=== PATIENT | female | born 1985 | race Caucasian/White ===

== ENCOUNTER 2016-09-28 08:33 | Emergency (ER) | payer MEDICAID, OTHER ==
[~2016-09-28] VITALS: Ht 160 cm; Wt 116.1 kg
[~2016-09-28 08:33] MED LIST: ACHD5005 PO; BPR150TCR PO; BUTA-234 PO; CEPH250C PO; CEPH500C PO; DCL250C PO; DICY20TA57 PO; FERR325C PO; FLUC150T PO; FLUO20CA25 PO; FLUO20TA28 PO; HYDR-3714 PO; HYDR1CAP2 PO; HYDR1TAB PO; HYDR50TA3; IBP600T1 PO; INSU100V SQ; IRON; LABE100T2 PO; LEVO750T24 PO; LEVO750T6 PO; MTF500T PO; MTP50T; NAPR-243 PO; NITR100C3 PO; NPH,100V SQ; OMG1KC PO; ONDA8TAB13 PO; PHEN37.555 PO; PNV; PREN-102 PO; PREN1TAB39; PREN1TAB71 PO; PRM25T PO; SRTR100T PO; SULF-222 PO; TRAM50TA2 PO; TRM50T PO; VARE1TAB17 PO; VICODIN; WATER PILL; YAZ; percocet
--- OUTSIDE RECORDS SUMMARY | 2016-09-28 08:39 | XMS REPORT | Continuity of Care Document ---
Author Author Interface Organization Interface Address Unknown Phone Unavailable Problems Problem Status Onset Date Classification Date Reported Comments Source Gestational diabetes mellitus (disorder) Active Problem 07/13/2016 [facility]. History of calculus of kidney (situation) Active Problem 07/13/2016 [facility]. Gestational diabetes mellitus (disorder) Active Problem 07/09/2016 [facility]. History of calculus of kidney (situation) Active Problem 07/09/2016 [facility]. Persistent atrial fibrillation (disorder) 07/04/2016 Diagnosis 07/09/2016 [facility] Medications Medication Details Route Status Patient Instructions Ordering Provider Order Date Source No Known Medications No known medications Active [facility] Allergies, Adverse Reactions, Alerts Substance Category Reaction Severity Reaction type Status Date Reported Comments Source Tape Assertion Allergy to substance [facility] Tape Assertion Allergy to substance [facility] Immunizations Immunization Date Given Site Status Last Updated Comments Source No data available for this section No data available for this section [facility]. No data available for this section No data available for this section [facility]. Results Order Name Results Value Reference Range Date Interpretation Comments Source Vital Signs Vital Sign Value Date Comments Source Encounters Location Location Details Encounter Type Encounter Number Reason For Visit Attending Provider ADM Date DC Date Status Source [facility] [id number] Clinic ( Outpatient) [id number] . [facility] 07/09/2016 Active [facility] [id number] Inpatient [id number] Harvey Mcnamara 07/04/201605/2016 Active [facility] Cancel/ No Show [id number] . [facility] 07/09/2016 07/09/2016 [facility] Inpatient [id number] Harvey Mcnamara 07/04/2016 07/05/2016 [facility] Procedures Procedure Code Date Perfomer Comments Source No data available for this section [employer] [facility]. Cholecystectomy; 13876 [facility].
[2016-09-28 09:15] VITALS: BP 126/111
[2016-09-28] MEDS ORDERED: methylPREDNISolone 125 MG (Solu-MEDROL) VIAL IM ONE (09:15)
[2016-09-28] MEDS ORDERED: diphenhydrAMINE 50 MG/ML INJ (BENADRYL) IM ONE (09:15)
--- NOTE | 2016-09-28 09:15 | ED Integumentary General ---
General Chief Complaint: Skin/Wound Problems Stated Complaint: 16W PREG, HEAD TO TOE ITCHING Nursing Triage Note: AMB TO ROOM HAS HAD ITCHEY SKIN NO RASH SINCE SAT. 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 09/14/16 Allergies and Home Medications Allergies Coded Allergies: No Known Drug Allergies (Verified , 03/18/09) Uncoded Allergies: TAPE (Allergy, Mild, 03/28/09) TAPE ADHESIVE (Allergy, Mild, 04/06/09) Home Medications Labetalol HCl 100 Mg Tablet 100 MG PO BID (Reported) Vit/Iron Fumarate/FA 1 Each Tablet 1 EACH PO DAILY (Reported) Constitutional: no symptoms reported EENTM: no symptoms reported Respiratory: no symptoms reported Cardiovascular: no symptoms reported Gastrointestinal: no symptoms reported : Yes Expected Date of Delivery: Mar 13, 2017 Musculoskeletal: no symptoms reported Skin: see HPI pruritus Psychiatric/Neurological: No Symptoms Reported Endocrine: No Symptoms Reported Hematologic/Lymphatic: No Symptoms Reported Past Bnlaluh-Wnseok-Qgempd Hx Patient Social History Recent Foreign Travel: No Contact w/Someone Who Travel: No Recent Infectious Disease Expo: No Recent Hopitalizations: Yes (child-strep throat, gallstones, kidney stones) Immunizations Up To Date Tetanus Booster (TDap): Unknown PED Vaccines UTD: Yes Seasonal Allergies Seasonal Allergies: No Surgeries HX Surgeries: Yes Surgeries: Section Respiratory Hx Respiratory Disorders: No Cardiovascular Hx Cardiac Disorders: Yes Cardiac Disorders: Atrial Fibrillation Neurological Hx Neurological Disorders: Yes Neurological Disorders: Headaches /Migraines Reproductive System : Yes Hx Reproductive Disorders: Yes Sexually Transmitted Disease: No HIV/AIDS: No Female Reproductive Disorders: Polycystic Ovarian Dis Genitourinary Hx Genitourinary Disorders: No Gastrointestinal Hx Gastrointestinal Disorders: No Musculoskeletal Hx Musculoskeletal Disorders: No Endocrine Hx Endocrine Disorders: Yes (HAD GESTIONAL DIABETES) Endocrine Disorders: Diabetes, Insulin dep HEENT HX ENT Disorders: Yes (GLASSES) Cancer Hx Cancer: No Psychosocial Hx Psychiatric Problems: No Integumentary HX Skin/Integumentary Disorder: Yes Skin/Integumentary Disorders: Psoriasis Blood Transfusions Hx Blood Disorders: Yes (ANEMIA) Adverse Reaction to a Blood Tr: No Family Medical History Significant Family History: Cancer Family Medial History: Colon cancer G8 BROTHER, Onset:20 - Headache disorder 19 MOTHER No Family History of: AIDS Abdominal aortic aneurysm Enderlin's disease Alcoholism Alzheimer's disease Aphasia Arthritis Asthma Cancer of mouth Cardiovascular disease Cataracts Completed stroke Congenital disease Congenital heart disease Coronary thrombosis Cystic fibrosis Deafness or hearing loss Dementia Diabetes mellitus Drug abuse Dysphasia Fibrocystic disease of breast Gastroenteritis Glaucoma Hypercholesterolemia Hypertension Infertility Kidney disease Myocardial infarction Neoplasm Not obtainable due to adoption Osteoporosis Parkinson's disease Prostate cancer Psychosocial problem Respiratory disorder Seizure disorder Severe allergy Thyroid disease Tuberculosis Visual disorder Physical Exam Vital Signs Vital Sign - Last 12Hours 09/28/16 09/28/16 08:36 09:15 Temp 97.2 Pulse 102 Resp 18 B/P 126/111 Pulse Ox 98 O2 Delivery Room Air Capillary Refill : Less Than 3 Seconds General Appearance: no apparent distress obese other (CONSTANT SCRATCHING OF ENTIRE BODY) HEENT: PERRL/EOMI normal ENT inspection Neck: normal inspection Cardiovascular: regular rate, rhythm no edema no murmur Respiratory: normal breath sounds Gastrointestinal: non tender soft Back: normal inspection Extremities: normal inspection 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 no motor/sensory deficits alert normal mood/affect oriented x 3 Skin: normal color warm/dryNo rash Progress/Results/Core Measures Results/Orders My Orders Orders-MICHAEL WOODRUFF DO Diphenhydramine Injection (Benadryl Inje (09/28/16 09:15) Methylprednisolone Sod Succ (Solu-Medrol (09/28/16 09:15) Vital Signs/I&O Vital Sign - Last 12Hours 09/28/16 09/28/16 08:36 09:15 Temp 97.2 97.2 Pulse 102 102 Resp 18 18 B/P 126/111 Pulse Ox 98 O2 Delivery Room Air Blood Pressure Mean: 116 Departure Impression Impression: Primary Impression: Generalized pruritus Disposition: 01 HOME, SELF-CARE Condition: Stable Departure-Patient Inst. Referrals: [facility] (PCP/Family) Primary Care Physician Patient Instructions: Itchy Skin Add. Discharge Instructions: TAKE BENADRYL 50 MG EVERY 4 HOURS NEEDED FOR ITCHING HYDROCORTISONE CREAM TO SKIN 3 TIMES A DAY LOTS OF WATER STOP B-VITAMIN FOLLOW UP WITH [facility] IN 2-3 DAYS IF NO BETTER ll discharge instructions reviewed with patient and/or family. Voiced understanding. MICHAEL WOODRUFF DO Sep 28, 2016 09:15
== END 2016-09-28 09:30 | disposition home or self-care (01) ==
LOC: EDUNIT# 08:33 → ER 08:35
DX: O99.89 Other specified diseases and conditions complicating pregnancy, childbirth and the puerperium (principal); L29.9 Pruritus, unspecified; Z3A.16 16 weeks gestation of pregnancy
CPT/HCPCS: 96372; 99284

== ENCOUNTER 2016-10-02 12:48 | Emergency (ER) | payer MEDICAID ==
[~2016-10-02] VITALS: Ht 160 cm; Wt 102.1 kg
--- NOTE | 2016-10-02 13:26 | ED GU-Female ---
General Chief Complaint: -Female Stated Complaint: LEAKING FLUID 16 WKS PREG Nursing Triage Note: AMBULATED TO ROOM 09 WITH COMPLAINTS OF THINKING HER WATER BROKE. STATES SHE IS 17 WEEKS GESTATION AND FELT A LARGE "GUSH" OF CLEAR FLUID AND CONTINUES TO LEAK. Nursing Sepsis Screen: No Definite Risk Source: patient Exam Limitations: no limitations History of Present Illness Time seen by provider: 13:24 Initial Comments To ER with complains of leaking clear fluids from the vagina. She states she was walking when she felt a large gush of liquid from between her legs. She continues to leak fluid which she states is clear and without obvious blood. She is 17 weeks gestation LMP of June 07. She follows with Dr. Angeles. She reports that on Wednesday night and Wednesday she had some abdominal cramping that felt like contractions as it would tighten and then relax rhythmically. Yesterday, , she was asymptomatic without cramping or leakage of fluids. Currently she is without cramping or pain. Timing/Duration: constant Severity/Quality: moderate Location: unknown Radiation: suprapubic Activities at Onset: none Associated Symptoms: denies symptoms Allergies and Home Medications Allergies Coded Allergies: No Known Drug Allergies (Verified , 03/18/09) Uncoded Allergies: TAPE (Allergy, Mild, 03/28/09) TAPE ADHESIVE (Allergy, Mild, 04/06/09) Home Medications Cephalexin 500 Mg Capsule #15 500 MG PO TID Prescribed by: CARRIE CHAMBERLAIN on 10/02/16 1437 Labetalol HCl 100 Mg Tablet 100 MG PO BID (Reported) Vit/Iron Fumarate/FA 1 Each Tablet 1 EACH PO DAILY (Reported) Constitutional: see HPINo chills, No fever EENTM: see HPI Respiratory: no symptoms reported Cardiovascular: no symptoms reported Genitourinary: no symptoms reported Musculoskeletal: no symptoms reported Skin: no symptoms reported Psychiatric/Neurological: No Symptoms Reported Past Uvitfjg-Kjdfin-Jhylgq Hx Patient Social History Recent Foreign Travel: No Contact w/Someone Who Travel: No Recent Infectious Disease Expo: No Recent Hopitalizations: Yes (child-strep throat, gallstones, kidney stones) Immunizations Up To Date Tetanus Booster (TDap): Unknown PED Vaccines UTD: Yes Seasonal Allergies Seasonal Allergies: No Surgeries HX Surgeries: Yes Surgeries: Section Respiratory Hx Respiratory Disorders: No Cardiovascular Hx Cardiac Disorders: Yes Cardiac Disorders: Atrial Fibrillation Neurological Hx Neurological Disorders: Yes Neurological Disorders: Headaches /Migraines Reproductive System Hx Reproductive Disorders: Yes Sexually Transmitted Disease: No HIV/AIDS: No Female Reproductive Disorders: Polycystic Ovarian Dis Genitourinary Hx Genitourinary Disorders: No Gastrointestinal Hx Gastrointestinal Disorders: No Musculoskeletal Hx Musculoskeletal Disorders: No Endocrine Hx Endocrine Disorders: Yes (HAD GESTIONAL DIABETES) Endocrine Disorders: Diabetes, Insulin dep HEENT HX ENT Disorders: Yes (GLASSES) Cancer Hx Cancer: No Psychosocial Hx Psychiatric Problems: No Integumentary HX Skin/Integumentary Disorder: Yes Skin/Integumentary Disorders: Psoriasis Blood Transfusions Hx Blood Disorders: Yes (ANEMIA) Adverse Reaction to a Blood Tr: No Family Medical History Significant Family History: Cancer Family Medial History: Colon cancer G8 BROTHER, Onset:20 - 25 Headache disorder 19 MOTHER No Family History of: AIDS Abdominal aortic aneurysm [place]aranjito's disease Alcoholism Alzheimer's disease Aphasia Arthritis Asthma Cancer of mouth Cardiovascular disease Cataracts Completed stroke Congenital disease Congenital heart disease Coronary thrombosis Cystic fibrosis Deafness or hearing loss Dementia Diabetes mellitus Drug abuse Dysphasia Fibrocystic disease of breast Gastroenteritis Glaucoma Hypercholesterolemia Hypertension Infertility Kidney disease Myocardial infarction Neoplasm Not obtainable due to adoption Osteoporosis Parkinson's disease Prostate cancer Psychosocial problem Respiratory disorder Seizure disorder Severe allergy Thyroid disease Tuberculosis Visual disorder Physical Exam Vital Signs Vital Sign - Last 12Hours 10/02/16 13:00 Temp 96.2 Pulse 83 Resp 18 B/P 143/80 Pulse Ox 98 Capillary Refill : Less Than 3 Seconds General Appearance: WD/WN no apparent distress HEENT: PERRL/EOMI normal ENT inspection Neck: non-tender full range of motion Respiratory: no respiratory distress no accessory muscle use Gastrointestinal: normal bowel sounds non tender soft Extremities: normal range of motion non-tender Neurologic/Psychiatric: alert normal mood/affect oriented x 3 Skin: normal color warm/dry Comments No vaginal bleeding during ER stay. Progress/Results/Core Measures Results/Orders Lab Results Laboratory Tests Test 10/02/16 13:25 10/02/16 13:38 Range/Units Basophils # (Auto) 0.0 0.0-0.1 10^3/uL Basophils (%) (Auto) 0 0-10 % Eosinophils # (Auto) 0.1 0.0-0.3 10^3/uL Eosinophils (%) (Auto) 1 0-10 % Hematocrit 35 35-52 % Hemoglobin 11.6 11.5-16.0 G/DL Human Chorionic Gonadotropin, Quant 90394 H <5 MIU/ML Lymphocytes # (Auto) 1.8 1.0-4.0 X 10^3 Lymphocytes (%) (Auto) 17 12-44 % Mean Corpuscular Hemoglobin 27 25-34 PG Mean Corpuscular Hemoglobin Concent 33 32-36 G/DL Mean Corpuscular Volume 82 80-99 FL Mean Platelet Volume 10.5 H 7.4-10.4 FL Monocytes # (Auto) 0.4 0.0-1.0 X 10^3 Monocytes (%) (Auto) 4 0-12 % Neutrophils # (Auto) 8.5 H 1.8-7.8 X 10^3 Neutrophils (%) (Auto) 78 H 42-75 % Platelet Count 255 130-400 10^3/uL Red Blood Count 4.25 L 4.35-5.85 10^6/uL Red Cell Distribution Width 14.4 10.0-14.5 % White Blood Count 10.9 4.3-11.0 10^3/uL Urine Bacteria MODERATE H /HPF Urine Bilirubin NEGATIVE NEGATIVE Urine Calcium Oxalate Crystals RARE H /LPF Urine Casts NONE /LPF Urine Clarity SLIGHTLY CLOUDY Urine Color YELLOW Urine Crystals PRESENT H /LPF Urine Culture Indicated YES Urine Glucose (UA) NEGATIVE NEGATIVE Urine Ketones NEGATIVE NEGATIVE Urine Leukocyte Esterase 1+ H NEGATIVE Urine Mucus NEGATIVE /LPF Urine Nitrite NEGATIVE NEGATIVE Urine Protein NEGATIVE NEGATIVE Urine RBC NONE /HPF Urine RBC (Auto) NEGATIVE NEGATIVE Urine Specific [place] 1.030 H 1.016-1.022 Urine Squamous Epithelial Cells 10-25 H /HPF Urine Urobilinogen NORMAL NORMAL MG/DL Urine WBC 2-5 /HPF Urine pH 5 5-9 My Orders Orders-CARRIE CHAMBERLAIN DICTAPHONE TECHNICIAN Cbc With Automated Diff (10/02/16 13:14) Hcg,Quantitative (10/02/16 13:14) Abo Rh Type (10/02/16 13:14) Us Ob Preg Late(14-40wks)[id number] (10/02/16 13:14) Ua Culture If Indicated (10/02/16 13:31) Urine Culture (10/02/16 13:38) Vital Signs/I&O Vital Sign - Last 12Hours 10/02/16 13:00 Temp 96.2 Pulse 83 Resp 18 B/P 143/80 Pulse Ox 98 Blood Pressure Mean: 101 Diagnostic Imaging Diagonstic Imaging: Ultrasound Comments NAME: LAURY GALVIN [facility] REC#: [id number] PT STATUS: REG ER : 1985 PHYSICIAN: CARRIE CHAMBERLAIN APRN ADMIT DATE: 10/02/16/ER Draft Date of Exam:10/02/16 US OB PREG LATE(14-40WKS)[id number] INDICATION: patient, leaking fluid. OB sonography performed in the routine fashion. There is no prior study during this for comparison. FINDINGS: A single live intrauterine fetus is seen measuring 16 weeks 2 days by composite measurements. Sonographic EDC is 03/17/17. The fetus is in transverse presentation with head to maternal right. Amniotic fluid index is 8.0 cm. The placenta is posterior with no evidence of previa. heart rate is 165 beats per minute. IMPRESSION: Single live intrauterine fetus measuring 16 weeks 2 days by composite measurements. Amniotic fluid index is at low end of normal range at 8.0 cm. There is no other abnormal finding. Dictated on workstation # [id number] Dict: 10/02/16 1412 Trans: 10/02/16 1420 [facility] [id number] Interpreted by: MARY OGDEN MD Electronically signed by: Departure Communication Time/Spoke to Admitting Phy: 14:33 Communication I did attempt to notify Dr. Angeles of case/findings however she was not front sight attacher and would like me to call Dr. Figueroa. I then discussed with Dr. Figueroa. The nitrazine swab remains a yellowish color consistent with a pH of 5.5 which would be inconsistent with leakage of amniotic fluid. Dr. Figueroa recommends patient can be discharged and should return to the emergency room for any abdominal pain, cramping, bleeding or fevers. She should follow-up with Dr. Angeles next week. Impression Impression: Primary Impression: Intrauterine Additional Impression: Asymptomatic bacteriuria during Disposition: HOME, SELF-CARE Condition: Stable Decision to Admit Reason: Admit from ER (General) Decision to Admit/Date: Oct 02, 2016 Time/Decision to Admit Time: 14:35 Departure-Patient Inst. Decision time for Depature: 14:35 Referrals: [facility] (PCP/Family) Primary Care Physician Patient Instructions: NO INSTRUCTIONS GIVEN Add. Discharge Instructions: 1. Follow up with Dr Angeles next week 2. Return to ER for any concerns such as fevers, abdominal pain, vaginal bleeding, or worsening symptoms. All discharge instructions reviewed with patient and/or family. Voiced understanding. Scripts Cephalexin (Keflex)500 Mg [id number] Mg PO TID #15 CAP Prov:CARRIE CHAMBERLAIN DICTAPHONE TECHNICIAN 10/02/16 Copy Copies To 1: SURESH ANGELES PETER J APRN Oct 02, 2016 13:26
[2016-10-02 13:37] LABS: BASOPHILS % (AUTO) 0 % (0-10); EOSINOPHILS # (AUTO) 0.1 10^3/uL (0.0-0.3); EOSINOPHILS % (AUTO) 1 % (0-10); LYMPHOCYTES # (AUTO) 1.8 X 10^3 (1.0-4.0); LYMPHOCYTES % (AUTO) 17 % (12-44); MEAN CORPUSCULAR HEMOGLOBIN 27 PG (25-34); MEAN CORPUSCULAR HGB CONC 33 G/DL (32-36); MEAN CORPUSCULAR VOLUME 82 FL (80-99); MEAN PLATELET VOLUME 10.5 FL (7.4-10.4); MONOCYTES # (AUTO) 0.4 X 10^3 (0.0-1.0); MONOCYTES % (AUTO) 4 % (0-12); NEUTROPHILS # (AUTO) 8.5 X 10^3 (1.8-7.8); NEUTROPHILS % (AUTO) 78 % (42-75); PLATELET COUNT 255 10^3/uL (130-400); RED BLOOD COUNT 4.25 10^6/uL (4.35-5.85); RED CELL DISTRIBUTION WIDTH 14.4 % (10.0-14.5); WHITE BLOOD COUNT 10.9 10^3/uL (4.3-11.0)
[2016-10-02 13:47] LABS: BILIRUBIN,URINE NEGATIVE (NEGATIVE); KETONES,URINE NEGATIVE (NEGATIVE); LEUKOCYTE ESTERASE ,URINE 1+ (NEGATIVE); NITRITE,URINE NEGATIVE (NEGATIVE); PH,URINE 5 (5-9); PROTEIN,URINE NEGATIVE (NEGATIVE); UROBILINOGEN,URINE NORMAL (NORMAL)
[2016-10-02 13:56] LABS: CALCIUM OXALATE CRYSTALS,UR RARE /LPF
--- NOTE | 2016-10-02 14:20 | Diagnostic Imaging Report ---
INDICATION: patient, leaking fluid. OB sonography performed in the routine fashion. There is no prior study during this for comparison. FINDINGS: A single live intrauterine fetus is seen measuring 16 weeks 2 days by composite measurements. Sonographic EDC is 03/17/17. The fetus is in transverse presentation with head to maternal right. Amniotic fluid index is 8.0 cm. The placenta is posterior with no evidence of previa. heart rate is 165 beats per minute. IMPRESSION: Single live intrauterine fetus measuring 16 weeks 2 days by composite measurements. Amniotic fluid index is at low end of normal range at 8.0 cm. There is no other abnormal finding. Dictated by: Dictated on workstation # [id number]
[2016-10-02] MEDS ORDERED: CEPH-507 PO (14:37)
[2016-10-02 14:46] VITALS: BP 143/80
== END 2016-10-02 14:46 | disposition home or self-care (01) ==
LOC: EDUNIT# 12:48 → ER 12:50
DX: O23.42 Unspecified infection of urinary tract in pregnancy, second trimester (principal); Z3A.16 16 weeks gestation of pregnancy
CPT/HCPCS: 36415; 76805; 81000; 84702; 85025; 86900; 86901; 87088

== ENCOUNTER 2016-10-31 15:41 | Outpatient (CLI) | payer MEDICAID ==
[~2016-10-31] VITALS: Ht 160 cm; Wt 117.9 kg
[~2016-10-31 15:41] MED LIST changes: +CEPH-507 PO
[2016-10-31 16:00] VITALS: BP 108/67
[2016-10-31 16:51] LABS: BILIRUBIN,URINE NEGATIVE (NEGATIVE); KETONES,URINE NEGATIVE (NEGATIVE); LEUKOCYTE ESTERASE ,URINE NEGATIVE (NEGATIVE); NITRITE,URINE NEGATIVE (NEGATIVE); PH,URINE 6 (5-9); PROTEIN,URINE 1+ (NEGATIVE); UROBILINOGEN,URINE NORMAL (NORMAL)
[2016-10-31 17:07] LABS: SQUAMOUS EPITHELIAL CELL,UR >50 /HPF
[2016-10-31 17:08] LABS: CALCIUM OXALATE CRYSTALS,UR LARGE /LPF
[2016-10-31] MEDS ORDERED: DILT180C67 PO (17:08)
--- NOTE | 2016-10-31 18:12 | Diagnostic Imaging Report ---
INDICATION: Possible kidney stones. COMPARISON STUDY: CT scan of the abdomen from 2009. FINDINGS: Bilateral renal ultrasound demonstrates both kidneys to be of normal size, shape, texture and echogenicity. Flow is seen to both kidneys. No calculi or hydronephrosis is present. Right kidney measures 12.0 x 5.5 x 6.47 cm and the left measures 12.3 x 4.9 x 6.2 cm. The bladder is decompressed. IMPRESSION: Normal renal ultrasound. Dictated by: Dictated on workstation # [id number]
--- NOTE | 2016-11-02 10:59 | Physician Query-Final Dx ---
MARCO LAGOS 11/02/16 1059: Clinic Account Progress/Dx Physician Query: Please give diagnosis Date of Service Oct 31, 2016 at 15:41 DONG MAURER MD 11/03/16 1929: Clinic Account Progress/Dx DIAGNOSIS: Diagnosis Abdominal pain (left lower quadrant) in second trimester MARCO LAGOS Nov 02, 2016 10:59 DONG MAURER MD Nov 03, 2016 19:29
== END 2016-10-31 18:20 | disposition home or self-care (01) ==
LOC: LDRP 15:41 → WSo 15:41
PROVIDERS: ATTEND Obstetrics & Gynecology
DX: O99.89 Other specified diseases and conditions complicating pregnancy, childbirth and the puerperium (principal); R10.32 Left lower quadrant pain; Z3A.20 20 weeks gestation of pregnancy
CPT/HCPCS: 76770; 81000; 87088; 99213

== ENCOUNTER 2016-12-20 10:54 | Outpatient (CLI) | payer MEDICAID ==
[~2016-12-20] VITALS: Ht 160 cm; Wt 121.3 kg
[~2016-12-20 10:54] MED LIST changes: +DILT180C67 PO
[2016-12-20 11:31] VITALS: BP 132/73
[2016-12-20 11:42] LABS: BILIRUBIN,URINE NEGATIVE (NEGATIVE); KETONES,URINE NEGATIVE (NEGATIVE); LEUKOCYTE ESTERASE ,URINE 1+ (NEGATIVE); NITRITE,URINE NEGATIVE (NEGATIVE); PH,URINE 5 (5-9); PROTEIN,URINE 1+ (NEGATIVE); UROBILINOGEN,URINE 1 MG/DL (NORMAL)
[2016-12-20] MEDS ORDERED: NS IV 1000 ML 1,000 ML IV SCH (12:15)
--- NOTE | 2016-12-21 14:07 | Physician Query-Final Dx ---
MARCO LAGOS 12/21/16 1407: Clinic Account Progress/Dx Physician Query: Please give diagnosis Date of Service Dec 20, 2016 at 10:54 ANGELA CARVALHO DO 12/21/16 1644: Clinic Account Progress/Dx DIAGNOSIS: Diagnosis 28 week IUP Suprapubic pains MARCO LAGOS Dec 21, 2016 14:07 ANGELA CARVALHO DO Dec 21, 2016 16:44
== END 2016-12-20 14:52 | disposition home or self-care (01) ==
LOC: DELPENDDIS → WSo 10:54 → LDRP 10:54 → WSo 14:52
PROVIDERS: ATTEND Obstetrics & Gynecology
DX: O99.89 Other specified diseases and conditions complicating pregnancy, childbirth and the puerperium (principal); R10.2 Pelvic and perineal pain; Z3A.28 28 weeks gestation of pregnancy
CPT/HCPCS: 81000; 96360; 96361; 99214

== ENCOUNTER 2017-01-16 18:33 | Outpatient (CLI) | payer MEDICAID ==
[~2017-01-16] VITALS: Ht 160 cm; Wt 122.2 kg
[2017-01-16 18:57] VITALS: BP 129/69
[2017-01-16 19:16] LABS: BILIRUBIN,URINE NEGATIVE (NEGATIVE); KETONES,URINE NEGATIVE (NEGATIVE); LEUKOCYTE ESTERASE ,URINE NEGATIVE (NEGATIVE); NITRITE,URINE NEGATIVE (NEGATIVE); PH,URINE 6.5 (5-9); PROTEIN,URINE 1+ (NEGATIVE); UROBILINOGEN,URINE 4 MG/DL (NORMAL)
[2017-01-16 19:23] LABS: SQUAMOUS EPITHELIAL CELL,UR 25-50 /HPF; WBC,URINE RARE /HPF
[2017-01-16 19:32] VITALS: BP 126/55
[2017-01-16 20:02] VITALS: BP 126/69
[2017-01-16] MEDS ORDERED: CEPH-507 PO (20:29)
--- NOTE | 2017-01-16 20:31 | Diagnostic Imaging Report ---
EXAM: Ultrasound biophysical profile. DATE: January 16, 2017. INDICATION: 31-year-old female, decreased movement. COMPARISON: October 02, 2016. FINDINGS: heart rate is identified at 143 beats per minute. The amniotic fluid index measures 19.8. The biophysical profile score obtained by the cath lab technologist is 8 out of 8. The fetus is in transverse presentation. IMPRESSION: Biophysical profile score of 8 out of 8 obtained by the cath lab technologist. Dictated by: Dictated on workstation # [id number]
[2017-01-19 10:19] LABS: CHLAMYDIA DNA PROBE PT Negative (Negative); NEISSERIA GONORRHEA DNA Negative (Negative)
--- NOTE | 2017-01-19 10:45 | Physician Query-Final Dx ---
MARCO LAGOS 01/19/17 1045: Clinic Account Progress/Dx Physician Query: Please give diagnosis Date of Service Jan 16, 2017 at 18:33 DONG MAURER MD 01/19/17 1153: Clinic Account Progress/Dx DIAGNOSIS: Diagnosis Decreased movement (third trimester), abdominal pain in , urinary frequency MARCO LAGOS Jan 19, 2017 10:45 DONG MAURER MD Jan 19, 2017 11:53
== END 2017-01-16 20:35 | disposition home or self-care (01) ==
LOC: LDRP 18:33 → WSo 18:33
PROVIDERS: ATTEND Obstetrics & Gynecology
DX: O36.8130 Decreased fetal movements, third trimester, not applicable or unspecified (principal); R35.0 Frequency of micturition; Z3A.32 32 weeks gestation of pregnancy
CPT/HCPCS: 36415; 76819; 81000; 87210; 87491; 87591; 99214

== ENCOUNTER → 2017-02-03 | Outpatient (CLI) | payer MEDICAID ==
--- NOTE | 2017-02-03 17:08 | Diagnostic Imaging Report ---
INDICATION: Gestational diabetes. Biophysical profile in addition to OB ultrasound followup is performed. TECHNIQUE: Multiple real-time grayscale images were obtained over the gravid uterus. COMPARISON: 01/16/17. FINDINGS: heart rate is 163 beats per minute. The placenta is fundal. No placenta previa. The amniotic fluid index is 16 cm. Biophysical profile evaluation demonstrates movements and posture and tone meeting criteria. breathing movements not seen, however. Therefore, total biophysical profile score is 6/8. Biometrical measurements are as follows: Biparietal 8.7 cm, age 35 weeks 3 days. Head circumference 32 cm, age 36 weeks 1 days. Abdominal circumference 34.5 cm, age 38 weeks 3 days. This is larger than the 98th percentile. Femur length 6.7 cm, age 34 weeks 6 days. Sonographic estimate age: 36 weeks 2 days. This compares to a gestational age of 34 weeks and 4 days based on assigned NILESH of 03/13/17. Sonographic estimated date of delivery: 03-01-17. Estimated Weight: 3068 gm (+/- +/- 448 gm). LMP percentile: 96%. heart rate: 163 beats per minute. number: 1 of 1. IMPRESSION: 1. Biophysical profile score is 6/8. No breathing motion is seen. 2. Growth parameters are as listed above. The abdominal circumference is larger than the 98th percentile. Results of biophysical profile score were called on February 03, at 5:[address] Haven Jeffries. Dictated by: Dictated on workstation # [id number]
== END ==
LOC: RAD 11:22
PROVIDERS: ATTEND Obstetrics & Gynecology
DX: O24.414 Gestational diabetes mellitus in pregnancy, insulin controlled (principal); Z3A.36 36 weeks gestation of pregnancy
CPT/HCPCS: 76805; 76819

== ENCOUNTER 2017-02-17 13:50 | Outpatient (CLI) | payer MEDICAID ==
[2017-02-17] VITALS (8 sets, daily range): BP systolic 122–140; BP diastolic 68–81
[~2017-02-17] VITALS: Ht 160 cm; Wt 123.4 kg
[2017-02-17 14:39] LABS: KETONES,URINE NEGATIVE (NEGATIVE); LEUKOCYTE ESTERASE ,URINE 2+ (NEGATIVE); NITRITE,URINE NEGATIVE (NEGATIVE); PH,URINE 5 (5-9); PROTEIN,URINE 1+ (NEGATIVE); UROBILINOGEN,URINE 4 MG/DL (NORMAL)
[2017-02-17 14:57] LABS: BILIRUBIN,URINE 1+ (NEGATIVE); CALCIUM OXALATE CRYSTALS,UR RARE /LPF; URIC ACID CRYSTALS,URINE MODERATE /LPF
[2017-02-17] MEDS ORDERED: D5 LR IV SOLUTION 1,000 ML IV SCH (15:06)
[2017-02-17] MEDS ORDERED: CEPH-506 PO (15:13)
[2017-02-17] MEDS ORDERED: ONDANSETRON 4 MG/2 ML (SDV) Z0FRAN IVP NR (15:15)
[2017-02-17] MEDS ORDERED: D5 LR IV SOLUTION 1,000 ML IV ONE (15:15)
[2017-02-17 15:53] LABS: MEAN PLATELET VOLUME 10.6 FL (7.4-10.4); RED BLOOD COUNT 4.09 10^6/uL (4.35-5.85); RED CELL DISTRIBUTION WIDTH 16.1 % (10.0-14.5); WHITE BLOOD COUNT 10.2 10^3/uL (4.3-11.0)
[2017-02-17 15:54] LABS: PROTEIN/CREATININE RATIO 0.08
[2017-02-17 16:16] LABS: ALANINE AMINOTRANSFERASE < 6 U/L (0-55); ALBUMIN 3.1 G/DL (3.2-4.5); ANION GAP 8 MMOL/L (5-14); ASPARTATE AMINO TRANSFERASE 7 U/L (5-34); BILIRUBIN,TOTAL 0.4 MG/DL (0.1-1.0); BLOOD UREA NITROGEN 7 MG/DL (7-18); BUN/CREATININE RATIO 12; CALCIUM 9.3 MG/DL (8.5-10.1); CARBON DIOXIDE 23 MMOL/L (21-32); CHLORIDE 108 MMOL/L (98-107); CREATININE SERUM 0.58 MG/DL (0.60-1.30); GFR ESTIMATED > 60; GLUCOSE 101 MG/DL (70-105); LACTATE DEHYDROGENASE 141 U/L (125-220); POTASSIUM 3.8 MMOL/L (3.6-5.0); SODIUM 139 MMOL/L (135-145); TOTAL PROTEIN 6.3 G/DL (6.4-8.2); URIC ACID 5.5 MG/DL (2.6-7.2)
--- NOTE | 2017-02-17 17:01 | Diagnostic Imaging Report ---
EXAMINATION: Left lower extremity duplex venous ultrasound. TECHNIQUE: DVT protocol. Multiple sonographic images with color Doppler and waveform interrogation were performed of the left lower extremity veins with compression and augmentation maneuvers. INDICATION: Left leg throbbing pain. FINDINGS: The left lower extremity veins from the groin to below the knee veins were examined with normal color-flow, compressibility and waveform demonstrated. The great saphenous vein is patent. IMPRESSION: No evidence of DVT in the left lower extremity. Dictated by: Dictated on workstation # [id number]
--- NOTE | 2017-02-18 09:49 | Physician Query-Final Dx ---
MARCO LAGOS 02/18/17 0949: Clinic Account Progress/Dx Physician Query: Please give diagnosis Date of Service February 17, 2017 at 13:50 DONG MAURER MD 03/02/17 0859: Clinic Account Progress/Dx DIAGNOSIS: Diagnosis Leg pain in MARCO LAGOS February 18, 2017 09:49 DONG MAURER MD Mar 02, 2017 08:59
== END 2017-02-17 17:12 | disposition home or self-care (01) ==
LOC: LDRP 13:50 → WSo 13:50
PROVIDERS: ATTEND Obstetrics & Gynecology
DX: O99.89 Other specified diseases and conditions complicating pregnancy, childbirth and the puerperium (principal); M79.605 Pain in left leg; Z3A.36 36 weeks gestation of pregnancy
CPT/HCPCS: 36415; 80053; 81000; 82570; 83615; 84156; 84550; 85027; 87088; 96361; 96374; 99213

== ENCOUNTER 2017-02-23 08:27 | Outpatient (RCR) | payer MEDICAID ==
--- NOTE | 2017-02-09 18:21 | Diagnostic Imaging Report ---
EXAM: OB ultrasound biophysical profile. INDICATION: 024.414 FINDINGS: The heart rate is 135 beats per minute. The position is breech. Total DELFINO is 17 cm. Biophysical profile criteria were met with total score of 8 out of 8. IMPRESSION: Biophysical profile score is 8 out of 8. Dictated by: Dictated on workstation # [id number]
--- NOTE | 2017-02-16 11:20 | Diagnostic Imaging Report ---
EXAMINATION: OB ultrasound, biophysical profile. INDICATION: Gestational diabetes. FINDINGS: The heart rate is 153 BPM. The position is cephalic. The DELFINO is 18.1 cm. The biophysical profile criteria were met for movements and the posterior but not for breathing movements for a total score of 6 out of 8 points. IMPRESSION: The total biophysical profile score is 6 out of 8. The findings were called to Dr. Jeffries's nurse, Colby, by the principal technologist performing the exam at 10 AM. Dictated by: Dictated on workstation # [id number]
[~2017-02-23 08:27] MED LIST changes: -FERR-74 PO; -METF1000 PO
[2017-02-24] MEDS ORDERED: METF1000 PO (12:08)
[2017-02-24] MEDS ORDERED: FERR-74 PO (12:09)
[2017-02-24] MEDS ORDERED: NPH,100V SQ (12:12)
[2017-03-02] MEDS ORDERED: DOCU100C37 PO (13:05)
[2017-03-02] MEDS ORDERED: IBUP-1773 PO (13:05)
[2017-03-02] MEDS ORDERED: HYDR-3812 PO (13:05)
== END 2017-05-10 | disposition home or self-care (01) ==
LOC: RAD 08:27
PROVIDERS: ATTEND Obstetrics & Gynecology
DX: O24.414 Gestational diabetes mellitus in pregnancy, insulin controlled (principal)
CPT/HCPCS: 76819

== ENCOUNTER → 2017-02-23 | Outpatient (CLI) | payer MEDICAID ==
[~2017-02-23] MED LIST changes: +CEPH-506 PO; +FERR-74 PO; +METF1000 PO
--- NOTE | 2017-02-23 10:32 | Diagnostic Imaging Report ---
INDICATION: Maternal gestational diabetes followup. TECHNIQUE: Multiple real-time grayscale images were obtained over the gravid uterus. COMPARISON: 02/16/2017. FINDINGS: Single live intrauterine is again demonstrated at 40 weeks 0 days by sonographic measurements. EDC by the first ultrasound is 03/13/2017. Gestational age by the first ultrasound is 37 weeks 3 days. Recommend clinical correlation for 2.5 week date discrepancy. presentation is cephalic. Placenta is located posteriorly with no placenta previa. heart rate measures 142 beats per minute. No movement was identified during the exam. There is normal breathing, posture and tone, and a normal amniotic fluid index for a biophysical profile score of 6/8, unchanged from previous exam. Amniotic fluid index measures 19 cm. Biparietal diameter measures 9.34 cm. Head circumference measures 35.5 cm. Abdominal circumference measures 36.1 cm. Femur length measures 7.7 cm. Biometrical measurements are as follows: Biparietal 9.3 cm, age 38 weeks 1 days. Head circumference 35.5 cm, age 41 weeks 5 days. Abdominal circumference 36.1 cm, age 40 weeks 1 days. Femur length 7.7 cm, age 39 weeks 4 days. Sonographic estimate age: 40 weeks 0 days. Sonographic estimated date of delivery: 02/23/17. Estimated Weight: 3897 gm (+/- 569 gm). LMP percentile: 97%. heart rate: 142 beats per minute. number: 1 of 1. IMPRESSION: 1. Single live intrauterine with no movement identified during the exam for biophysical profile score of 6/8, unchanged in overall score from the previous exam. 2. 2.5 week date discrepancy given measurements from the first ultrasound. Recommend clinical correlation. Dictated by: Dictated on workstation # [id number]
== END ==
LOC: RAD 08:23
PROVIDERS: ATTEND Obstetrics & Gynecology
DX: O24.414 Gestational diabetes mellitus in pregnancy, insulin controlled (principal)
CPT/HCPCS: 76805; 76819

== ENCOUNTER 2017-02-24 11:36 | Outpatient (CLI) | payer MEDICAID ==
[~2017-02-24] VITALS: Ht 160 cm; Wt 122.5 kg
[2017-02-24] MEDS ORDERED: METF1000 PO (12:08)
[2017-02-24] MEDS ORDERED: FERR-74 PO (12:09)
[2017-02-24] MEDS ORDERED: NPH,100V SQ (12:12)
[2017-02-24] MEDS ORDERED: LACTATED RINGERS 1,000 ML IV SCH (13:00)
[2017-02-24] MEDS ORDERED: FAMOTIDINE 20MG/2ML IV (PEPCID) ONE (13:21)
[2017-02-24] MEDS ORDERED: FAMOTIDINE 20MG/2ML IV (PEPCID) IVP ONE (13:30)
--- NOTE | 2017-02-24 13:35 | History & Physical-OB ---
OB - Chief Complaint & HPI Date Date of Admission: Date of Admission: Chief Complaint/History OB-Reason for Admission/Chief: Hx : 6 Hx Para: 2 Gestational Age in Weeks: 37 Gestational Age in Days: 4 Other reason for admission: 31 y/o @ 37w4d here for cramping Reports ctx starting last night, every 5-10 mins Also with epigastric pain, reports has GERD and takes PNV which was especially for women with GERD but no other meds for this No other symptoms, feels fatigued and pressure but otherwise doing well Fetus is active, no LOF VB c/b class III obesity (BMI 47), h/o CD x 2, GDM on insulin, DELFINO 19cm and LGA fetus (4000g) managed by Dr. Jeffries History of Labs See history Allergies and Home Medications Allergies Coded Allergies: No Known Drug Allergies (Verified , 03/18/09) Uncoded Allergies: TAPE (Allergy, Mild, 03/28/09) TAPE ADHESIVE (Allergy, Mild, 04/06/09) Home Medications Cephalexin 500 Mg Capsule, 500 MG PO QID for 7 Days Prescribed by: NICOLE REED on 01/16/172028 Ferrous Sulfate 325 Mg Tablet, 325 MG PO DAILY, (Reported) Insulin NPH Human Isophane 100 Unit/1 Ml Vial, 15 UNIT SQ HS, (Reported) Metformin HCl 1,000 Mg Tablet, 1,000 MG PO BID, (Reported) Vit/Iron Fumarate/FA 1 Each Tablet, 1 EACH PO DAILY, (Reported) OB - History Hx of Present Care: Yes Ultrasounds: Abnormal US findings (LGA fetus) Obstetrical Complications: Gestational Diabetes Medical Complications: Other (class III obesity) Information Induced Hypertension: No Maternal Gestational Diabetes: No Hemorrhage: No Obstetrical History Hx : 6 Hx Para: 2 Hx Termination: No Hx Multiple Gestation: No Hx Stillbirth: No Hx Complication: No Hx Induced Hypertens: No Hx Maternal Gestational Diabet: Yes Delivery History Hx Dystocia: No Hx Large For Gestational Age I: No Hx Small for Gestational Age I: No Hx Section: Yes Hx Vaginal Delivery Post C-Sec: No Hx Blood Disorders: Yes (ANEMIA) Adverse Rxn to Tranfusion: No Patient Past Medical History see above Social History/Family History HIV/AIDS: No Recent Infectious Disease Expo: No Sexually Transmitted Disease: No Immunizations Hepatitis A: No Hepatitis B: No Tetanus Booster (TDap): Unknown Date of Influenza Vaccine: Aug 13, 2016 OB - Admission Exam Physical Exam Vitals: BP 128/73 pulse 80s Heart: Rhythm Normal Abdomen: Other (with ctx, palpate mild) Cervical Dilatation: None Effacement: 50% Station: Ballotable Membranes: Intact (nitrazine neg) Heart Rate: 140's Accelerations: Accelerations Present Decelerations: No Decelerations Short Term Variability: Present Product Marketing Consultant Variability: Average (6-25) Contractions on Admission: < 5 Minutes Apart (likely uterine irritability) OB - Assessment/Plan/Diagnosis Plan Other Plan 31 y/o @ 37w4d with contractions/cramping H/o CD x 2 Class III obesity LGA fetus, GDM on insulin Will observe x one hour. Bolus 1L LR. If unchanged, d/c home. Discussed return precautions including LOF, VB, stronger ctx, incisional pain, decreased movement or other concerns. Counseled by myself with RN in room. DONG MAURER MD February 24, 2017 13:35
[2017-02-24 14:46] VITALS: BP 120/65
[2017-02-24 15:04] VITALS: BP 120/65
== END 2017-02-24 15:04 | disposition home or self-care (01) ==
LOC: WSo 11:36 → LDRP 11:36 → WSo 15:04
PROVIDERS: ATTEND Obstetrics & Gynecology
DX: O24.419 Gestational diabetes mellitus in pregnancy, unspecified control (principal); O99.213 Obesity complicating pregnancy, third trimester; E66.9 Obesity, unspecified; O99.63 Diseases of the digestive system complicating the puerperium; K21.9 Gastro-esophageal reflux disease without esophagitis; O36.63X0 Maternal care for excessive fetal growth, third trimester, not applicable or unspecified; Z79.4 Long term (current) use of insulin; Z68.42 Body mass index [BMI] 45.0-49.9, adult; Z3A.37 37 weeks gestation of pregnancy
CPT/HCPCS: 96361; 96374; 99214

== ENCOUNTER 2017-03-02 08:25 | Inpatient (IN) | payer MEDICAID ==
[~2017-03-02] VITALS: Ht 160 cm; Wt 123.0 kg
[~2017-03-02 08:25] MED LIST changes: +FERR-74 PO; +METF1000 PO
[2017-03-02 08:40] VITALS: BP 138/83
[2017-03-02] MEDS ORDERED: CITRIC ACID/SOB CIT (BICITRA) 30 ML UDC PO ONE (09:30)
[2017-03-02] MEDS ORDERED: FAMOTIDINE 20MG/2ML IV (PEPCID) IV ONE (09:30)
[2017-03-02] MEDS ORDERED: METOCLOPRAMIDE INJ 10 MG/2 ML (REGLAN) IV ONE (09:30)
[2017-03-02] MEDS ORDERED: ceFAZolin INJECTION 1,000 MG in NS (IVPB) 50 ML IV ONE (09:30)
[2017-03-02] MEDS ORDERED: metroNIDAZOLE 500MG/100ML IVPB 100 ML IV ONE (09:30)
[2017-03-02 09:34] LABS: BASOPHILS % (AUTO) 0 % (0-10); EOSINOPHILS # (AUTO) 0.1 10^3/uL (0.0-0.3); EOSINOPHILS % (AUTO) 1 % (0-10); LYMPHOCYTES # (AUTO) 1.6 X 10^3 (1.0-4.0); LYMPHOCYTES % (AUTO) 17 % (12-44); MEAN CORPUSCULAR HEMOGLOBIN 25 PG (25-34); MEAN CORPUSCULAR HGB CONC 32 G/DL (32-36); MEAN CORPUSCULAR VOLUME 78 FL (80-99); MEAN PLATELET VOLUME 10.9 FL (7.4-10.4); MONOCYTES # (AUTO) 0.4 X 10^3 (0.0-1.0); MONOCYTES % (AUTO) 4 % (0-12); NEUTROPHILS % (AUTO) 77 % (42-75); PLATELET COUNT 298 10^3/uL (130-400); RED BLOOD COUNT 4.45 10^6/uL (4.35-5.85); RED CELL DISTRIBUTION WIDTH 17.4 % (10.0-14.5); WHITE BLOOD COUNT 9.1 10^3/uL (4.3-11.0)
[2017-03-02] MEDS ORDERED: NS (IVPB) 50 ML ONE (09:37)
[2017-03-02] MEDS ORDERED: ceFAZolin 1,000 MG (ANCEF) VIAL ONE (09:37)
[2017-03-02 09:53] VITALS: BP 135/73
[2017-03-02 10:11] LABS: KETONES,URINE 2+ (NEGATIVE); LEUKOCYTE ESTERASE ,URINE 2+ (NEGATIVE); NITRITE,URINE NEGATIVE (NEGATIVE); PH,URINE 5 (5-9); PROTEIN,URINE 1+ (NEGATIVE); UROBILINOGEN,URINE 4 MG/DL (NORMAL)
[2017-03-02 10:32] LABS: BILIRUBIN,URINE 1+ (NEGATIVE); CALCIUM OXALATE CRYSTALS,UR MODERATE /LPF; WBC,URINE 0-2 /HPF
--- NOTE | 2017-03-02 11:28 | Progress Note-Pre Operative ---
Pre-Operative Progress Note H&P Reviewed The H&P was reviewed, patient examined and no changes noted. Date Seen by Provider: Mar 02, 2017 Time Seen by Provider: : Date H&P Reviewed: Mar 02, 2017 Time H&P Reviewed: : Pre-Operative Diagnosis: Previous section, atrial fibrillation, contractions, GDMA2, SURESH ANGELES DO Mar 02, 2017 11:28
[2017-03-02] MEDS ORDERED: PHENYLEPHRINE 100 MCG/ML 10 ML (ANESTHESIA) SYR ONE (12:31)
[2017-03-02] MEDS ORDERED: DEXAMETHASONE PF 10 MG/ML (DECADRON) VIAL ONE (12:31)
[2017-03-02] MEDS ORDERED: ONDANSETRON 4 MG/2 ML (SDV) Z0FRAN ONE (12:31)
[2017-03-02] MEDS ORDERED: fentaNYL INJECTION 100 MCG/2 ML AMP ONE (12:31)
[2017-03-02] MEDS ORDERED: OXYTOCIN/NORMAL SALINE 1,000 ML IV ONE (12:31)
[2017-03-02] MEDS ORDERED: D5 LR IV SOLUTION 1,000 ML IV SCH (12:52)
[2017-03-02] MEDS ORDERED: OXYTOCIN/NORMAL SALINE 500 ML IV SCH (12:52)
[2017-03-02] MEDS ORDERED: ONDANSETRON 4 MG/2 ML (SDV) Z0FRAN IVP PRN (13:00)
[2017-03-02] MEDS ORDERED: HYDROmorphone (DILAUDID) 2 MG/ML VIAL IVP PRN (13:00)
[2017-03-02] MEDS ORDERED: MEASLES,MUMPS,RUBELLA 1 EA INJ SC SCH (13:00)
[2017-03-02] MEDS ORDERED: TETANUS,DIPTH,PERTUSS P/F (BOOSTRIX) 0.5 ML VIAL IM SCH (13:00)
[2017-03-02] MEDS ORDERED: DILTIAZEM 180 MG (CARDIZEM CD) CAP PO PRN (13:00)
--- NOTE | 2017-03-02 13:02 | Cesarean Section Operative ---
Procedure Procedure Note Pre-operative Diagnosis: Pauly Jacobs is a 31 /Para 6 /2 , Gestational Age 38 4/7 weeks, previous cs x 2, h/o atrial fibrillation with more frequent episodes, GDMA2, Contractions, LGA, polyhydramnios Post-operative Diagnosis: same, true knot in the cord, cord prolapse with the uterine incision due to polyhydramnios, LGA fetus Procedure: Repeat low transverse section Physician: SURESH ANGELES Clearance Representative: Nicole Reeves APRN reproductive healthcare assistant is necessary to assist in the retraction of vital structures and delivery of the fetus. Without an reproductive healthcare assistant the procedure could not be completed. Estimated blood loss: 300 mL Disposition: stable Findings: Viable male infant, Apgars 3/9, weight 8#14oz, intact placenta, 3vc, normal appearing uterus, tubes, and ovaries. Indications:Pauly Jacobs is a 31 /Para 6 /2 ,Gestational Age 38 4/7 weeks, previous cs x 2, h/o atrial fibrillation with more frequent episodes, GDMA2, Contractions, LGA, polyhydramnios who presents for repeat section Procedure Details: The patient was seen in pre-op and the procedure was discussed with the patient in full, including the risks, benefits, and alternatives. All questions were answered. The patient was taken to the operating room and a time out was performed, verifying patient and procedure. After spinal anesthesia was placed by our anesthesia colleagues, the patient was placed in the dorsal supine with leftward tilt for uterine displacement.~ Her abdomen was then prepped and draped in the typical sterile fashion. A Pfannenstiel skin incision was made using a scalpel and carried down through the underlying fascia. The fascia was incised in the midline and tented up using Jasper clamps. On both the inferior and superior fascia side the rectus muscle was dissected off bluntly and sharply using Masterson scissors. The peritoneum was identified and entered bluntly in the midline. This was then stretched laterally using manual strength. After entering the abdominal cavity and confirming lack of intraperitoneal adhesions, a large Norbert retractor was placed and the lower uterine segment was visualized. A bladder flap was created with the use of Metzenbaum scissors.~ A scalpel was utilized to make a low transverse uterine incision. Amniotomy was performed with an Allis clamp with return of clear fluid. The infant's head was grasped and brought to the level of the incision. Fundal pressure was applied and was delivered without difficulty. Mouth and nares were suctioned with bulb suction. After the umbilical cord was clamped and cut, the was handed off to the pediatric staff. A sample of cord blood was then obtained. The placenta was delivered intact via uterine massage. The uterus was exteriorized and cleared of all clots and debris. The uterine incision was closed using 0 Vicryl in a running locked fashion. A second imbricated layer was placed using 0 Vicryl in a running fashion as well. The uterus was flexed forward and the posterior rectouterine space was inspected and cleared of all clots and debris. Again the hysterotomy site was examined and hemostasis was observed. The bilateral tubes and ovaries appeared normal. The uterus was placed back into the abdominal cavity and abdominal gutters were cleared of all clots and debris. A final check of the uterine incision showed it to be hemostatic. The peritoneum was closed using 3-0 Vicryl in a running fashion. The fascia was closed with 0 Vicryl in a running fashion. The subcutaneous space was hemostatic, and irrigated. The subcutaneous space was closed with 3-0 Vicryl in several single interrupted stitches. The skin was then closed using 4- 0 Monocryl in a running subcuticular fashion. The skin edges were reapproximated together and were hemostatic. A pressure dressing was applied. All sponge, lap and needle counts were correct at the end of the procedure per nursing. Vitals - Labs Labs Laboratory Tests 03/02/17 08:58: Glucometer 102 03/02/17 09:10: White Blood Count 9.1, Red Blood Count 4.45, Hemoglobin 11.0L, Hematocrit 35, Mean Corpuscular Volume 78L, Mean Corpuscular Hemoglobin 25, Mean Corpuscular Hemoglobin Concent 32, Red Cell Distribution Width 17.4H, Platelet Count 298, Mean Platelet Volume 10.9H, Neutrophils (%) (Auto) 77H, Lymphocytes (%) (Auto) 17, Monocytes (%) (Auto) 4, Eosinophils (%) (Auto) 1, Basophils (%) (Auto) 0, Neutrophils # (Auto) 7.0, Lymphocytes # (Auto) 1.6, Monocytes # (Auto) 0.4, Eosinophils # (Auto) 0.1, Basophils # (Auto) 0.0 6/6/17 10:00: Urine Color BROWNH, Urine Clarity VERY CLOUDYH, Urine pH 5, Urine Specific [place] 1.030H, Urine Protein 1+H, Urine Glucose (UA) NEGATIVE, Urine Ketones 2+ H, Urine Nitrite NEGATIVE, Urine Bilirubin 1+H, Urine Urobilinogen 4H, Urine Leukocyte Esterase 2+H, Urine RBC (Auto) NEGATIVE, Urine RBC 0-2, Urine WBC 0-2 , Urine Squamous Epithelial Cells 10-25H, Urine Crystals PRESENTH, Urine Calcium Oxalate Crystals MODERATEH, Urine Amorphous Sediment LARGE ENEDELIA URATESH , Urine Bacteria FEWH, Urine Casts NONE, Urine Mucus NEGATIVE, Urine Culture Indicated NO SURESH ANGELES DO Mar 02, 2017 13:02
[2017-03-02] MEDS ORDERED: IBUP-1773 PO (13:05)
[2017-03-02] MEDS ORDERED: HYDR-3812 PO (13:05)
[2017-03-02] MEDS ORDERED: DOCU100C37 PO (13:05)
--- NOTE | 2017-03-02 13:08 | Discharge Inst-Women's Service ---
Discharge Inst-Women's Serv Depart Medication/Instructions New, Converted or Re-Newed RX: RX on Chart Final Diagnosis previous section GDM A2 paroxysmal atrial fibrillation, recent increase in episodes large for gestational age/macrosomia polyhydramnios antepartum and acute blood loss anemia Consults/Follow Up Additional Follow Up: Yes (1 week for incision check with Eric, 6 week pp exam (needs glucose testing at that time)) Activity Activity: Activity as Tolerated Driving Instructions: No Driving for 1 Week NO SMOKING: NO SMOKING Nothing Inside Vagina: No Douching, No Windber, No Tampons Diet Discharge Diet: No Restrictions Symptoms to Report to : Bleeding Excessive, Pain Increased, Fever Over 101 Degrees F, Vaginal Bleeding Increase, Lightheadedness, Pain/Pressure in Shoulder , Vaginal Discharge Foul For Any Problems or Questions: Contact Your Physician Skin/Wound Care Infection Signs and Symptoms: Increased Redness, Foul Odor of Wound, Increased Drainage, Skin Itchy or Has a Rash, Increased Swelling, Temperature Above 101 F Operative Area Clean and Dry: Keep Incision Clean/Dry Stitches/Howard/Dermabond: Dermabond Bathing Instructions: SURESH Castellon DO Mar 02, 2017 13:08
[2017-03-02] MEDS ORDERED: CATHETER FLUSH 10 ML SYR IV SCH (14:00)
[2017-03-02 14:44] VITALS: BP 127/81
[2017-03-02] MEDS: CATHETER FLUSH 10 ML SYR IV SCH ×2 (14:50→22:00)
[2017-03-02 15:20] VITALS: BP 133/78
[2017-03-02] MEDS: KETOROLAC 30 MG/ML VIAL IVP SCH ×2 (15:24→22:54)
[2017-03-02 16:21] VITALS: BP 150/87
[2017-03-02] MEDS: HYDROcodone/APAP 5 MG/325 MG (LORTAB) TAB PO PRN ×2 (16:52→20:09)
[2017-03-02 20:00] VITALS: BP 108/66
[2017-03-02] MEDS: DOCUSATE SODIUM 100 MG (COLACE) CAP PO SCH (20:09)
[2017-03-03 00:50] VITALS: BP 106/62
[2017-03-03 04:00] VITALS: BP 119/60
[2017-03-03] MEDS: KETOROLAC 30 MG/ML VIAL IVP SCH ×2 (06:02→11:23)
[2017-03-03 06:56] LABS: BASOPHILS % (AUTO) 0 % (0-10); EOSINOPHILS % (AUTO) 0 % (0-10); LYMPHOCYTES # (AUTO) 2.2 X 10^3 (1.0-4.0); LYMPHOCYTES % (AUTO) 19 % (12-44); MEAN CORPUSCULAR HEMOGLOBIN 25 PG (25-34); MEAN CORPUSCULAR HGB CONC 32 G/DL (32-36); MEAN CORPUSCULAR VOLUME 79 FL (80-99); MONOCYTES # (AUTO) 0.7 X 10^3 (0.0-1.0); MONOCYTES % (AUTO) 6 % (0-12); NEUTROPHILS # (AUTO) 8.9 X 10^3 (1.8-7.8); NEUTROPHILS % (AUTO) 75 % (42-75); PLATELET COUNT 286 10^3/uL (130-400); RED BLOOD COUNT 3.55 10^6/uL (4.35-5.85); RED CELL DISTRIBUTION WIDTH 16.9 % (10.0-14.5); WHITE BLOOD COUNT 11.9 10^3/uL (4.3-11.0)
--- NOTE | 2017-03-03 08:17 | Postpartum Progress Note ---
Post Op Post-operative Day #1 Subjective: Patient is without complaints. Ambulating, voiding after dumont removed. Tolerating a regular diet without nausea or vomiting. Normal lochia. Pain is well controlled with oral pain medications. Passing flatus. Breast feeding/ pumping (baby with hypoglycemia). Objective: VS - Last 72 Hours, by Label 03/02/17 03/02/17 03/02/17 03/02/17 08:40 09:53 14:44 15:20 Temp 98.7 99.5 99.6 Pulse 98 90 80 89 Resp 18 18 16 16 B/P (MAP) 138/83 135/73 127/81 133/78 Pulse Ox 96 96 94 03/02/17 03/02/17 03/03/17 03/03/17 16:21 20:00 00:50 04:00 Temp 99.4 97.4 98.1 96.6 Pulse 91 77 74 76 Resp 18 B/P (MAP) 150/87 108/66 106/62 119/60 Pulse Ox 97 97 97 Physical Exam: General - Alert and oriented, no apparent distress Abdomen - Soft, appropriately tender to palpation, non-distended, fundus firm at umbilicus, obese Incision - clean, dry and intact; no erythema or induration, no drainage Extremities - no edema, negative Annika's bilaterally Laboratory Tests Test 03/02/17 08:58 03/02/17 09:10 03/02/17 10:00 03/03/17 06:09 Range/Units Glucometer 102 102 70-110 MG/DL White Blood Count 9.1 4.3-11.0 10^3/uL Red Blood Count 4.45 4.35-5.85 10^6/uL Hemoglobin 11.0 L 11.5-16.0 G/DL Hematocrit 35 35-52 % Mean Corpuscular Volume 78 L 80-99 FL Mean Corpuscular Hemoglobin 25 25-34 PG Mean Corpuscular Hemoglobin Concent 32 32-36 G/DL Red Cell Distribution Width 17.4 H 10.0-14.5 % Platelet Count 298 130-400 10^3/uL Mean Platelet Volume 10.9 H 7.4-10.4 FL Neutrophils (%) (Auto) 77 H 42-75 % Lymphocytes (%) (Auto) 17 12-44 % Monocytes (%) (Auto) 4 0-12 % Eosinophils (%) (Auto) 1 0-10 % Basophils (%) (Auto) 0 0-10 % Neutrophils # (Auto) 7.0 1.8-7.8 X 10^3 Lymphocytes # (Auto) 1.6 1.0-4.0 X 10^3 Monocytes # (Auto) 0.4 0.0-1.0 X 10^3 Eosinophils # (Auto) 0.1 0.0-0.3 10^3/uL Basophils # (Auto) 0.0 0.0-0.1 10^3/uL Urine Color BROWN H Urine Clarity VERY CLOUDY H Urine pH 5 5-9 Urine Specific [place] 1.030 H 1.016-1.022 Urine Protein 1+ H NEGATIVE Urine Glucose (UA) NEGATIVE NEGATIVE Urine Ketones 2+ H NEGATIVE Urine Nitrite NEGATIVE NEGATIVE Urine Bilirubin 1+ H NEGATIVE Urine Urobilinogen 4 H NORMAL MG/DL Urine Leukocyte Esterase 2+ H NEGATIVE Urine RBC (Auto) NEGATIVE NEGATIVE Urine RBC 0-2 /HPF Urine WBC 0-2 /HPF Urine Squamous Epithelial Cells 10-25 H /HPF Urine Crystals PRESENT H /LPF Urine Calcium Oxalate Crystals MODERATE H /LPF Urine Amorphous Sediment LARGE ENEDELIA URATES H /LPF Urine Bacteria FEW H /HPF Urine Casts NONE /LPF Urine Mucus NEGATIVE /LPF Urine Culture Indicated NO Test 03/03/17 06:38 Range/Units White Blood Count 11.9 H 4.3-11.0 10^3/uL Red Blood Count 3.55 L 4.35-5.85 10^6/uL Hemoglobin 8.8 L 11.5-16.0 G/DL Hematocrit 28 L 35-52 % Mean Corpuscular Volume 79 L 80-99 FL Mean Corpuscular Hemoglobin 25 25-34 PG Mean Corpuscular Hemoglobin Concent 32 32-36 G/DL Red Cell Distribution Width 16.9 H 10.0-14.5 % Platelet Count 286 130-400 10^3/uL Mean Platelet Volume 11.0 H 7.4-10.4 FL Neutrophils (%) (Auto) 75 42-75 % Lymphocytes (%) (Auto) 19 12-44 % Monocytes (%) (Auto) 6 0-12 % Eosinophils (%) (Auto) 0 0-10 % Basophils (%) (Auto) 0 0-10 % Neutrophils # (Auto) 8.9 H 1.8-7.8 X 10^3 Lymphocytes # (Auto) 2.2 1.0-4.0 X 10^3 Monocytes # (Auto) 0.7 0.0-1.0 X 10^3 Eosinophils # (Auto) 0.0 0.0-0.3 10^3/uL Basophils # (Auto) 0.0 0.0-0.1 10^3/uL Assessment: 31 y/o post-operative day # 1, status post repeat CD. Recovering well, hemodynamically stable Acute blood loss anemia Hgb 8.8 Class III obesity BMI 48 Single elevated BP post-op GDMA2 on insulin Plan: Routine post-operative care. Encourage breast feeding. Encourage ambulation. VTE prophylaxis: SCDs, lovenox due to multiple risk factors Ferrous sulfate supplementation. Watch BPs. No si/sx pre-eclampsia. Majority normal. If more elevated, consider HELLP labs. Fasting BS slightly elevated however pt was not fasting. Repeat tomorrow. Plan for discharge POD#2 or 3. Vitals - Labs Vital Signs - I&O Vital Signs Date Time Temp Pulse Resp B/P (MAP) Pulse Ox O2 Delivery O2 Flow Rate FiO2 03/03/17 04:00 96.6 76 18 119/60 97 03/03/17 00:50 98.1 74 18 106/62 03/02/17 20:00 97.4 77 18 108/66 97 03/02/17 16:21 99.4 91 16 150/87 97 03/02/17 15:20 99.6 89 16 133/78 94 03/02/17 14:44 99.5 80 16 127/81 96 03/02/17 09:53 90 18 135/73 03/02/17 08:40 98.7 98 18 138/83 96 I & O 03/03/17 07:00 Intake Total 4195 ml Output Total 375 ml Balance 3820 ml Labs Laboratory Tests 03/02/17 08:58: Glucometer 102 03/02/17 09:10: White Blood Count 9.1, Red Blood Count 4.45, Hemoglobin 11.0L, Hematocrit 35, Mean Corpuscular Volume 78L, Mean Corpuscular Hemoglobin 25, Mean Corpuscular Hemoglobin Concent 32, Red Cell Distribution Width 17.4H, Platelet Count 298, Mean Platelet Volume 10.9H, Neutrophils (%) (Auto) 77H, Lymphocytes (%) (Auto) 17, Monocytes (%) (Auto) 4, Eosinophils (%) (Auto) 1, Basophils (%) (Auto) 0, Neutrophils # (Auto) 7.0, Lymphocytes # (Auto) 1.6, Monocytes # (Auto) 0.4, Eosinophils # (Auto) 0.1, Basophils # (Auto) 0.0 03/02/17 10:00: Urine Color BROWNH, Urine Clarity VERY CLOUDYH, Urine pH 5, Urine Specific [place] 1.030H, Urine Protein 1+H, Urine Glucose (UA) NEGATIVE, Urine Ketones 2+ H, Urine Nitrite NEGATIVE, Urine Bilirubin 1+H, Urine Urobilinogen 4H, Urine Leukocyte Esterase 2+H, Urine RBC (Auto) NEGATIVE, Urine RBC 0-2, Urine WBC 0-2 , Urine Squamous Epithelial Cells 10-25H, Urine Crystals PRESENTH, Urine Calcium Oxalate Crystals MODERATEH, Urine Amorphous Sediment LARGE ENEDELIA URATESH , Urine Bacteria FEWH, Urine Casts NONE, Urine Mucus NEGATIVE, Urine Culture Indicated NO 03/03/17 06:09: Glucometer 102 03/03/17 06:38: White Blood Count 11.9H, Red Blood Count 3.55L, Hemoglobin 8.8L, Hematocrit 28L , Mean Corpuscular Volume 79L, Mean Corpuscular Hemoglobin 25, Mean Corpuscular Hemoglobin Concent 32, Red Cell Distribution Width 16.9H, Platelet Count 286, Mean Platelet Volume 11.0H, Neutrophils (%) (Auto) 75, Lymphocytes (%) (Auto) 19 , Monocytes (%) (Auto) 6, Eosinophils (%) (Auto) 0, Basophils (%) (Auto) 0, Neutrophils # (Auto) 8.9H, Lymphocytes # (Auto) 2.2, Monocytes # (Auto) 0.7, Eosinophils # (Auto) 0.0, Basophils # (Auto) 0.0 DONG MAURER MD Mar 03, 2017 08:17
[2017-03-03 08:57] VITALS: BP 124/85
--- NOTE | 2017-03-03 10:43 | Anesthesia-Regional Post-Op ---
Regional Patient Condition Mental Status: Alert, Oriented x3 Circulation: Same as Pre-Op Headache: Absent Sensation: Full Recovery Motor Block: Absent Post Op Complications Complications None Follow Up Care/Instructions Patient Instructions None needed. Anesthesia/Patient Condition Patient is doing well, no complaints, stable vital signs, no apparent adverse anesthesia problems. No complications reported per nursing. D/C home per [facility] [place] Criteria: No NARENDRA OTERO CRNA Mar 03, 2017 10:43
[2017-03-03] MEDS ORDERED: KETOROLAC 30 MG/ML VIAL ONE (11:16)
[2017-03-03] MEDS: DOCUSATE SODIUM 100 MG (COLACE) CAP PO SCH ×2 (11:22→20:21)
[2017-03-03] MEDS: ENOXAPARIN 40 MG/0.4 ML (LOVENOX) SYR SC SCH (11:22)
[2017-03-03] MEDS: CATHETER FLUSH 10 ML SYR IV SCH ×2 (11:23→13:03)
[2017-03-03 12:56] VITALS: BP 121/74
[2017-03-03] MEDS: HYDROcodone/APAP 5 MG/325 MG (LORTAB) TAB PO PRN (15:44)
[2017-03-03 17:00] VITALS: BP 134/82
[2017-03-03] MEDS: FERROUS SULF 325 MG (IRON) TAB PO SCH (17:25)
[2017-03-03] MEDS: IBUPROFEN 600 MG (MOTRIN) TAB PO SCH (17:26)
[2017-03-03 20:23] VITALS: BP 116/68
[2017-03-04] MEDS: IBUPROFEN 600 MG (MOTRIN) TAB PO SCH ×4 (00:33→18:32)
[2017-03-04 00:35] VITALS: BP 111/66
[2017-03-04] MEDS: HYDROcodone/APAP 5 MG/325 MG (LORTAB) TAB PO PRN ×3 (02:14→20:47)
[2017-03-04 06:00] VITALS: BP 113/73
--- NOTE | 2017-03-04 09:14 | Progress Note-Standard ---
Standard Progress Note Progress Notes/Assess & Plan Date Seen by Provider: Mar 04, 2017 Time Seen by Provider: 09:00 Progress/Assessment & Plan Patient doing well POD 2 RLTCS. Reports significant gush of blood overnight, but otherwise doing ok. Pain well controlled, ambulating and voiding freely. Vital Sign - Last 24 Hours 03/03/17 03/03/17 03/03/17 03/04/17 12:56 17:00 20:23 00:35 Temp 97.4 97.6 97.5 98.5 Pulse 79 72 84 80 Resp 18 18 18 18 B/P (MAP) 121/74 134/82 116/68 111/66 Pulse Ox 97 97 96 97 03/04/17 06:00 Temp 96.9 Pulse 85 Resp 18 B/P (MAP) 113/73 Pulse Ox 97 Intake and Output 03/03/17 03/03/17 03/04/17 15:00 23:00 07:00 Intake Total 600 ml 2000 ml Balance 600 ml 2000 ml Incision : c/d/i 31 y/o post-operative day # 2, status post repeat CD. Recovering well, hemodynamically stable Acute blood loss anemia Hgb 8.8 Class III obesity BMI 48 GDMA2 on insulin Plan: Routine post-operative care. Encourage breast feeding. Encourage ambulation. VTE prophylaxis: SCDs, lovenox due to multiple risk factors Ferrous sulfate supplementation. Plan for discharge POD# 3. ANGELA CARVALHO DO Mar 04, 2017 9:14 am
[2017-03-04 09:50] VITALS: BP 111/61
[2017-03-04] MEDS: FERROUS SULF 325 MG (IRON) TAB PO SCH ×2 (09:59→18:31)
[2017-03-04] MEDS: DOCUSATE SODIUM 100 MG (COLACE) CAP PO SCH ×2 (09:59→20:46)
[2017-03-04 13:30] VITALS: BP 119/63
[2017-03-04] MEDS: ENOXAPARIN 40 MG/0.4 ML (LOVENOX) SYR SC SCH (13:30)
[2017-03-04 20:45] VITALS: BP 117/74
[2017-03-05] MEDS: IBUPROFEN 600 MG (MOTRIN) TAB PO SCH ×3 (01:00→15:38)
[2017-03-05 08:00] VITALS: BP 118/78
[2017-03-05] MEDS: FERROUS SULF 325 MG (IRON) TAB PO SCH (08:40)
[2017-03-05] MEDS: DOCUSATE SODIUM 100 MG (COLACE) CAP PO SCH (08:40)
[2017-03-05 12:00] VITALS: BP 116/74
[2017-03-05] MEDS: ENOXAPARIN 40 MG/0.4 ML (LOVENOX) SYR SC SCH (12:03)
--- NOTE | 2017-03-05 14:31 | Postpartum Progress Note ---
Post Op Post-operative Day #3 s/p RLTCS Atrial fib. Has not had episode since delivery. GDM A2. Baby having problems with hypoglycemia. Kept for blood sugars. Mom to be dc to parent room Subjective: Patient is without complaints. Ambulating, voiding after dumont removed. Tolerating a regular diet without nausea or vomiting. Normal lochia. Pain is well controlled with oral pain medications. Passing flatus. [breast feeding Objective: Vital Sign - Last 12Hours 03/05/17 03/05/17 08:00 12:00 Temp 96.4 97.2 Pulse 74 76 Resp 19 20 B/P (MAP) 118/78 116/74 Pulse Ox 98 98 O2 Delivery Room Air Intake and Output 03/05/17 00:00 Intake Total 100 ml Balance 100 ml Laboratory Tests Test 03/05/17 06:30 Range/Units Glucometer 88 70-110 MG/DL Physical Exam: General - Alert and oriented, no apparent distress Abdomen - Soft, appropriately tender to palpation, non-distended, fundus firm at umbilicus Incision - clean, dry and intact; no erythema or induration, no drainage Extremities - no edema, negative Annika's bilaterally Assessment: 1. post-operative day # 3, status post RLTCS. Recovering well, hemodynamically stable 2. Antepartum and Acute blood loss anemia - stable, iron replaced 3. Atrial fib, no recent events Plan: Routine post-operative care. Encourage breast feeding. Encourage ambulation. VTE prophylaxis: SCDs, lovenox Cardizem prn atrial fib per Dr. Love's recommendations. To see him after discharge Ferrous sulfate supplementation Plan for discharge to parent room Vitals - Labs Vital Signs - I&O Vital Signs Date Time Temp Pulse Resp B/P (MAP) Pulse Ox O2 Delivery O2 Flow Rate FiO2 03/05/17 12:00 97.2 76 20 116/74 98 Room Air 03/05/17 08:00 96.4 74 19 118/78 98 03/04/17 20:45 98.0 86 18 117/74 99 I & O 03/05/17 07:00 Intake Total 600 ml Balance 600 ml Labs Laboratory Tests 03/05/17 06:30: Glucometer 88 Microbiology 03/02/17 MRSA Screen - Final, Complete MRSA not isolated SURESH ANGELES DO Mar 05, 2017 14:31
[2017-03-05] MEDS: CATHETER FLUSH 10 ML SYR IV SCH (15:48)
== END 2017-03-05 15:49 | disposition home or self-care (01) | DRG 765 ==
LOC: LDRP 08:25 → WS 12:04 → LDRP 13:12
PROVIDERS: ADMIT Obstetrics & Gynecology; ATTEND Obstetrics & Gynecology
PROC: 10D00Z1 Extraction of Products of Conception, Low, Open Approach (ICD-10-PCS; principal; 2017-03-02 11:43)
DX: O69.82X0 Labor and delivery complicated by other cord entanglement, without compression, not applicable or unspecified (principal); O40.3XX0 Polyhydramnios, third trimester, not applicable or unspecified; O34.211 Maternal care for low transverse scar from previous cesarean delivery; O24.429 Gestational diabetes mellitus in childbirth, unspecified control; O99.42 Diseases of the circulatory system complicating childbirth; Z68.42 Body mass index [BMI] 45.0-49.9, adult; I48.91 Unspecified atrial fibrillation; Z3A.38 38 weeks gestation of pregnancy; Z37.0 Single live birth; Z79.4 Long term (current) use of insulin; O90.81 Anemia of the puerperium; D62 Acute posthemorrhagic anemia; O99.02 Anemia complicating childbirth; E66.9 Obesity, unspecified; Z23 Encounter for immunization; O99.214 Obesity complicating childbirth
CPT/HCPCS: 36415; 81000; 82962; 85025; 86850; 86900; 86901; 87081; 90715; 94664

== ENCOUNTER 2017-04-21 09:47 | Emergency (ER) | payer MEDICAID ==
[~2017-04-21] VITALS: Ht 160 cm; Wt 111.6 kg
[~2017-04-21 09:47] MED LIST changes: +DOCU100C37 PO; +HYDR-3812 PO; +IBUP-1773 PO
[2017-04-21] MEDS ORDERED: FAMOTIDINE 20MG/2ML IV (PEPCID) IV STA (09:59)
[2017-04-21] MEDS ORDERED: ONDANSETRON 4 MG/2 ML (SDV) Z0FRAN IVP ONE (10:00)
[2017-04-21] MEDS ORDERED: ASPIRIN 81 MG CHEW (CHILDREN'S ASA) PO ONE (10:00)
[2017-04-21 10:15] LABS: BASOPHILS % (AUTO) 0 % (0-10); EOSINOPHILS # (AUTO) 0.2 10^3/uL (0.0-0.3); EOSINOPHILS % (AUTO) 2 % (0-10); LYMPHOCYTES # (AUTO) 2.1 X 10^3 (1.0-4.0); LYMPHOCYTES % (AUTO) 24 % (12-44); MEAN CORPUSCULAR HEMOGLOBIN 25 PG (25-34); MEAN CORPUSCULAR HGB CONC 32 G/DL (32-36); MEAN CORPUSCULAR VOLUME 78 FL (80-99); MEAN PLATELET VOLUME 10.2 FL (7.4-10.4); MONOCYTES # (AUTO) 0.5 X 10^3 (0.0-1.0); MONOCYTES % (AUTO) 5 % (0-12); NEUTROPHILS # (AUTO) 6.1 X 10^3 (1.8-7.8); NEUTROPHILS % (AUTO) 69 % (42-75); PLATELET COUNT 320 10^3/uL (130-400); RED BLOOD COUNT 4.85 10^6/uL (4.35-5.85); RED CELL DISTRIBUTION WIDTH 17.3 % (10.0-14.5); WHITE BLOOD COUNT 8.9 10^3/uL (4.3-11.0)
--- NOTE | 2017-04-21 10:15 | ED Chest Pain ---
General Chief Complaint: Chest Pain Stated Complaint: BURNING PAIN IN CHEST Nursing Triage Note: c/o mid-sternal chest pain. Onset 0900. Vomited x 3 this morning. Nursing Sepsis Screen: No Definite Risk Source: patient Exam Limitations: no limitations History of Present Illness Time seen by provider: 09:52 Initial Comments Here with complaint of epigastric and central chest discomfort that she describes as burning and cramping. Reports that she has vomited 3 times this morning since onset of pain. Status post delivery 5 weeks ago. She does breast-feed. Denies breathing problems or sweating. Pain is persisting. Timing/Duration: 1 hour, constant Severity/Quality: moderate, burning, tightness Location: central Radiation: no radiation Activities at Onset: none Prior CP/Workup: echocardiography ASA po RADIOLOGY TRANSPORTER: No NTG SL RADIOLOGY TRANSPORTER: No Associated Symptoms: abdominal pain, No back pain, No fatigue, No fever/chills , heartburn, nausea/vomiting, No shortness of breath, No weakness Allergies and Home Medications Allergies Uncoded Allergies: TAPE (Allergy, Mild, 03/28/09) TAPE ADHESIVE (Allergy, Mild, 04/06/09) Home Medications Docusate Sodium 100 Mg Capsule, 100 MG PO BID, #60 Prescribed by: SURESH ANGELES on 03/02/17 1305 Ferrous Sulfate 325 Mg Tablet, 325 MG PO DAILY, (Reported) Hydrocodone/Acetaminophen 1 Each Tablet, 1-2 TAB PO Q4H PRN for PAIN-MODERATE, # 45 Prescribed by: SURESH ANGELES on 03/02/17 1305 Ibuprofen 600 Mg Tablet, 600 MG PO Q6H, #60 Prescribed by: SURESH ANGELES on 03/02/17 1305 Metformin HCl 1,000 Mg Tablet, 1,000 MG PO BID, (Reported) Vit/Iron Fumarate/FA 1 Each Tablet, 1 EACH PO DAILY, (Reported) Review of Systems Constitutional: see HPI, No chills, No fever EENTM: No Symptoms Reported Respiratory: No Symptoms Reported Cardiovascular: No Symptoms Reported Gastrointestinal: See HPI, Abdominal Pain, Denies Diarrhea, Nausea, Vomiting Genitourinary: No Symptoms Reported Musculoskeletal: no symptoms reported All Other Systems Reviewed Negative Unless Noted: Yes Past Qtxfdxp-Dfoxvj-Vlqvmc Hx Patient Social History Alcohol Use: Denies Use Recreational Drug Use: No Smoking Status: Former Smoker Type Used: Cigars Recent Foreign Travel: No Contact w/Someone Who Travel: No Recent Infectious Disease Expo: No Recent Hopitalizations: Yes (child-strep throat, gallstones, kidney stones) Immunizations Up To Date Tetanus Booster (TDap): Unknown PED Vaccines UTD: Yes Date of Influenza Vaccine: Aug 13, 2016 Seasonal Allergies Seasonal Allergies: No Surgeries HX Surgeries: Yes Surgeries: Section Respiratory Hx Respiratory Disorders: No Cardiovascular Hx Cardiac Disorders: Yes Cardiac Disorders: Atrial Fibrillation Neurological Hx Neurological Disorders: Yes Neurological Disorders: Headaches /Migraines Reproductive System Hx Reproductive Disorders: Yes Sexually Transmitted Disease: No HIV/AIDS: No Female Reproductive Disorders: Polycystic Ovarian Dis Genitourinary Hx Genitourinary Disorders: No Gastrointestinal Hx Gastrointestinal Disorders: No Musculoskeletal Hx Musculoskeletal Disorders: No Endocrine Hx Endocrine Disorders: Yes (HAD GESTIONAL DIABETES) Endocrine Disorders: Diabetes, Insulin dep HEENT HX ENT Disorders: Yes (GLASSES) Cancer Hx Cancer: No Psychosocial Hx Psychiatric Problems: No Integumentary HX Skin/Integumentary Disorder: Yes Skin/Integumentary Disorders: Psoriasis Blood Transfusions Hx Blood Disorders: Yes (ANEMIA) Adverse Reaction to a Blood Tr: No Family Medical History Significant Family History: Cancer Family Medial History: Colon cancer G8 BROTHER, Onset:20's - 25 Headache disorder 19 MOTHER Physical Exam Vital Signs Vital Sign - Last 12Hours 04/21/17 04/21/17 09:55 10:03 Temp 97.8 Pulse 62 Resp 18 B/P (MAP) 127/81 Pulse Ox 98 O2 Delivery Room Air Capillary Refill : Less Than 3 Seconds General Appearance: No Apparent Distress, WD/WN HEENT: PERRL/EOMI, Pharynx Normal Neck: Non Tender, Supple Respiratory: Lungs Clear, Normal Breath Sounds Cardiovascular: Regular Rate, Rhythm, No Murmur Gastrointestinal: Non Tender, Soft Extremity: Normal Inspection, Normal Range of Motion, Non Tender, No Calf Tenderness Neurologic/Psychiatric: Alert, Oriented x3 Skin: Normal Color, Warm/Dry Progress/Results/Core Measures Results/Orders Lab Results Laboratory Tests Test 04/21/17 10:03 Range/Units White Blood Count 8.9 4.3-11.0 10^3/uL Red Blood Count 4.85 4.35-5.85 10^6/uL Hemoglobin 12.0 11.5-16.0 G/DL Hematocrit 38 35-52 % Mean Corpuscular Volume 78 L 80-99 FL Mean Corpuscular Hemoglobin 25 25-34 PG Mean Corpuscular Hemoglobin Concent 32 32-36 G/DL Red Cell Distribution Width 17.3 H 10.0-14.5 % Platelet Count 320 130-400 10^3/uL Mean Platelet Volume 10.2 7.4-10.4 FL Neutrophils (%) (Auto) 69 42-75 % Lymphocytes (%) (Auto) 24 12-44 % Monocytes (%) (Auto) 5 0-12 % Eosinophils (%) (Auto) 2 0-10 % Basophils (%) (Auto) 0 0-10 % Neutrophils # (Auto) 6.1 1.8-7.8 X 10^3 Lymphocytes # (Auto) 2.1 1.0-4.0 X 10^3 Monocytes # (Auto) 0.5 0.0-1.0 X 10^3 Eosinophils # (Auto) 0.2 0.0-0.3 10^3/uL Basophils # (Auto) 0.0 0.0-0.1 10^3/uL Prothrombin Time 11.5 L 12.2-14.7 SEC INR Comment 0.9 0.8-1.4 Activated Partial Thromboplast Time 28 24-35 SEC D-Dimer < 0.27 0.00-0.49 UG/ML Sodium Level 141 135-145 MMOL/L Potassium Level 4.1 3.6-5.0 MMOL/L Chloride Level 105 98-107 MMOL/L Carbon Dioxide Level 30 21-32 MMOL/L Anion Gap 6 5-14 MMOL/L Blood Urea Nitrogen 12 7-18 MG/DL Creatinine 0.64 0.60-1.30 MG/DL Estimat Glomerular Filtration Rate > 60 BUN/Creatinine Ratio 19 Glucose Level 89 70-105 MG/DL Calcium Level 9.5 8.5-10.1 MG/DL Magnesium Level 2.1 1.8-2.4 MG/DL Total Bilirubin 0.4 0.1-1.0 MG/DL Aspartate Amino Transf (AST/SGOT) 12 5-34 U/L Alanine Aminotransferase (ALT/SGPT) 16 0-55 U/L Alkaline Phosphatase 96 40-136 U/L Myoglobin 19.8 10.0-92.0 NG/ML Troponin I < 0.30 <0.30 NG/ML Total Protein 6.8 6.4-8.2 GM/DL Albumin 3.9 3.2-4.5 GM/DL Amylase Level 44 25-125 U/L Lipase 12 8-78 U/L My Orders Orders - VINCENT MANCILLA MD Ekg Tracing (04/21/17 09:50) Cbc With Automated Diff (04/21/17 09:59) Magnesium (04/21/17 09:59) Chest 1 View, Ap/Pa Only (04/21/17 09:59) Cardiac Profile 1 (04/21/17 09:59) Comprehensive Metabolic Panel (04/21/17 09:59) Myoglobin Serum (04/21/17 09:59) Protime With Inr (04/21/17 09:59) Partial Thromboplastin Time (04/21/17 09:59) O2 (04/21/17 09:59) Monitor-Rhythm Ecg Trace Only (04/21/17 09:59) Lipid Panel (04/22/17 06:00) Aspirin Chewable Tablet (Baby Aspirin Ch (04/21/17 10:00) Saline Lock/Iv-Start (04/21/17 09:59) Lipase (04/21/17 09:59) Amylase (04/21/17 09:59) Fibrin Degradation Products (04/21/17 09:59) Ondansetron Injection (Zofran Injectio (04/21/17 10:00) Famotidine Injection (Pepcid Injection) (04/21/17 09:59) Lidocaine 2% Viscous 15 Ml (Xylocaine Vi (04/21/17 11:15) Antacid Suspension (Mylanta Suspension (04/21/17 11:15) Medications Given in ED Current Medications Medications Dose Ordered Sig/Peter Route Start Time Stop Time Status Last Admin Dose Admin Aspirin 324 mg ONCE ONCE PO 04/21/17 10:00 04/21/17 10:01 DC 04/21/17 10:20 324 MG Ondansetron HCl 4 mg ONCE ONCE IVP 04/21/17 10:00 04/21/17 10:01 DC 04/21/17 10:21 4 MG Vital Signs/I&O Vital Sign - Last 12Hours 04/21/17 04/21/17 09:55 10:03 Temp 97.8 Pulse 62 Resp 18 B/P (MAP) 127/81 Pulse Ox 98 O2 Delivery Room Air Room Air Blood Pressure Mean: 96 Progress Note : Progress Note Seen and evaluated. IV, labs, EKG and chest x-ray ordered. Monitor patient. Pepcid 20 mg IV and Zofran 4 mg IV ordered. 1105: Improved overall with still a little bit of burning. GI cocktail given. This rapidly resolved her pain. Reviewed data and no significant acute findings. Discharged home with return precautions. Patient verbalize understanding instructions and agreement with plan. ECG Initial ECG Impression Date: Apr 21, 2017 Initial ECG Impression Time: 09:55 Initial ECG Rate: 69 Initial ECG Rhythm: Normal Sinus Initial ECG Comparisson: Unchanged Comment Sinus rhythm with normal axis. No evidence of ST elevation AL. Interpreted by me. Unchanged from previous of 26 August 2016. Diagnostic Imaging Diagonstic Imaging: Xray Plain Films/CT/US/NM/MRI: chest Comments NAME: LAURY GALVIN [facility] REC#: [id number] PT STATUS: REG ER : 1985 PHYSICIAN: VINCENT MANCILLA MD ADMIT DATE: 04/21/17/ER Signed Date of Exam: 04/21/17 CHEST 1 VIEW, AP/PA ONLY Indication: Chest pain Comparison: 08/26/2016 Findings: Upright portable view of the chest is obtained. Heart size is normal. The pulmonary vessels appear unremarkable. There is no pneumothorax, mediastinal widening or pleural fluid demonstrated. The lungs are clear. Impression: Negative chest. Dictated by: Dictated on workstation # [id number] Dict: 04/21/17 1025 Trans: 04/21/17 1034 Interpreted by: GABINO CALIX DO Electronically signed by: GABINO CALIX DO 04/21/17 1034 Departure Impression Impression: Primary Impression: Epigastric abdominal pain Additional Impression: Chest pain Qualified Codes: R07.9 - Chest pain, unspecified Disposition: 01 HOME, SELF-CARE Condition: Improved Departure-Patient Inst. Decision time for Depature: 11:15 Referrals: DANIEL WARREN DO (PCP/Family) Primary Care Physician Patient Instructions: Acid Reflux (Gastroesophageal Reflux Disease), Adult (DC) , Chest Pain (DC) Add. Discharge Instructions: All discharge instructions reviewed with patient and/or family. Voiced understanding. You may take ayok-xbt-asbrfmb preparations such as Tums or Pepcid (generic is famotidine) 20 mg once or twice daily. Follow-up with in a few days for recheck. Return for worse pain, fever, vomiting, weakness, breathing problems or other concerns as needed. Liquid diet for 24 hours and then advance as tolerated. Continue with light fluids. VINCENT MANCILLA MD Apr 21, 2017 10:15
--- NOTE | 2017-04-21 10:28 | Diagnostic Imaging Report ---
Indication: Chest pain Comparison: 08/26/2016 Findings: Upright portable view of the chest is obtained. Heart size is normal. The pulmonary vessels appear unremarkable. There is no pneumothorax, mediastinal widening or pleural fluid demonstrated. The lungs are clear. Impression: Negative chest. Dictated by: Dictated on workstation # [id number]
[2017-04-21 10:29] LABS: INR 0.9 (0.8-1.4); PROTHROMBIN TIME PATIENT 11.5 SEC (12.2-14.7)
[2017-04-21 10:41] LABS: ALANINE AMINOTRANSFERASE 16 U/L (0-55); ALBUMIN 3.9 GM/DL (3.2-4.5); AMYLASE 44 U/L (25-125); ANION GAP 6 MMOL/L (5-14); ASPARTATE AMINO TRANSFERASE 12 U/L (5-34); BILIRUBIN,TOTAL 0.4 MG/DL (0.1-1.0); BLOOD UREA NITROGEN 12 MG/DL (7-18); BUN/CREATININE RATIO 19; CALCIUM 9.5 MG/DL (8.5-10.1); CARBON DIOXIDE 30 MMOL/L (21-32); CHLORIDE 105 MMOL/L (98-107); CREATININE SERUM 0.64 MG/DL (0.60-1.30); GFR ESTIMATED > 60; GLUCOSE 89 MG/DL (70-105); LIPASE 12 U/L (8-78); MAGNESIUM 2.1 MG/DL (1.8-2.4); POTASSIUM 4.1 MMOL/L (3.6-5.0); SODIUM 141 MMOL/L (135-145); TOTAL PROTEIN 6.8 GM/DL (6.4-8.2)
[2017-04-21 10:50] LABS: MYOGLOBIN SERUM 19.8 NG/ML (10.0-92.0)
[2017-04-21] MEDS ORDERED: LIDOCAINE 2% VISCOUS 15 ML UDC PO ONE (11:15)
[2017-04-21] MEDS ORDERED: ANTACID SUSP 30 ML UDC (MYLANTA) PO ONE (11:15)
[2017-04-21 11:20] VITALS: BP 124/86
== END 2017-04-21 11:21 | disposition home or self-care (01) ==
LOC: EDUNIT# 09:47 → ER 09:50
DX: R10.13 Epigastric pain (principal); R07.9 Chest pain, unspecified; D64.9 Anemia, unspecified; G43.909 Migraine, unspecified, not intractable, without status migrainosus; I48.91 Unspecified atrial fibrillation; Z87.42 Personal history of other diseases of the female genital tract; Z87.891 Personal history of nicotine dependence; Z87.442 Personal history of urinary calculi
CPT/HCPCS: 36415; 71010; 80053; 82150; 83690; 83735; 83874; 84484; 85025; 85379; 85610; 85730; 93005; 93041; 96374; 96375

== ENCOUNTER 2017-10-01 12:42 | Outpatient (RCR) | payer MEDICAID ==
[~2017-10-01 12:42] MED LIST changes: -FERR-74 PO; +FERR325T18 PO
== END 2017-12-30 | disposition home or self-care (01) ==
LOC: CARD 12:42
PROVIDERS: ATTEND Physician Assistant
DX: I48.0 Paroxysmal atrial fibrillation (principal); E66.9 Obesity, unspecified
CPT/HCPCS: 93225; 93226

== ENCOUNTER → 2017-10-01 | Outpatient (CLI) | payer MEDICAID ==
[~2017-10-01] MED LIST changes: -HYDR-3812 PO
== END ==
LOC: CARD 12:38
PROVIDERS: ATTEND Physician Assistant
DX: I48.0 Paroxysmal atrial fibrillation (principal); E66.9 Obesity, unspecified
CPT/HCPCS: 93306

== ENCOUNTER → 2018-04-13 | Outpatient (CLI) | payer OTHER, MEDICAID ==
[~2018-04-13] MED LIST changes: +BARIUM SUSPENSION 105% (LIQUID POLIBAR PLUS) 240 ML/DOSE PO ONE; +BARIUM SUSPENSION 60% (LIQUID EZ PAQUE) 240 ML DOSE PO ONE; -LABE100T2 PO; +LABE100T6 PO; -METF1000 PO; +METF10002 PO
--- NOTE | 2018-04-13 09:29 | Diagnostic Imaging Report ---
INDICATION: Gastroesophageal reflux. Patient ingested effervescent crystals as well as thin and thick barium and imaging of the esophagus, stomach and proximal small bowel was performed. One minute 26 seconds of fluoroscopy was utilized. The esophagus has a smooth contour. No mass or stricture is seen. No hiatal hernia or gastroesophageal reflux was demonstrated. Stomach has normal appearance. Duodenal bulb is without deformity. Visualized small bowel loops are unremarkable. IMPRESSION: Unremarkable upper GI study. Dictated by: Dictated on workstation # [id number]
== END ==
LOC: RAD 08:05
PROVIDERS: ATTEND Surgery
DX: K21.9 Gastro-esophageal reflux disease without esophagitis (principal)
CPT/HCPCS: 74241

== ENCOUNTER 2018-08-31 08:43 | Emergency (ER) | payer OTHER, MEDICAID ==
[~2018-08-31] VITALS: Ht 160 cm; Wt 118.0 kg
[~2018-08-31 08:43] MED LIST changes: -BARIUM SUSPENSION 105% (LIQUID POLIBAR PLUS) 240 ML/DOSE PO ONE; -BARIUM SUSPENSION 60% (LIQUID EZ PAQUE) 240 ML DOSE PO ONE; +METF-399 PO; -METF10002 PO
--- OUTSIDE RECORDS SUMMARY | 2018-08-31 09:55 | XMS REPORT ---
Author Author ELIZABET COLIN [facility] Address [address] [place] [address] Care Team Providers Care Environmental Conservation Officer Name Role Phone ELIZABET COLIN Unavailable PROBLEMS Type Condition ICD9-CM Code IUW03-SH Code Onset Dates Condition Status SNOMED Code Problem Anxiety disorder, unspecified F41.9 Active 910727615 Problem Intermittent atrial fibrillation I48.0 Active 519789005 Problem Psoriasis L40.9 Active 6628012 Problem Severe episode of recurrent major depressive disorder, without psychotic features F33.2 Active 46381183 Problem Major depressive disorder, single episode, unspecified F32.9 Active 28042767 Problem Dependent edema R60.9 Active 796800911 Problem Generalized anxiety disorder F41.1 Active 77028391 ALLERGIES No Information ENCOUNTERS Encounter Location Date Diagnosis [facility] [id number] [place] [phone] Jun, [facility] [id number] [place] [address] May, [facility] [id number] [place] [address] May, Severe episode of recurrent major depressive disorder, without psychotic features F33.2 and Generalized anxiety disorder F41.1 [facility] [id number] [place] [address] Apr, Left wrist pain M25.532 [facility] [id number] [place] [address] Apr, Severe episode of recurrent major depressive disorder, without psychotic features F33.2 and Generalized anxiety disorder F41.1 [facility] [id number] [place] [address] Apr, Severe episode of recurrent major depressive disorder, without psychotic features F33.2 and Generalized anxiety disorder F41.1 [facility] [id number] [address] Apr, Severe episode of recurrent major depressive disorder, without psychotic features F33.2 and Intermittent atrial fibrillation I48.0 [facility] [address] [address] Mar, Severe episode of recurrent major depressive disorder, without psychotic features F33.2 and Generalized anxiety disorder F41.1 [facility] [id number] [address] Mar, Severe episode of recurrent major depressive disorder, without psychotic features F33.2 and Generalized anxiety disorder F41.[address] [id number] [place] [address] [address] [place] [address] [address] Mar, Major depressive disorder, single episode, unspecified F32.9 [facility] [address] [address] Feb, Severe episode of recurrent major depressive disorder, without psychotic features F33.2 and Generalized anxiety disorder F41.1 [place] [id number] [address] Feb, [place] [address] [address] January, Acute right-sided low back pain without sciatica M54.5 ; Major depressive disorder, single episode, unspecified F32.9 ; Psoriasis L40.9 ; Dependent edema R60.9 and BMI 45.0-49.9, adult Z68.42 [facility] [id number] [address] 03 Dec, 2018 Cervical paraspinal muscle spasm M62.838 and BMI 50.0-59.9, adult Z68.43 [place] [address] [address] Nov, Major depressive disorder, single episode, unspecified F32.9 and Anxiety disorder, unspecified F41.9 [place] [address] [address] 12 Oct, 2017 BMI 50.0-59.9, adult Z68.43 ; Pharyngitis due to other organism J02.8 and Bilateral otitis media with effusion H65.93 [place] [address] [address] 11 Sep, 2017 Encounter for immunization Z23 [facility] [address] [place] [address] Jul, Sore throat J02.9 and BMI 45.0-49.9, adult Z68.[address] [address] Jun, [place] [address] [address] Jun, Edema of left upper eyelid H02.844 [facility] [place] [facility] [address] [id number] 27 May, 2017 Dental examination Z01.[address] [address] 11 May, 2017 Right wrist pain M25.531 and Tendonitis M77.9 [facility] [place] [facility] [address] [id number] 06 May, 2017 Encounter for dental examination Z01.20 [facility] [address] [place] [address] Apr, Heat rash L74.0 [place] [address] [address] 14 Dec, [address] [address] 13 Dec, 2014 [facility] [address] [id number] [place] [address] 17 Aug, 2014 [facility] [place] [facility] [address] [id number] [place] [address] 17 Aug, 2014 [facility] [place] [facility] [address] [id number] [place] [address] 14 Aug, 2013 [facility] [place] [facility] [address] [id number] [place] [address] 14 Aug, 2013 [facility] [place] [facility] [address] [id number] [place] [address] 24 May, 2013 [facility] [place] [facility] [address] [id number] [place] [address] 19 May, 2013 [facility] [place] [facility] [address] [id number] [place] [address] 18 May, 2013 [facility] [place] [facility] [address] [id number] [place] [address] 17 May, 2013 [facility] [place] [facility] [address] [id number] [place] [address] 13 May, 2013 [facility] [place] [facility] [address] [id number] [place] [address] 09 May, 2013 [facility] [place] [facility] [address] [id number] [place] [address] 12 Dec, 2012 [facility] [place] [facility] [address] [id number] [address] Nov, [facility] [place] [facility] [address] [id number] [place] [address] 08 Oct, 2012 [facility] [place] [facility] [address] [id number] [place] [address] Mar, [facility] [place] [facility] [address] [id number] [place] [address] Mar, [facility] [place] [facility] [address] [address] Feb, [facility] [address] [address] January, [facility] [address] [address] January, [facility] [address] [address] Dec, [facility] [address] [address] Nov, [facility] [address] [place] [address] Nov, [facility] [address] [address] Nov, [facility] [address] [address] Oct, [facility] [address] [address] Oct, [facility] [address] [address] Oct, [facility] [address] [address] Feb, [facility] [address] [address] Dec, [facility] [id number] [address] Sep, IMMUNIZATIONS No Known Immunizations SOCIAL HISTORY Never Assessed REASON FOR VISIT f/u PLAN OF CARE Activity Details Follow Up 2 Weeks Reason: F/U VITAL SIGNS MEDICATIONS Unknown Medications RESULTS No Results PROCEDURES Procedure Date Ordered Result Body Site Psychotherapy, patient &/family, 45 minutes, established patient May 18, 2018 INSTRUCTIONS MEDICATIONS ADMINISTERED No Known Medications MEDICAL (GENERAL) HISTORY Type Description Date Medical History Enlarged heart/afib Medical History right wrist tendonitis Medical History depression Medical History POCD Surgical History lap beti 2009 Surgical History c section X 3 2008, 2014, 2016 Hospitalization History Surgery(s)/Childbirth(s) only
--- OUTSIDE RECORDS SUMMARY | 2018-08-31 09:55 | XMS REPORT ---
Author Author ELIZABET COLIN Organization [facility] Address [address] [place] [address] Care Team Providers Care Finish Sander Name Role Phone ELIZABET COLIN Unavailable PROBLEMS Type Condition ICD9-CM Code [id number] Code Onset Dates Condition Status SNOMED Code Problem Anxiety disorder, unspecified F41.9 Active 982161385 Problem Intermittent atrial fibrillation I48.0 Active 146625562 Problem Psoriasis L40.9 Active 3466471 Problem Severe episode of recurrent major depressive disorder, without psychotic features F33.2 Active 19423754 Problem Major depressive disorder, single episode, unspecified F32.9 Active 47826794 Problem Dependent edema R60.9 Active 421386001 Problem Generalized anxiety disorder F41.1 Active 63276519 ALLERGIES No Information ENCOUNTERS Encounter Location Date Diagnosis [facility] [id number] [place] [address]16- [address]164 Jun, [facility] [id number] [place] [address] 01598- 7911 May, Severe episode of recurrent major depressive disorder, without psychotic features F33.2 and Generalized anxiety disorder F41.1 [facility] [id number] [place] [address] -[address]91 Apr, Left wrist pain M25.532 [facility] [address] [place] [address] 84215- 6350 Apr, Severe episode of recurrent major depressive disorder, without psychotic features F33.2 and Generalized anxiety disorder F41.1 [facility] [id number] [place] [address] 12634- 7153 Apr, Severe episode of recurrent major depressive disorder, without psychotic features F33.2 and Generalized anxiety disorder F41.1 [facility] [id number] [address] Apr, Severe episode of recurrent major depressive disorder, without psychotic features F33.2 and Intermittent atrial fibrillation I48.0 [place] [address] [place] [address] 94494- 3044 Mar, Severe episode of recurrent major depressive disorder, without psychotic features F33.2 and Generalized anxiety disorder F41.1 [place] [address] [place] [address] 60257- 6175 Mar, Severe episode of recurrent major depressive disorder, without psychotic features F33.2 and Generalized anxiety disorder F41.[address] [id number] [place] [address] Mar [place] [id number] [place] [address] 36106- 8606 Mar, Major depressive disorder, single episode, unspecified F32.9 [place] [id number] [place] [address] 98807- 4027 Feb, Severe episode of recurrent major depressive disorder, without psychotic features F33.2 and Generalized anxiety disorder F41.1 [place] [address] [place] [address] 43307- 4429 Feb, [place] [address] [place] [address] 44954- 0578 January, Acute right-sided low back pain without sciatica M54.5 ; Major depressive disorder, single episode, unspecified F32.9 ; Psoriasis L40.9 ; Dependent edema R60.9 and BMI 45.0-49.9, adult Z68.42 [place] [address] [place] [address] 85994- 9528 Dec, Cervical paraspinal muscle spasm M62.838 and BMI 50.0-59.9, adult Z68.43 [place] [address] [address] Nov, Major depressive disorder, single episode, unspecified F32.9 and Anxiety disorder, unspecified F41.9 [facility] [address] [address] 12 Oct, 2017 BMI 50.0-59.9, adult Z68.43 ; Pharyngitis due to other organism J02.8 and Bilateral otitis media with effusion H65.93 [place] [address] [address]- [address] Sep, Encounter for immunization Z23 [facility] [address] [address] Jul, Sore throat J02.9 and BMI 45.0-49.9, adult Z68.42 [place] [address] [address]- 8124 23 Jun, [address] [address]- [address] Jun, Edema of left upper eyelid H02.844 [facility] [address] [id number] May, Dental examination Z01.20 [place] [address] 6[address]47- 1370 May, Right wrist pain M25.531 and Tendonitis M77.9 [facility] [address] [id number] May, Encounter for dental examination Z01.20 [facility] [address] [address] Apr, Heat rash L74.0 [place] [address] 9[address]52- 8614 14 Dec, 2014 [place] [address] [address]- 7214 Dec, [place] [address] 17[address]- 1572 17 Aug, 2014 [facility] [address] [id number] [place] [address] 9[address] 17 Aug, 2014 [facility] [place] [facility] [address] [id number] [place] [address] 14 Aug, 2013 [facility] [place] [facility] [address] [id number] [place] [address] 6095 14 Aug, 2013 [facility] [place] [facility] [address] [id number] [place] [address]- 7984 24 May, 2013 [facility] [place] [facility] [address] [id number] [place] [address] 3497 19 May, 2013 [facility] [place] [facility] [address] [id number] [place] [address] 9108 18 May, 2013 [facility] [place] [facility] [address] [id number] [place] [address] 9657 17 May, 2013 [facility] [place] [facility] [address] [id number] [place] [address]- 3670 13 May, 2013 [facility] [place] [facility] [address] [id number] [place] [address]- 4467 09 May, 2013 [facility] [place] [facility] [address] [id number] [place] [address]- 0407 12 Dec, 2012 [facility] [place] [facility] [address] [id number] [place] [address]- 4574 Nov, [facility] [place] [facility] [address] [id number] [address] 4860 08 Oct, 2012 [facility] [place] [facility] [address] [id number] [place] [address]- 4098 Mar, [facility] [place] [facility] [address] [id number] [place] [address]- 1932 Mar, [facility] [place] [facility] [address] [id number] [place] [address]- 3533 Feb, [facility] [place] [facility] [address] [address] 8[address] January, [facility] [address] [address]- 1666 January, [facility] [address] [address]- 0[address] Dec, [facility] [address] [address]- 0076 Nov, [facility] [address] [address]- 8096 Nov, [facility] [address] [address]- 7066 Nov, [facility] [address] [address]- 5[address] Oct, [facility] [address] [address]- 388[address] Oct, [facility] [address] [address]- 9839 Oct, [facility] [address] [address]- 3004 Feb, [facility] [address] [address]- 5[address] Dec, [facility] [id number] [address] 3666 Sep, IMMUNIZATIONS No Known Immunizations SOCIAL HISTORY Never Assessed REASON FOR VISIT f/u PLAN OF CARE Activity Details Follow Up 3 Weeks Reason: F/U VITAL SIGNS MEDICATIONS Unknown Medications RESULTS No Results PROCEDURES Procedure Date Ordered Result Body Site Psychotherapy, patient &/family, 45 minutes, established patient Jun 01, 2018 INSTRUCTIONS MEDICATIONS ADMINISTERED No Known Medications MEDICAL (GENERAL) HISTORY Type Description Date Medical History Enlarged heart/afib Medical History right wrist tendonitis Medical History depression Medical History POCD Surgical History lap beti 2008 Surgical History c section X 3 2008, 2014, 2017 Hospitalization History Surgery(s)/Childbirth(s) only
--- OUTSIDE RECORDS SUMMARY | 2018-08-31 09:55 | XMS REPORT ---
Author Author EN HARPER [facility] Address [address] [place] [address] Care Team Providers Care Private Duty Aide Name Role Phone EN HARPER Unavailable PROBLEMS Type Condition ICD9-CM Code XEM28-MF Code Onset Dates Condition Status SNOMED Code Problem Anxiety disorder, unspecified F41.9 Active 582499773 Problem Intermittent atrial fibrillation I48.0 Active 814901319 Problem Psoriasis L40.9 Active 7555491 Problem Severe episode of recurrent major depressive disorder, without psychotic features F33.2 Active 83478254 Problem Major depressive disorder, single episode, unspecified F32.9 Active 26299074 Problem Dependent edema R60.9 Active 803170383 Problem Generalized anxiety disorder F41.1 Active 25001321 ALLERGIES Substance Reaction Event Type Date Status cocunut nausea Non Drug Allergy Apr, Active tape adhesive hives Non Drug Allergy Apr, Active ENCOUNTERS Encounter Location Date Diagnosis [facility] [address] [place] [address] 20794- 5732 Jun, [facility] [id number] [place] [address] 02184- 9612 May, [facility] [id number] [place] [address] 30212- 6101 05 May, 2018 Severe episode of recurrent major depressive disorder, without psychotic features F33.2 and Generalized anxiety disorder F41.1 [facility] [id number] [place] [address] 64234 -4142 Apr, Left wrist pain M25.532 [facility] [address] [place] [address]90- 1933 Apr, Severe episode of recurrent major depressive disorder, without psychotic features F33.2 and Generalized anxiety disorder F41.1 [place] [address] [facility] [id number] [address]- [address]64 Apr, Severe episode of recurrent major depressive disorder, without psychotic features F33.2 and Generalized anxiety disorder F41.1 [place] [address] [address]- 1348 Apr, Severe episode of recurrent major depressive disorder, without psychotic features F33.2 and Intermittent atrial fibrillation I48.0 [place] [address] [address]- 6717 Mar, Severe episode of recurrent major depressive disorder, without psychotic features F33.2 and Generalized anxiety disorder F41.1 [place] [address] [address]- 2960 Mar, Severe episode of recurrent major depressive disorder, without psychotic features F33.2 and Generalized anxiety disorder F41.[address] [id number] [place] [address] Mar [place] [id number] [address]- 3467 Mar, Major depressive disorder, single episode, unspecified F32.9 [place] [address] [address]- 8351 Feb, Severe episode of recurrent major depressive disorder, without psychotic features F33.2 and Generalized anxiety disorder F41.1 [place] [address] [address]- 7543 Feb, [place] [address] [facility] [id number] [place] [address] 01495- 7760 January, Acute right-sided low back pain without sciatica M54.5 ; Major depressive disorder, single episode, unspecified F32.9 ; Psoriasis L40.9 ; Dependent edema R60.9 and BMI 45.0-49.9, adult Z68.42 [place] [address] [place] [address] 97984- 3329 Dec, Cervical paraspinal muscle spasm M62.838 and BMI 50.0-59.9, adult Z68.43 [facility] [address] [address]- 1817 Nov, Major depressive disorder, single episode, unspecified F32.9 and Anxiety disorder, unspecified F41.9 [place] [address] 62318- 0602 12 Oct, 2017 BMI 50.0-59.9, adult Z68.43 ; Pharyngitis due to other organism J02.8 and Bilateral otitis media with effusion H65.93 [place] [address] [address]- 2624 11 Sep, 2017 Encounter for immunization Z23 [facility] [address] [address] 2017 Sore throat J02.9 and BMI 45.0-49.9, adult Z68.42 [facility] [address] [address]- 7260 Jun, [place] [address] 25861- 4451 09 Jun, 2017 Edema of left upper eyelid H02.844 [facility] [address] [id number] May, Dental examination Z01.20 [facility] [address] 6[address]- 0399 11 May, 2017 Right wrist pain M25.531 and Tendonitis M77.9 [facility] [address] [id number] 06 May, 2017 Encounter for dental examination Z01.20 [facility] [address] [address] 19 Apr, 2017 Heat rash L74.0 [facility] [address] 73730- 6915 14 Dec, 2014 [facility] [address] [id number] [place] [address]- 7917 13 Dec, 2014 [facility] [address] [id number] [place] [address]- 2671 17 Aug, 2014 [facility] [address] [id number] [place] [address]- 4067 17 Aug, 2014 [facility] [address] [id number] [place] [address]- 8698 14 Aug, 2013 [facility] [address] [id number] [place] [address]- 4141 14 Aug, 2013 [facility] [place] [facility] [address] [id number] [place] [address]- 9385 24 May, 2013 [facility] [place] [facility] [address] [id number] [place] [address]- 1428 19 May, 2013 [facility] [place] [facility] [address] [id number] [place] [address]- 0195 18 May, 2013 [facility] [place] [facility] [address] [id number] [place] [address]- 9487 17 May, 2013 [facility] [place] [facility] [address] [id number] [place] [address]- 8563 13 May, 2013 [facility] [place] [facility] [address] [id number] [address]- 2328 09 May, 2013 [facility] [place] [facility] [address] [id number], [place] [address]- 3040 12 Dec, 2012 [facility] [place] [facility] [address] [id number] [place] [address]- 4411 Nov, [facility] [place] [facility] [address] [id number], [place] [address]- 2979 08 Oct, 2012 [facility] [place] [facility] [address] [id number] [place] [address]- 3537 Mar, [facility] [place] [facility] [address] [address]- 49[address] Mar, [facility] [address] [address] Feb, [facility] [address], [place] [address]- 6106 January, [facility] [address], [place] [address]- 1085 January, [facility] [address] [address] Dec, [facility] [address] [address]- 5501 Nov, [facility] [address], [place] [address]- 7906 Nov, [facility] [address], [place] [address]- 4092 Nov, [facility] [address], [place] [address]- 6931 Oct, [facility] [address] [address]12 Oct, [facility] [address], [place] [address]- 5661 Oct, [facility] [address] [address] Feb, [facility] [address] [id number] 80[address] Dec, [facility] [address] [id number] [address]- 3681 Sep, IMMUNIZATIONS No Known Immunizations SOCIAL HISTORY Never Assessed REASON FOR VISIT shoulder/wrist pain from fall this morning JStrasserRN PLAN OF CARE Activity Details Follow Up prn Reason: VITAL SIGNS Height 62 in 2018-05-26 Weight 257.2 lbs 2018-05-26 Temperature 98.4 degrees Fahrenheit 2018-05-26 Heart Rate 80 bpm 2018-05-26 Respiratory Rate 20 2018-05-26 BMI 47.04 kg/m2 2018-05-26 Blood pressure systolic 130 mmHg 2018-05-26 Blood pressure diastolic 90 mmHg 2018-05-26 MEDICATIONS Medication Instructions Dosage Frequency Start Date End Date Duration Status Fetzima 40 MG Orally Once a day 1 capsule 24h January, 30 day(s) Active Phentermine HCl 37.5 MG Orally Once a day 1 tablet 24h Active Cardizem CD 180 MG Orally Once a day 1 capsule 24h Active Jencycla Active RESULTS Name Result Date Reference Range Xray : Wrist, Left 3 views (IN HOUSE) 2018-05-26 PROCEDURES Procedure Date Ordered Result Body Site X-RAY EXAM OF WRIST May 26, 2018 INSTRUCTIONS MEDICATIONS ADMINISTERED No Known Medications MEDICAL (GENERAL) HISTORY Type Description Date Medical History Enlarged heart/afib Medical History right wrist tendonitis Medical History depression Medical History POCD Surgical History conrado beti 2008 Surgical History c section X 3 2008, 2014, 2016 Hospitalization History Surgery(s)/Childbirth(s) only
--- OUTSIDE RECORDS SUMMARY | 2018-08-31 09:56 | XMS REPORT ---
Author Author ELIZABET COLIN [facility] [address] Address [address] [place] [address] Care Team Providers Care Application Development Consultant Name Role Phone ELIZABET COLIN Unavailable PROBLEMS Type Condition ICD9-CM Code [id number] Code Onset Dates Condition Status SNOMED Code Problem Anxiety disorder, unspecified F41.9 Active 879711355 Problem Intermittent atrial fibrillation I48.0 Active 821095582 Problem Psoriasis L40.9 Active 8108498 Problem Severe episode of recurrent major depressive disorder, without psychotic features F33.2 Active 60021712 Problem Major depressive disorder, single episode, unspecified F32.9 Active 84620640 Problem Dependent edema R60.9 Active 136495145 Problem Generalized anxiety disorder F41.1 Active 78677371 ALLERGIES No Information ENCOUNTERS Encounter Location Date Diagnosis [facility] [place] [id number] [place] [address]239- 5[address] Jun, [facility] [place] [id number] [place] [address] 95991- 0880 May, [facility] [place] [id number] [place] [address]- 2003 May, Severe episode of recurrent major depressive disorder, without psychotic features F33.2 and Generalized anxiety disorder F41.1 [facility] [id number] [place] [address]9714 Apr, Left wrist pain M25.532 [facility] [place] [id number] [place] [address] 10031- 1270 Apr, Severe episode of recurrent major depressive disorder, without psychotic features F33.2 and Generalized anxiety disorder F41.1 [facility] [place] [id number] [place] [address] 91892- 7460 Apr, Severe episode of recurrent major depressive disorder, without psychotic features F33.2 and Generalized anxiety disorder F41.1 [facility] [place] [id number] [address] Apr, Severe episode of recurrent major depressive disorder, without psychotic features F33.2 and Intermittent atrial fibrillation I48.0 [facility] [place] [address] [address] Mar, Severe episode of recurrent major depressive disorder, without psychotic features F33.2 and Generalized anxiety disorder F41.1 [facility] [place] [id number] [address] Mar, Severe episode of recurrent major depressive disorder, without psychotic features F33.2 and Generalized anxiety disorder F41.[address] [id number] [place] [address] [address] [place] [address], [place] [address] Mar, Major depressive disorder, single episode, unspecified F32.9 [facility] [place] [address], [place] [address] 39[address] Feb, Severe episode of recurrent major depressive disorder, without psychotic features F33.2 and Generalized anxiety disorder F41.1 [place] [id number] [address] Feb, [place] [address], [place] [address] January, Acute right-sided low back pain without sciatica M54.5 ; Major depressive disorder, single episode, unspecified F32.9 ; Psoriasis L40.9 ; Dependent edema R60.9 and BMI 45.0-49.9, adult Z68.42 [facility] [place] [id number] [address] 03 Dec, 2018 Cervical paraspinal muscle spasm M62.838 and BMI 50.0-59.9, adult Z68.43 [place] [address] [address] Nov, Major depressive disorder, single episode, unspecified F32.9 and Anxiety disorder, unspecified F41.9 [place] [address] [address] 8[address] 12 Oct, 2017 BMI 50.0-59.9, adult Z68.43 ; Pharyngitis due to other organism J02.8 and Bilateral otitis media with effusion H65.93 [place] [address] [address]- 0618 11 Sep, 2017 Encounter for immunization Z23 [facility] [address] [place] [address]9 Jul, Sore throat J02.9 and BMI 45.0-49.9, adult Z68.[address] [address] Jun, [place] [address] [address]01 Jun, Edema of left upper eyelid H02.844 [facility] [address] [id number] 27 May, 2017 Dental examination Z01.[address] [address]- 5068 11 May, 2017 Right wrist pain M25.531 and Tendonitis M77.9 [facility] [address] [id number] 06 May, 2017 Encounter for dental examination Z01.20 [facility] [address] [place] [address]68 -3733 Apr, Heat rash L74.0 [place] [address] [address] 14 Dec, [address] [address]- 5190 13 Dec, 2014 [facility] [address] [id number] [place] [address] 3778 17 Aug, 2014 [facility] [place] [facility] [address] [id number] [place] [address] 0244 17 Aug, 2014 [facility] [place] [facility] [address] [id number] [place] [address]- 0009 14 Aug, 2013 [facility] [place] [facility] [address] [id number] [place] [address] 9239 14 Aug, 2013 [facility] [place] [facility] [address] [id number] [place] [address]- 3828 24 May, 2013 [facility] [place] [facility] [address] [id number] [place] [address]- 2708 19 May, 2013 [facility] [place] [facility] [address] [id number] [place] [address]- 8347 18 May, 2013 [facility] [place] [facility] [address] [id number] [place] [address]- 4236 17 May, 2013 [facility] [place] [facility] [address] [id number] [place] [address]- 9697 13 May, 2013 [facility] [place] [facility] [address] [id number] [place] [address]- 5977 09 May, 2013 [facility] [place] [facility] [address] [id number] [place] [address]- 6828 12 Dec, 2012 [facility] [place] [facility] [address] [id number] [address] Nov, [facility] [place] [facility] [address] [id number] [place] [address]- 6372 08 Oct, 2012 [facility] [place] [facility] [address] [id number] [place] [address]- 2238 Mar, [facility] [place] [facility] [address] [id number] [place] [address]- 2016 Mar, [facility] [place] [facility] [address], [place] [address]1 Feb, [facility] [place] [address], [place] [address] 9008 January, [facility] [place] [address], [place] [address]- 9406 January, [facility] [place] [address], [place] [address]- 9427 Dec, [facility] [place] [address], [place] [address]- 9725 Nov, [facility] [place] [id number] [place] [address] 33382- 5420 Nov, [facility] [place] [address], [place] [address]- 0456 Nov, [facility] [place] [address], [place] [address]- 6894 Oct, [facility] [place] [address], [place] [address]- 5572 Oct, [facility] [place] [address], [place] [address]- 9262 Oct, [facility] [place] [address], [place] [address]- 8533 Feb, [facility] [place] [address], [place] [address]- 4863 Dec, [facility] [place] [id number], [place] [address] Sep, IMMUNIZATIONS No Known Immunizations SOCIAL HISTORY Never Assessed REASON FOR VISIT intake - per mary PLAN OF CARE Activity Details Follow Up Next available Reason: F/U VITAL SIGNS MEDICATIONS Unknown Medications RESULTS No Results PROCEDURES Procedure Date Ordered Result Body Site Psychotherapy, patient &/family, 45 minutes, established patient April 06, 2018 INSTRUCTIONS MEDICATIONS ADMINISTERED No Known Medications MEDICAL (GENERAL) HISTORY Type Description Date Medical History Enlarged heart/afib Medical History right wrist tendonitis Medical History depression Medical History POCD Surgical History conrado bang 2008 Surgical History c section X 3 2008, 2014, 2017 Hospitalization History Surgery(s)/Childbirth(s) only
--- OUTSIDE RECORDS SUMMARY | 2018-08-31 09:56 | XMS REPORT ---
Author Author YOLIE PEDERSON Organization [facility] Address [address] [place] [address] Care Team Providers Care Director [employer] Name Role Phone YOLIE PEDERSON Unavailable PROBLEMS Type Condition ICD9-CM Code [id number] Code Onset Dates Condition Status SNOMED Code Problem Anxiety disorder, unspecified F41.9 Active 391069017 Problem Intermittent atrial fibrillation I48.0 Active 825782913 Problem Psoriasis L40.9 Active 9199725 Problem Severe episode of recurrent major depressive disorder, without psychotic features F33.2 Active 18437965 Problem Major depressive disorder, single episode, unspecified F32.9 Active 60179737 Problem Dependent edema R60.9 Active 849212214 Problem Generalized anxiety disorder F41.1 Active 80397936 ALLERGIES No Information ENCOUNTERS Encounter Location Date Diagnosis [facility] [id number] [place] [address]392- 2429 May, [facility] [address] [address]- [address] May, [facility] [id number] [place] [address]647 -8599 Apr, Left wrist pain M25.532 [facility] [id number] [place] [address] 63814- 3107 Apr, Severe episode of recurrent major depressive disorder, without psychotic features F33.2 and Generalized anxiety disorder F41.1 [facility] [address] [address]343- 6242 Apr, Severe episode of recurrent major depressive disorder, without psychotic features F33.2 and Generalized anxiety disorder F41.1 [facility] [id number] [place] [address] 08952- 4192 Apr, Severe episode of recurrent major depressive disorder, without psychotic features F33.2 and Intermittent atrial fibrillation I48.0 [facility] [id number], [place] [address]- 1360 Mar, Severe episode of recurrent major depressive disorder, without psychotic features F33.2 and Generalized anxiety disorder F41.1 [place] [id number], [place] [address]- 9912 Mar, Severe episode of recurrent major depressive disorder, without psychotic features F33.2 and Generalized anxiety disorder F41.[address] [id number] [place] [address] [address] [place] [address] [place] [address]23- 8370 Mar, Major depressive disorder, single episode, unspecified F32.9 [place] [address], [place] [address]- 2191 Feb, Severe episode of recurrent major depressive disorder, without psychotic features F33.2 and Generalized anxiety disorder F41.1 [place] [address], [place] [address]- 8520 Feb, [place] [address] [place] [address] 99156- 4009 January, Acute right-sided low back pain without sciatica M54.5 ; Major depressive disorder, single episode, unspecified F32.9 ; Psoriasis L40.9 ; Dependent edema R60.9 and BMI 45.0-49.9, adult Z68.42 [place] [id number], [place] [address]- 3052 Dec, Cervical paraspinal muscle spasm M62.838 and BMI 50.0-59.9, adult Z68.43 [place] [id number], [place] [address]- 6516 Nov, Major depressive disorder, single episode, unspecified F32.9 and Anxiety disorder, unspecified F41.9 [place] [address] [address]- 4167 12 Oct, 2017 BMI 50.0-59.9, adult Z68.43 ; Pharyngitis due to other organism J02.8 and Bilateral otitis media with effusion H65.93 [facility] [address] [address]- 4695 Sep, Encounter for immunization Z23 [facility] [address] [address] Jul, Sore throat J02.9 and BMI 45.0-49.9, adult Z68.42 [place] [address] [address]- 5765 Jun, [place] [address] [address]- 8948 Jun, Edema of left upper eyelid H02.844 [facility] [address] [id number] May, Dental examination Z01.20 [facility] [address] [address]- 3490 May, Right wrist pain M25.531 and Tendonitis M77.9 [facility] [address] [id number] May, Encounter for dental examination Z01.20 [facility] [address] [address] Apr, Heat rash L74.0 [place] [address] 46660- 7819 Dec, [place] [address] 89912- 5781 Dec, [place] [address] [address]- 9188 Aug, [place] [address] 9[address]96- 2546 17 Aug, 2014 [facility] [address] [id number] [place] [address]- 4528 14 Aug, 2013 [facility] [address] [id number] [place] [address]70 14 Aug, 2013 [facility] [address] [id number] [place] [address]- 0312 24 May, 2013 [facility] [place] [facility] [address] [id number] [place] [address]- 8839 19 May, 2013 [facility] [address] [id number] [place] [address]- 2130 18 May, 2013 [facility] [place] [facility] [address] [id number] [place] [address]- 9348 17 May, 2013 [facility] [address] [id number] [place] [address]- 4656 13 May, 2013 [facility] [address] [id number] [place] [address]- 2847 09 May, 2013 [facility] [address] [id number] [place] [address]- 2774 12 Dec, 2012 [facility] [address] [id number] [place] [address]- 3456 Nov, [facility] [address] [id number] [place] [address]- 7219 Oct, [facility] [place] [facility] [address] [id number] [place] [address]- 1362 Mar, [facility] [place] [facility] [address] [id number] [place] [address]- 7382 Mar, [facility] [place] [facility] [address] [id number] [place] [address]- 0978 Feb, [facility] [place] [facility] [address] [id number] [place] [address]- 5430 January, [facility] [place] [facility] [id number], [place] [address]- 2566 January, [facility] [address], [place] [address]- 6946 Dec, [facility] [address], [place] [address]- 2756 Nov, [facility] [address], [place] [address]- 0716 Nov, [facility] [address], [place] [address]- 9956 Nov, [facility] [address], [place] [address]- 0567 Oct, [facility] [address], [place] [address]- 0962 Oct, [facility] [address], [place] [address]- 2359 Oct, [facility] [address], [place] [address]- 7897 Feb, [facility] [address], [place] [address]- 0926 Dec, [facility] [id number], [place] [address]- 4565 Sep, IMMUNIZATIONS No Known Immunizations SOCIAL HISTORY Never Assessed REASON FOR VISIT f/u PLAN OF CARE Activity Details Follow Up next available with Dr. Jade Reason:depression and anxiety VITAL SIGNS MEDICATIONS Unknown Medications RESULTS No Results PROCEDURES Procedure Date Ordered Result Body Site Psychotherapy, patient &/family, 30 minutes, established patient April 04, 2018 INSTRUCTIONS MEDICATIONS ADMINISTERED No Known Medications MEDICAL (GENERAL) HISTORY Type Description Date Medical History Enlarged heart/afib Medical History right wrist tendonitis Medical History depression Medical History POCD Surgical History lap beti 2008 Surgical History c section X 3 2008, 2014, 2017 Hospitalization History Surgery(s)/Childbirth(s) only
--- OUTSIDE RECORDS SUMMARY | 2018-08-31 09:56 | XMS REPORT ---
Author Author ELIZABET COLIN [facility] Address [address] [place] [address] Care Team Providers Care Composition Weatherboard Applier Name Role Phone ELIZABET COLIN Unavailable PROBLEMS Type Condition ICD9-CM Code [id number] Code Onset Dates Condition Status SNOMED Code Problem Anxiety disorder, unspecified F41.9 Active 183396904 Problem Intermittent atrial fibrillation I48.0 Active 616632785 Problem Psoriasis L40.9 Active 4273927 Problem Severe episode of recurrent major depressive disorder, without psychotic features F33.2 Active 14098669 Problem Major depressive disorder, single episode, unspecified F32.9 Active 38838606 Problem Dependent edema R60.9 Active 279543008 Problem Generalized anxiety disorder F41.1 Active 01805127 ALLERGIES No Information ENCOUNTERS Encounter Location Date Diagnosis [facility] [id number] [place] [address] 43935- 9179 Jun, [facility] [id number] [place] [address] 58440- 0295 May, [facility] [id number] [place] [address] 76013- 7638 May, Severe episode of recurrent major depressive disorder, without psychotic features F33.2 and Generalized anxiety disorder F41.[address] [facility] [id number] [place] [address] 17165 -1687 Apr, Left wrist pain M25.532 [facility] [id number] [place] [address] 47974- 9816 Apr, Severe episode of recurrent major depressive disorder, without psychotic features F33.2 and Generalized anxiety disorder F41.1 [facility] [id number] [place] [address] 96704- 9965 Apr, Severe episode of recurrent major depressive disorder, without psychotic features F33.2 and Generalized anxiety disorder F41.1 [facility] [id number] [address] 9079 Apr, Severe episode of recurrent major depressive disorder, without psychotic features F33.2 and Intermittent atrial fibrillation I48.0 [facility] [address] [address] 7[address] Mar, Severe episode of recurrent major depressive disorder, without psychotic features F33.2 and Generalized anxiety disorder F41.1 [facility] [id number] [address] 4751 Mar, Severe episode of recurrent major depressive disorder, without psychotic features F33.2 and Generalized anxiety disorder F41.[address] [id number] [place] [address] [address] [place] [address] [address] Mar, Major depressive disorder, single episode, unspecified F32.9 [facility] [address] [address] 5867 Feb, Severe episode of recurrent major depressive disorder, without psychotic features F33.2 and Generalized anxiety disorder F41.1 [place] [id number] [address] 08[address] Feb, [place] [address] [address] 24[address] January, Acute right-sided low back pain without sciatica M54.5 ; Major depressive disorder, single episode, unspecified F32.9 ; Psoriasis L40.9 ; Dependent edema R60.9 and BMI 45.0-49.9, adult Z68.42 [facility] [id number] [address] 1664 03 Dec, 2018 Cervical paraspinal muscle spasm M62.838 and BMI 50.0-59.9, adult Z68.43 [place] [address] [address]39- 6370 Nov, Major depressive disorder, single episode, unspecified F32.9 and Anxiety disorder, unspecified F41.9 [place] [address] 22916- 2303 12 Oct, 2017 BMI 50.0-59.9, adult Z68.43 ; Pharyngitis due to other organism J02.8 and Bilateral otitis media with effusion H65.93 [place] [address] 52[address]- 2292 11 Sep, 2017 Encounter for immunization Z23 [facility] [address] [place] [address] 11651 -9521 Jul, Sore throat J02.9 and BMI 45.0-49.9, adult Z68.[address] [address]- 0661 Jun, [place] [address] [address]- 1491 Jun, Edema of left upper eyelid H02.844 [facility] [address] [id number] 27 May, 2017 Dental examination Z01.[address] 93752- 2629 11 May, 2017 Right wrist pain M25.531 and Tendonitis M77.9 [facility] [address] [id number] 06 May, 2017 Encounter for dental examination Z01.20 [facility] [address] [place] [address] 09511 -3767 Apr, Heat rash L74.0 [place] [address] 09758- 9287 14 Dec, [address] 39367- 4626 13 Dec, 2014 [facility] [address] [id number] [place] [address] 0024 17 Aug, 2014 [facility] [place] [facility] [address] [id number] [place] [address]- 6840 17 Aug, 2014 [facility] [place] [facility] [address] [id number] [place] [address]- 2236 14 Aug, 2013 [facility] [place] [facility] [address] [id number] [place] [address]- 1825 14 Aug, 2013 [facility] [place] [facility] [address] [id number] [place] [address]- 2281 24 May, 2013 [facility] [place] [facility] [address] [id number] [place] [address]- 7439 19 May, 2013 [facility] [place] [facility] [address] [id number] [place] [address]- 0781 18 May, 2013 [facility] [place] [facility] [address] [id number] [place] [address]- 0075 17 May, 2013 [facility] [place] [facility] [address] [id number] [place] [address]- 6872 13 May, 2013 [facility] [place] [facility] [address] [id number] [place] [address]- 4195 09 May, 2013 [facility] [place] [facility] [address] [id number] [place] [address]- 0547 12 Dec, 2012 [facility] [place] [facility] [address] [id number] [address] Nov, [facility] [place] [facility] [address] [id number] [place] [address]- 9690 08 Oct, 2012 [facility] [place] [facility] [address] [id number] [place] [address]- 1892 Mar, [facility] [place] [facility] [address] [id number] [place] [address]- 7010 Mar, [facility] [place] [facility] [address], [place] [address] 1390 Feb, [facility] [address], [place] [address]- 1211 January, [facility] [address], [place] [address]- 1586 January, [facility] [address], [place] [address]- 1187 Dec, [facility] [address], [place] [address]- 7365 Nov, [facility] [id number] [place] [address] 99057- 0692 Nov, [facility] [address], [place] [address]- 2766 Nov, [facility] [address], [place] [address]- 5730 Oct, [facility] [address], [place] [address]- 3996 Oct, [facility] [address], [place] [address]- 8347 Oct, [facility] [address], [place] [address]- 5180 Feb, [facility] [address], [place] [address]- 7582 Dec, [facility] [id number] [address]- 1154 Sep, IMMUNIZATIONS No Known Immunizations SOCIAL HISTORY Never Assessed REASON FOR VISIT F/U PLAN OF CARE Activity Details Follow Up 2 Weeks Reason: F/U VITAL SIGNS MEDICATIONS Unknown Medications RESULTS No Results PROCEDURES Procedure Date Ordered Result Body Site Psychotherapy, patient &/family, 45 minutes, established patient May 04, 2018 INSTRUCTIONS MEDICATIONS ADMINISTERED No Known Medications MEDICAL (GENERAL) HISTORY Type Description Date Medical History Enlarged heart/afib Medical History right wrist tendonitis Medical History depression Medical History POCD Surgical History lap beti 2009 Surgical History c section X 3 2008, 2014, 2016 Hospitalization History Surgery(s)/Childbirth(s) only
--- OUTSIDE RECORDS SUMMARY | 2018-08-31 09:56 | XMS REPORT ---
Author Author PETRONA NUNN Organization [facility] Address [address] [place] [address] Care Team Providers Care Route Agent Name Role Phone PETRONA NUNN Unavailable PROBLEMS Type Condition ICD9-CM Code BTV84-SH Code Onset Dates Condition Status SNOMED Code Problem Anxiety disorder, unspecified F41.9 Active 862838872 Problem Intermittent atrial fibrillation I48.0 Active 839004646 Problem Psoriasis L40.9 Active 9617943 Problem Severe episode of recurrent major depressive disorder, without psychotic features F33.2 Active 55403233 Problem Major depressive disorder, single episode, unspecified F32.9 Active 78504869 Problem Dependent edema R60.9 Active 034769593 Problem Generalized anxiety disorder F41.1 Active 77871824 ALLERGIES No Information ENCOUNTERS Encounter Location Date Diagnosis [facility] [id number] [place] [address] 48468- 1260 May, [facility] [id number] [place] [address] 89422- 5107 May, [facility] [id number] [place] [address] 91053 -1184 Apr, Left wrist pain M25.532 [facility] [id number] [place] [address] 64104- 5240 Apr, Severe episode of recurrent major depressive disorder, without psychotic features F33.2 and Generalized anxiety disorder F41.1 [facility] [address] 15971- 4738 Apr, Severe episode of recurrent major depressive disorder, without psychotic features F33.2 and Generalized anxiety disorder F41.1 [facility] [id number] [place] [address] 95423- 1447 Apr, Severe episode of recurrent major depressive disorder, without psychotic features F33.2 and Intermittent atrial fibrillation I48.0 [place] [address], [place] [address]- 2376 Mar, Severe episode of recurrent major depressive disorder, without psychotic features F33.2 and Generalized anxiety disorder F41.1 [place] [address], [place] [address]- 3916 Mar, Severe episode of recurrent major depressive disorder, without psychotic features F33.2 and Generalized anxiety disorder F41.[address] [id number] [place] [address] Mar [place] [address] [place] [address] 13935- 3456 Mar, Major depressive disorder, single episode, unspecified F32.9 [place] [address] [place] [address] 55961- 2578 Feb, Severe episode of recurrent major depressive disorder, without psychotic features F33.2 and Generalized anxiety disorder F41.1 [place] [address], [place] [address]- 4717 Feb, [place] [address] [place] [address] 45902- 3640 January, Acute right-sided low back pain without sciatica M54.5 ; Major depressive disorder, single episode, unspecified F32.9 ; Psoriasis L40.9 ; Dependent edema R60.9 and BMI 45.0-49.9, adult Z68.42 [place] [id number] [address]- 4869 Dec, Cervical paraspinal muscle spasm M62.838 and BMI 50.0-59.9, adult Z68.43 [place] [id number] [address]- 0110 Nov, Major depressive disorder, single episode, unspecified F32.9 and Anxiety disorder, unspecified F41.9 [place] [address] 30496- 3764 12 Oct, 2017 BMI 50.0-59.9, adult Z68.43 ; Pharyngitis due to other organism J02.8 and Bilateral otitis media with effusion H65.93 [facility] [address] 54922- 7822 11 Sep, 2017 Encounter for immunization Z23 [facility] [address] 51546 -3525 Jul, Sore throat J02.9 and BMI 45.0-49.9, adult Z68.42 [place] [address] 52662- 7048 Jun, [place] [address] 66866- 6162 Jun, Edema of left upper eyelid H02.844 [facility] [address] [id number] May, Dental examination Z01.20 [place] [address] 68356- 2473 May, Right wrist pain M25.531 and Tendonitis M77.9 [facility] [address] [id number] May, Encounter for dental examination Z01.20 [facility] [address] 51512 -3707 Apr, Heat rash L74.0 [place] [address] 36383- 1235 Dec, [place] [address] 96416- 6849 Dec, [place] [address] 17201- 7255 Aug, [place] [address] 84831- 5765 17 Aug, 2014 [facility] [address] [id number] [place] [address]- 7272 14 Aug, 2013 [facility] [address] [id number] [place] [address]- 8907 14 Aug, 2013 [facility] [address] [id number] [place] [address]- 2317 24 May, 2013 [facility] [address] [id number] [place] [address]- 5859 19 May, 2013 [facility] [address] [id number] [place] [address]- 3968 18 May, 2013 [facility] [address] [id number] [place] [address]- 9175 17 May, 2013 [facility] [address] [id number] [place] [address]- 3726 13 May, 2013 [facility] [address] [id number] [place] [address]- 5969 09 May, 2013 [facility] [address] [id number] [address]- 0237 12 Dec, 2012 [facility] [address] [id number] [address]- 6540 Nov, [facility] [address] [id number] [place] [address]- 5489 08 Oct, 2012 [facility] [address] [id number] [place] [address]- 3386 Mar, [facility] [address] [id number] [place] [address]- 8675 Mar, [facility] [address] [facility] [id number] [place] [address]- 5172 Feb, [facility] [address] [facility] [id number] [place] [address]- 3430 January, [facility] [address] [address] 384[address] January, [facility] [address] [address] 8626 Dec, [facility] [address] [address] Nov, [facility] [address] [address] Nov, [facility] [address] [address] 4826 Nov, [facility] [address] [address] 0952 Oct, [facility] [address] [address]206 Oct, [facility] [address] [address] 2216 Oct, [facility] [address] [address] 6414 Feb, [facility] [address], [place] [address]- 6572 Dec, [facility] [address], [place] [address]- 5843 Sep, IMMUNIZATIONS No Known Immunizations SOCIAL HISTORY Never Assessed REASON FOR VISIT Refill request PLAN OF CARE VITAL SIGNS MEDICATIONS Medication Instructions Dosage Frequency Start Date End Date Duration Status Fetzima 20 mg Orally Once a day-Must have appt for refill 1 capsule January, 30 day(s) Active RESULTS No Results PROCEDURES No Known procedures INSTRUCTIONS MEDICATIONS ADMINISTERED No Known Medications MEDICAL (GENERAL) HISTORY Type Description Date Medical History Enlarged heart/afib Medical History right wrist tendonitis Medical History depression Medical History POCD Surgical History lap beti 2009 Surgical History c section X 3 2008, 2014, 2017 Hospitalization History Surgery(s)/Childbirth(s) only
--- OUTSIDE RECORDS SUMMARY | 2018-08-31 09:56 | XMS REPORT ---
Author Author YOLIE PEDERSON Organization [facility] Address [address] [place] [address] Care Team Providers Care Maintenance Specialist Name Role Phone YOLIE PEDERSON Unavailable PROBLEMS Type Condition ICD9-CM Code IJZ85-EL Code Onset Dates Condition Status SNOMED Code Problem Anxiety disorder, unspecified F41.9 Active 702660947 Problem Intermittent atrial fibrillation I48.0 Active 492442456 Problem Psoriasis L40.9 Active 4755034 Problem Severe episode of recurrent major depressive disorder, without psychotic features F33.2 Active 58355912 Problem Major depressive disorder, single episode, unspecified F32.9 Active 99470677 Problem Dependent edema R60.9 Active 227911018 Problem Generalized anxiety disorder F41.1 Active 45211738 ALLERGIES No Information ENCOUNTERS Encounter Location Date Diagnosis [facility] [id number] [place] [address] 41574- 7544 May, [facility] [address] 54250- 2559 May, [facility] [id number] [place] [address] 31939 -9029 Apr, Left wrist pain M25.532 [facility] [id number] [place] [address] 75881- 2122 Apr, Severe episode of recurrent major depressive disorder, without psychotic features F33.2 and Generalized anxiety disorder F41.1 [facility] [address] 19053- 4250 Apr, Severe episode of recurrent major depressive disorder, without psychotic features F33.2 and Generalized anxiety disorder F41.1 [facility] [id number] [place] [address] 35571- 7668 Apr, Severe episode of recurrent major depressive disorder, without psychotic features F33.2 and Intermittent atrial fibrillation I48.0 [facility] [id number], [place] [address]- 1762 Mar, Severe episode of recurrent major depressive disorder, without psychotic features F33.2 and Generalized anxiety disorder F41.1 [place] [id number], [place] [address]- 6442 Mar, Severe episode of recurrent major depressive disorder, without psychotic features F33.2 and Generalized anxiety disorder F41.[address] [id number] [place] [address] Mar [place] [address] [place] [address] 55797- 8375 Mar, Major depressive disorder, single episode, unspecified F32.9 [place] [address], [place] [address]- 7371 Feb, Severe episode of recurrent major depressive disorder, without psychotic features F33.2 and Generalized anxiety disorder F41.1 [place] [address], [place] [address]- 0124 Feb, [place] [address] [place] [address] 10309- 2545 January, Acute right-sided low back pain without sciatica M54.5 ; Major depressive disorder, single episode, unspecified F32.9 ; Psoriasis L40.9 ; Dependent edema R60.9 and BMI 45.0-49.9, adult Z68.42 [place] [id number], [place] [address]- 0424 Dec, Cervical paraspinal muscle spasm M62.838 and BMI 50.0-59.9, adult Z68.43 [place] [id number], [place] [address]- 8444 Nov, Major depressive disorder, single episode, unspecified F32.9 and Anxiety disorder, unspecified F41.9 [place] [address] 58295- 0686 12 Oct, 2017 BMI 50.0-59.9, adult Z68.43 ; Pharyngitis due to other organism J02.8 and Bilateral otitis media with effusion H65.93 [facility] [address] 84202- 8790 Sep, Encounter for immunization Z23 [facility] [address] 76275 -0268 Jul, Sore throat J02.9 and BMI 45.0-49.9, adult Z68.42 [place] [address] 39731- 4252 Jun, [place] [address] 05418- 6779 Jun, Edema of left upper eyelid H02.844 [facility] [address] [id number] May, Dental examination Z01.20 [facility] [address] 38957- 1408 May, Right wrist pain M25.531 and Tendonitis M77.9 [facility] [address] [id number] May, Encounter for dental examination Z01.20 [facility] [address] 66630 -3209 Apr, Heat rash L74.0 [place] [address] 39981- 5929 Dec, [place] [address] 50147- 3020 Dec, [place] [address] 10400- 5253 Aug, [place] [address] 20239- 2546 17 Aug, 2014 [facility] [address] [id number] [place] [address]- 5798 14 Aug, 2013 [facility] [address] [id number] [place] 7648 14 Aug, 2013 [facility] [address] [id number] [place] [address]- 9142 24 May, 2013 [facility] [place] [facility] [address] [id number] [place] [address]- 9176 19 May, 2013 [facility] [address] [id number] [place] [address]- 2862 18 May, 2013 [facility] [place] [facility] [address] [id number] [place] [address]- 2850 17 May, 2013 [facility] [address] [id number] [place] [address]- 4271 13 May, 2013 [facility] [address] [id number] [place] [address]- 4231 09 May, 2013 [facility] [address] [id number] [place] [address]- 9037 12 Dec, 2012 [facility] [address] [id number] [place] [address]- 9882 Nov, [facility] [address] [id number] [place] [address]- 1987 Oct, [facility] [place] [facility] [address] [id number] [place] [address]- 8723 Mar, [facility] [place] [facility] [address] [id number] [place] [address]- 4900 Mar, [facility] [place] [facility] [address] [id number] [place] [address]- 1552 Feb, [facility] [place] [facility] [address] [id number] [place] [address]- 9511 January, [facility] [place] [facility] [id number], [place] [address]- 3406 January, [facility] [address], [place] [address]- 8153 Dec, [facility] [address], [place] [address]- 4276 Nov, [facility] [id number] [address] Nov, [facility] [id number] [address] Nov, [facility] [id number] [place] [address] Oct, [facility] [id number] [place] [address] Oct, [facility] [id number] [address] Oct, [facility] [id number] [place] [address] Feb, [facility] [id number], [place] [address] Dec, [facility] [address] [id number], [place] [address] Sep, IMMUNIZATIONS No Known Immunizations SOCIAL HISTORY Never Assessed REASON FOR VISIT bariatric evaluation PLAN OF CARE VITAL SIGNS MEDICATIONS Unknown Medications RESULTS No Results PROCEDURES No Known procedures INSTRUCTIONS MEDICATIONS ADMINISTERED No Known Medications MEDICAL (GENERAL) HISTORY Type Description Date Medical History Enlarged heart/afib Medical History right wrist tendonitis Medical History depression Medical History POCD Surgical History lap beti 2009 Surgical History c section X 3 2008, 2014, 2017 Hospitalization History Surgery(s)/Childbirth(s) only
--- OUTSIDE RECORDS SUMMARY | 2018-08-31 09:57 | XMS REPORT ---
Author Author LAZARA COSTA Organization [facility] Address [address] [place] [address] Care Team Providers Care Sap Payroll Consultant Name Role Phone LAZARA COSTA Unavailable PROBLEMS Type Condition ICD9-CM Code [id number] Code Onset Dates Condition Status SNOMED Code Problem Major depressive disorder, single episode, unspecified F32.9 Active 11285514 Problem Psoriasis L40.9 Active 5006016 Problem Dependent edema R60.9 Active 054556913 Problem Generalized anxiety disorder F41.1 Active 68002594 Problem Anxiety disorder, unspecified F41.9 Active 670933935 Problem Acute right-sided low back pain without sciatica M54.5 Active 113743231 Problem Severe episode of recurrent major depressive disorder, without psychotic features F33.2 Active 23320533 ALLERGIES Substance Reaction Event Type Date Status cocunut nausea Non Drug Allergy Oct, Active tape adhesive hives Non Drug Allergy Oct, Active ENCOUNTERS Encounter Location Date Diagnosis [facility] [id number] [place] [address] 12151- 9189 Mar, [facility] [address] [id number] [place] [address] Mar [facility] [id number] [place] [address] 94875- 8231 Mar, Major depressive disorder, single episode, unspecified F32.9 [facility] [address] [address] Feb, Severe episode of recurrent major depressive disorder, without psychotic features F33.2 and Generalized anxiety disorder F41.1 [facility] [address] [address] Feb, [facility] [id number] [place] [address] 60277- 8830 January, Acute right-sided low back pain without sciatica M54.5 ; Major depressive disorder, single episode, unspecified F32.9 ; Psoriasis L40.9 ; Dependent edema R60.9 and BMI 45.0-49.9, adult Z68.42 [facility] [id number] [place] [address] 51009- 8943 Dec, Cervical paraspinal muscle spasm M62.838 and BMI 50.0-59.9, adult Z68.43 [place] [address] [address] Nov, Major depressive disorder, single episode, unspecified F32.9 and Anxiety disorder, unspecified F41.9 [place] [id number] [place] [address] 56592- 0262 12 Oct, 2017 BMI 50.0-59.9, adult Z68.43 ; Pharyngitis due to other organism J02.8 and Bilateral otitis media with effusion H65.93 [place] [address] [address] 4452 Sep, Encounter for immunization Z23 [facility] [address] [address] 2017 Sore throat J02.9 and BMI 45.0-49.9, adult Z68.42 [place] [address] 17[address]- 2968 Jun, [place] [address] 032[address] 0516 09 Jun, 2017 Edema of left upper eyelid H02.844 [facility] [address] [id number] 27 May, 2017 Dental examination Z01.20 [facility] [address] [address] 7017 11 May, 2017 Right wrist pain M25.531 and Tendonitis M77.9 [place] [address] [id number] [id number] 06 May, 2017 Encounter for dental examination Z01.20 [facility] [address] [address] Apr, Heat rash L74.0 [facility] [address] [address] 96[address] 14 Dec, 2014 [facility] [address] [facility] [id number] [address] Dec, [facility] [address] [id number] [address] 17 Aug, 2014 [facility] [address] [address] 55[address] Aug, [facility] [address] [address] 0[address] 14 Aug, 2013 [facility] [address] [address] 8176 14 Aug, 2013 [facility] [address] [id number] [address] 3949 24 May, 2013 [facility] [address] [address] 89[address] 19 May, 2013 [facility] [address] [id number] [address] 7080 18 May, 2013 [facility] [address], [place] [address] 8295 17 May, 2013 [facility] [address] [id number] [address] 1248 13 May, 2013 [facility] [address] [id number] [address] 6314 09 May, 2013 [facility] [address] [id number] [address] 7451 12 Dec, 2012 [facility] [address] [place] [address] 2546 Nov, [facility] [address] [id number] [place] [address]- 4636 Oct, [facility] [address] [id number] [place] [address] 2546 Mar, [facility] [address] [id number] [place] [address]- 2146 Mar, [facility] [address] [id number] [place] [address]- 7525 Feb, [facility] [address] [id number] [place] [address] 0[address] January, [facility] [address] [id number] [place] [address]- 8586 January, [facility] [address] [id number] [place] [address]- 6966 Dec, [facility] [address] [id number] [place] [address]- 8738 Nov, [facility] [address] [id number] [place] [address]- [address] Nov, [facility] [address] [id number] [place] [address]- 4656 Nov, [facility] [address] [id number] [place] [address]- [address] Oct, [facility] [address] [id number] [place] [address]- 9046 Oct, [facility] [place] [facility] [address] [id number] [place] [address]- [address] Oct, [facility] [address] [id number] [place] [address]- 2546 Feb, [facility] [place] [facility] [address] [id number] [place] [address]- 9886 Dec, [facility] [address] [facility] [id number] [place] [address]- 36[address] Sep, IMMUNIZATIONS No Known Immunizations SOCIAL HISTORY Never Assessed REASON FOR VISIT Sore throat, started Wednesday, reports cold sweats, lost voice yesterday. Denies cough or congestion. CBrumbackRn PLAN OF CARE VITAL SIGNS Height 62 in 2017-11-08 Weight 274.2 lbs 2017-11-08 Temperature 98.4 degrees Fahrenheit 2017-11-08 Heart Rate 88 bpm 2017-11-08 Respiratory Rate 20 2017-11-08 BMI 50.15 kg/m2 2017-11-08 Blood pressure systolic 114 mmHg 2017-11-08 Blood pressure diastolic 78 mmHg 2017-11-08 MEDICATIONS Medication Instructions Dosage Frequency Start Date End Date Duration Status Amoxicillin 500 mg Orally 3 times a day 1 capsule 8h Oct, Oct, 10 day(s) Active Jencycla Not-Taking PredniSONE 20 mg Orally Once a day 2 tablets 24h Oct, Oct, 05 days Active Phentermine HCl 37.5 MG Orally Once a day 1 tablet 24h Active Cardizem CD 180 MG Orally Once a day 1 capsule 24h Active Zoloft 50 MG Orally Once a day 1 tablet 24h Not-Taking RESULTS No Results PROCEDURES No Known procedures INSTRUCTIONS MEDICATIONS ADMINISTERED No Known Medications MEDICAL (GENERAL) HISTORY Type Description Date Medical History Enlarged heart/afib Medical History right wrist tendonitis Medical History depression Medical History POCD Surgical History lap beti 2008 Surgical History c section X 3 2008, 2014, 2016 Hospitalization History Surgery(s)/Childbirth(s) only
--- OUTSIDE RECORDS SUMMARY | 2018-08-31 09:57 | XMS REPORT ---
Author Author ANDRÉS MANUEL [facility] Address [address] [place] [address] Care Team Providers Care Messaging Architect Name Role Phone MARANDRÉS Unavailable PROBLEMS Type Condition ICD9-CM Code FKN31-SW Code Onset Dates Condition Status SNOMED Code Problem Major depressive disorder, single episode, unspecified F32.9 Active 90691450 Problem Psoriasis L40.9 Active 9076849 Problem Dependent edema R60.9 Active 514029855 Problem Generalized anxiety disorder F41.1 Active 84472568 Problem Anxiety disorder, unspecified F41.9 Active 800181262 Problem Acute right-sided low back pain without sciatica M54.5 Active 915217537 Problem Severe episode of recurrent major depressive disorder, without psychotic features F33.2 Active 35337587 ALLERGIES No Information ENCOUNTERS Encounter Location Date Diagnosis [place] [address] [id number] [address]- 77[address] Apr, [place] [address] [place] [address] 11881- 6752 Apr, [place] [address] [address]- 4320 Apr, [place] [address] [id number] [address]- 0196 Mar, Severe episode of recurrent major depressive disorder, without psychotic features F33.2 and Generalized anxiety disorder F41.1 [place] [id number] [place] [address] 46528- 2699 Mar, Severe episode of recurrent major depressive disorder, without psychotic features F33.2 and Generalized anxiety disorder F41.1 [facility] [address] [id number] [place] [address] Mar [place] [id number] [place] [address] 06968- 2446 Mar, Major depressive disorder, single episode, unspecified F32.9 [place] [id number] [place] [address] 57825- 1927 Feb, Severe episode of recurrent major depressive disorder, without psychotic features F33.2 and Generalized anxiety disorder F41.1 [place] [address] 8[address]86- 6404 Feb, [place] [address] 77893- 6611 January, Acute right-sided low back pain without sciatica M54.5 ; Major depressive disorder, single episode, unspecified F32.9 ; Psoriasis L40.9 ; Dependent edema R60.9 and BMI 45.0-49.9, adult Z68.42 [place] [address] 32633- 0104 Dec, Cervical paraspinal muscle spasm M62.838 and BMI 50.0-59.9, adult Z68.43 [place] [id number] [place] [address] 48053- 5191 Nov, Major depressive disorder, single episode, unspecified F32.9 and Anxiety disorder, unspecified F41.9 [place] [id number] [place] [address] 63138- 2478 12 Oct, 2017 BMI 50.0-59.9, adult Z68.43 ; Pharyngitis due to other organism J02.8 and Bilateral otitis media with effusion H65.93 [place] [id number] [place] [address] 94246- 0697 Sep, Encounter for immunization Z23 [facility] [id number] [place] [address] 73135 -9185 Jul, Sore throat J02.9 and BMI 45.0-49.9, adult Z68.42 [place] [id number] [place] [address] 75559- 6504 Jun, [facility] [id number] [place] [address] 053545- 2997 Jun, Edema of left upper eyelid H02.844 [facility] [id number] [place] [address] [id number] 27 May, 2017 Dental examination Z01.20 [facility] [address] 28391- 2431 11 May, 2017 Right wrist pain M25.531 and Tendonitis M77.9 [facility] [address] [id number] 06 May, 2017 Encounter for dental examination Z01.20 [facility] [id number] [place] [address] 48797 -7689 Apr, Heat rash L74.0 [facility] [id number] [place] [address] 97211- 1417 Dec, [facility] [id number] [place] [address] 79310- 8719 Dec, [facility] [id number] [place] [address] 81847- 8563 Aug, [facility] [id number] [place] [address] 79164- 9834 17 Aug, 2014 [facility] [id number] [place] [address] 78007- 3841 Aug, [facility] [id number] [place] [address] 76188- 1037 Aug, [facility] [id number] [place] [address] 47343- 2426 24 May, 2013 [facility] [id number] [place] [address] 19192- 9029 19 May, 2013 [facility] [id number] [place] [address] 43693- 5981 18 May, 2013 [facility] [address] [id number] [place] [address]- 4062 17 May, 2013 [facility] [place] [facility] [address] [id number] [place] [address]- 2676 13 May, 2013 [facility] [place] [facility] [address] [id number] [place] [address]- 3806 09 May, 2013 [facility] [place] [facility] [address] [id number] [place] [address]- 6656 12 Dec, 2012 [facility] [place] [facility] [address] [id number] [place] [address]- 8458 Nov, [facility] [place] [facility] [address] [id number] [place] [address]- 7714 Oct, [facility] [address] [id number] [place] [address]- 5666 Mar, [facility] [place] [facility] [address] [id number] [place] [address]- 5984 Mar, [facility] [address] [id number] [place] [address]- 5760 Feb, [facility] [place] [facility] [address] [id number] [place] [address]- 7629 January, [facility] [place] [facility] [address] [id number] [place] [address]- 4479 January, [facility] [place] [facility] [address] [id number] [place] [address]- 8709 Dec, [facility] [place] [facility] [address] [id number] [place] [address]- 8260 Nov, [facility] [place] [facility] [address] [id number] [place] [address]- 9419 Nov, [facility] [place] [facility] [address] [id number] [place] [address]- 8829 Nov, [facility] [place] [facility] [address] [id number] [address]- 4105 Oct, [facility] [address] [id number] [address]- 4584 Oct, [facility] [address] [address]- 2147 Oct, [facility] [address] 4245 Feb, [facility] [address] [address]- 4988 Dec, [facility] [address] [address]- 4704 Sep, IMMUNIZATIONS No Known Immunizations SOCIAL HISTORY Never Assessed REASON FOR VISIT f/u PLAN OF CARE Activity Details Follow Up prn Reason: VITAL SIGNS MEDICATIONS Unknown Medications RESULTS No Results PROCEDURES Procedure Date Ordered Result Body Site Psychotherapy, patient &/family, 60 minutes, established patient December 14, 2017 INSTRUCTIONS MEDICATIONS ADMINISTERED No Known Medications MEDICAL (GENERAL) HISTORY Type Description Date Medical History Enlarged heart/afib Medical History right wrist tendonitis Medical History depression Medical History POCD Surgical History conrado bang 2008 Surgical History c section X 3 2008, 2014, 2017 Hospitalization History Surgery(s)/Childbirth(s) only
--- OUTSIDE RECORDS SUMMARY | 2018-08-31 09:57 | XMS REPORT ---
Author Author YOLIE PEDERSON Organization [facility] Address [address] [place] [address] Care Team Providers Care Cellophane Worker Name Role Phone YOLIE PEDERSON Unavailable PROBLEMS Type Condition ICD9-CM Code [id number] Code Onset Dates Condition Status SNOMED Code Problem Anxiety disorder, unspecified F41.9 Active 638536972 Problem Intermittent atrial fibrillation I48.0 Active 762026591 Problem Psoriasis L40.9 Active 6697787 Problem Severe episode of recurrent major depressive disorder, without psychotic features F33.2 Active 28055659 Problem Major depressive disorder, single episode, unspecified F32.9 Active 99575556 Problem Dependent edema R60.9 Active 445643873 Problem Generalized anxiety disorder F41.1 Active 44509072 ALLERGIES No Information ENCOUNTERS Encounter Location Date Diagnosis [place] [id number] [place] [address] 61015- 3310 May, [place] [address] 15243- 0498 May, [place] [id number] [place] [address] 87868- 6689 Apr, Severe episode of recurrent major depressive disorder, without psychotic features F33.2 and Generalized anxiety disorder F41.1 [facility] [id number] [place] [address] 22790- 5254 Apr, Severe episode of recurrent major depressive disorder, without psychotic features F33.2 and Generalized anxiety disorder F41.1 [place] [id number] [place] [address] 20639- 8734 Apr, Severe episode of recurrent major depressive disorder, without psychotic features F33.2 and Intermittent atrial fibrillation I48.0 [facility] [address] 29499- 8100 Mar, Severe episode of recurrent major depressive disorder, without psychotic features F33.2 and Generalized anxiety disorder F41.1 [place] [address], [place] [address]- 1907 Mar, Severe episode of recurrent major depressive disorder, without psychotic features F33.2 and Generalized anxiety disorder F41.1 [facility] [id number] [id number] [place] [address] Mar [place] [address], [place] [address]- 8206 Mar, Major depressive disorder, single episode, unspecified F32.9 [place] [address] [place] [address] 93624- 6269 Feb, Severe episode of recurrent major depressive disorder, without psychotic features F33.2 and Generalized anxiety disorder F41.1 [place] [address] [place] [address] 72737- 9802 Feb, [place] [address] [place] [address] 63250- 7677 January, Acute right-sided low back pain without sciatica M54.5 ; Major depressive disorder, single episode, unspecified F32.9 ; Psoriasis L40.9 ; Dependent edema R60.9 and BMI 45.0-49.9, adult Z68.42 [place] [address] [place] [address] 41000- 7759 Dec, Cervical paraspinal muscle spasm M62.838 and BMI 50.0-59.9, adult Z68.43 [place] [id number] [address]- 3108 Nov, Major depressive disorder, single episode, unspecified F32.9 and Anxiety disorder, unspecified F41.9 [place] [id number] [address]- 0900 Oct, BMI 50.0-59.9, adult Z68.43 ; Pharyngitis due to other organism J02.8 and Bilateral otitis media with effusion H65.93 [facility] [address] 08782- 4024 11 Sep, 2017 Encounter for immunization Z23 [facility] [address] 01337 -7941 2017 Sore throat J02.9 and BMI 45.0-49.9, adult Z68.42 [facility] [address] 47887- 1875 Jun, [facility] [address] 38868- 7750 Jun, Edema of left upper eyelid H02.844 [facility] [address] [id number] May, Dental examination Z01.20 [facility] [address] 95457- 1379 11 May, 2017 Right wrist pain M25.531 and Tendonitis M77.9 [facility] [address] [id number] May, Encounter for dental examination Z01.20 [facility] [address] 31022 -9338 Apr, Heat rash L74.0 [place] [address] 83625- 1221 14 Dec, 2014 [place] [address] 72337- 6843 Dec, [place] [address] 91248- 4866 Aug, [place] [address] 25241- 8804 Aug, [place] [address] 89946- 2494 Aug, [facility] [address] [id number] [place] [address]- 8579 14 Aug, 2013 [facility] [place] [facility] [address] [id number] [place] [address]- 2247 24 May, 2013 [facility] [place] [facility] [address] [id number] [place] [address]- 0579 19 May, 2013 [facility] [place] [facility] [address] [id number] [place] [address]- 8669 18 May, 2013 [facility] [address] [id number] [place] [address]- 7341 17 May, 2013 [facility] [place] [facility] [address] [id number] [place] [address]- 1849 13 May, 2013 [facility] [address] [id number] [place] [address]- 5963 09 May, 2013 [facility] [address] [id number] [place] [address]- 2897 12 Dec, 2012 [facility] [place] [facility] [address] [id number] [place] [address]- 9841 Nov, [facility] [place] [facility] [address] [id number] [place] [address]- 5241 08 Oct, 2012 [facility] [place] [facility] [address] [id number] [place] [address]- 6212 Mar, [facility] [place] [facility] [address] [id number] [place] [address]- 8022 Mar, [facility] [place] [facility] [address] [id number] [place] [address]- 7313 Feb, [facility] [place] [facility] [address] [id number] [place] [address]- 1296 January, [facility] [place] [facility] [address] [id number] [place] [address]- 0033 January, [facility] [place] [facility] [address] [id number] [address]- 9114 Dec, [facility] [address] [address]- 8477 Nov, [facility] [address] 3186 Nov, [facility] [address], [place] [address]- 8447 Nov, [facility] [address] 7658 Oct, [facility] [address] [place] [id number] Oct, [facility] [id number] [id number] Oct, [facility] [id number] [address] Feb, [facility] [id number] [address] Dec, [facility] [id number] [address] Sep, IMMUNIZATIONS No Known Immunizations SOCIAL HISTORY Never Assessed REASON FOR VISIT Psychological evaluation for bariatric surgery. PLAN OF CARE VITAL SIGNS MEDICATIONS Medication Instructions Dosage Frequency Start Date End Date Duration Status Venlafaxine HCl 37.5 MG Orally twice a day 1 tablet with food 12h Feb, 30 day(s) Not-Taking Fetzima 20 mg Orally Once a day 1 capsule 24h January, 30 day(s) Active Cardizem CD 180 MG Orally Once a day 1 capsule 24h Active Phentermine HCl 37.5 MG Orally Once a day 1 tablet 24h Active Naproxen 500 mg Orally 2 times a day 1 tablet with food or milk as needed 12h Dec, Active Cyclobenzaprine HCl 5 mg Orally at bedtime 1 tablet as needed January, Feb, 30 days Active Jencycla Active RESULTS No Results PROCEDURES Procedure Date Ordered Result Body Site Psych diagnostic evaluation, new patient March 14, 2018 INSTRUCTIONS MEDICATIONS ADMINISTERED No Known Medications MEDICAL (GENERAL) HISTORY Type Description Date Medical History Enlarged heart/afib Medical History right wrist tendonitis Medical History depression Medical History POCD Surgical History conrado bang 2008 Surgical History c section X 3 2008, 2014, 2016 Hospitalization History Surgery(s)/Childbirth(s) only
--- OUTSIDE RECORDS SUMMARY | 2018-08-31 09:57 | XMS REPORT ---
Author Author PETRONA NUNN Organization [facility] IN [facility] Address [address] [place] [address] Care Team Providers Care Inside Sales Account Representative Name Role Phone PETRONA NUNN Unavailable PROBLEMS Type Condition ICD9-CM Code SNB92-EL Code Onset Dates Condition Status SNOMED Code Problem Anxiety disorder, unspecified F41.9 Active 154676702 Problem Intermittent atrial fibrillation I48.0 Active 052641992 Problem Psoriasis L40.9 Active 9140601 Problem Severe episode of recurrent major depressive disorder, without psychotic features F33.2 Active 23520154 Problem Major depressive disorder, single episode, unspecified F32.9 Active 82689052 Problem Dependent edema R60.9 Active 466838873 Problem Generalized anxiety disorder F41.1 Active 07434405 ALLERGIES Substance Reaction Event Type Date Status cocunut nausea Non Drug Allergy January, Active tape adhesive hives Non Drug Allergy January, Active ENCOUNTERS Encounter Location Date Diagnosis [place] [address] [address] May, [place] [address] [place] [id number] [place] [address] Apr, [place] [address] [place] [id number] [place] [address] 59[address]- 8889 Apr, Severe episode of recurrent major depressive disorder, without psychotic features F33.2 and Generalized anxiety disorder F41.1 [facility] [address] [address] Apr, Severe episode of recurrent major depressive disorder, without psychotic features F33.2 and Intermittent atrial fibrillation I48.0 [facility] [address] [place] [id number] [place] [address] 26[address]- 7907 Mar, Severe episode of recurrent major depressive disorder, without psychotic features F33.2 and Generalized anxiety disorder F41.1 [place] [address] [place] [address] [id number] [address] Mar, Severe episode of recurrent major depressive disorder, without psychotic features F33.2 and Generalized anxiety disorder F41.1 [facility] [address] [id number] [place] [address] Mar [place] [id number] [place] [address] 9[address] Mar, Major depressive disorder, single episode, unspecified F32.9 [place] [address] [address] Feb, Severe episode of recurrent major depressive disorder, without psychotic features F33.2 and Generalized anxiety disorder F41.1 [place] [address] [address] Feb, [place] [address] [address] January, Acute right-sided low back pain without sciatica M54.5 ; Major depressive disorder, single episode, unspecified F32.9 ; Psoriasis L40.9 ; Dependent edema R60.9 and BMI 45.0-49.9, adult Z68.42 [place] [address] [place] [address]- 5[address] Dec, Cervical paraspinal muscle spasm M62.838 and BMI 50.0-59.9, adult Z68.43 [place] [address] [place] [address] [id number] [address] Nov, Major depressive disorder, single episode, unspecified F32.9 and Anxiety disorder, unspecified F41.9 [place] [address] [place] [address]- 1629 Oct, BMI 50.0-59.9, adult Z68.43 ; Pharyngitis due to other organism J02.8 and Bilateral otitis media with effusion H65.93 [place] [address] [address] Sep, Encounter for immunization Z23 [facility] [address] [address] Jul, Sore throat J02.9 and BMI 45.0-49.9, adult Z68.42 [facility] [address] [address] Jun, [facility] [address] [address] Jun, Edema of left upper eyelid H02.844 [facility] [address] [id number] 27 May, 2017 Dental examination Z01.20 [facility] [address] [address] 11 May, 2017 Right wrist pain M25.531 and Tendonitis M77.9 [facility] [address] [id number] 06 May, 2017 Encounter for dental examination Z01.20 [facility] [address] [address] Apr, Heat rash L74.0 [facility] [address] [address]- [address] 14 Dec, 2014 [facility] [address] [address] Dec, [facility] [address] [address] Aug, [facility] [address] [address] Aug, [facility] [address] [address] 14 Aug, 2013 [facility] [address] [address] 14 Aug, 2013 [facility] [address] [id number] [place] [address] 24 May, 2013 [facility] [place] [facility] [address] [id number] [place] [address] 2066 19 May, 2013 [facility] [place] [facility] [address] [id number] [place] [address] 9598 18 May, 2013 [facility] [place] [facility] [address] [id number] [place] [address] 17 May, 2013 [facility] [place] [facility] [address] [id number] [place] [address] 13 May, 2013 [facility] [place] [facility] [address] [id number] [place] [address] 2239 09 May, 2013 [facility] [address] [id number] [place] [address] 7927 Dec, [facility] [place] [facility] [address] [id number] [place] [address] 25[address] Nov, [facility] [address] [id number] [place] [address] 1122 Oct, [facility] [place] [facility] [address] [id number] [place] [address] 8365 Mar, [facility] [place] [facility] [address] [id number] [place] [address] 9671 Mar, [facility] [place] [facility] [address] [id number] [place] [address] 94[address] Feb, [facility] [place] [facility] [address] [id number] [place] [address] January, [facility] [place] [facility] [address] [id number] [place] [address] January, [facility] [place] [facility] [address] [id number] [place] [address]- 2921 Dec, [facility] [place] [facility] [address] [id number] [address] Nov, [facility] [address], [place] [address] Nov, [facility] [address] [address] Nov, [facility] [address], [place] [address] 6[address] Oct, [facility] [address], [place] [address] 3[address] Oct, [facility] [address] [place] [address] [id number] [place] [address] 478043- 4[address] Oct, [facility] [address] [place] [address] [id number] [place] [address] 31946- 5196 Feb, [facility] [address] [place] [address] [id number] [place] [address]- 6961 Dec, [facility] [address], [place] [address] Sep, IMMUNIZATIONS No Known Immunizations SOCIAL HISTORY Never Assessed REASON FOR VISIT Pain (acute) back for a few days, right leg is swollen as well-AMINTA Sotomayor PLAN OF CARE Activity Details Follow Up 4 Weeks, prn Reason:back pain & depression VITAL SIGNS Height 62 in 2018-02-23 Weight 266.6 lbs 2018-02-23 Temperature 97.6 degrees Fahrenheit 2018-02-23 Heart Rate 80 bpm 2018-02-23 Respiratory Rate 18 2018-02-23 BMI 48.76 kg/m2 2018-02-23 Blood pressure systolic 110 mmHg 2018-02-23 Blood pressure diastolic 62 mmHg 2018-02-23 MEDICATIONS Medication Instructions Dosage Frequency Start Date End Date Duration Status Phentermine HCl 37.5 MG Orally Once a day 1 tablet 24h Active Cardizem CD 180 MG Orally Once a day 1 capsule 24h Active Naproxen 500 mg Orally 2 times a day 1 tablet with food or milk as needed 12h Dec, Active Fetzima 20 mg Orally Once a day 1 capsule 24h January, 30 day(s) Active Cyclobenzaprine HCl 5 mg Orally at bedtime 1 tablet as needed January, Feb, 30 days Active Jencycla Active RESULTS No Results PROCEDURES No Known procedures INSTRUCTIONS MEDICATIONS ADMINISTERED No Known Medications MEDICAL (GENERAL) HISTORY Type Description Date Medical History Enlarged heart/afib Medical History right wrist tendonitis Medical History depression Medical History POCD Surgical History conrado bang 2008 Surgical History c section X 3 2008, 2014, 2016 Hospitalization History Surgery(s)/Childbirth(s) only
--- OUTSIDE RECORDS SUMMARY | 2018-08-31 09:57 | XMS REPORT ---
Author Author JAMI MITCHELL Organization [facility] Address [address] [place] [address] Care Team Providers Care Honey Producer Name Role Phone JAMI MITCHELL Unavailable PROBLEMS Type Condition ICD9-CM Code RUZ25-TW Code Onset Dates Condition Status SNOMED Code Problem Major depressive disorder, single episode, unspecified F32.9 Active 94537826 Problem Psoriasis L40.9 Active 9041687 Problem Dependent edema R60.9 Active 987477191 Problem Generalized anxiety disorder F41.1 Active 86964174 Problem Anxiety disorder, unspecified F41.9 Active 467297513 Problem Acute right-sided low back pain without sciatica M54.5 Active 316937841 Problem Severe episode of recurrent major depressive disorder, without psychotic features F33.2 Active 39397851 ALLERGIES Substance Reaction Event Type Date Status cocunut nausea Non Drug Allergy Dec, Active tape adhesive hives Non Drug Allergy Dec, Active ENCOUNTERS Encounter Location Date Diagnosis [place] [address] [place] [id number] [address] Apr, [place] [address] [address]- [address] Apr, [place] [address] [place] [id number] [address] Mar, Severe episode of recurrent major depressive disorder, without psychotic features F33.2 and Generalized anxiety disorder F41.1 [facility] [address] [address]- 7206 Mar, Severe episode of recurrent major depressive disorder, without psychotic features F33.2 and Generalized anxiety disorder F41.1 [facility] [address] [id number] [place] [address] Mar [facility] [address] [place] [id number] [place] [address]- [address]40 Mar, Major depressive disorder, single episode, unspecified F32.9 [place] [address] [address]- [address] Feb, Severe episode of recurrent major depressive disorder, without psychotic features F33.2 and Generalized anxiety disorder F41.1 [place] [address] [address]- [address] Feb, [place] [address] [address] January, Acute right-sided low back pain without sciatica M54.5 ; Major depressive disorder, single episode, unspecified F32.9 ; Psoriasis L40.9 ; Dependent edema R60.9 and BMI 45.0-49.9, adult Z68.42 [place] [address] [address]- [address] Dec, Cervical paraspinal muscle spasm M62.838 and BMI 50.0-59.9, adult Z68.43 [place] [address] [address]- [address] Nov, Major depressive disorder, single episode, unspecified F32.9 and Anxiety disorder, unspecified F41.9 [place] [address] [id number] [place] [address]- 2300 12 Oct, 2017 BMI 50.0-59.9, adult Z68.43 ; Pharyngitis due to other organism J02.8 and Bilateral otitis media with effusion H65.93 [place] [address] [place] [id number] [place] [address] 66956- 0647 Sep, Encounter for immunization Z23 [facility] [address] [address] Jul, Sore throat J02.9 and BMI 45.0-49.9, adult Z68.42 [place] [address] [place] [address]- [address] Jun, [facility] [address] [place] [id number] [place] [address]77- 4492 Jun, Edema of left upper eyelid H02.844 [facility] [address] [place] [id number] [place] [id number] 27 May, 2017 Dental examination Z01.20 [facility] [address] [address]- [address] 11 May, 2017 Right wrist pain M25.531 and Tendonitis M77.9 [facility] [address] [id number] 06 May, 2017 Encounter for dental examination Z01.20 [facility] [address] [place] [id number] [place] [address]708 Apr, Heat rash L74.0 [facility] [address] [address]- [address] 14 Dec, 2014 [facility] [address] [place] [id number] [place] [address] 04634- 9574 Dec, [facility] [address] [place] [id number] [place] [address] 26693- 0434 Aug, [facility] [address] [place] [id number] [place] [address] 20168- 6162 17 Aug, 2014 [facility] [address] [place] [id number] [place] [address] 04501- 0825 14 Aug, 2013 [facility] [address] [place] [id number] [place] [address] 60282- 5717 14 Aug, 2013 [facility] [address] [id number] [place] [address] 51014- 5846 24 May, 2013 [facility] [address] [place] [id number] [place] [address] 73235- 1551 19 May, 2013 [facility] [address] [place] [id number] [place] [address] 49805- 5957 18 May, 2013 [facility] [place] [facility] [address] [id number] [place] [address]- 5284 17 May, 2013 [facility] [place] [facility] [address] [id number] [place] [address]- 9211 13 May, 2013 [facility] [place] [facility] [address] [id number] [place] [address]- 0985 09 May, 2013 [facility] [place] [facility] [address] [id number] [place] [address]- 3488 12 Dec, 2012 [facility] [place] [facility] [address] [id number] [place] [address]- 3552 Nov, [facility] [place] [facility] [address] [id number] [place] [address]- 3808 Oct, [facility] [place] [facility] [address] [id number] [place] [address]- 9576 Mar, [facility] [place] [facility] [address] [id number] [place] [address]- 3539 Mar, [facility] [place] [facility] [address] [id number] [place] [address]- 8739 Feb, [facility] [place] [facility] [address] [id number] [place] [address]- 1327 January, [facility] [place] [facility] [address] [id number] [place] [address]- 0903 January, [facility] [place] [facility] [address] [id number] [place] [address]- 0821 Dec, [facility] [place] [facility] [address] [id number] [place] [address]- 6886 Nov, [facility] [place] [facility] [address] [id number] [place] [address]- 0353 Nov, [facility] [place] [facility] [address] [id number] [place] [address]- 4374 Nov, [facility] [place] [facility] [address] [facility] [id number] [address]- 3700 Oct, [facility] [address] [id number] [address]- 4770 Oct, [facility] [address] [id number] [address]- 6556 Oct, [place] [address] [address]- 2911 Feb, [facility] [address] [address]- 7596 Dec, [place] [id number] [place] [address]14- 1873 Sep, IMMUNIZATIONS No Known Immunizations SOCIAL HISTORY Never Assessed REASON FOR VISIT Pain (acute), for a few weeks the PT has pain on the left side of her neck down into her shoulder-[place] PLAN OF CARE Activity Details Follow Up prn Reason: VITAL SIGNS Height 62 in 2017-12-28 Weight 274.2 lbs 2017-12-28 Temperature 98.4 degrees Fahrenheit 2017-12-28 Heart Rate 82 bpm 2017-12-28 Respiratory Rate 18 2017-12-28 BMI 50.15 kg/m2 2017-12-28 Blood pressure systolic 122 mmHg 2017-12-28 Blood pressure diastolic 82 mmHg 2017-12-28 MEDICATIONS Medication Instructions Dosage Frequency Start Date End Date Duration Status Naproxen 500 mg Orally 2 times a day 1 tablet with food or milk as needed 12h Dec, Active Jencycla Not-Taking Zoloft 50 MG Orally Once a day 1 tablet 24h Not-Taking Cardizem CD 180 MG Orally Once a day 1 capsule 24h Active Phentermine HCl 37.5 MG Orally Once a day 1 tablet 24h Active RESULTS No Results PROCEDURES No Known procedures INSTRUCTIONS MEDICATIONS ADMINISTERED No Known Medications MEDICAL (GENERAL) HISTORY Type Description Date Medical History Enlarged heart/afib Medical History right wrist tendonitis Medical History depression Medical History POCD Surgical History lap beti 2008 Surgical History c section X 3 2008, 2014, 2016 Hospitalization History Surgery(s)/Childbirth(s) only
--- OUTSIDE RECORDS SUMMARY | 2018-08-31 09:57 | XMS REPORT ---
Author Author PETRONA NUNN Organization [facility] Address [address] [place] [address] Care Team Providers Care Racket Stringer Name Role Phone PETRONA NUNN Unavailable PROBLEMS Type Condition ICD9-CM Code [id number] Code Onset Dates Condition Status SNOMED Code Problem Anxiety disorder, unspecified F41.9 Active 291875492 Problem Intermittent atrial fibrillation I48.0 Active 626028192 Problem Psoriasis L40.9 Active 7416663 Problem Severe episode of recurrent major depressive disorder, without psychotic features F33.2 Active 01132657 Problem Major depressive disorder, single episode, unspecified F32.9 Active 19304661 Problem Dependent edema R60.9 Active 374482035 Problem Generalized anxiety disorder F41.1 Active 36089887 ALLERGIES No Information ENCOUNTERS Encounter Location Date Diagnosis [place] [address] [address] May, [place] [address] [address] May, [place] [address] [place] [id number] [place] [address] 19442- 9958 Apr, Severe episode of recurrent major depressive disorder, without psychotic features F33.2 and Generalized anxiety disorder F41.1 [place] [address] [place] [id number] [place] [address]88- 0740 Apr, Severe episode of recurrent major depressive disorder, without psychotic features F33.2 and Generalized anxiety disorder F41.1 [place] [address] [address]- [address] Apr, Severe episode of recurrent major depressive disorder, without psychotic features F33.2 and Intermittent atrial fibrillation I48.0 [place] [address] [address] Mar, Severe episode of recurrent major depressive disorder, without psychotic features F33.2 and Generalized anxiety disorder F41.1 [place] [address] [address] Mar, Severe episode of recurrent major depressive disorder, without psychotic features F33.2 and Generalized anxiety disorder F41.1 [facility] [address] [id number] [place] [address] Mar [place] [address] [place] [address] 69853- 6525 Mar, Major depressive disorder, single episode, unspecified F32.9 [place] [address] [place] [address] 89740- 9030 Feb, Severe episode of recurrent major depressive disorder, without psychotic features F33.2 and Generalized anxiety disorder F41.1 [place] [address] [place] [address] 80382- 5248 Feb, [place] [address] [place] [address] 23466- 6026 January, Acute right-sided low back pain without sciatica M54.5 ; Major depressive disorder, single episode, unspecified F32.9 ; Psoriasis L40.9 ; Dependent edema R60.9 and BMI 45.0-49.9, adult Z68.42 [place] [address] [place] [address] 79234- 9424 Dec, Cervical paraspinal muscle spasm M62.838 and BMI 50.0-59.9, adult Z68.43 [place] [address] [place] [address] 92041- 8543 Nov, Major depressive disorder, single episode, unspecified F32.9 and Anxiety disorder, unspecified F41.9 [place] [address] [place] [id number] [address] 75[address] Oct, BMI 50.0-59.9, adult Z68.43 ; Pharyngitis due to other organism J02.8 and Bilateral otitis media with effusion H65.93 [facility] [address] [address] Sep, Encounter for immunization Z23 [facility] [address] [address] 2017 Sore throat J02.9 and BMI 45.0-49.9, adult Z68.42 [facility] [address] [address] Jun, [place] [address] [address] 73[address] Jun, Edema of left upper eyelid H02.844 [facility] [place] [facility] [address] [id number] May, Dental examination Z01.20 [facility] [address] [address]- [address]0 May, Right wrist pain M25.531 and Tendonitis M77.9 [facility] [place] [facility] [address] [id number] 06 May, 2017 Encounter for dental examination Z01.20 [facility] [address] [address] Apr, Heat rash L74.0 [place] [address] [address] 14 Dec, 2014 [place] [address] 8[address]- 3802 Dec, [place] [address] [address]- 8[address] Aug, [place] [address] [address]- 8776 17 Aug, 2014 [place] [address] [address]- 7092 14 Aug, 2013 [facility] [address] [id number] [place] [address] 7032 14 Aug, 2013 [facility] [place] [facility] [address] [id number] [place] [address] 3303 24 May, 2013 [facility] [address] [id number] [place] [address]- 0059 19 May, 2013 [facility] [place] [facility] [address] [id number] [place] [address]- 3218 18 May, 2013 [facility] [address] [id number] [place] [address] 0000 17 May, 2013 [facility] [address] [id number] [place] [address]- 2578 13 May, 2013 [facility] [address] [id number] [place] [address]- 7141 09 May, 2013 [facility] [address] [id number] [place] [address]- 3645 12 Dec, 2012 [facility] [address] [id number] [place] [address]- 8246 Nov, [facility] [place] [facility] [address] [id number] [place] [address]- 8405 08 Oct, 2012 [facility] [address] [id number] [place] [address]- 5319 Mar, [facility] [place] [facility] [address] [id number] [address] 8[address] Mar, [facility] [place] [facility] [address] [id number] [place] [address]- 0943 Feb, [facility] [place] [facility] [address] [id number] [place] [address]- 6283 30 Jan, 2012 [facility] [place] [facility] [address] [id number] [place] [address]- 2546 January, [facility] [place] [facility] [address] [place] [id number] [address] 1406 Dec, [facility] [address] [address] 9[address] Nov, [facility] [address], [place] [address] 6876 Nov, [facility] [address], [place] [address]- 5976 Nov, [facility] [address], [place] [address] 7616 Oct, [facility] [address] [place] [address] 22067- 5675 Oct, [facility] [address], [place] [address]- 8458 Oct, [facility] [address], [place] [address]- 8064 Feb, [facility] [address], [place] [address]- 4[address] Dec, [facility] [address], [place] [address]- 98[address] Sep, IMMUNIZATIONS No Known Immunizations SOCIAL HISTORY Never Assessed REASON FOR VISIT GERMAN Caruso PLAN OF CARE VITAL SIGNS MEDICATIONS Medication Instructions Dosage Frequency Start Date End Date Duration Status Venlafaxine HCl 37.5 MG Orally twice a day 1 tablet with food 12h Feb, 30 day(s) Active RESULTS No Results PROCEDURES No Known procedures INSTRUCTIONS MEDICATIONS ADMINISTERED No Known Medications MEDICAL (GENERAL) HISTORY Type Description Date Medical History Enlarged heart/afib Medical History right wrist tendonitis Medical History depression Medical History POCD Surgical History conrado bang 2008 Surgical History c section X 3 2008, 2014, 2017 Hospitalization History Surgery(s)/Childbirth(s) only
--- OUTSIDE RECORDS SUMMARY | 2018-08-31 09:58 | XMS REPORT ---
Author Author DELANO ALLEN [facility] Address Unknown Care Team Providers Care Electric Arc Welder Name Role Phone DELANO ALLEN Unavailable PROBLEMS Type Condition ICD9-CM Code JNB46-OF Code Onset Dates Condition Status SNOMED Code Problem Major depressive disorder, single episode, unspecified F32.9 Active 97259496 Problem Anxiety disorder, unspecified F41.9 Active 108740561 ALLERGIES Substance Reaction Event Type Date Status cocunut Unknown Non Drug Allergy May, Active tape adhesive Unknown Non Drug Allergy May, Active ENCOUNTERS Encounter Location Date Diagnosis [place] [address] [address] Dec, Cervical paraspinal muscle spasm M62.838 and BMI 50.0-59.9, adult Z68.43 [place] [address] [place] [id number] [place] [address]124- 0398 Nov, Major depressive disorder, single episode, unspecified F32.9 and Anxiety disorder, unspecified F41.9 [place] [address] [place] [id number] [place] [address]107- 1055 12 Oct, 2017 BMI 50.0-59.9, adult Z68.43 ; Pharyngitis due to other organism J02.8 and Bilateral otitis media with effusion H65.93 [place] [address] [place] [id number] [place] [address]72- 3536 Sep, Encounter for immunization Z23 [facility] [address] [place] [id number] [place] [address]34 -8075 Jul, Sore throat J02.9 and BMI 45.0-49.9, adult Z68.42 [place] [address] [address]- 5915 Jun, [facility] [address] [place] [id number] [place] [address] 96099- 3098 Jun, Edema of left upper eyelid H02.844 [facility] [address] [place] [id number] [place] [address] [id number] 27 May, 2017 Dental examination Z01.20 [facility] [address] [place] [id number] [place] [address] 67373- 9833 11 May, 2017 Right wrist pain M25.531 and Tendonitis M77.9 [facility] [address] [place] [id number] [place] [address] [id number] 06 May, 2017 Encounter for dental examination Z01.20 [facility] [address] [place] [address] [id number] [place] [address]80 -7853 Apr, Heat rash L74.0 [facility] [address] [place] [id number] [place] [address] 54230- 3636 14 Dec, 2014 [facility] [address] [place] [id number] [place] [address] 09591- 4392 Dec, [facility] [address] 19[address]- 1782 Aug, [facility] [address] [place] [id number] [place] [address] 36480- 6144 Aug, [facility] [address] [place] [id number] [place] [address] 79611- 4182 14 Aug, 2013 [facility] [address] [place] [id number] [place] [address] 43005- 3258 14 Aug, 2013 [facility] [address] [place] [id number] [place] [address] 57133- 7501 24 May, 2013 [facility] [address] [place] [id number] [place] [address] 19976- 4048 19 May, 2013 [facility] [address] [place] [id number] [place] [address] 94791- 0355 18 May, 2013 [facility] [place] [facility] [address] [id number] [place] [address] 2542 17 May, 2013 [facility] [place] [facility] [address] [id number] [place] [address]- 5136 13 May, 2013 [facility] [place] [facility] [address] [id number] [place] [address]- 2546 09 May, 2013 [facility] [place] [facility] [address] [id number] [place] [address]- 4759 Dec, [facility] [place] [facility] [address] [id number] [place] [address]- 5267 Nov, [facility] [place] [facility] [address] [id number] [place] [address]- 6771 Oct, [facility] [place] [facility] [address] [id number] [place] [address]- 5599 Mar, [facility] [place] [facility] [address] [id number] [place] [address]- 4461 Mar, [facility] [place] [facility] [address] [id number] [place] [address]- 6855 Feb, [facility] [place] [facility] [address] [id number] [place] [address]- 2832 January, [facility] [place] [facility] [address] [id number] [place] [address]- 5555 January, [facility] [place] [facility] [address] [id number] [place] [address]- 1824 Dec, [facility] [place] [facility] [address] [id number] [place] [address]- 6424 Nov, [facility] [place] [facility] [address] [id number] [place] [address]- 9096 Nov, [facility] [place] [facility] [address] [id number] [place] [address]- 2546 Nov, [facility] [place] [facility] [address] [id number] [place] [address]- 3141 Oct, [facility] [address] [facility] [id number] [place] [address]- 7836 Oct, [facility] [address] [facility] [id number], [place] [address] 2546 Oct, [facility] [address] [facility] [id number], [place] [address]- 9506 Feb, [facility] [address] [facility] [id number], [place] [address]- 7186 Dec, [facility] [address] [facility] [id number][place] [address]- 8033 Sep, IMMUNIZATIONS No Known Immunizations SOCIAL HISTORY Never Assessed REASON FOR VISIT PATRICK PLAN OF CARE Activity Details Follow Up prn Reason:hygiene VITAL SIGNS Height 62 in 2017-06-23 Blood pressure systolic 128 mmHg 2017-06-23 Blood pressure diastolic 74 mmHg 2017-06-23 MEDICATIONS Medication Instructions Dosage Frequency Start Date End Date Duration Status PredniSONE 20 mg 2 tablet by Oral route 1 time per day for 5 day(s) May, Active Jencycla Active Zoloft 50 MG Orally Once a day 1 tablet 24h Active RESULTS No Results PROCEDURES Procedure Date Ordered Result Body Site COMP ORAL EVALUATION - NEW/EST PT Jun 23, 2017 INSTRUCTIONS MEDICATIONS ADMINISTERED No Known Medications MEDICAL (GENERAL) HISTORY Type Description Date Medical History Enlarged heart/afib Medical History right wrist tendonitis Medical History depression Medical History POCD Surgical History lap beti 2009 Surgical History c section X 3 2008, 2014, 2016 Hospitalization History Surgery(s)/Childbirth(s) only
--- OUTSIDE RECORDS SUMMARY | 2018-08-31 09:58 | XMS REPORT ---
Author Author OSUNABINA Nuñez Organization [facility] Address [address] [place] [address] Care Team Providers Care Public Health Aide Name Role Phone BINA OSUNA Unavailable PROBLEMS Type Condition ICD9-CM Code NHA59-LF Code Onset Dates Condition Status SNOMED Code Problem Major depressive disorder, single episode, unspecified F32.9 Active 90952042 Problem Psoriasis L40.9 Active 4022206 Problem Dependent edema R60.9 Active 905493286 Problem Generalized anxiety disorder F41.1 Active 49912864 Problem Anxiety disorder, unspecified F41.9 Active 151056113 Problem Acute right-sided low back pain without sciatica M54.5 Active 443206067 Problem Severe episode of recurrent major depressive disorder, without psychotic features F33.2 Active 62826386 ALLERGIES No Information ENCOUNTERS Encounter Location Date Diagnosis [place] [address] [place] [id number] [place] [address]34- 6948 Mar, [place] [address] [place] [id number] [place] [address] 77502- 3088 Feb, Severe episode of recurrent major depressive disorder, without psychotic features F33.2 and Generalized anxiety disorder F41.1 [place] [place] [id number] [place] [address] 41735- 3042 Feb, [place] [address] [place] [id number] [place] [address] 07245- 2774 January, Acute right-sided low back pain without sciatica M54.5 ; Major depressive disorder, single episode, unspecified F32.9 ; Psoriasis L40.9 ; Dependent edema R60.9 and BMI 45.0-49.9, adult Z68.42 [place] [address] [place] [id number] [place] [address] 93029- 9480 03 Apr, 2018 Cervical paraspinal muscle spasm M62.838 and BMI 50.0-59.9, adult Z68.43 [facility] [address] [address]- 8484 Nov, Major depressive disorder, single episode, unspecified F32.9 and Anxiety disorder, unspecified F41.9 [place] [address] [address]- 4424 Oct, BMI 50.0-59.9, adult Z68.43 ; Pharyngitis due to other organism J02.8 and Bilateral otitis media with effusion H65.93 [place] [address] 67251- 0391 Sep, Encounter for immunization Z23 [facility] [address] [address] Jul, Sore throat J02.9 and BMI 45.0-49.9, adult Z68.42 [place] [address] 53266- 3039 Jun, [place] [address] 41603- 0902 Jun, Edema of left upper eyelid H02.844 [facility] [address] [id number] May, Dental examination Z01.20 [facility] [address] [address]- 9465 May, Right wrist pain M25.531 and Tendonitis M77.9 [facility] [address] [id number] May, Encounter for dental examination Z01.20 [facility] [address] 39659 -4377 Apr, Heat rash L74.0 [place] [address] 79004- 6290 14 Dec, 2014 [facility] [address] [id number] [place] [address]- 8770 13 Dec, 2014 [facility] [place] [facility] [address] [id number] [place] [address]- 1075 17 Aug, 2014 [facility] [place] [facility] [address] [id number] [place] [address]- 5248 17 Aug, 2014 [facility] [place] [facility] [address] [id number] [place] [address]- 8725 14 Aug, 2013 [facility] [place] [facility] [address] [id number] [place] [address]- 2399 14 Aug, 2013 [facility] [place] [facility] [address] [id number] [place] [address]- 4766 24 May, 2013 [facility] [place] [facility] [address] [id number] [place] [address]- 5846 19 May, 2013 [facility] [place] [facility] [address] [id number] [place] [address]- 7599 18 May, 2013 [facility] [place] [facility] [address] [id number] [place] [address]- 6241 17 May, 2013 [facility] [place] [facility] [address] [id number] [place] [address]- 9271 13 May, 2013 [facility] [place] [facility] [address] [id number] [place] [address]- 0328 09 May, 2013 [facility] [place] [facility] [address] [id number] [address]- 2160 12 Dec, 2012 [facility] [place] [facility] [address] [id number] [place] [address]- 2362 Nov, [facility] [place] [facility] [address] [id number] [place] [address]- 0092 08 Oct, 2012 [facility] [place] [facility] [address] [id number] [place] [address]- 6384 Mar, [facility] [place] [facility] [address] [address]- 6226 Mar, [facility] [address] [address]- 3309 Feb, [facility] [address] [address]- 3726 January, [facility] [address] [address]- 6116 January, [facility] [address] [address]- 7846 Dec, [facility] [address] [place] [address] 77382- 2085 Nov, [facility] [address] [place] [address] 70665- 3866 Nov, [facility] [address] [place] [address] 64657- 1396 Nov, [facility] [address] [address]- 7499 Oct, [facility] [address] [address]- 8743 Oct, [facility] [address] [address]- 9170 Oct, [facility] [address] [address]- 3678 Feb, [facility] [address] [place] [id number] [address]- 2320 Dec, [facility] [address] [address]- 1230 Sep, IMMUNIZATIONS Vaccine Route Administration Date Status HEP B (ADULT) IM Intramuscular Oct 07, 2017 Administered SOCIAL HISTORY Never Assessed REASON FOR VISIT Immunization(s) STeposte CCMA PLAN OF CARE VITAL SIGNS MEDICATIONS Medication Instructions Dosage Frequency Start Date End Date Duration Status Jencycla Unknown Cardizem CD 180 MG Orally Once a day 1 capsule 24h Unknown Zoloft 50 MG Orally Once a day 1 tablet 24h Unknown RESULTS No Results PROCEDURES Procedure Date Ordered Result Body Site HEP B (ADULT) Oct 07, 2017 SINGLE IMMUNIZATION ADMIN Oct 07, 2017 INSTRUCTIONS MEDICATIONS ADMINISTERED No Known Medications MEDICAL (GENERAL) HISTORY Type Description Date Medical History Enlarged heart/afib Medical History right wrist tendonitis Medical History depression Medical History POCD Surgical History lap beti 2008 Surgical History c section X 3 2008, 2014, 2016 Hospitalization History Surgery(s)/Childbirth(s) only
--- OUTSIDE RECORDS SUMMARY | 2018-08-31 09:58 | XMS REPORT ---
Author Author ZAHIDA ELENA [facility] Address [address] [place] [address] Care Team Providers Care Trip Rider Name Role Phone ZAHIDA ELENA Unavailable PROBLEMS Unknown Problems ALLERGIES No Known Allergies ENCOUNTERS Encounter Location Date Diagnosis [facility] [address] [address] 03 Dec, 2017 Cervical paraspinal muscle spasm M62.838 and BMI 50.0-59.9, adult Z68.43 [place] [address] [address] Nov, [place] [address] [address]- [address] 12 Oct, 2017 BMI 50.0-59.9, adult Z68.43 ; Pharyngitis due to other organism J02.8 and Bilateral otitis media with effusion H65.93 [place] [address] [place] [id number] [place] [address] 78702- 9717 Sep, Encounter for immunization Z23 [facility] [id number] [place] [address]72 -2332 Jul, Sore throat J02.9 and BMI 45.0-49.9, adult Z68.42 [facility] [id number] [place] [address] 94689- 9660 Jun, [place] [address] [address]69- 1516 Jun, Edema of left upper eyelid H02.844 [facility] [id number] [place] [id number] May, Dental examination Z01.20 [facility] [address] [address] 11 May, 2017 Right wrist pain M25.531 and Tendonitis M77.9 [facility] [address] [id number] [id number] 06 May, 2017 Encounter for dental examination Z01.20 [facility] [address], [place] [address] Apr, Heat rash L74.0 [facility] [id number] [place] [address] 67524- 9108 14 Dec, 2014 [facility] [id number] [place] [address] 40680- 7840 Dec, [facility] [id number] [place] [address] 04895- 0350 17 Aug, 2014 [facility] [id number] [place] [address] 21909- 4199 Aug, [facility] [address] [place] [address] 34571- 6163 14 Aug, 2013 [facility] [id number] [place] [address] 38891- 4826 14 Aug, 2013 [facility] [address] [place] [address] 56583- 0570 24 May, 2013 [facility] [address] [place] [address] 44064- 7769 19 May, 2013 [facility] [address] [place] [address] 66095- 3338 18 May, 2013 [facility] [id number] [place] [address] 41743- 3342 17 May, 2012 [facility] [address], [place] [address] 2543 13 May, 2012 [facility] [id number] [place] [address] 37184- 2818 May, [facility] [address] [id number] [place] [address]- 0640 Dec, [facility] [place] [facility] [address] [id number] [place] [address]- 8209 Nov, [facility] [place] [facility] [address] [id number] [place] [address]- 7368 Oct, [facility] [place] [facility] [address] [id number] [place] [address]- 5013 Mar, [facility] [place] [facility] [address] [id number] [place] [address]- 5471 Mar, [facility] [place] [facility] [address] [id number] [place] [address]- 1892 Feb, [facility] [place] [facility] [address] [id number] [place] [address]- 0905 January, [facility] [place] [facility] [address] [id number] [place] [address]- 8677 January, [facility] [place] [facility] [address] [id number] [place] [address]- 0027 Dec, [facility] [place] [facility] [address] [id number] [place] [address]- 2685 Nov, [facility] [place] [facility] [address] [id number] [place] [address]- 4416 Nov, [facility] [place] [facility] [address] [id number] [place] [address]- 5310 Nov, [facility] [place] [facility] [address] [id number] [place] [address]- 3868 Oct, [facility] [place] [facility] [address] [id number] [place] [address]- 6236 Oct, [facility] [place] [facility] [address] [id number] [place] [address]- 8617 Oct, [facility] [place] [facility] [address] [facility] [id number] [place] [address]- 2730 14 Feb, 2011 [facility] [address] [facility] [id number] [place] [address]- 3003 16 Dec, 2010 [facility] [address] [facility] [id number] [place] [address]- 2386 18 Sep, 2009 IMMUNIZATIONS No Known Immunizations SOCIAL HISTORY Never Assessed REASON FOR VISIT prophy/ricki PLAN OF CARE Activity Details Follow Up SONIA Reason:RICKI/SRP VITAL SIGNS Heart Rate 63 bpm 2017-06-02 Blood pressure systolic 113 mmHg 2017-06-02 Blood pressure diastolic 72 mmHg 2017-06-02 MEDICATIONS Medication Instructions Dosage Frequency Start Date End Date Duration Status Jencycla Active Zoloft 50 MG Orally Once a day 1 tablet 24h Active Cardizem CD 180 MG Orally Once a day 1 capsule 24h Active RESULTS No Results PROCEDURES Procedure Date Ordered Result Body Site INTRAORL-PERIAPICAL 1 FILM 22987 Jun 02, 2017 INTRAORL-PERIAPICAL EA ADD FILM Jun 02, 2017 BITEWINGS - FOUR FILMS Jun 02, 2017 INTRAORL-PERIAPICAL EA ADD FILM Jun 02, 2017 INSTRUCTIONS MEDICATIONS ADMINISTERED No Known Medications MEDICAL (GENERAL) HISTORY Type Description Date Medical History Enlarged heart/afib Medical History right wrist tendonitis Medical History depression Medical History POCD Surgical History conrado bang 2008 Surgical History c section X 3 2008, 2014, 2016 Hospitalization History Surgery(s)/Childbirth(s) only
--- OUTSIDE RECORDS SUMMARY | 2018-08-31 09:58 | XMS REPORT ---
Author Author ENRRIQUE BINA Organization [facility] Address [address] [place] [address] Care Team Providers Care Rotary Saw Operator Name Role Phone OSUNABINA Nuñez Unavailable PROBLEMS Unknown Problems ALLERGIES No Known Allergies ENCOUNTERS Encounter Location Date Diagnosis [facility] [address] [address] 03 Dec, 2017 Cervical paraspinal muscle spasm M62.838 and BMI 50.0-59.9, adult Z68.43 [place] [address] [address]- 9065 Nov, [place] [address] [address]- 79[address] 12 Oct, 2017 BMI 50.0-59.9, adult Z68.43 ; Pharyngitis due to other organism J02.8 and Bilateral otitis media with effusion H65.93 [facility] [address] [address]- [address]39 Sep, Encounter for immunization Z23 [facility] [id number] [place] [address] -[address]99 Jul, Sore throat J02.9 and BMI 45.0-49.9, adult Z68.42 [facility] [id number] [place] [address] 32639- 2319 Jun, [place] [address] [address]- [address] Jun, Edema of left upper eyelid H02.844 [facility] [place] [facility] [id number] [place] [address] [id number] May, Dental examination Z01.20 [place] [address] [address]- 6[address] 11 May, 2017 Right wrist pain M25.531 and Tendonitis M77.9 [facility] [place] [facility] [address] [id number] [id number] 06 May, 2017 Encounter for dental examination Z01.20 [facility] [address] [address] Apr, Heat rash L74.0 [facility] [address] [address]- 7971 14 Dec, 2014 [facility] [id number] [place] [address] 56202- 3583 Dec, [facility] [id number] [place] [address] 84905- 8231 17 Aug, 2014 [facility] [id number] [place] [address] 30573- 6184 Aug, [facility] [address] [address]- 7302 Aug, [facility] [address] [address]- 1236 14 Aug, 2013 [facility] [address] [address]- 2452 24 May, 2013 [facility] [address] [address]- 8220 19 May, 2013 [facility] [address] [address]- 8189 18 May, 2013 [facility] [id number] [address]- 8255 17 May, 2013 [facility] [address] [address]- 8541 13 May, 2013 [facility] [address] [address]- 5999 May, [facility] [place] [facility] [address] [id number] [place] [address]- 9976 Dec, [facility] [place] [facility] [address] [id number] [place] [address]- 0476 Nov, [facility] [place] [facility] [address] [id number] [place] [address]- 0904 Oct, [facility] [place] [facility] [address] [id number] [place] [address]- 1857 Mar, [facility] [place] [facility] [address] [id number] [place] [address]- 6468 Mar, [facility] [place] [facility] [address] [id number] [place] [address]- 9873 Feb, [facility] [place] [facility] [address] [id number] [place] [address]- 2507 January, [facility] [place] [facility] [address] [id number] [place] [address]- 4436 January, [facility] [place] [facility] [address] [id number] [place] [address]- 6991 Dec, [facility] [place] [facility] [address] [id number] [place] [address]- 6799 Nov, [facility] [place] [facility] [address] [id number] [place] [address]- 7606 Nov, [facility] [place] [facility] [address] [id number] [place] [address]- 4076 Nov, [facility] [place] [facility] [address] [id number] [place] [address]- 7900 Oct, [facility] [place] [facility] [address] [id number] [place] [address]- 2856 Oct, [facility] [place] [facility] [address] [id number] [place] [address]- 9395 Oct, [facility] [place] [facility] [address] [facility] [id number] [place] [address]- 2531 14 Feb, 2011 [facility] [address] [facility] [id number] 7770 16 Dec, 2010 [facility] [address] [facility] [id number]594 18 Sep, 2009 IMMUNIZATIONS No Known Immunizations SOCIAL HISTORY Never Assessed REASON FOR VISIT wrist pain-tcuppettRN, -Right wrist pain for last 5 months, but is worsening. Having difficulty gripping things and using right hand PLAN OF CARE Activity Details Follow Up 3 Weeks Reason:est care appt. VITAL SIGNS Height 62 in 2017-06-07 Weight 253.0 lbs 2017-06-07 Temperature 97.8 degrees Fahrenheit 2017-06-07 Heart Rate 84 bpm 2017-06-07 Respiratory Rate 20 2017-06-07 BMI 46.27 kg/m2 2017-06-07 Blood pressure systolic 110 mmHg 2017-06-07 Blood pressure diastolic 78 mmHg 2017-06-07 MEDICATIONS Medication Instructions Dosage Frequency Start Date End Date Duration Status Zoloft 50 MG Orally Once a day 1 tablet 24h Active Cardizem CD 180 MG Orally Once a day 1 capsule 24h Active Jencycla Active RESULTS No Results PROCEDURES No Known procedures INSTRUCTIONS MEDICATIONS ADMINISTERED No Known Medications MEDICAL (GENERAL) HISTORY Type Description Date Medical History Enlarged heart/afib Medical History right wrist tendonitis Medical History depression Medical History POCD Surgical History conrado bang 2008 Surgical History c section X 3 2008, 2014, 2016 Hospitalization History Surgery(s)/Childbirth(s) only
--- OUTSIDE RECORDS SUMMARY | 2018-08-31 09:58 | XMS REPORT ---
Author Author ENRRIQUEBINA Organization [facility] Address [address] [place] [address] Care Team Providers Care Dobie Man Name Role Phone OSUNABINA Nuñez Unavailable PROBLEMS Type Condition ICD9-CM Code SKT24-LS Code Onset Dates Condition Status SNOMED Code Problem Major depressive disorder, single episode, unspecified F32.9 Active 81686962 Problem Anxiety disorder, unspecified F41.9 Active 794016923 ALLERGIES Substance Reaction Event Type Date Status cocunut Unknown Non Drug Allergy Jun, Active tape adhesive Unknown Non Drug Allergy Jun, Active ENCOUNTERS Encounter Location Date Diagnosis [facility] [address] [address]- [address] 03 Dec, 2017 Cervical paraspinal muscle spasm M62.838 and BMI 50.0-59.9, adult Z68.43 [facility] [address] [address]- 3256 Nov, Major depressive disorder, single episode, unspecified F32.9 and Anxiety disorder, unspecified F41.9 [place] [address] [place] [id number] [place] [address] 53270- 8660 12 Oct, 2017 BMI 50.0-59.9, adult Z68.43 ; Pharyngitis due to other organism J02.8 and Bilateral otitis media with effusion H65.93 [facility] [address] [id number] [place] [address] 47019- 3283 Sep, Encounter for immunization Z23 [facility] [id number] [place] [address] 04090 -2906 2017 Sore throat J02.9 and BMI 45.0-49.9, adult Z68.42 [place] [address] [place] [address]- 0530 Jun, [facility] [address] [id number] [place] [address] 846492- 4084 Jun, Edema of left upper eyelid H02.844 [facility] [id number] [place] [address] [id number] 27 May, 2017 Dental examination Z01.20 [facility] [address] [address]- 0676 11 May, 2017 Right wrist pain M25.531 and Tendonitis M77.9 [facility] [address] [id number] 06 May, 2017 Encounter for dental examination Z01.20 [facility] [id number] [place] [address] 96132 -6086 Apr, Heat rash L74.0 [facility] [address] [address]- 1457 14 Dec, 2014 [facility] [address] [id number] [place] [address] 26416- 5099 Dec, [facility] [id number] [place] [address] 97826- 6158 Aug, [facility] [address] [id number] [place] [address] 07932- 7895 17 Aug, 2014 [facility] [id number] [place] [address] 32484- 1214 14 Aug, 2013 [facility] [id number] [place] [address] 94959- 8447 14 Aug, 2013 [facility] [id number] [place] [address] 697234- 9659 24 May, 2013 [facility] [id number] [place] [address] 198716- 6796 19 May, 2013 [facility] [id number] [place] [address] 851488- 7694 18 May, 2013 [facility] [address] [id number] [place] [address]- 0768 17 May, 2013 [facility] [place] [facility] [address] [id number] [place] [address]- 8986 13 May, 2013 [facility] [place] [facility] [address] [id number] [place] [address] 2546 09 May, 2013 [facility] [place] [facility] [address] [id number] [place] [address]- 7131 12 Dec, 2012 [facility] [place] [facility] [address] [id number] [place] [address]- 5504 Nov, [facility] [place] [facility] [address] [id number] [place] [address]- 1269 Oct, [facility] [place] [facility] [address] [id number] [place] [address]- 3737 Mar, [facility] [place] [facility] [address] [id number] [place] [address]- 5485 Mar, [facility] [place] [facility] [address] [id number] [place] [address]- 9524 Feb, [facility] [place] [facility] [address] [id number] [place] [address]- 6156 January, [facility] [place] [facility] [address] [id number] [place] [address]- 8186 January, [facility] [place] [facility] [address] [id number] [place] [address]- 5281 Dec, [facility] [place] [facility] [address] [id number] [place] [address]- 2546 Nov, [facility] [place] [facility] [address] [id number] [place] [address] 2546 Nov, [facility] [place] [facility] [address] [id number] [place] [address]- 2546 Nov, [facility] [place] [facility] [address] [facility] [id number] [address]- 6310 Oct, [facility] [id number], [place] [address]- 5511 Oct, [facility] [id number] [address]- 3131 Oct, [facility] [id number] [address]- 5959 Feb, [facility] [id number] [address]- 1009 Dec, [facility] [address], [place] [address]- 5433 Sep, IMMUNIZATIONS No Known Immunizations SOCIAL HISTORY Never Assessed REASON FOR VISIT painful eye swelling--tcuppettRn, -left eye lid swelling since yesterday PLAN OF CARE Activity Details Follow Up 2 - 3 Days if not improving Reason: VITAL SIGNS Height 62 in 2017-07-05 Weight 258.0 lbs 2017-07-05 Temperature 98.4 degrees Fahrenheit 2017-07-05 Heart Rate 84 bpm 2017-07-05 Respiratory Rate 20 2017-07-05 BMI 47.18 kg/m2 2017-07-05 Blood pressure systolic 118 mmHg 2017-07-05 Blood pressure diastolic 72 mmHg 2017-07-05 MEDICATIONS Medication Instructions Dosage Frequency Start Date End Date Duration Status Cardizem CD 180 MG Orally Once a day 1 capsule 24h Active Amoxicillin 500 mg Orally every 12 hrs 1 capsule 12h Jun, Jun, 07 days Active Zoloft 50 MG Orally Once a day 1 tablet 24h Active Jencycla Active Erythromycin 5 MG/GM Ophthalmic 2 times a day apply 1/2 inch ribbon to inside left eye 12h Jun, Jun, 10 day(s) Active RESULTS No Results PROCEDURES No Known procedures INSTRUCTIONS MEDICATIONS ADMINISTERED No Known Medications MEDICAL (GENERAL) HISTORY Type Description Date Medical History Enlarged heart/afib Medical History right wrist tendonitis Medical History depression Medical History POCD Surgical History lap beti 2009 Surgical History c section X 3 2008, 2014, 2016 Hospitalization History Surgery(s)/Childbirth(s) only
[2018-08-31 09:59] LABS: BILIRUBIN,URINE NEGATIVE (NEGATIVE); CLARITY,URINE CLEAR; COLOR,URINE YELLOW; GLUCOSE, URINE (UA) NEGATIVE (NEGATIVE); KETONES,URINE NEGATIVE (NEGATIVE); LEUKOCYTE ESTERASE ,URINE 1+ (NEGATIVE); NITRITE,URINE NEGATIVE (NEGATIVE); PH,URINE 5 (5-9); PROTEIN,URINE NEGATIVE (NEGATIVE); UROBILINOGEN,URINE NORMAL (NORMAL)
[2018-08-31 10:02] LABS: BASOPHILS % (AUTO) 0 % (0-10); EOSINOPHILS # (AUTO) 0.3 10^3/uL (0.0-0.3); EOSINOPHILS % (AUTO) 4 % (0-10); HEMATOCRIT 37 % (35-52); HEMOGLOBIN 11.8 G/DL (11.5-16.0); LYMPHOCYTES # (AUTO) 1.7 X 10^3 (1.0-4.0); LYMPHOCYTES % (AUTO) 19 % (12-44); MEAN CORPUSCULAR HEMOGLOBIN 26 PG (25-34); MEAN CORPUSCULAR HGB CONC 32 G/DL (32-36); MEAN CORPUSCULAR VOLUME 82 FL (80-99); MEAN PLATELET VOLUME 10.4 FL (7.4-10.4); MONOCYTES # (AUTO) 0.4 X 10^3 (0.0-1.0); MONOCYTES % (AUTO) 4 % (0-12); NEUTROPHILS # (AUTO) 6.4 X 10^3 (1.8-7.8); NEUTROPHILS % (AUTO) 73 % (42-75); PLATELET COUNT 266 10^3/uL (130-400); RED BLOOD COUNT 4.54 10^6/uL (4.35-5.85); RED CELL DISTRIBUTION WIDTH 15.2 % (10.0-14.5); WHITE BLOOD COUNT 8.8 10^3/uL (4.3-11.0)
--- OUTSIDE RECORDS SUMMARY | 2018-08-31 10:04 | XMS REPORT | Continuity of Care Document ---
Author Author [facility] Address Unknown Phone Unavailable Allergies Active Description Code Type Severity Reaction Onset Reported/Identified Relationship to Patient Clinical Status Yes COCONUT [id number] Food Allergy N/ A N/A Yes NKDA N/A N/A Yes TAPE, ADHESIVE Miscellaneous Allergy N/A N/A Yes No Known Drug Allergies [id number] Drug Allergy Unknown N/A 03/18/2009 Yes TAPE TAPE Mild N/ A 03/28/2009 Yes TAPE ADHESIVE TAPE ADHESIVE Mild N/A 04/06/2009 Yes Elidel Drug Allergy 03/25/2011 Yes Elidel Drug Allergy N/A N/A 03/25/2011 Medications Medication Packaging Start Date Stop Date Route Dosage Sig ORAL 04/13/20162015 ORAL 40 4 times a day ORAL 04/13/2016 ORAL ORAL 07/14/20162015 ORAL 30 daily Injection 07/14/2016 Injection 1000 daily ORAL 07/14/20162015 ORAL daily ORAL 07/14/2016 ORAL daily ORAL 08/14/2016 ORAL 30 twice daily ORAL 08/14/2016 ORAL 60 at bedtime Problems Date Dx Coded Attending Type Code Diagnosis Diagnosed By 04/05/2008 692.9 DERMATITIS CONTACT UNSPECIFIED 04/05/2008 692.9 DERMATITIS CONTACT UNSPECIFIED 04/05/2008 692.9 Dermatitis Contact Unspecified 04/05/2008 692.9 Dermatitis Contact Unspecified 04/05/2008 692.9 Dermatitis Contact Unspecified 04/05/2008 DANIEL WARREN DO 692.9 Dermatitis Contact Unspecified 04/05/2008 KASSANDRA MENDIETA APRN 692.9 Dermatitis Contact Unspecified 04/05/2008 GILMER CHACON APRN 692.9 Dermatitis Contact Unspecified 05/01/2008 724.5 BACKACHE UNSPECIFIED 05/01/2008 724.5 BACKACHE UNSPECIFIED 05/01/2008 724.5 BACKACHE UNSPECIFIED 05/01/2008 724.5 BACKACHE UNSPECIFIED 05/01/2008 724.5 BACKACHE UNSPECIFIED 05/01/2008 DANIEL WARREN DO K 724.5 BACKACHE UNSPECIFIED 05/01/2008 KASSANDRA MENDIETA APRN S 724.5 BACKACHE UNSPECIFIED 05/01/2008 GILMER CHACON APRN R 724.5 BACKACHE UNSPECIFIED 10/14/2009 726.90 TENDONITIS 10/14/2009 726.90 TENDONITIS 10/14/2009 726.90 Tendonitis 10/14/2009 726.90 Tendonitis 10/14/2009 726.90 Tendonitis 10/14/2009 DANIEL WARREN DO K 726.90 Tendonitis 10/14/2009 KASSANDRA MENDIETA APRN S 726.90 Tendonitis 10/14/2009 GILMER CHACON APRN R 726.90 Tendonitis 11/18/2009 611.71 breast pain 11/18/2009 780.79 FATIGUE 11/18/2009 787.02 nausea 11/18/2009 611.71 breast pain 11/18/2009 780.79 FATIGUE 11/18/2009 787.02 nausea 11/18/2009 611.71 Breast Pain 11/18/2009 780.79 FATIGUE 11/18/2009 787.02 Nausea 11/18/2009 611.71 Breast Pain 11/18/2009 780.79 FATIGUE 11/18/2009 787.02 Nausea 11/18/2009 611.71 Breast Pain 11/18/2009 780.79 FATIGUE 11/18/2009 787.02 Nausea 11/18/2009 DANIEL WARREN DO K 611.71 Breast Pain 11/18/2009 DANIEL WARREN DO K 780.79 FATIGUE 11/18/2009 DANIEL WARREN DO K 787.02 Nausea 11/18/2009 KASSANDRA MENDIETA APRN S 611.71 Breast Pain 11/18/2009 KASSANDRA MENDIETA APRN S 780.79 FATIGUE 11/18/2009 KASSANDRA MENDIETA APRN S 787.02 Nausea 11/18/2009 GILMER CHACON APRN R 611.71 Breast Pain 11/18/2009 GILMER CHACON APRN R 780.79 FATIGUE 11/18/2009 GILMER CHACON APRN R 787.02 Nausea 05/22/2010 Ot 724.2 05/22/2010 Ot 787.02 05/22/2010 Ot 789.00 06/28/2010 Ot 599.0 06/28/2010 Ot 789.09 10/16/2010 Ot 599.0 10/16/2010 Ot 789.09 11/21/2010 256.4 POLYCYSTIC OVARIAN SYNDROME 11/21/2010 278.01 OBESITY MORBID BMI >40 11/21/2010 789.04 ABDOMINAL PAIN LEFT LOWER QUADRANT 11/21/2010 256.4 POLYCYSTIC OVARIAN SYNDROME 11/21/2010 278.01 OBESITY MORBID BMI >40 11/21/2010 789.04 ABDOMINAL PAIN LEFT LOWER QUADRANT 11/21/2010 256.4 POLYCYSTIC OVARIAN SYNDROME 11/21/2010 278.01 OBESITY MORBID BMI >40 11/21/2010 789.04 Abdominal Pain Left Lower Quadrant 11/21/2010 256.4 POLYCYSTIC OVARIAN SYNDROME 11/21/2010 278.01 OBESITY MORBID BMI >40 11/21/2010 789.04 Abdominal Pain Left Lower Quadrant 11/21/2010 256.4 POLYCYSTIC OVARIAN SYNDROME 11/21/2010 278.01 OBESITY MORBID BMI >40 11/21/2010 789.04 Abdominal Pain Left Lower Quadrant 11/21/2010 DANIEL WARREN DO K 256.4 POLYCYSTIC OVARIAN SYNDROME 11/21/2010 WARREN DANIEL GARLAND K 278.01 OBESITY MORBID BMI >40 11/21/2010 DANIEL WARREN DO K 789.04 Abdominal Pain Left Lower Quadrant 11/21/2010 KASSANDRA MENDIETA APRN S 256.4 POLYCYSTIC OVARIAN SYNDROME 11/21/2010 KASSANDRA MENDIETA APRN S 278.01 OBESITY MORBID BMI >40 11/21/2010 KASSANDRA MENDIETA APRN S 789.04 Abdominal Pain Left Lower Quadrant 11/21/2010 GILMER CHACON APRN R 256.4 POLYCYSTIC OVARIAN SYNDROME 11/21/2010 GILMER CHACON APRN R 278.01 OBESITY MORBID BMI >40 11/21/2010 GILMER CHACON APRN 789.04 Abdominal Pain Left Lower Quadrant 01/10/2011 461.9 SINUSITIS ACUTE 01/10/2011 461.9 SINUSITIS ACUTE 01/10/2011 461.9 Sinusitis Acute 01/10/2011 461.9 Sinusitis Acute 01/10/2011 461.9 Sinusitis Acute 01/10/2011 DANIEL WARREN DO 461.9 Sinusitis Acute 01/10/2011 KASSANDRA MENDIETA APRN 461.9 Sinusitis Acute 01/10/2011 GILMER CHACON APRN 461.9 Sinusitis Acute 01/19/2011 Ot 625.9 02/09/2011 Ot 789.03 03/10/2011 054.0 ECZEMA HERPETICUM 03/10/2011 054.0 ECZEMA HERPETICUM 03/10/2011 054.0 ECZEMA HERPETICUM 03/10/2011 054.0 ECZEMA HERPETICUM 03/10/2011 054.0 ECZEMA HERPETICUM 03/10/2011 DANIEL WARREN DO 054.0 ECZEMA HERPETICUM 03/10/2011 KASSANDRA MENDIETA APRN 054.0 ECZEMA HERPETICUM 03/10/2011 GILMER CHACON APRN 054.0 ECZEMA HERPETICUM 11/19/2011 296.32 MO DEPRESSIVE RECURRENT MODERATE 11/19/2011 296.32 MO DEPRESSIVE RECURRENT MODERATE 11/19/2011 296.32 Mo Depressive Recurrent Moderate 11/19/2011 296.32 Mo Depressive Recurrent Moderate 11/19/2011 296.32 Mo Depressive Recurrent Moderate 11/19/2011 DANIEL WARREN DO 296.32 Mo Depressive Recurrent Moderate 11/19/2011 KASSANDRA MENDIETA APRN 296.32 Mo Depressive Recurrent Moderate 11/19/2011 GILMER CHACON APRN 296.32 Mo Depressive Recurrent Moderate 12/01/2011 251.1 HYPERINSULINISM 12/01/2011 251.1 HYPERINSULINISM 12/01/2011 251.1 HYPERINSULINISM 12/01/2011 251.1 HYPERINSULINISM 12/01/2011 251.1 HYPERINSULINISM 12/01/2011 DANIEL WARREN DO 251.1 HYPERINSULINISM 12/01/2011 KASSANDRA MENDIETA APRN 251.1 HYPERINSULINISM 12/01/2011 GILMER CHACON APRN 251.1 HYPERINSULINISM 04/13/2012 296.30 MO DEPRESSIVE RECURRENT UNSPECIFIED 04/13/2012 296.30 MO DEPRESSIVE RECURRENT UNSPECIFIED 04/13/2012 296.30 MO DEPRESSIVE RECURRENT UNSPECIFIED 04/13/2012 296.30 MO DEPRESSIVE RECURRENT UNSPECIFIED 04/13/2012 296.30 MO DEPRESSIVE RECURRENT UNSPECIFIED 04/13/2012 DANIEL WARREN DO 296.30 MO DEPRESSIVE RECURRENT UNSPECIFIED 04/13/2012 KASSANDRA MENDIETA APRN 296.30 MO DEPRESSIVE RECURRENT UNSPECIFIED 04/13/2012 GILMER CHACON APRN 296.30 MO DEPRESSIVE RECURRENT UNSPECIFIED 05/01/2012 Ot 623.8 NONINFLAM DIS VAGINA NEC 05/01/2012 Ot 654.73 ABNORM VAGINA-ANTEPARTUM 05/09/2012 Ot 789.09 ABDOMINAL PAIN, OTHER SPECIFIED SITE 11/04/2012 733.6 TIETZE'S DISEASE 11/04/2012 733.6 TIETZE'S DISEASE 11/04/2012 733.6 Tietze's Disease 11/04/2012 733.6 Tietze's Disease 11/04/2012 733.6 Tietze's Disease 11/04/2012 DANIEL WARREN DO 733.6 Tietze's Disease 11/04/2012 KASSANDRA MENDIETA APRN 733.6 Tietze's Disease 11/04/2012 GILMER CHACON APRN 733.6 Tietze's Disease 12/05/2012 305.1 TOBACCO ABUSE 12/05/2012 782.1 RASH 12/05/2012 V65.42 TOBACCO COUNSELING 12/05/2012 305.1 TOBACCO ABUSE 12/05/2012 782.1 RASH 12/05/2012 V65.42 TOBACCO COUNSELING 12/05/2012 305.1 TOBACCO ABUSE 12/05/2012 782.1 RASH 12/05/2012 V65.42 TOBACCO COUNSELING 12/05/2012 305.1 TOBACCO ABUSE 12/05/2012 782.1 RASH 12/05/2012 V65.42 TOBACCO COUNSELING 12/05/2012 DANIEL WARREN DO 305.1 TOBACCO ABUSE 12/05/2012 DANIEL WARREN DO 782.1 RASH 12/05/2012 DANIEL WARREN DO V65.42 TOBACCO COUNSELING 12/05/2012 KASSANDRA MENDIETA APRN 305.1 TOBACCO ABUSE 12/05/2012 KASSANDRA MENDIETA APRN 782.1 RASH 12/05/2012 KASSANDRA MENDIETA APRN V65.42 TOBACCO COUNSELING 12/05/2012 GILMER CHACON APRN R 305.1 TOBACCO ABUSE 12/05/2012 GILMER CHACON APRN R 782.1 RASH 12/05/2012 GILMER CHACON APRN R V65.42 TOBACCO COUNSELING 01/03/2013 Ot 789.03 ABDOMINAL PAIN, RIGHT LOWER QUADRANT 06/05/2013 786.07 WHEEZING 06/05/2013 786.2 COUGH 06/05/2013 786.07 WHEEZING 06/05/2013 786.2 COUGH 06/05/2013 WARREN DO, DANIEL K 786.07 WHEEZING 06/05/2013 WARREN DO, DANIEL K 786.2 COUGH 06/05/2013 STEVE MENDIETA APRNA S 786.07 WHEEZING 06/05/2013 STEVE MENDIETA APRNA S 786.2 COUGH 06/05/2013 GILMER CHACON APRN R 786.07 WHEEZING 06/05/2013 GILMER CHACON APRN R 786.2 COUGH 06/13/2013 DANITA CLARK DO Ot 486 PNEUMONIA, ORGANISM NOS 06/13/2013 DANITA CLARK DO Ot V16.0 FAMILY HX-GI MALIGNANCY 06/13/2013 DANITA CLARK DO Ot V64.1 NO PROC/CONTRAINDICATION 06/13/2013 DANITA CLARK DO Ot V76.51 SCREEN MAL NEOP-COLON 06/28/2013 CARRIE CHAMBERLAIN APRN Ot 845.00 SPRAIN OF ANKLE NOS 06/28/2013 CARRIE CHAMBERLAIN APRN Ot 959.7 LOWER LEG INJURY NOS 06/28/2013 CARRIE CHAMBERLAIN APRN Ot E000.8 OTHER EXTERNAL CAUSE STATUS 06/28/2013 CARRIE CHAMBERLAIN APRN Ot E849.0 ACCIDENT IN HOME 06/28/2013 CARRIE CHAMBERLAIN APRN Ot E885.9 FALL FROM SLIPPING, TRIPPING, OR STUMBLI 08/01/2013 DANITA CLARK DO Ot V16.0 FAMILY HX-GI MALIGNANCY 08/01/2013 DANITA CLARK DO Ot V76.51 SCREEN MAL NEOP-COLON 09/09/2013 KASSANDRA MENDIETA APRN S 009.1 GASTROENTERITIS, ACUTE INFECTIOUS 09/09/2013 GILMER CHACON APRN R 009.1 GASTROENTERITIS, ACUTE INFECTIOUS 04/30/2014 CHARO FIELDS, VINCENT Valiente Ot 620.2 OVARIAN CYST NEC/NOS 04/30/2014 CHARO FIELDS, VINCENT [place] Ot 648.93 OTH CURR COND-ANTEPARTUM 08/17/2014 SURESH ANGELES DO Ot V28.89 09/02/2014 SURESH ANGELES DO Ot V28.89 09/02/2014 INES FIELDS, ROCK Negron Ot 256.4 09/02/2014 INES FIELDS, ROCK Negron Ot 278.00 09/02/2014 INES FIELDS, ROCK Negron Ot 646.83 09/02/2014 INES FIELDS, ROCK Negron Ot 649.13 09/02/2014 SURESH ANGELES DO Ot 008.8 VIRAL ENTERITIS NOS 09/02/2014 SURESH ANGELES DO Ot 276.51 DEHYDRATION 09/02/2014 SURESH ANGELES DO Ot 599.0 URIN TRACT INFECTION NOS 09/02/2014 SURESH ANGELES DO Ot 646.63 INFECTION-ANTEPARTUM 09/02/2014 SURESH ANGELES DO Ot 646.83 PREG COMPL NEC-ANTEPART 09/02/2014 SURESH ANGELES DO Ot 647.83 INFECT DIS NEC-ANTEPART 11/04/2014 SURESH ANGELES DO Ot 644.03 THRT KIMBERLY LABOR-ANTEPART 11/07/2014 SURESH ANGELES DO Ot 112.9 CANDIDIASIS SITE NOS 11/07/2014 SURESH ANGELES DO Ot 644.03 THRT KIMBERLY LABOR-ANTEPART 11/07/2014 SURESH ANGELES DO Ot 646.83 PREG COMPL NEC-ANTEPART 11/07/2014 SURESH ANGELES DO Ot 647.83 INFECT DIS NEC-ANTEPART 11/07/2014 SURESH ANGELES DO Ot 648.83 ABN GLUCOSE-ANTEPARTUM 11/07/2014 SURESH ANGELES DO Ot 654.23 PREV DELIVERY, ANTEPARTUM COND 11/07/2014 SURESH ANGELES DO Ot 784.0 HEADACHE 11/07/2014 SURESH ANGELES DO Ot 785.0 TACHYCARDIA NOS 11/07/2014 SURESH ANGELES DO Ot E942.9 ADV EFF CARDIOVASC NEC 11/07/2014 SURESH ANGELES DO Ot V06.1 [id number], COMBINED [ 11/20/2014 Ot 644.03 THRT KIMBERLY LABOR-ANTEPART 11/20/2014 Ot 648.83 ABN GLUCOSE- ANTEPARTUM 11/20/2014 Ot 648.93 OTH CURR COND-ANTEPARTUM 11/20/2014 Ot 654.23 PREV DELIVERY, ANTEPARTUM COND 11/20/2014 Ot 784.0 HEADACHE 11/29/2014 Ot 280.9 IRON DEFIC ANEMIA NOS 11/29/2014 Ot 285.1 AC POSTHEMORRHAG ANEMIA 11/29/2014 Ot 311 DEPRESSIVE DISORDER NEC 11/29/2014 Ot 599.0 URIN TRACT INFECTION NOS 11/29/2014 Ot 644.21 EARLY ONSET DELIVERY-DEL 11/29/2014 Ot 646.61 INFECTION -DELIVERED 11/29/2014 Ot 648.21 ANEMIA- DELIVERED 11/29/2014 Ot 648.22 ANEMIA- DELIVERED W P/P 11/29/2014 Ot 648.42 MENTAL DIS- DELIV W P/P 11/29/2014 Ot 648.81 ABN GLUCOSE FREDERICK-DELIV 11/29/2014 Ot 654.21 PREV DELIVRY W/ OR W/O MENT ANT 11/29/2014 Ot 656.51 POOR GROWTH-DELIV 11/29/2014 Ot 657.01 POLYHYDRAMNIOS,DEL W OR W/O MENTN ANTEPA 11/29/2014 Ot V27.0 DELIVER- SINGLE LIVEBORN 12/11/2014 Ot 041.49 OTHER AND UNSPECIFIED ESCHERICHIA COLI [ 12/11/2014 Ot 256.4 POLYCYSTIC OVARIES 12/11/2014 Ot 311 DEPRESSIVE DISORDER NEC 12/11/2014 Ot 599.0 URIN TRACT INFECTION NOS 12/11/2014 Ot 642.64 ECLAMPSIA- 12/11/2014 Ot 646.64 INFECTION - 12/11/2014 Ot 648.44 MENTAL DISORDER-POSTPART 12/11/2014 Ot 649.04 TOBACCO USE DISOR COMP PREG/CHILDBIRTH/P 12/11/2014 Ot 790.29 OTHER ABNORMAL GLUCOSE 12/20/2014 Ot 648.83 12/20/2014 Ot 654.23 12/20/2014 Ot 656.63 12/20/2014 Ot 657.03 12/20/2014 Ot V72.63 12/20/2014 Ot V74.8 02/20/2015 Ot 278.01 02/20/2015 Ot 789.04 02/20/2015 TOYIN ANGELES DOA C Ot 793.89 02/20/2015 CLARK DO, DANITA D Ot 611.72 02/20/2015 CLARK DO, DANITA D Ot V72.84 02/20/2015 CLARK DO, DANITA D Ot V72.84 02/20/2015 Ot 278.01 02/20/2015 Ot 789.04 02/20/2015 TOYIN ANGELES DOA C Ot 793.89 02/20/2015 CLARK DO, DANITA D Ot 611.72 02/20/2015 CLARK DO, DANITA D Ot V72.84 02/20/2015 CLARK DO, DANITA D Ot V72.84 02/20/2015 ANGELES TOYIN GARLANDA C Ot 793.89 02/20/2015 [place] DO, DANITA D Ot 611.72 02/20/2015 CLARK DOAUBRIETT D Ot 793.80 02/20/2015 SURESH ANGELES DO C Ot V28.89 02/20/2015 INES FIELDS, ROCK Negron Ot 256.4 02/20/2015 INES FIELDS, ROCK Negron Ot 278.00 02/20/2015 INES FIELDS, ROCK Negron Ot 646.83 02/20/2015 INES FIELDS, ROCK Negron Ot 649.13 02/20/2015 Ot 648.83 02/20/2015 Ot 654.23 02/20/2015 Ot 656.63 02/20/2015 Ot 657.03 02/20/2015 Ot V72.63 02/20/2015 Ot V74.8 02/20/2015 INES FIELDS, ROCK Negron Ot 256.4 02/20/2015 INES FIELDS, ROCK Negron Ot 278.00 02/20/2015 INES FIELDS, ROCK Negron Ot 646.83 02/20/2015 INES FIELDS, ROCK Negron Ot 649.13 02/20/2015 BRIDGETTE GARLAND SURESH C Ot V28.89 02/20/2015 Ot 648.83 02/20/2015 Ot 654.23 02/20/2015 Ot 656.63 02/20/2015 Ot 657.03 02/20/2015 Ot V72.63 02/20/2015 Ot V74.8 08/26/2016 DAYNE FIELDS, DAVID Menjivar Ot I48.0 PAROXYSMAL ATRIAL FIBRILLATION 08/26/2016 DAYNE FIELDS, DAVID Menjivar Ot R06.02 SHORTNESS OF BREATH 08/26/2016 DAYNE FIELDS, DAVID Menjivar Ot R07.89 OTHER CHEST PAIN 08/26/2016 DAYNE FIELDS, DAVID Menjivar Ot R07.9 CHEST PAIN, UNSPECIFIED 08/26/2016 DAYNE FIELDS, DAVID Menjivar Ot Z3A.11 11 WEEKS GESTATION OF 08/26/2016 SURESH ANGELES DO Ot V28.89 OTHER SPECIFIED SCREENING 08/26/2016 INES FIELDS, ROCK Negron Ot 256.4 POLYCYSTIC OVARIES 08/26/2016 INES FIELDS, ROCK Negron Ot 278.00 OBESITY, NOS 08/26/2016 INES FIELDS, ROCK Negron Ot 646.83 PREG COMPL NEC-ANTEPART 08/26/2016 INES FIELDS, ROCK Negron Ot 649.13 OBESITY COMP PREG/CHILDBIRTH/PUERPERIUM, 08/26/2016 Ot 648.83 ABN GLUCOSE- ANTEPARTUM 08/26/2016 Ot 654.23 PREV DELIVERY, ANTEPARTUM COND 08/26/2016 Ot 656.63 EXCESS FET GRTH-ANTEPART 08/26/2016 Ot 657.03 POLYHYDRAMNIOS,ANTEPARTUM CONDITION/COMP 08/26/2016 Ot V72.63 PRE- PROCEDURAL LABORATORY EXAMINATION 08/26/2016 Ot V74.8 SCREEN- BACTERIAL DIS NEC 08/26/2016 SURESH ANGELES DO Ot 793.89 OTH (ABN) FINDINGS ON RADIOLOGICAL EXAMI 08/26/2016 DANITA CLARK DO Ot 611.72 LUMP OR MASS IN BREAST 08/26/2016 DANITA CLRAK DO Ot V72.84 EXAM PRE-OPERATIVE NOS 08/26/2016 DANITA CLARK DO Ot V72.84 EXAM PRE-OPERATIVE NOS 09/28/2016 SURESH ANGELES DO Ot 793.89 OTH (ABN) FINDINGS ON RADIOLOGICAL EXAMI 09/28/2016 DAINTA CLARK DO Ot 611.72 LUMP OR MASS IN BREAST 09/28/2016 DANITA CLARK DO Ot V72.84 EXAM PRE-OPERATIVE NOS 09/28/2016 DANITA CLARK DO Ot V72.84 EXAM PRE-OPERATIVE NOS 09/28/2016 MICHAEL WOODRUFF DO Ot L29.9 PRURITUS, UNSPECIFIED 09/28/2016 MICHAEL WOODRUFF DO Ot O99.89 OTH DISEASES AND CONDITIONS COMPL PREG/C 09/28/2016 MICHAEL WOODRUFF DO Ot Z3A.16 16 WEEKS GESTATION OF 09/28/2016 SURESH ANGELES DO Ot V28.89 OTHER SPECIFIED SCREENING 09/28/2016 INES FIELDS, ROCK Negron Ot 256.4 POLYCYSTIC OVARIES 09/28/2016 INES FIELDS, ROCK Negron Ot 278.00 OBESITY, NOS 09/28/2016 ROCK CHACON MD Ot 646.83 PREG COMPL NEC-ANTEPART 09/28/2016 ROCK CHACON MD Ot 649.13 OBESITY COMP PREG/CHILDBIRTH/PUERPERIUM, 09/28/2016 Ot 648.83 ABN GLUCOSE- ANTEPARTUM 09/28/2016 Ot 654.23 PREV DELIVERY, ANTEPARTUM COND 09/28/2016 Ot 656.63 EXCESS FET GRTH-ANTEPART 09/28/2016 Ot 657.03 POLYHYDRAMNIOS,ANTEPARTUM CONDITION/COMP 09/28/2016 Ot V72.63 PRE- PROCEDURAL LABORATORY EXAMINATION 09/28/2016 Ot V74.8 SCREEN- BACTERIAL DIS NEC 10/02/2016 CARRIE CHAMBERLAIN APRN Ot O23.42 UNSP INFCT OF URINARY TRACT IN 10/02/2016 CARRIE CHAMBERLAIN APRN Ot O42.912 PRETRM KIMBERLY ROM, UNSP TIME BETW RUPT AND 10/02/2016 CARRIE CHAMBERLAIN APRN Ot Z3A.16 16 WEEKS GESTATION OF 10/05/2016 CARRIE CHAMBERLAIN APRN Ot O23.42 UNSP INFCT OF URINARY TRACT IN 10/05/2016 CARRIE CHAMBERLAIN APRN Ot O42.912 PRETRM KIMBERLY ROM, UNSP TIME BETW RUPT AND 10/05/2016 CARRIE CHAMBERLAIN APRN Ot Z3A.16 16 WEEKS GESTATION OF 10/08/2016 CARRIE CHAMBERLAIN APRN Ot O23.42 UNSP INFCT OF URINARY TRACT IN 10/08/2016 CARRIE CHAMBERLAIN APRN Ot O42.912 PRETRM KIMBERLY ROM, UNSP TIME BETW RUPT AND 10/08/2016 CARRIE CHAMBERLAIN APRN Ot Z3A.16 16 WEEKS GESTATION OF 10/31/2016 DONG MAURER MD Ot O99.89 OTH DISEASES AND CONDITIONS COMPL PREG/C 10/31/2016 DONG MAURER MD Ot R10.32 LEFT LOWER QUADRANT PAIN 10/31/2016 DONG MAURER MD Ot Z3A.20 20 WEEKS GESTATION OF 12/20/2016 FENECH DO, ANGELA S Ot O99.89 OTH DISEASES AND CONDITIONS COMPL PREG/C 12/20/2016 FENECH DO, ANGELA S Ot R10.2 PELVIC AND PERINEAL PAIN 12/20/2016 FENECH DO, ANGELA S Ot Z3A.28 28 WEEKS GESTATION OF 01/16/2017 DONG MAURER MD Ot O36.8130 DECREASED MOVEMENTS, THIRD TRIMEST 01/16/2017 DONG MAURER MD Ot R35.0 FREQUENCY OF MICTURITION 01/16/2017 DONG MAURER MD Ot Z3A.32 32 WEEKS GESTATION OF 02/04/2017 BRIDGETTE GARLAND SURESH C Ot O24.414 GESTATIONAL DIABETES IN , INSUL 02/04/2017 BRIDGETTE GARLAND SURESH C Ot Z3A.36 36 WEEKS GESTATION OF 02/10/2017 SURESH ANGELES DO C Ot O24.414 GESTATIONAL DIABETES IN , INSUL 02/17/2017 DONG MAURER MD Ot M79.605 PAIN IN LEFT LEG 02/17/2017 DONG MAURER MD Ot O99.89 OTH DISEASES AND CONDITIONS COMPL PREG/C 02/17/2017 DONG MAURER MD Ot Z3A.36 36 WEEKS GESTATION OF 02/19/2017 BRIDGETTE GARLAND SURESH C Ot O24.414 GESTATIONAL DIABETES IN , INSUL 02/19/2017 BRIDGETTE GARLAND SURESH C Ot Z3A.36 36 WEEKS GESTATION OF 02/24/2017 DONG MAURER MD Ot E66.9 OBESITY, UNSPECIFIED 02/24/2017 DONG MAURER MD Ot K21.9 GASTRO-ESOPHAGEAL REFLUX DISEASE WITHOUT 02/24/2017 DONG MAURER MD Ot O24.419 GESTATIONAL DIABETES MELLITUS IN PREGNAN 02/24/2017 DONG MAURER MD Ot O36.63X0 MATERNAL CARE FOR EXCESS GROWTH, T 02/24/2017 DONG MAURER MD Ot O99.213 OBESITY COMPLICATING , THIRD TR 02/24/2017 DONG MAURER MD Ot O99.63 DISEASES OF THE DIGESTIVE SYSTEM COMPLIC 02/24/2017 DONG MAURER MD Ot Z3A.37 37 WEEKS GESTATION OF 02/24/2017 DONG MAURER MD Ot Z68.42 BODY MASS INDEX (BMI) 45.0-49.9, ADULT 02/24/2017 DONG MAURER MD Ot Z79.4 SHELTER (CURRENT) USE OF INSULIN 02/25/2017 DONG MAURER MD Ot E66.9 OBESITY, UNSPECIFIED 02/25/2017 DONG MAURER MD Ot K21.9 GASTRO-ESOPHAGEAL REFLUX DISEASE WITHOUT 02/25/2017 DONG MAURER MD Ot O24.419 GESTATIONAL DIABETES MELLITUS IN PREGNAN 02/25/2017 DONG MAURER MD Ot O36.63X0 MATERNAL CARE FOR EXCESS GROWTH, T 02/25/2017 DONG MAURER MD Ot O99.213 OBESITY COMPLICATING , THIRD TR 02/25/2017 DONG MAURER MD Ot O99.63 DISEASES OF THE DIGESTIVE SYSTEM COMPLIC 02/25/2017 DONG MAURER MD Ot Z3A.37 37 WEEKS GESTATION OF 02/25/2017 DONG MAURER MD Ot Z68.42 BODY MASS INDEX (BMI) 45.0-49.9, ADULT 02/25/2017 DONG MAURER MD Ot 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 03/03/2017 DONG MAURER MD Ot M79.605 PAIN IN LEFT LEG 03/03/2017 DONG MAURER MD Ot O99.89 OTH DISEASES AND CONDITIONS COMPL PREG/C 03/03/2017 DONG MAURER MD Ot Z3A.36 36 WEEKS GESTATION OF 03/04/2017 DONG MAURER MD Ot M79.605 PAIN IN LEFT LEG 03/04/2017 DONG MAURER MD Ot O99.89 [facility] DISEASES AND CONDITIONS COMPL PREG/C 03/04/2017 ERASTO FIELDS, DONG Cordero Ot Z3A.36 36 WEEKS GESTATION OF 03/05/2017 SURESH ANGELES DO Ot D62 ACUTE POSTHEMORRHAGIC ANEMIA 03/05/2017 SURESH ANGELES DO Ot E66.9 OBESITY, UNSPECIFIED 03/05/2017 SURESH ANGELES DO Ot I48.91 UNSPECIFIED ATRIAL FIBRILLATION 03/05/2017 SURESH ANGELES DO Ot O24.429 GESTATIONAL DIABETES MELLITUS IN CHILDBI 03/05/2017 SURESH ANGELES DO Ot O34.211 MATERN CARE FOR LOW TRANSVERSE SCAR FROM 03/05/2017 SURESH ANGELES DO Ot O40.3XX0 POLYHYDRAMNIOS, THIRD TRIMESTER, NOT RUPA 03/05/2017 SURESH ANGELES DO Ot O69.82X0 LABOR AND DEL COMP BY [facility] CORD ENTANGLE, 03/05/2017 SURESH ANGELES DO Ot O90.81 ANEMIA OF THE PUERPERIUM 03/05/2017 SURESH ANGELES DO Ot O99.02 ANEMIA COMPLICATING CHILDBIRTH 03/05/2017 SURESH ANGELES DO Ot O99.214 OBESITY COMPLICATING CHILDBIRTH 03/05/2017 SURESH ANGELES DO Ot O99.42 DISEASES OF THE CIRCULATORY SYSTEM COMPL 03/05/2017 SURESH ANGELES DO Ot Z23 ENCOUNTER FOR IMMUNIZATION 03/05/2017 SURESH ANGELES DO Ot Z37.0 SINGLE LIVE 03/05/2017 SURESH ANGELES DO Ot Z3A.38 38 WEEKS GESTATION OF 03/05/2017 SURESH ANGELES DO Ot Z68.42 BODY MASS INDEX (BMI) 45.0-49.9, ADULT 03/05/2017 SURESH ANGELES DO Ot Z79.4 SHELTER (CURRENT) USE OF INSULIN 03/11/2017 SURESH ANGELES DO Ot O24.414 GESTATIONAL DIABETES IN , INSUL 03/11/2017 SURESH ANGELES DO Ot O24.414 GESTATIONAL DIABETES IN , INSUL 04/21/2017 VINCENT MANCILLA MD, Ot D64.9 ANEMIA, UNSPECIFIED 04/21/2017 CHARO MD, VINCENT D Ot G43.909 MIGRAINE, UNSP, NOT INTRACTABLE, WITHOUT 04/21/2017 VINCENT MANCILLA MD Ot I48.91 UNSPECIFIED ATRIAL FIBRILLATION 04/21/2017 VINCENT MANCILLA MD Ot R07.9 CHEST PAIN, UNSPECIFIED 04/21/2017 VINCENT MANCILLA MD Ot R10.13 EPIGASTRIC PAIN 04/21/2017 VINCENT MANCILLA MD Ot Z87.42 PERSONAL HISTORY OF OTH DISEASES OF THE 04/21/2017 VINCENT MANCILLA MD Ot Z87.442 PERSONAL HISTORY OF URINARY CALCULI 04/21/2017 VINCENT MANCILLA MD, Ot Z87.891 PERSONAL HISTORY OF NICOTINE DEPENDENCE 05/10/2017 SURESH ANGELES DO Ot O24.414 GESTATIONAL DIABETES IN , INSUL 05/14/2017 VINCENT MANCILLA MD Ot D64.9 ANEMIA, UNSPECIFIED 05/14/2017 VINCENT MANCILLA MD Ot G43.909 MIGRAINE, UNSP, NOT INTRACTABLE, WITHOUT 05/14/2017 VINCENT MANCILLA MD Ot I48.91 UNSPECIFIED ATRIAL FIBRILLATION 05/14/2017 VINCENT MANCILLA MD Ot R07.9 CHEST PAIN, UNSPECIFIED 05/14/2017 VINCENT MANCILLA MD Ot R10.13 EPIGASTRIC PAIN 05/14/2017 VINCENT MANCILLA MD Ot Z87.42 PERSONAL HISTORY OF OTH DISEASES OF THE 05/14/2017 VINCENT MANCILLA MD Ot Z87.442 PERSONAL HISTORY OF URINARY CALCULI 05/14/2017 VINCENT MANCILLA MD Ot Z87.891 PERSONAL HISTORY OF NICOTINE DEPENDENCE 09/29/2017 SURESH ANGELES DO Ot V28.89 OTHER SPECIFIED SCREENING 09/29/2017 ROCK CHACON MD Ot 256.4 POLYCYSTIC OVARIES 09/29/2017 ROCK CHACON MD Ot 278.00 OBESITY, NOS 09/29/2017 ROCK CHACON MD Ot 646.83 PREG COMPL NEC-ANTEPART 09/29/2017 ROCK CHACON MD Ot 649.13 OBESITY COMP PREG/CHILDBIRTH/PUERPERIUM, 09/29/2017 Ot 648.83 ABN GLUCOSE- ANTEPARTUM 09/29/2017 Ot 654.23 PREV DELIVERY, ANTEPARTUM COND 09/29/2017 Ot 656.63 EXCESS FET GRTH-ANTEPART 09/29/2017 Ot 657.03 POLYHYDRAMNIOS,ANTEPARTUM CONDITION/COMP 09/29/2017 Ot V72.63 PRE- PROCEDURAL LABORATORY EXAMINATION 09/29/2017 Ot V74.8 SCREEN- BACTERIAL DIS NEC 09/29/2017 ANGELESSURESH Lou DO Ot O24.414 GESTATIONAL DIABETES IN , INSUL 09/29/2017 SURESH ANGELES DO Ot Z3A.36 36 WEEKS GESTATION OF 09/29/2017 SURESH ANGELES DO Ot O24.414 GESTATIONAL DIABETES IN , INSUL 09/29/2017 SURESH ANGELES DO Ot O24.414 GESTATIONAL DIABETES IN , INSUL 09/29/2017 SURESH ANGELES DO Ot V28.89 OTHER SPECIFIED SCREENING 09/29/2017 INES FIELDS, ROCK Negron Ot 256.4 POLYCYSTIC OVARIES 09/29/2017 INES FIELDS, ROCK Negron Ot 278.00 OBESITY, NOS 09/29/2017 INES FIELDS, ROCK Negron Ot 646.83 PREG COMPL NEC-ANTEPART 09/29/2017 INES FIELDS, ROCK Negron Ot 649.13 OBESITY COMP PREG/CHILDBIRTH/PUERPERIUM, 09/29/2017 Ot 648.83 ABN GLUCOSE- ANTEPARTUM 09/29/2017 Ot 654.23 PREV DELIVERY, ANTEPARTUM COND 09/29/2017 Ot 656.63 EXCESS FET GRTH-ANTEPART 09/29/2017 Ot 657.03 POLYHYDRAMNIOS,ANTEPARTUM CONDITION/COMP 09/29/2017 Ot V72.63 PRE- PROCEDURAL LABORATORY EXAMINATION 09/29/2017 Ot V74.8 SCREEN- BACTERIAL DIS NEC 09/29/2017 ANGELESSURESH Lou DO Ot O24.414 GESTATIONAL DIABETES IN , INSUL 09/29/2017 SURESH ANGELES DO Ot Z3A.36 36 WEEKS GESTATION OF 09/29/2017 SURESH ANGELES DO Ot O24.414 GESTATIONAL DIABETES IN , INSUL 09/29/2017 SURESH ANGELES DO Ot O24.414 GESTATIONAL DIABETES IN , INSUL 10/04/2017 GUILLERMO KAM Ot E66.9 OBESITY, UNSPECIFIED 10/04/2017 JENSEN-DACIA PA, GUILLERMO K Ot I48.0 PAROXYSMAL ATRIAL FIBRILLATION 10/04/2017 AISHWARYA PA, GUILLERMO K Ot E66.9 OBESITY, UNSPECIFIED 10/04/2017 AISHWARYA PA, GUILLERMO K Ot I48.0 PAROXYSMAL ATRIAL FIBRILLATION 10/15/2017 AISHWARYA PA, GUILLERMO K Ot E66.9 OBESITY, UNSPECIFIED 10/15/2017 AISHWARYA PA, GUILLERMO K Ot I48.0 PAROXYSMAL ATRIAL FIBRILLATION 11/11/2017 AISHWARYA PA, GUILLERMO K Ot E66.9 OBESITY, UNSPECIFIED 11/11/2017 AISHWARYA PA, GUILLERMO K Ot I48.0 PAROXYSMAL ATRIAL FIBRILLATION 12/30/2017 AISHWARYA PA, GUILLERMO K Ot E66.9 OBESITY, UNSPECIFIED 12/30/2017 AISHWARYA PA, GUILLERMO K Ot I48.0 PAROXYSMAL ATRIAL FIBRILLATION 12/31/2017 AISHWARYA PA, GUILLERMO Telly Ot E66.9 OBESITY, UNSPECIFIED 12/31/2017 AISHWARYA PA, GUILLERMO Telly Ot I48.0 PAROXYSMAL ATRIAL FIBRILLATION 01/05/2018 AISHWARYA PA, GUILLERMO Telly Ot E66.9 OBESITY, UNSPECIFIED 01/05/2018 AISHWARYA PA, GUILLERMO Telly Ot I48.0 PAROXYSMAL ATRIAL FIBRILLATION 03/23/2018 SURESH ANGELES DO Ot V28.89 OTHER SPECIFIED SCREENING 03/23/2018 INES FIELDS, ROCK Negron Ot 256.4 POLYCYSTIC OVARIES 03/23/2018 INES FIELDS, ROCK Negron Ot 278.00 OBESITY, NOS 03/23/2018 ROCK CHACON MD Ot 646.83 PREG COMPL NEC-ANTEPART 03/23/2018 ROCK CHACON MD Ot 649.13 OBESITY COMP PREG/CHILDBIRTH/PUERPERIUM, 03/23/2018 Ot 648.83 ABN GLUCOSE- ANTEPARTUM 03/23/2018 Ot 654.23 PREV DELIVERY, ANTEPARTUM COND 03/23/2018 Ot 656.63 EXCESS FET GRTH-ANTEPART 03/23/2018 Ot 657.03 POLYHYDRAMNIOS,ANTEPARTUM CONDITION/COMP 03/23/2018 Ot V72.63 PRE- PROCEDURAL LABORATORY EXAMINATION 03/23/2018 Ot V74.8 SCREEN- BACTERIAL DIS NEC 03/23/2018 SURESH ANGELES DO Ot O24.414 GESTATIONAL DIABETES IN , INSUL 03/23/2018 SURESH ANGELES DO Ot Z3A.36 36 WEEKS GESTATION OF 03/23/2018 SURESH ANGELES DO Ot O24.414 GESTATIONAL DIABETES IN , INSUL 03/23/2018 SURESH ANGELES DO Ot O24.414 GESTATIONAL DIABETES IN , INSUL 03/23/2018 GUILLERMO KAM Ot E66.9 OBESITY, UNSPECIFIED 03/23/2018 GUILLERMO KAM Ot I48.0 PAROXYSMAL ATRIAL FIBRILLATION 03/23/2018 GUILLERMO KAM Ot E66.9 OBESITY, UNSPECIFIED 03/23/2018 GUILLERMO KAM Ot I48.0 PAROXYSMAL ATRIAL FIBRILLATION 03/24/2018 FLORIN CANAS DO Ot F39 UNSPECIFIED MOOD [AFFECTIVE] DISORDER 03/24/2018 FLORIN CANAS DO Ot G47.10 HYPERSOMNIA, UNSPECIFIED 03/24/2018 FLORIN CANAS DO Ot I10 ESSENTIAL (PRIMARY) HYPERTENSION 03/24/2018 FLORIN CANAS DO Ot R06.83 SNORING 03/24/2018 FLORIN CANAS DO Ot F39 UNSPECIFIED MOOD [AFFECTIVE] DISORDER 03/24/2018 FLORIN CANAS DO Ot G47.10 HYPERSOMNIA, UNSPECIFIED 03/24/2018 RENAN CANAS DOROUCORRINE Ot I10 ESSENTIAL (PRIMARY) HYPERTENSION 03/24/2018 FLORIN CANAS DO Ot R06.83 SNORING 04/14/2018 QUINTEN POPE MD Ot K21.9 GASTRO-ESOPHAGEAL REFLUX DISEASE WITHOUT Procedures Code [place] [address] CMP 01/06/2013 46386 LIPID PANEL 01/06/2013 85784 TSH 01/06/2013 54961 CBC 01/06/2013 44019 XRAY CHEST 2 VIEW 06/13/2013 34616 ROUTINE VENIPUNCTURE 06/14/2013 74103 OXIMETRY 06/14/2013 53205 CBC 06/14/2013 89661 CMP 06/14/2013 3899784 GFR CALC (RESULT ONLY) 06/14/2013 07360 MYCOPLASMA ANTIBODY 06/15/2013 10775 UA LONG DIP 09/09/2013 72.79 VACUUM EXTRACT DEL NEC 11/27/2014 74.1 LOW CERVICAL 11/27/2014 [id number] EXTRACTION OF POC, LOW CERVICAL, OPEN AP 03/02/2017 Results Test Result Range Complete blood count (CBC) with automated white blood cell (WBC) differential - 08/26/16 09:25 Blood leukocytes automated count (number/volume) 8.4 10*3/uL 4.3-11.0 Blood erythrocytes automated count (number/volume) 4.05 10*6/uL 4.35-5.85 Venous blood hemoglobin measurement (mass/volume) 11.0 g/dL 11.5-16.0 Blood hematocrit (volume fraction) 34 % 35-52 Automated erythrocyte mean corpuscular volume 83 [foz_us] 80-99 Automated erythrocyte mean corpuscular hemoglobin (mass per erythrocyte) 27 pg 25-34 Automated erythrocyte mean corpuscular hemoglobin concentration measurement ( mass/volume) 33 g/dL 32-36 Automated erythrocyte distribution width ratio 15.6 % 10.0-14.5 Automated blood platelet count (count/volume) 228 10*3/uL 130-400 Automated blood platelet mean volume measurement 10.2 [foz_us] 7.4-10.4 Automated blood neutrophils/100 leukocytes 76 % 42-75 Automated blood lymphocytes/100 leukocytes 18 % 12-44 Blood monocytes/100 leukocytes 4 % 0-12 Automated blood eosinophils/100 leukocytes 2 % 0-10 Automated blood basophils/100 leukocytes 0 % 0-10 Blood neutrophils automated count (number/volume) 6.3 10*3 1.8-7.8 Blood lymphocytes automated count (number/volume) 1.5 10*3 1.0-4.0 Blood monocytes automated count (number/volume) 0.4 10*3 0.0-1.0 Automated eosinophil count 0.2 10*3/uL 0.0-0.3 Automated blood basophil count (count/volume) 0.0 10*3/uL 0.0-0.1 Comprehensive metabolic panel - 08/26/16 09:25 Serum or plasma sodium measurement (moles/volume) 137 mmol/L 135-145 Serum or plasma potassium measurement (moles/volume) 3.7 mmol/L 3.6-5.0 Serum or plasma chloride measurement (moles/volume) 108 mmol/L 98-107 Carbon dioxide 23 mmol/L 21-32 Serum or plasma anion gap determination (moles/volume) 6 mmol/L 5-14 Serum or plasma urea nitrogen measurement (mass/volume) 6 mg/dL 7-18 Serum or plasma creatinine measurement (mass/volume) 0.54 mg/dL 0.60-1.30 Serum or plasma urea nitrogen/creatinine mass ratio 11 NRG Serum or plasma creatinine measurement with calculation of estimated glomerular filtration rate > NRG Serum or plasma glucose measurement (mass/volume) 120 mg/dL 70-105 Serum or plasma calcium measurement (mass/volume) 8.8 mg/dL 8.5-10.1 Serum or plasma total bilirubin measurement (mass/volume) 0.3 mg/dL 0.1-1.0 Serum or plasma alkaline phosphatase measurement (enzymatic activity/volume) 58 U/L 40-136 Serum or plasma aspartate aminotransferase measurement (enzymatic activity/ volume) 10 U/L 5-34 Serum or plasma alanine aminotransferase measurement (enzymatic activity/volume ) 9 U/L 0-55 Serum or plasma protein measurement (mass/volume) 6.0 g/dL 6.4-8.2 Serum or plasma albumin measurement (mass/volume) 3.5 g/dL 3.2-4.5 Magnesium - 08/26/16 09:25 Magnesium 1.8 mg/dL 1.8-2.4 Serum or plasma thyroxine (T4) free measurement (mass/volume) - 08/26/16 09:25 Serum or plasma thyroxine (T4) free measurement (mass/volume) 1.06 ng/dL 0.70-1.48 Serum or plasma thyrotropin measurement by detection limit <=0.05 miu/l (units/ volume) - 08/26/16 09:25 Serum or plasma thyrotropin measurement by detection limit <=0.05 miu/l (units/ volume) 0.27 u[iU]/mL 0.35-4.94 Complete blood count (CBC) with automated white blood cell (WBC) differential - 10/02/16 13:25 Blood leukocytes automated count (number/volume) 10.9 10*3/uL 4.3-11.0 Blood erythrocytes automated count (number/volume) 4.25 10*6/uL 4.35-5.85 Venous blood hemoglobin measurement (mass/volume) 11.6 g/dL 11.5-16.0 Blood hematocrit (volume fraction) 35 % 35-52 Automated erythrocyte mean corpuscular volume 82 [foz_us] 80-99 Automated erythrocyte mean corpuscular hemoglobin (mass per erythrocyte) 27 pg 25-34 Automated erythrocyte mean corpuscular hemoglobin concentration measurement ( mass/volume) 33 g/dL 32-36 Automated erythrocyte distribution width ratio 14.4 % 10.0-14.5 Automated blood platelet count (count/volume) 255 10*3/uL 130-400 Automated blood platelet mean volume measurement 10.5 [foz_us] 7.4-10.4 Automated blood neutrophils/100 leukocytes 78 % 42-75 Automated blood lymphocytes/100 leukocytes 17 % 12-44 Blood monocytes/100 leukocytes 4 % 0-12 Automated blood eosinophils/100 leukocytes 1 % 0-10 Automated blood basophils/100 leukocytes 0 % 0-10 Blood neutrophils automated count (number/volume) 8.5 10*3 1.8-7.8 Blood lymphocytes automated count (number/volume) 1.8 10*3 1.0-4.0 Blood monocytes automated count (number/volume) 0.4 10*3 0.0-1.0 Automated eosinophil count 0.1 10*3/uL 0.0-0.3 Automated blood basophil count (count/volume) 0.0 10*3/uL 0.0-0.1 ABO+Rh group - 10/02/16 13:25 ABO+Rh group AP NRG Serum or plasma choriogonadotropin measurement (units/volume) - 10/02/16 13:25 Serum or plasma choriogonadotropin measurement (units/volume) 15487 m[iU]/mL <5 Complete urinalysis with reflex to culture - 10/02/16 13:38 Urine color determination YELLOW NRG Urine clarity determination SLIGHTLY CLOUDY NRG Urine pH measurement by test strip 5 5-9 Specific gravity of urine by test strip 1.030 1.016- 1.022 Urine protein assay by test strip, semi-quantitative NEGATIVE NEGATIVE Urine glucose detection by automated test strip NEGATIVE NEGATIVE Erythrocytes detection in urine sediment by light microscopy NEGATIVE NEGATIVE Urine ketones detection by automated test strip NEGATIVE NEGATIVE Urine nitrite detection by test strip NEGATIVE NEGATIVE Urine total bilirubin detection by test strip NEGATIVE NEGATIVE Urine urobilinogen measurement by automated test strip (mass/volume) NORMAL NORMAL Urine leukocyte esterase detection by dipstick 1+ NEGATIVE Automated urine sediment erythrocyte count by microscopy (number/high power field) NONE NRG Automated urine sediment leukocyte count by microscopy (number/high power field ) [HPF] NRG Bacteria detection in urine sediment by light microscopy MODERATE NRG Squamous epithelial cells detection in urine sediment by light microscopy 10-25 NRG Crystals detection in urine sediment by light microscopy PRESENT NRG Casts detection in urine sediment by light microscopy NONE NRG Mucus detection in urine sediment by light microscopy NEGATIVE NRG Complete urinalysis with reflex to culture YES NRG Calcium oxalate crystals detection in urine sediment by light microscopy RARE NRG Bacterial urine culture - 10/02/16 13:38 URINE CULTURE RESULTS <10,000/ML NRG Complete urinalysis with reflex to culture - 10/31/16 16:00 Urine color determination YELLOW NRG Urine clarity determination CLEAR NRG Urine pH measurement by test strip 6 5-9 Specific gravity of urine by test strip 1.025 1.016- 1.022 Urine protein assay by test strip, semi-quantitative 1+ NEGATIVE Urine glucose detection by automated test strip NEGATIVE NEGATIVE Erythrocytes detection in urine sediment by light microscopy NEGATIVE NEGATIVE Urine ketones detection by automated test strip NEGATIVE NEGATIVE Urine nitrite detection by test strip NEGATIVE NEGATIVE Urine total bilirubin detection by test strip NEGATIVE NEGATIVE Urine urobilinogen measurement by automated test strip (mass/volume) NORMAL NORMAL Urine leukocyte esterase detection by dipstick NEGATIVE NEGATIVE Automated urine sediment erythrocyte count by microscopy (number/high power field) NONE NRG Automated urine sediment leukocyte count by microscopy (number/high power field ) NONE NRG Bacteria detection in urine sediment by light microscopy MODERATE NRG Squamous epithelial cells detection in urine sediment by light microscopy >50 NRG Crystals detection in urine sediment by light microscopy PRESENT NRG Casts detection in urine sediment by light microscopy NONE NRG Mucus detection in urine sediment by light microscopy NEGATIVE NRG Complete urinalysis with reflex to culture NO NRG Calcium oxalate crystals detection in urine sediment by light microscopy LARGE NRG Bacterial urine culture - 10/31/16 16:00 URINE CULTURE RESULTS MORE THAN 3 ISOLATES NRG Complete urinalysis with reflex to culture - 12/20/16 11:33 Urine color determination YELLOW NRG Urine clarity determination SLIGHTLY CLOUDY NRG Urine pH measurement by test strip 5 5-9 Specific gravity of urine by test strip 1.030 1.016- 1.022 Urine protein assay by test strip, semi-quantitative 1+ NEGATIVE Urine glucose detection by automated test strip NEGATIVE NEGATIVE Erythrocytes detection in urine sediment by light microscopy NEGATIVE NEGATIVE Urine ketones detection by automated test strip NEGATIVE NEGATIVE Urine nitrite detection by test strip NEGATIVE NEGATIVE Urine total bilirubin detection by test strip NEGATIVE NEGATIVE Urine urobilinogen measurement by automated test strip (mass/volume) 1 mg/dL NORMAL Urine leukocyte esterase detection by dipstick 1+ NEGATIVE Automated urine sediment erythrocyte count by microscopy (number/high power field) NONE NRG Automated urine sediment leukocyte count by microscopy (number/high power field ) [HPF] NRG Bacteria detection in urine sediment by light microscopy FEW NRG Squamous epithelial cells detection in urine sediment by light microscopy 10-25 NRG Crystals detection in urine sediment by light microscopy PRESENT NRG Casts detection in urine sediment by light microscopy NONE NRG Mucus detection in urine sediment by light microscopy NEGATIVE NRG Complete urinalysis with reflex to culture NO NRG Complete urinalysis with reflex to culture - 01/16/17 18:45 Urine color determination YELLOW NRG Urine clarity determination VERY CLOUDY NRG Urine pH measurement by test strip 6.5 5-9 Specific gravity of urine by test strip 1.020 1.016- 1.022 Urine protein assay by test strip, semi-quantitative 1+ NEGATIVE Urine glucose detection by automated test strip NEGATIVE NEGATIVE Erythrocytes detection in urine sediment by light microscopy NEGATIVE NEGATIVE Urine ketones detection by automated test strip NEGATIVE NEGATIVE Urine nitrite detection by test strip NEGATIVE NEGATIVE Urine total bilirubin detection by test strip NEGATIVE NEGATIVE Urine urobilinogen measurement by automated test strip (mass/volume) 4 mg/dL NORMAL Urine leukocyte esterase detection by dipstick NEGATIVE NEGATIVE Automated urine sediment erythrocyte count by microscopy (number/high power field) NONE NRG Automated urine sediment leukocyte count by microscopy (number/high power field ) RARE NRG Bacteria detection in urine sediment by light microscopy MODERATE NRG Squamous epithelial cells detection in urine sediment by light microscopy 25-50 NRG Crystals detection in urine sediment by light microscopy PRESENT NRG Casts detection in urine sediment by light microscopy NONE NRG Mucus detection in urine sediment by light microscopy NEGATIVE NRG Complete urinalysis with reflex to culture NO NRG Amorphous sediment detection in urine sediment by light microscopy MOD ENEDELIA URATES NRG Microscopic examination by wet preparation - 01/16/17 19:35 WET PREP RESULTS 01/16 19:50 BY C ASHLEY NRG Chlamydia trachomatis DNA detection by probe and signal amplification method - 01/16/17 19:35 Chlamydia trachomatis DNA detection by probe and target amplification method Negative Negative Neisseria gonorrhoeae DNA detection by probe and signal amplification method - 01/16/17 19:35 Gonorrhea amp DNA-urine Negative Negative Complete urinalysis with reflex to culture - 02/17/17 14:00 Urine color determination YELLOW NRG Urine clarity determination VERY CLOUDY NRG Urine pH measurement by test strip 5 5-9 Specific gravity of urine by test strip 1.030 1.016- 1.022 Urine protein assay by test strip, semi-quantitative 1+ NEGATIVE Urine glucose detection by automated test strip NEGATIVE NEGATIVE Erythrocytes detection in urine sediment by light microscopy NEGATIVE NEGATIVE Urine ketones detection by automated test strip NEGATIVE NEGATIVE Urine nitrite detection by test strip NEGATIVE NEGATIVE Urine total bilirubin detection by test strip 1+ NEGATIVE Urine urobilinogen measurement by automated test strip (mass/volume) 4 mg/dL NORMAL Urine leukocyte esterase detection by dipstick 2+ NEGATIVE Automated urine sediment erythrocyte count by microscopy (number/high power field) NONE NRG Automated urine sediment leukocyte count by microscopy (number/high power field ) [HPF] NRG Bacteria detection in urine sediment by light microscopy MODERATE NRG Squamous epithelial cells detection in urine sediment by light microscopy 5-10 NRG Crystals detection in urine sediment by light microscopy PRESENT NRG Casts detection in urine sediment by light microscopy NONE NRG Mucus detection in urine sediment by light microscopy NEGATIVE NRG Complete urinalysis with reflex to culture NO NRG Calcium oxalate crystals detection in urine sediment by light microscopy RARE NRG Uric acid crystals detection in urine sediment by light microscopy MODERATE NRG Urine protein/creatinine mass ratio - 02/17/17 14:00 Urine protein measurement (mass/volume) 20 mg/dL 6-12 Urine creatinine measurement (mass/volume) 241 mg/dL 30- 125 Urine protein/creatinine mass ratio 0.08 NRG Bacterial urine culture - 02/17/17 14:00 URINE CULTURE RESULTS <10,000/ML NRG Automated blood complete blood count (hemogram) panel - 02/17/17 15:40 Blood leukocytes automated count (number/volume) 10.2 10*3/uL 4.3-11.0 Blood erythrocytes automated count (number/volume) 4.09 10*6/uL 4.35-5.85 Venous blood hemoglobin measurement (mass/volume) 10.0 g/dL 11.5-16.0 Blood hematocrit (volume fraction) 32 % 35-52 Automated erythrocyte mean corpuscular volume 78 [foz_us] 80-99 Automated erythrocyte mean corpuscular hemoglobin (mass per erythrocyte) 24 pg 25-34 Automated erythrocyte mean corpuscular hemoglobin concentration measurement ( mass/volume) 31 g/dL 32-36 Automated erythrocyte distribution width ratio 16.1 % 10.0-14.5 Automated blood platelet count (count/volume) 280 10*3/uL 130-400 Automated blood platelet mean volume measurement 10.6 [foz_us] 7.4-10.4 Comprehensive metabolic panel - 02/17/17 15:40 Serum or plasma sodium measurement (moles/volume) 139 mmol/L 135-145 Serum or plasma potassium measurement (moles/volume) 3.8 mmol/L 3.6-5.0 Serum or plasma chloride measurement (moles/volume) 108 mmol/L 98-107 Carbon dioxide 23 mmol/L 21-32 Serum or plasma anion gap determination (moles/volume) 8 mmol/L 5-14 Serum or plasma urea nitrogen measurement (mass/volume) 7 mg/dL 7-18 Serum or plasma creatinine measurement (mass/volume) 0.58 mg/dL 0.60-1.30 Serum or plasma urea nitrogen/creatinine mass ratio 12 NRG Serum or plasma creatinine measurement with calculation of estimated glomerular filtration rate > NRG Serum or plasma glucose measurement (mass/volume) 101 mg/dL 70-105 Serum or plasma calcium measurement (mass/volume) 9.3 mg/dL 8.5-10.1 Serum or plasma total bilirubin measurement (mass/volume) 0.4 mg/dL 0.1-1.0 Serum or plasma alkaline phosphatase measurement (enzymatic activity/volume) 119 U/L 40-136 Serum or plasma aspartate aminotransferase measurement (enzymatic activity/ volume) 7 U/L 5-34 Serum or plasma alanine aminotransferase measurement (enzymatic activity/volume ) < U/L 0-55 Serum or plasma protein measurement (mass/volume) 6.3 g/dL 6.4-8.2 Serum or plasma albumin measurement (mass/volume) 3.1 g/dL 3.2-4.5 Serum or plasma uric acid measurement (mass/volume) - 02/17/17 15:40 Serum or plasma uric acid measurement (mass/volume) 5.5 mg/dL 2.6-7.2 Lactate dehydrogenase 1 [enzymatic activity/volume] in serum or plasma - 15:40 Lactate dehydrogenase 1 [enzymatic activity/volume] in serum or plasma 141 U/L 125-220 Capillary blood glucose measurement by glucometer (mass/volume) - 03/02/17 08: 58 Capillary blood glucose measurement by glucometer (mass/volume) 102 mg/dL 70-110 Complete blood count (CBC) with automated white blood cell (WBC) differential - 03/02/17 09:10 Blood leukocytes automated count (number/volume) 9.1 10*3/uL 4.3-11.0 Blood erythrocytes automated count (number/volume) 4.45 10*6/uL 4.35-5.85 Venous blood hemoglobin measurement (mass/volume) 11.0 g/dL 11.5-16.0 Blood hematocrit (volume fraction) 35 % 35-52 Automated erythrocyte mean corpuscular volume 78 [foz_us] 80-99 Automated erythrocyte mean corpuscular hemoglobin (mass per erythrocyte) 25 pg 25-34 Automated erythrocyte mean corpuscular hemoglobin concentration measurement ( mass/volume) 32 g/dL 32-36 Automated erythrocyte distribution width ratio 17.4 % 10.0-14.5 Automated blood platelet count (count/volume) 298 10*3/uL 130-400 Automated blood platelet mean volume measurement 10.9 [foz_us] 7.4-10.4 Automated blood neutrophils/100 leukocytes 77 % 42-75 Automated blood lymphocytes/100 leukocytes 17 % 12-44 Blood monocytes/100 leukocytes 4 % 0-12 Automated blood eosinophils/100 leukocytes 1 % 0-10 Automated blood basophils/100 leukocytes 0 % 0-10 Blood neutrophils automated count (number/volume) 7.0 10*3 1.8-7.8 Blood lymphocytes automated count (number/volume) 1.6 10*3 1.0-4.0 Blood monocytes automated count (number/volume) 0.4 10*3 0.0-1.0 Automated eosinophil count 0.1 10*3/uL 0.0-0.3 Automated blood basophil count (count/volume) 0.0 10*3/uL 0.0-0.1 Blood type T Indirect antibody screen panel - 03/02/17 09:10 ABO+Rh group AP NRG Transfusion band number [id number] NRG Blood group antibody screen NEGATIVE NRG Complete urinalysis with reflex to culture - 03/02/17 10:00 Urine color determination BROWN NRG Urine clarity determination VERY CLOUDY NRG Urine pH measurement by test strip 5 5-9 Specific gravity of urine by test strip 1.030 1.016- 1.022 Urine protein assay by test strip, semi-quantitative 1+ NEGATIVE Urine glucose detection by automated test strip NEGATIVE NEGATIVE Erythrocytes detection in urine sediment by light microscopy NEGATIVE NEGATIVE Urine ketones detection by automated test strip 2+ NEGATIVE Urine nitrite detection by test strip NEGATIVE NEGATIVE Urine total bilirubin detection by test strip 1+ NEGATIVE Urine urobilinogen measurement by automated test strip (mass/volume) 4 mg/dL NORMAL Urine leukocyte esterase detection by dipstick 2+ NEGATIVE Automated urine sediment erythrocyte count by microscopy (number/high power field) [HPF] NRG Automated urine sediment leukocyte count by microscopy (number/high power field ) [HPF] NRG Bacteria detection in urine sediment by light microscopy FEW NRG Squamous epithelial cells detection in urine sediment by light microscopy 10-25 NRG Crystals detection in urine sediment by light microscopy PRESENT NRG Casts detection in urine sediment by light microscopy NONE NRG Mucus detection in urine sediment by light microscopy NEGATIVE NRG Complete urinalysis with reflex to culture NO NRG Amorphous sediment detection in urine sediment by light microscopy LARGE ENEDELIA URATES NRG Calcium oxalate crystals detection in urine sediment by light microscopy MODERATE NRG Methicillin resistant Staphylococcus aureus (MRSA) screening culture - 13:00 Methicillin resistant Staphylococcus aureus (MRSA) screening culture NEG NRG Capillary blood glucose measurement by glucometer (mass/volume) - 03/03/17 06: 09 Capillary blood glucose measurement by glucometer (mass/volume) 102 mg/dL 70-110 Complete blood count (CBC) with automated white blood cell (WBC) differential - 03/03/17 06:38 Blood leukocytes automated count (number/volume) 11.9 10*3/uL 4.3-11.0 Blood erythrocytes automated count (number/volume) 3.55 10*6/uL 4.35-5.85 Venous blood hemoglobin measurement (mass/volume) 8.8 g/dL 11.5-16.0 Blood hematocrit (volume fraction) 28 % 35-52 Automated erythrocyte mean corpuscular volume 79 [foz_us] 80-99 Automated erythrocyte mean corpuscular hemoglobin (mass per erythrocyte) 25 pg 25-34 Automated erythrocyte mean corpuscular hemoglobin concentration measurement ( mass/volume) 32 g/dL 32-36 Automated erythrocyte distribution width ratio 16.9 % 10.0-14.5 Automated blood platelet count (count/volume) 286 10*3/uL 130-400 Automated blood platelet mean volume measurement 11.0 [foz_us] 7.4-10.4 Automated blood neutrophils/100 leukocytes 75 % 42-75 Automated blood lymphocytes/100 leukocytes 19 % 12-44 Blood monocytes/100 leukocytes 6 % 0-12 Automated blood eosinophils/100 leukocytes 0 % 0-10 Automated blood basophils/100 leukocytes 0 % 0-10 Blood neutrophils automated count (number/volume) 8.9 10*3 1.8-7.8 Blood lymphocytes automated count (number/volume) 2.2 10*3 1.0-4.0 Blood monocytes automated count (number/volume) 0.7 10*3 0.0-1.0 Automated eosinophil count 0.0 10*3/uL 0.0-0.3 Automated blood basophil count (count/volume) 0.0 10*3/uL 0.0-0.1 Capillary blood glucose measurement by glucometer (mass/volume) - 03/04/17 06: 07 Capillary blood glucose measurement by glucometer (mass/volume) 85 mg/dL 70-110 Capillary blood glucose measurement by glucometer (mass/volume) - 03/05/17 06: 30 Capillary blood glucose measurement by glucometer (mass/volume) 88 mg/dL 70-110 Complete blood count (CBC) with automated white blood cell (WBC) differential - 04/21/17 10:03 Blood leukocytes automated count (number/volume) 8.9 10*3/uL 4.3-11.0 Blood erythrocytes automated count (number/volume) 4.85 10*6/uL 4.35-5.85 Venous blood hemoglobin measurement (mass/volume) 12.0 g/dL 11.5-16.0 Blood hematocrit (volume fraction) 38 % 35-52 Automated erythrocyte mean corpuscular volume 78 [foz_us] 80-99 Automated erythrocyte mean corpuscular hemoglobin (mass per erythrocyte) 25 pg 25-34 Automated erythrocyte mean corpuscular hemoglobin concentration measurement ( mass/volume) 32 g/dL 32-36 Automated erythrocyte distribution width ratio 17.3 % 10.0-14.5 Automated blood platelet count (count/volume) 320 10*3/uL 130-400 Automated blood platelet mean volume measurement 10.2 [foz_us] 7.4-10.4 Automated blood neutrophils/100 leukocytes 69 % 42-75 Automated blood lymphocytes/100 leukocytes 24 % 12-44 Blood monocytes/100 leukocytes 5 % 0-12 Automated blood eosinophils/100 leukocytes 2 % 0-10 Automated blood basophils/100 leukocytes 0 % 0-10 Blood neutrophils automated count (number/volume) 6.1 10*3 1.8-7.8 Blood lymphocytes automated count (number/volume) 2.1 10*3 1.0-4.0 Blood monocytes automated count (number/volume) 0.5 10*3 0.0-1.0 Automated eosinophil count 0.2 10*3/uL 0.0-0.3 Automated blood basophil count (count/volume) 0.0 10*3/uL 0.0-0.1 PT panel in platelet poor plasma by coagulation assay - 04/21/17 10:03 Prothrombin time (PT) in platelet poor plasma by coagulation assay 11.5 s 12.2-14.7 INR in platelet poor plasma or blood by coagulation assay 0.9 0.8-1.4 Activated partial thromboplastin time (aPTT) in platelet poor plasma bycoagulation assay - 04/21/17 10:03 Activated partial thromboplastin time (aPTT) in platelet poor plasma bycoagulation assay 28 s 24-35 Fibrin D-dimer FEU measurement in platelet poor plasma (mass/volume) - 10:03 Fibrin D-dimer FEU measurement in platelet poor plasma (mass/volume) < ug/mL 0.00-0.49 Comprehensive metabolic panel - 04/21/17 10:03 Serum or plasma sodium measurement (moles/volume) 141 mmol/L 135-145 Serum or plasma potassium measurement (moles/volume) 4.1 mmol/L 3.6-5.0 Serum or plasma chloride measurement (moles/volume) 105 mmol/L 98-107 Carbon dioxide 30 mmol/L 21-32 Serum or plasma anion gap determination (moles/volume) 6 mmol/L 5-14 Serum or plasma urea nitrogen measurement (mass/volume) 12 mg/dL 7-18 Serum or plasma creatinine measurement (mass/volume) 0.64 mg/dL 0.60-1.30 Serum or plasma urea nitrogen/creatinine mass ratio 19 NRG Serum or plasma creatinine measurement with calculation of estimated glomerular filtration rate > NRG Serum or plasma glucose measurement (mass/volume) 89 mg/dL 70-105 Serum or plasma calcium measurement (mass/volume) 9.5 mg/dL 8.5-10.1 Serum or plasma total bilirubin measurement (mass/volume) 0.4 mg/dL 0.1-1.0 Serum or plasma alkaline phosphatase measurement (enzymatic activity/volume) 96 U/L 40-136 Serum or plasma aspartate aminotransferase measurement (enzymatic activity/ volume) 12 U/L 5-34 Serum or plasma alanine aminotransferase measurement (enzymatic activity/volume ) 16 U/L 0-55 Serum or plasma protein measurement (mass/volume) 6.8 g/dL 6.4-8.2 Serum or plasma albumin measurement (mass/volume) 3.9 g/dL 3.2-4.5 Magnesium - 04/21/17 10:03 Magnesium 2.1 mg/dL 1.8-2.4 Serum or plasma troponin i.cardiac measurement (mass/volume) - 04/21/17 10:03 Serum or plasma troponin i.cardiac measurement (mass/volume) < ng/ mL <0.30 Myoglobin, serum - 04/21/17 10:03 Myoglobin, serum 19.8 ng/mL 10.0-92.0 Serum or plasma amylase measurement (enzymatic activity/volume) - 04/21/17 10: 03 Serum or plasma amylase measurement (enzymatic activity/volume) 44 U /L 25-125 Lipase - 04/21/17 10:03 Lipase 12 U/L 8-78 BMP - 03/28/18 11:38 Anion Gap 15 6-14 BUN 12 mg/dL 5-25 Calcium 9.2 mg/dL 8.3-10.4 Chloride 106 mmol/L 95-114 CO2 26 mEq/L 22-33 Creat 0.71 mg/dL 0.50-1.50 eGFR 95 mL/min/1.73m2 >59 Glucose 91 mg/dL 70-110 Osmo 293 280-295 Potassium 4.5 mmol/L 3.5-5.3 Sodium 142 mmol/L 134-148 Protime - 03/28/18 11:38 INR 1.0 1.0-4.0 Protime 11.5 Sec 9.9-12.8 EKG - 03/28/18 11:40 EKG Complete Encounters ACCT No. Visit Date/Time Discharge Status Pt. Type Provider Facility Loc./Unit Complaint [id number] 09/12/2014 14:42:00 09/12/2014 23:59:59 CLS Outpatient GILMER CHACON APRN [id number] 09/09/2013 11:23:00 09/09/2013 23:59:59 CLS Outpatient ANAM KASSANDRA OATES Jeaneth [id number] 06/14/2013 08:56:00 06/14/2013 23:59:59 CLS Outpatient DANIEL WARREN DO [id number] 12/05/2012 17:21:00 12/05/2012 23:59:59 CLS Outpatient [id number] 11/04/2012 13:30:00 11/04/2012 23:59:59 CLS Outpatient [id number] 06/09/2013 15:43:00 Document Registration [id number] 06/05/2013 12:26:00 Document Registration [id number] 01/06/2013 09:01:00 Document Registration [id number] 10/28/2016 05:25:12 10/28/2016 05:25:12 DIS Unknown [id number] 04/13/2018 08:05:00 04/13/2018 23:59:59 CLS Outpatient QUINTEN POPE MD [facility] RAD REFLUX [id number] 03/23/2018 21:02:00 03/24/2018 06:24:00 DIS Outpatient FLORIN CANAS DO [facility] SLEEP BARIATRIC, SLEEP DISTURBANC, UNSPECIFIED [id number] 12/31/2017 14:00:00 12/31/2017 23:59:59 CLS Preadmit GUILLERMO KAM [facility] CARD OBESITY E66.9 [id number] 10/01/2017 12:42:00 12/30/2017 00:01:00 DIS Outpatient GUILLERMO KAM [facility] CARD OBESITY E66.9 [id number] 10/01/2017 12:38:00 10/01/2017 23:59:59 CLS Outpatient GUILLERMO KAM [facility] CARD OBESITY E66.9 [id number] 05/11/2017 14:00:00 05/11/2017 23:59:59 CLS Preadmit SURESH ANGELES DO [facility] RAD O24.414 [id number] 02/23/2017 08:27:00 05/10/2017 00:01:00 DIS Outpatient SURESH ANGELES DO [facility] RAD O24.414 [id number] 04/21/2017 09:50:00 04/21/2017 11:21:00 DIS Emergency VINCENT MANCILLA MD [facility] ER BURNING PAIN IN CHEST [id number] 03/02/2017 08:25:00 03/05/2017 15:49:00 DIS Inpatient SURESH ANGELES DO [facility] LDRP PREVIOUS SECTION [id number] 03/02/2017 10:30:00 03/02/2017 23:59:59 CLS Preadmit SURESH ANGELES DO [facility] PREOP PREVIOUS SECTION [id number] 02/24/2017 11:36:00 02/24/2017 15:04:00 DIS Outpatient DONG MAURER MD [facility] WSo CRAMPING [id number] 02/23/2017 08:23:00 02/23/2017 23:59:59 CLS Outpatient SURESH ANGELES DO [facility] RAD O24.414 [id number] 02/17/2017 13:50:00 02/17/2017 17:12:00 DIS Outpatient DNOG MAURER MD [facility] WSo BURNING, LEG PAIN,NAUSEA AND VOMITING [id number] 02/03/2017 11:22:00 02/03/2017 23:59:59 CLS Outpatient SURESH ANGELES DO [facility] RAD O24.414 GEST DIABETES MELLITUS,CLASS A2 [id number] 01/16/2017 18:33:00 01/16/2017 20:35:00 DIS Outpatient DONG MAURER MD [facility] WSo DECREASED MOVEMENT/ /PRESSURE [id number] 12/20/2016 10:54:00 12/20/2016 14:52:00 DIS Outpatient ANGELA CARVALHO DO S [facility] ABD PRESSURE,HIP PAIN [id number] 10/31/2016 15:41:00 10/31/2016 18:20:00 DIS Outpatient ERASTO FIELDS, DONG Cordero [facility] ABD PAIN [id number] 10/02/2016 12:50:00 10/02/2016 14:46:00 DIS Emergency CARRIE CHAMBERLAIN APRN [facility] ER LEAKING FLUID 16 WKS PREG [id number] 09/28/2016 08:35:00 09/28/2016 09:30:00 DIS Emergency KCAY MICHAEL GARLAND K [facility] ER 16W PREG, HEAD TO TOE ITCHING [id number] 08/26/2016 09:12:00 08/26/2016 11:15:00 DIS Emergency DAYNE FIELDS, DAVID Menjivar [facility] ER CHEST PAIN 11 WKS PREG [id number] 11/05/2014 14:18:00 11/07/2014 10:20:00 DIS Inpatient SURESH ANGELES DO [facility] LDRP ABD PAIN AND CONTRACTIONS [id number] 11/04/2014 18:59:00 11/04/2014 20:40:00 DIS Outpatient SURESH ANGELES DO [facility] ABD PAIN;VAGINAL PAIN [id number] 09/02/2014 11:03:00 09/02/2014 17:41:00 DIS Outpatient SURESH ANGELES DO [facility] WSo VOMITING [id number] 08/02/2014 09:30:00 08/02/2014 23:59:59 CLS Outpatient SURESH ANGELES DO [facility] RAD SURVEY [id number] 2014 08:22:00 2014 23:59:59 CLS Outpatient ROCK CHACON MD [facility] LAB IVP,OBESITY [id number] 04/30/2014 18:41:00 04/30/2014 21:39:00 DIS Emergency VINCENT MANCILLA MD [facility] ER R SIDE PAIN [id number] 01/22/2014 09:52:00 01/22/2014 23:59:59 CLS Outpatient CLARKDANITA GARCIA DO [facility] RAD [id number] 08/01/2013 13:12:00 08/01/2013 16:30:00 DIS Outpatient DANITA CLARK DO [facility] SDC SCREENING [id number] 07/27/2013 07:12:00 07/27/2013 23:59:59 CLS Outpatient DANITA CLARK DO [facility] PREOP SCREENING [id number] 07/21/2013 09:48:00 07/21/2013 23:59:59 CLS Outpatient DANITA CLARK DO [facility] RAD LT BREAST MASS [id number] 06/28/2013 18:37:00 06/28/2013 19:27:00 DIS Emergency CARRIE CHAMBERLAIN APRN [facility] ER L ANKLE,FOOT PAIN [id number] 06/13/2013 11:34:00 06/13/2013 13:27:00 DIS Outpatient DANITA CLARK DO [facility] SDC FAMILY HISTORY [id number] 06/07/2013 11:54:00 06/07/2013 23:59:59 CLS Outpatient DANITA CLARK DO [facility] PREOP FAMILY HISTORY [id number] 02/17/2013 10:28:00 02/17/2013 23:59:59 CLS Outpatient SURESH ANGELES DO [facility] RAD NODULE LT BREAST-LT AREOLA [id number] 03/03/2017 07:55:00 Document Registration [id number] 02/20/2015 11:16:00 Document Registration [id number] 02/20/2015 11:16:00 Document Registration [id number] 12/09/2014 21:30:00 Document Registration [id number] 11/27/2014 09:00:00 Document Registration [id number] 11/26/2014 12:19:00 Document Registration [id number] 11/20/2014 18:51:00 Document Registration [id number] 01/02/2013 22:16:00 Document Registration [id number] 05/09/2012 21:30:00 Document Registration [id number] 05/01/2012 15:55:00 Document Registration [id number] 02/09/2011 08:19:00 Document Registration [id number] 11/28/2010 10:02:00 Document Registration [id number] 10/16/2010 19:38:00 Document Registration [id number] 06/28/2010 08:59:00 Document Registration [id number] 04/06/2018 00:00:00 04/06/2018 23:59:00 DIS Outpatient Florin Canas [id number] 03/29/2018 15:31:00 03/29/2018 23:59:00 DIS Outpatient ADELE SANCHEZ [id number] 03/28/2018 11:03:00 03/28/2018 23:59:00 DIS Outpatient Florin Canas [id number] 05/04/2018 09:00:00 05/04/2018 23:59:59 CLS Out[facility]
[2018-08-31 10:18] LABS: BACTERIA,URINE MODERATE /HPF
[2018-08-31 10:22] LABS: BUN/CREATININE RATIO 13; CALCIUM 9.4 MG/DL (8.5-10.1); CARBON DIOXIDE 25 MMOL/L (21-32); CHLORIDE 103 MMOL/L (98-107); CREATININE SERUM 0.54 MG/DL (0.60-1.30); GFR ESTIMATED > 60; GLUCOSE 87 MG/DL (70-105); POTASSIUM 3.7 MMOL/L (3.6-5.0); SODIUM 137 MMOL/L (135-145)
--- NOTE | 2018-08-31 11:15 | ED GU-Female ---
General Chief Complaint: -Female Stated Complaint: ABD CRAMPING;11WKS Nursing Triage Note: PT CO OF LOWER ABD CRAMPING AND IS 11 WEEKS STARTED THIS AM Nursing Sepsis Screen: No Definite Risk Source: patient Exam Limitations: no limitations History of Present Illness Date Seen by Provider: Aug 31, 2018 Time Seen by Provider: 11:00 Initial Comments Patient is a 33-year-old female who presents to the emergency room with complaints of lower abdominal and back cramping that started this morning when she woke up. She reports that she is 11 weeks . She denies any vaginal bleeding, nausea, vomiting, diarrhea. She reports that she's had 3 miscarriages in the past and this is her seventh . She has 3 living children[address] 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 Timing/Duration: this morning Severity/Quality: mild, cramping Location: suprapubic Radiation: back Allergies and Home Medications Allergies Uncoded Allergies: TAPE (Allergy, Mild, 03/28/09) TAPE ADHESIVE (Allergy, Mild, 04/06/09) Home Medications Vit/Iron Fumarate/FA 1 Each Tablet, 1 EACH PO DAILY, (Reported) Patient Home Medication List Home Medication List Reviewed: Yes Review of Systems Review of Systems Constitutional: no symptoms reported, see HPI Genitourinary: see HPI, pain (suprapubic cramping) : Yes Expected Date of Delivery: Mar 22, 2019 Musculoskeletal: see HPI, back pain All Other Systemes Reviewed Negative Unless Noted: Yes Past Gxfxdet-Eovdur-Otmncd Hx Past Med/Social Hx: Reviewed Nursing Past Med/Soc Hx Patient Social History Alcohol Use: Denies Use Recreational Drug Use: No Smoking Status: Former Smoker Type Used: Cigars Former Smoker, Quit: Aug 26, 2016 Recent Foreign Travel: No Contact w/Someone Who Travel: No Recent Infectious Disease Expo: No Recent Hopitalizations: No (child-strep throat, gallstones, kidney stones) Immunizations Up To Date Tetanus Booster (TDap): Unknown PED Vaccines UTD: Yes Date of Influenza Vaccine: Aug 13, 2016 Seasonal Allergies Seasonal Allergies: No Past Medical History Surgeries: Yes Section Respiratory: No Cardiac: Yes (afib) Atrial Fibrillation Neurological: Yes Headaches /Migraines : Yes Last Menstrual Period: Jun 15, 2018 Reproductive Disorders: Yes Female Reproductive Disorders: Polycystic Ovarian Dis Sexually Transmitted Disease: No HIV/AIDS: No Genitourinary: No Gastrointestinal: No Musculoskeletal: No Endocrine: Yes (HAD GESTIONAL DIABETES) Diabetes, Insulin dep HEENT: No Cancer: No Psychosocial: No Integumentary: Yes Psoriasis Blood Disorders: Yes (ANEMIA) Adverse Reaction/Blood Tranf: No Family Medical History Reviewed Nursing Family Hx Colon cancer G8 BROTHER, Onset:20's - 25 Headache disorder 19 MOTHER No Family History of: AIDS Abdominal aortic aneurysm Brad's disease Alcoholism Alzheimer's disease Aphasia Arthritis Asthma Cancer of mouth Cardiovascular disease Cataracts Completed stroke Congenital disease Congenital heart disease Coronary thrombosis Cystic fibrosis Deafness or hearing loss Dementia Diabetes mellitus Drug abuse Dysphasia Fibrocystic disease of breast Gastroenteritis Glaucoma Hypercholesterolemia Hypertension Infertility Kidney disease Myocardial infarction Neoplasm Not obtainable due to adoption Osteoporosis Parkinson's disease Prostate cancer Psychosocial problem Respiratory disorder Seizure disorder Severe allergy Thyroid disease Tuberculosis Visual disorder Cancer Physical Exam Vital Signs Vital Signs - First Documented 08/31/18 09:35 Temp 97.8 Pulse 80 Resp 18 B/P (MAP) 141/100 (114) Pulse Ox 98 Capillary Refill : Less Than 3 Seconds Height, Weight, BMI Height: 5'3.00" Weight: 260lbs. 4.0oz. 118.117255vv; 48.1 BMI Method:Stated General Appearance: WD/WN, no apparent distress Cardiovascular: normal peripheral pulses, regular rate, rhythm, no edema, no gallop, no JVD, no murmur Respiratory: chest non-tender, lungs clear, normal breath sounds, no respiratory distress, no accessory muscle use, respiratory distress Gastrointestinal: normal bowel sounds, non tender, soft, no organomegaly, no pulsatile mass Neurologic/Psychiatric: alert, oriented x 3 Skin: normal color, warm/dry Progress/Results/Core Measures Suspected Sepsis Recent Fever Within 48 Hours: No Infection Criteria Present: None New/Unexplained Altered Menta: No Sepsis Screen: No Definite Risk SIRS Temperature:97.8 Pulse: 80 Respiratory Rate: 18 Laboratory Tests 08/31/18 09:56: White Blood Count 8.8 Blood Pressure 141 /100 Mean: 114 Laboratory Tests 08/31/18 09:56: Creatinine 0.54L, Platelet Count 266 Results/Orders Lab Results Laboratory Tests Test 08/31/18 09:50 08/31/18 09:56 Range/Units Urine Color YELLOW Urine Clarity CLEAR Urine pH 5 5-9 Urine Specific [place] 1.025 H 1.016-1.022 Urine Protein NEGATIVE NEGATIVE Urine Glucose (UA) NEGATIVE NEGATIVE Urine Ketones NEGATIVE NEGATIVE Urine Nitrite NEGATIVE NEGATIVE Urine Bilirubin NEGATIVE NEGATIVE Urine Urobilinogen NORMAL NORMAL MG/DL Urine Leukocyte Esterase 1+ H NEGATIVE Urine RBC (Auto) NEGATIVE NEGATIVE Urine RBC NONE /HPF Urine WBC 2-5 /HPF Urine Squamous Epithelial Cells 5-10 /HPF Urine Crystals NONE /LPF Urine Bacteria MODERATE H /HPF Urine Casts NONE /LPF Urine Mucus NEGATIVE /LPF Urine Culture Indicated YES White Blood Count 8.8 4.3-11.0 10^3/uL Red Blood Count 4.54 4.35-5.85 10^6/uL Hemoglobin 11.8 11.5-16.0 G/DL Hematocrit 37 35-52 % Mean Corpuscular Volume 82 80-99 FL Mean Corpuscular Hemoglobin 26 25-34 PG Mean Corpuscular Hemoglobin Concent 32 32-36 G/DL Red Cell Distribution Width 15.2 H 10.0-14.5 % Platelet Count 266 130-400 10^3/uL Mean Platelet Volume 10.4 7.4-10.4 FL Neutrophils (%) (Auto) 73 42-75 % Lymphocytes (%) (Auto) 19 12-44 % Monocytes (%) (Auto) 4 0-12 % Eosinophils (%) (Auto) 4 0-10 % Basophils (%) (Auto) 0 0-10 % Neutrophils # (Auto) 6.4 1.8-7.8 X 10^3 Lymphocytes # (Auto) 1.7 1.0-4.0 X 10^3 Monocytes # (Auto) 0.4 0.0-1.0 X 10^3 Eosinophils # (Auto) 0.3 0.0-0.3 10^3/uL Basophils # (Auto) 0.0 0.0-0.1 10^3/uL Sodium Level 137 135-145 MMOL/L Potassium Level 3.7 3.6-5.0 MMOL/L Chloride Level 103 98-107 MMOL/L Carbon Dioxide Level 25 21-32 MMOL/L Anion Gap 9 5-14 MMOL/L Blood Urea Nitrogen 7 7-18 MG/DL Creatinine 0.54 L 0.60-1.30 MG/DL Estimat Glomerular Filtration Rate > 60 BUN/Creatinine Ratio 13 Glucose Level 87 70-105 MG/DL Calcium Level 9.4 8.5-10.1 MG/DL Human Chorionic Gonadotropin, Quant [id number] H <5 MIU/ML Micro Results Microbiology 08/31/18 Urine Culture - Final, Complete See Report My Orders Orders - KATHY JASON Us Ob Single Fetus<14 [id number] (08/31/18 11:01) Vital Signs/I&O Capillary Refill : Less Than 3 Seconds Blood Pressure Mean: 114 Progress Note : Time: 11:58 Progress Note I have seen and evaluated the patient. I've informed her of her laboratory and ultrasound findings. We'll wait for culture to return on urine to determine if she has a urinary tract infection. She agrees with plan of care, plans were discharged, return precautions were given. Diagnostic Imaging Diagonstic Imaging: Ultrasound Plain Films/CT/US/NM/MRI: pelvis Comments NAME: LAURY GALVIN [facility] REC#: [id number] PHYSICIAN: KATHY JASON CC: KATHY JASON; VI LEES MD Page 1 of 1 RADIOLOGY REPORT [facility] [place] [place] CC: KATHY JASON; VI ELES MD Page 1 of 1 RADIOLOGY REPORT NAME: LAURY GALVIN [facility] REC#: [id number] PT STATUS: DEP ER : 1985 PHYSICIAN: KATHY JASON ADMIT DATE: 08/31/18/ER Signed Date of Exam: 08/31/18 US OB SINGLE FETUS<14 [id number] PROCEDURE: US OB SINGLE FETUS <14 WKS. TECHNIQUE: Multiple real-time grayscale images were obtained over the gravid uterus in various projections. INDICATION: Cramping. There is an intrauterine gestational sac containing a pole. [place]-rump length measurement is 4.4 cm consistent with 11 weeks 2 days gestation. heart rate was recorded at 160 beats per minute. No rocio-gestational sac hemorrhage is seen. Gestational sac shape is within normal limits. Right ovary was not visualized. Left ovary contains a 4.1 x 3.9 cm cyst. IMPRESSION: 1. Single live IUP 11 weeks 2 days gestational age. Estimated date of confinement sonographically 03/20/2019. 2. 4 cm left ovarian cyst. Dictated by: Dictated on workstation # [id number] Dict: 08/31/18 1231 Trans: 08/31/18 1532 Interpreted by: VI LEES MD Electronically signed by: VI LEES MD 08/31/18 1532 Reviewed: Reviewed by Me Departure Impression Primary Impression: Intrauterine Additional Impressions: Threatened in early Ovarian cyst Disposition: HOME, SELF-CARE Condition: Stable/Unchanged Departure-Patient Inst. Decision time for Depature: 11:37 Referrals: NO,LOCAL PHYSICIAN (PCP/Family) Primary Care Physician Patient Instructions: Threatened Miscarriage (DC) Add. Discharge Instructions: Tylenol as directed by the bottle for pain relief. Follow-up with Dr. Jeffries within 1 week for recheck. Return back to the emergency room for any worsening symptoms or concerns as needed. All discharge instructions reviewed with patient and/or family. Voiced understanding. KATHY JASON Aug 31, 2018 11:15
[2018-08-31 12:12] VITALS: BP 136/70
--- NOTE | 2018-08-31 12:35 | Diagnostic Imaging Report ---
PROCEDURE: US OB SINGLE FETUS <14 WKS. TECHNIQUE: Multiple real-time grayscale images were obtained over the gravid uterus in various projections. INDICATION: Cramping. There is an intrauterine gestational sac containing a pole. [place]-rump length measurement is 4.4 cm consistent with 11 weeks 2 days gestation. heart rate was recorded at 160 beats per minute. No rocio-gestational sac hemorrhage is seen. Gestational sac shape is within normal limits. Right ovary was not visualized. Left ovary contains a 4.1 x 3.9 cm cyst. IMPRESSION: 1. Single live IUP 11 weeks 2 days gestational age. Estimated date of confinement sonographically 03/20/2019. 2. 4 cm left ovarian cyst. Dictated by: Dictated on workstation # [id number]
== END 2018-08-31 12:12 | disposition home or self-care (01) ==
LOC: EDUNIT# 08:43 → ER 08:45
DX: O20.0 Threatened abortion (principal); O34.81 Maternal care for other abnormalities of pelvic organs, first trimester; N83.202 Unspecified ovarian cyst, left side; O99.411 Diseases of the circulatory system complicating pregnancy, first trimester; I48.91 Unspecified atrial fibrillation; O99.351 Diseases of the nervous system complicating pregnancy, first trimester; G43.909 Migraine, unspecified, not intractable, without status migrainosus; O24.911 Unspecified diabetes mellitus in pregnancy, first trimester; E11.9 Type 2 diabetes mellitus without complications; O99.011 Anemia complicating pregnancy, first trimester; D64.9 Anemia, unspecified; Z87.448 Personal history of other diseases of urinary system; Z80.0 Family history of malignant neoplasm of digestive organs; Z3A.11 11 weeks gestation of pregnancy; Z91.048 Other nonmedicinal substance allergy status; Z87.891 Personal history of nicotine dependence; Z98.890 Other specified postprocedural states
CPT/HCPCS: 36415; 76801; 80048; 81000; 84702; 85025; 87088

== ENCOUNTER → 2018-11-02 | Outpatient (CLI) | payer BC, MEDICAID ==
--- NOTE | 2018-11-02 12:23 | Diagnostic Imaging Report ---
INDICATION: survey. TECHNIQUE: Multiple real-time grayscale images were obtained over the gravid uterus. COMPARISON: 08/31/2018. FINDINGS: There is a single live fetus in a variable presentation. Placenta is anterior and somewhat low lying. Amniotic fluid volume appears unremarkable. heart rate was recorded at 149 beats per minute. Cervical length is 3.9 cm. survey is somewhat limited due to patient body habitus. kidneys and bladder were difficult to visualize. The stomach is unremarkable. brain, four-chamber heart, as well as three-vessel cord and spine were not well evaluated. Biometrical measurements are as follows: Biparietal 4.60 cm, age 20 weeks 0 days. Head circumference 16.56 cm, age 19 weeks 2 days. Abdominal circumference 15.49 cm, age 20 weeks 5 days. Femur length 3.44 cm, age 20 weeks 6 days. Sonographic estimate age: 20 weeks 2 days. Sonographic estimated date of delivery: 03/20/2019. Estimated Weight: 362 gm (+/- 53 gm). LMP percentile: 77%. heart rate: 149 beats per minute. number: 1 of 1. IMPRESSION: Single live IUP at approximately 20 weeks gestational age. Estimated date of confinement sonographically is 03/20/2019. The survey is significantly limited due to patient body habitus. Followup would be recommended. Placenta does appear to be low lying and this could be further evaluated with followup as well. Dictated by: Dictated on workstation # [id number]
== END ==
LOC: RAD 09:49
PROVIDERS: ATTEND Obstetrics & Gynecology
DX: Z36.89 Encounter for other specified antenatal screening (principal); Z3A.20 20 weeks gestation of pregnancy
CPT/HCPCS: 76805

== ENCOUNTER → 2018-11-30 | Outpatient (CLI) | payer BC ==
--- NOTE | 2018-11-30 13:07 | Diagnostic Imaging Report ---
INDICATION: Followup low-lying placenta. TECHNIQUE: Multiple real-time grayscale images were obtained over the gravid uterus. COMPARISON: 11/02/2018. FINDINGS: There is a single live fetus in a cephalic presentation. heart rate was recorded at 153 beats per minute. Placenta is anterior. Placenta does not appear to be low lying at this time. Cervical length is 3.8 cm. Amniotic fluid volume is normal. survey demonstrates kidneys, bladder, and stomach to be unremarkable. The brain is unremarkable. There is a four-chamber heart. There is a three-vessel cord with normal insertion. spine is unremarkable. Biometrical measurements are as follows: Biparietal 5.82 cm, age 23 weeks 6 days. Head circumference 22.46 cm, age 24 weeks 4 days. Abdominal circumference 21.11 cm, age 25 weeks 5 days. Femur length 4.69 cm, age 25 weeks 5 days. Sonographic estimate age: 25 weeks 0 days. Sonographic estimated date of delivery: 03/15/2019. Estimated Weight: 808 gm (+/- 118 gm). LMP percentile: 95%. heart rate: 153 beats per minute. number: 1 of 1. IMPRESSION: Single live IUP at 25 weeks gestational age demonstrating normal interval growth when compared with prior exam. The anterior placenta is no longer low lying. Dictated by: Dictated on workstation # [id number]
== END ==
LOC: RAD 11:09
PROVIDERS: ATTEND Obstetrics & Gynecology
DX: O24.410 Gestational diabetes mellitus in pregnancy, diet controlled (principal); Z3A.25 25 weeks gestation of pregnancy
CPT/HCPCS: 76816

== ENCOUNTER 2018-12-13 11:02 | Outpatient (CLI) | payer BC ==
[~2018-12-13] VITALS: Ht 160 cm; Wt 123.9 kg
--- NOTE | 2018-12-13 11:10 | NUR ---
LAURY GALVIN presented to unit via AMB from HOME, accompanied by SPOUSE, with c/o LEAKING FLUID. LAURY GALVIN weighed, gowned, voided, and to bed. 1119 EFHM and TOCO applied, VS taken. LAURY GALVIN oriented to bed controls, call light, TV, heat, and A/C controls.
[2018-12-13 11:20] VITALS: BP 143/87
[2018-12-13 11:36] VITALS: BP 127/59
--- NOTE | 2018-12-13 11:40 | NUR ---
HIPS UP ON UPSIDE DOWN BEDPAN FOR EXAM. AMNIO SWAB NEGATIVE. ALSO NEGATIVE ON PAD AND GLOVE. GENTLE SVE. CLOSED/THICK/ EXTREMELY POSTERIOR AND HIGH. VAGINAL VAULT SLIGHTLY MOIST BUT NEGATIVE FOR AMNIOTIC FLUID. NO CTXS. NOTED. CAPTURED A FEW MINUTES OF FETUS WITH REASSURING TRACING. ACTIVE FETUS NOTED WITH AUDIBLE MOVEMENT. BECAUSE OF MOM'S BODY HABITUS, VERY DIFFICULT TO TRACE FETUS. NO CTXS NOTED. DENIES ANY CTXS.
--- NOTE | 2018-12-13 11:45 | NUR ---
DR. ANGELES NOTIFIED OF PT'S ARRIVAL, COMPLAINT, CERVICAL EXAM, AND NEGATIVE AMNIO SWAB. ALSO NOTIFIED OF FHR TRACING EXTREMELY HARD TO OBTAIN BUT HAD A FEW MINUTES OF REASSURING FHR TRACING AND + FM. ORDERS TO DISMISS.
[2018-12-13 11:51] VITALS: BP 123/59
--- NOTE | 2018-12-13 11:53 | NUR ---
EFM D/C'ED. UP TO GET DRESSED.
[2018-12-13] MEDS ORDERED: FLU QUADRIvalent (5+ YOA) 2018-2019 (AFLURIA) 0.5 ML IM ONE (12:00)
--- NOTE | 2018-12-13 12:08 | NUR ---
FLU VACCINE GIVEN IM IN LEFT DELTOID. SITE CLEAR.
[2018-12-13 12:15] VITALS: BP 123/59
--- NOTE | 2018-12-13 12:15 | NUR ---
DISCHARGE INSTRUCTIONS REVIEWED WITH COPY TO PT. STATES UNDERSTANDING OF ALL INSTRUCTIONS AND NEED TO F/U SCHEDULED AND NEEDED. DISMISSED AMB FROM WS IN STABLE CONDITION ACC BY SPOUSE.
--- NOTE | 2018-12-15 13:16 | Physician Query-Final Dx ---
GHASSAN SMITH 12/15/18 1315: Clinic Account Progress/Dx Physician Query: Please give diagnosis Date of Service Dec 13, 2018 at 11:02 SURESH ANGELES DO 01/05/19 2143: Clinic Account Progress/Dx DIAGNOSIS: Diagnosis 26 week gestation incontinence GHASSAN SMITH Dec 15, 2018 13:15 SURESH ANGELES DO Jan 05, 2019 21:43
== END 2018-12-13 12:15 | disposition home or self-care (01) ==
LOC: WSo 11:02 → LDRP 11:05 → WSo 12:15
PROVIDERS: ATTEND Obstetrics & Gynecology
DX: O99.89 Other specified diseases and conditions complicating pregnancy, childbirth and the puerperium (principal); R32 Unspecified urinary incontinence; Z3A.26 26 weeks gestation of pregnancy
CPT/HCPCS: 90471; 90686; 99213

== ENCOUNTER 2019-01-02 23:42 | Outpatient (CLI) | payer BC ==
[~2019-01-02] VITALS: Ht 160 cm; Wt 127.1 kg
--- OUTSIDE RECORDS SUMMARY | 2019-01-02 23:46 | XMS REPORT ---
Author Author Migration, Doctor Organization [facility] Address Unknown Phone Unavailable Care Team Providers Care Supervisor Powdered Metal Name Role Phone Migration, Doctor Unavailable Unavailable PROBLEMS Type Condition ICD9-CM Code XZO70-HV Code Onset Dates Condition Status SNOMED Code Problem Anxiety disorder, unspecified F41.9 Active 943307881 Problem Major depressive disorder, single episode, unspecified F32.9 Active 47046574 Problem Intermittent atrial fibrillation I48.0 Active 233744098 Problem Allergic rhinitis, unspecified seasonality, unspecified trigger J30.9 Active 67783862 Problem Severe episode of recurrent major depressive disorder, without psychotic features F33.2 Active 74519017 Problem Generalized anxiety disorder F41.1 Active 58167741 Problem Dependent edema R60.9 Active 703231691 Problem Psoriasis L40.9 Active 6622944 ALLERGIES No Information ENCOUNTERS Encounter Location Date Diagnosis [place] [id number] [place] [address] 24222- 3976 Dec, [place] [address] [address] Nov, URI (upper respiratory infection) J06.9 ; Bronchospasm J98.01 and Morbid obesity E66.01 [place] [id number] [place] [address] 65870- 7637 Sep, Severe episode of recurrent major depressive disorder, without psychotic features F33.2 and Generalized anxiety disorder F41.1 [place] [id number] [place] [address] 44479- 9144 Sep, Severe episode of recurrent major depressive disorder, without psychotic features F33.2 and Generalized anxiety disorder F41.1 [place] [id number] [place] [address] 48200- 6907 Aug, Severe episode of recurrent major depressive disorder, without psychotic features F33.2 and Generalized anxiety disorder F41.1 [place] [id number] [place] [address] 80517- 5086 Jul, Pharyngitis, unspecified etiology J02.9 [facility] [id number] [place] [address] 20923 -0815 Jul, Sore throat J02.9 ; Allergic rhinitis, unspecified seasonality, unspecified trigger J30.9 and BMI 45.0-49.9, adult Z68.42 [place] [address] 75398- 0318 14 Jul, 2018 Severe episode of recurrent major depressive disorder, without psychotic features F33.2 and Generalized anxiety disorder F41.1 [place] [address] 56686- 9217 Jun, Severe episode of recurrent major depressive disorder, without psychotic features F33.2 and Generalized anxiety disorder F41.1 [place] [id number] [place] [address] 72912- 1561 May, Severe episode of recurrent major depressive disorder, without psychotic features F33.2 and Generalized anxiety disorder F41.1 [facility] [id number] [place] [address] 60963 -0256 Apr, Left wrist pain M25.532 [place] [id number] [place] [address] 46385- 8701 Apr, Severe episode of recurrent major depressive disorder, without psychotic features F33.2 and Generalized anxiety disorder F41.1 [place] [id number] [place] [address] 02491- 1960 Apr, Severe episode of recurrent major depressive disorder, without psychotic features F33.2 and Generalized anxiety disorder F41.1 [place] [id number] [place] [address] 68684- 1548 Apr, Severe episode of recurrent major depressive disorder, without psychotic features F33.2 and Intermittent atrial fibrillation I48.0 [place] [address] 64803- 8406 Mar, Severe episode of recurrent major depressive disorder, without psychotic features F33.2 and Generalized anxiety disorder F41.1 [place] [id number] [address] Mar, Severe episode of recurrent major depressive disorder, without psychotic features F33.2 and Generalized anxiety disorder F41.[address] [id number] [place] [address] Mar [place] [id number] [place] [address] 57831- 4439 Mar, Major depressive disorder, single episode, unspecified F32.9 [place] [id number] [place] [address] 92052- 5243 Feb, Severe episode of recurrent major depressive disorder, without psychotic features F33.2 and Generalized anxiety disorder F41.1 [place] [address] [place] [address] 17489- 8316 Feb, [place] [address] [place] [address] 52725- 0111 January, Acute right-sided low back pain without sciatica M54.5 ; Major depressive disorder, single episode, unspecified F32.9 ; Psoriasis L40.9 ; Dependent edema R60.9 and BMI 45.0-49.9, adult Z68.42 [place] [address] [place] [address] 10921- 3140 Dec, Cervical paraspinal muscle spasm M62.838 and BMI 50.0-59.9, adult Z68.43 [place] [id number] [place] [address] 90781- 4766 Nov, Major depressive disorder, single episode, unspecified F32.9 and Anxiety disorder, unspecified F41.9 [place] [id number] [address] 8[address] Oct, BMI 50.0-59.9, adult Z68.43 ; Pharyngitis due to other organism J02.8 and Bilateral otitis media with effusion H65.93 [facility] [address] 42152- 2590 Sep, Encounter for immunization Z23 [facility] [address] 18107 [address]34 2017 Sore throat J02.9 and BMI 45.0-49.9, adult Z68.42 [facility] [address] 98731- 6579 Jun, [place] [address] 57709- 3280 Jun, Edema of left upper eyelid H02.844 [facility] [address] [id number] May, Dental examination Z01.20 [facility] [address] 89991- 8956 May, Right wrist pain M25.531 and Tendonitis M77.9 [facility] [address] [id number] May, Encounter for dental examination Z01.20 [facility] [address] 49378 -5249 Apr, Heat rash L74.0 [place] [address] 99064- 1306 14 Dec, 2014 [place] [address] 05149- 5640 13 Dec, 2014 [place] [address] 16644- 5183 Aug, [place] [address] 14579- 8490 17 Aug, 2014 [place] [address] 54396- 1604 14 Aug, 2013 [facility] [address] [id number] [place] [address]- 5358 14 Aug, 2013 [facility] [place] [facility] [address] [id number] [place] [address]- 5687 24 May, 2013 [facility] [place] [facility] [address] [id number] [place] [address]- 2256 19 May, 2013 [facility] [place] [facility] [address] [id number] [place] [address]- 2960 18 May, 2013 [facility] [address] [id number] [place] [address]- 9540 17 May, 2013 [facility] [place] [facility] [address] [id number] [place] [address]- 5587 13 May, 2013 [facility] [address] [id number] [place] [address]- 4568 09 May, 2013 [facility] [place] [facility] [address] [id number] [place] [address]- 2557 12 Dec, 2012 [facility] [address] [id number] [place] [address]- 6230 Nov, [facility] [place] [facility] [address] [id number] [place] [address]- 8715 08 Oct, 2012 [facility] [address] [id number] [place] [address]- 3711 Mar, [facility] [place] [facility] [address] [id number] [address]- 8423 Mar, [facility] [place] [facility] [address] [id number] [place] [address]- 3726 Feb, [facility] [place] [facility] [address] [id number] [place] [address]- 8744 January, [facility] [place] [facility] [address] [id number] [place] [address]- 2546 January, [facility] [place] [facility] [address] [address] Dec, [facility] [address] [address]- 0723 Nov, [facility] [address] [address] Nov, [facility] [address], [place] [address]- 9699 Nov, [facility] [address], [place] [address]- 3057 Oct, [facility] [address], [place] [address]- 0344 Oct, [facility] [address], [place] [address]- 3171 Oct, [facility] [address], [place] [address]- 3335 Feb, [facility] [address], [place] [address]- 6116 Dec, [facility] [address], [place] [address]- 2423 Sep, IMMUNIZATIONS No Known Immunizations SOCIAL HISTORY Never Assessed REASON FOR VISIT EMR-[facility] PLAN OF CARE VITAL SIGNS MEDICATIONS Medication Instructions Dosage Frequency Start Date End Date Duration Status Dionisio ODT 8 mg 1 tablet by Oral route every 8 hours PRN nausea or vomiting Aug, Active Levaquin 750 mg 1 tablet by Oral route every 24 hours for 10 days May, Active Naproxen 250 mg 1 tablet by Oral route 2 times per day for 30 day(s) Oct, Active phentermine 37.5 mg take 1 tablet (37.5 mg) by oral route once daily before breakfast May, Active PredniSONE 20 mg 2 tablet by Oral route 1 time per day for 5 day(s) May, Active Ultram 50 mg 1 tablet by Oral route every 4-6 hours May, Active RESULTS No Results PROCEDURES No Known procedures INSTRUCTIONS MEDICATIONS ADMINISTERED No Known Medications MEDICAL (GENERAL) HISTORY Type Description Date Medical History Enlarged heart/afib Medical History right wrist tendonitis Medical History depression Medical History POCD Surgical History conrado bang 2008 Surgical History c section X 3 2008, 2014, 2016 Hospitalization History Surgery(s)/Childbirth(s) only
--- OUTSIDE RECORDS SUMMARY | 2019-01-02 23:46 | XMS REPORT ---
Author Author LAZARA COSTA Organization [facility] Address [address] [place] [address] Care Team Providers Care Mononitrotoluene Operator Name Role Phone LAZARA COSTA Unavailable PROBLEMS Type Condition ICD9-CM Code FUC65-EX Code Onset Dates Condition Status SNOMED Code Problem Major depressive disorder, single episode, unspecified F32.9 Active 55262310 Problem Anxiety disorder, unspecified F41.9 Active 642751906 Problem Allergic rhinitis, unspecified seasonality, unspecified trigger J30.9 Active 52632511 Problem Intermittent atrial fibrillation I48.0 Active 167808402 Problem Generalized anxiety disorder F41.1 Active 73692959 Problem Severe episode of recurrent major depressive disorder, without psychotic features F33.2 Active 65896926 Problem Psoriasis L40.9 Active 9314819 Problem Dependent edema R60.9 Active 867846445 ALLERGIES Substance Reaction Event Type Date Status cocunut nausea Non Drug Allergy Jul, Active tape adhesive hives Non Drug Allergy Jul, Active ENCOUNTERS Encounter Location Date Diagnosis [facility] [address] [place] [address] 43013- 8159 Aug, [facility] [address] [place] [address] 82340- 9308 Aug, [facility] [id number] [place] [address] 77031- 2519 Jul, Pharyngitis, unspecified etiology J02.9 [facility] [address] [place] [address] 62443 -0509 Jul, Sore throat J02.9 ; Allergic rhinitis, unspecified seasonality, unspecified trigger J30.9 and BMI 45.0-49.9, adult Z68.42 [facility] [id number] [place] [address] 06631- 4534 Jul, Severe episode of recurrent major depressive disorder, without psychotic features F33.2 and Generalized anxiety disorder F41.1 [place] [address] [place] [address] 02048- 4979 Jun, Severe episode of recurrent major depressive disorder, without psychotic features F33.2 and Generalized anxiety disorder F41.1 [facility] [address] [address] May, Severe episode of recurrent major depressive disorder, without psychotic features F33.2 and Generalized anxiety disorder F41.1 [facility] [address] [place] [address] 90315 -4643 Apr, Left wrist pain M25.532 [facility] [id number] [place] [address] 57013- 1192 Apr, Severe episode of recurrent major depressive disorder, without psychotic features F33.2 and Generalized anxiety disorder F41.1 [place] [address] [place] [address] 09349- 9438 Apr, Severe episode of recurrent major depressive disorder, without psychotic features F33.2 and Generalized anxiety disorder F41.1 [place] [address] [place] [address] 35297- 1419 Apr, Severe episode of recurrent major depressive disorder, without psychotic features F33.2 and Intermittent atrial fibrillation I48.0 [facility] [address] [address]- 1155 Mar, Severe episode of recurrent major depressive disorder, without psychotic features F33.2 and Generalized anxiety disorder F41.1 [place] [address] [address]- 2668 Mar, Severe episode of recurrent major depressive disorder, without psychotic features F33.2 and Generalized anxiety disorder F41.1 [facility] [address] [id number] [place] [address] Mar [facility] [address] [place] [address] 51670- 0981 Mar, Major depressive disorder, single episode, unspecified F32.9 [place] [address] 96202- 4115 Feb, Severe episode of recurrent major depressive disorder, without psychotic features F33.2 and Generalized anxiety disorder F41.1 [place] [address] 56834- 7745 Feb, [place] [address] 38688- 3246 January, Acute right-sided low back pain without sciatica M54.5 ; Major depressive disorder, single episode, unspecified F32.9 ; Psoriasis L40.9 ; Dependent edema R60.9 and BMI 45.0-49.9, adult Z68.42 [place] [address] 20078- 6643 Dec, Cervical paraspinal muscle spasm M62.838 and BMI 50.0-59.9, adult Z68.43 [place] [address] 73971- 3138 Nov, Major depressive disorder, single episode, unspecified F32.9 and Anxiety disorder, unspecified F41.9 [place] [id number] [place] [address] 77883- 2095 Oct, BMI 50.0-59.9, adult Z68.43 ; Pharyngitis due to other organism J02.8 and Bilateral otitis media with effusion H65.93 [place] [id number] [place] [address] 15960- 0508 Sep, Encounter for immunization Z23 [facility] [id number] [place] [address] 71220 -6935 Jul, Sore throat J02.9 and BMI 45.0-49.9, adult Z68.42 [place] [address] 72102- 2853 Jun, [facility] [address] [place] [address] 50547- 5822 Jun, Edema of left upper eyelid H02.844 [facility] [id number] [place] [address] [id number] 27 May, 2017 Dental examination Z01.20 [facility] [id number] [place] [address] 59307- 5300 11 May, 2017 Right wrist pain M25.531 and Tendonitis M77.9 [facility] [id number] [place] [address] [id number] 06 May, 2017 Encounter for dental examination Z01.20 [facility] [id number] [place] [address] 63885 -2743 Apr, Heat rash L74.0 [facility] [id number] [place] [address] 80305- 6671 14 Dec, 2014 [facility] [id number] [place] [address] 80259- 4097 Dec, [facility] [id number] [place] [address] 38352- 8626 Aug, [facility] [id number] [place] [address] 99164- 3867 17 Aug, 2014 [facility] [id number] [place] [address] 09149- 5300 14 Aug, 2013 [facility] [id number] [place] [address] 47723- 1796 14 Aug, 2013 [facility] [id number] [place] [address] 55278- 6215 24 May, 2013 [facility] [id number] [place] [address] 26727- 8890 19 May, 2013 [facility] [id number] [place] [address] 90883- 0663 18 May, 2013 [facility] [place] [facility] [address] [id number] [place] [address]- 6184 17 May, 2013 [facility] [place] [facility] [address] [id number] [place] [address]- 3116 13 May, 2013 [facility] [place] [facility] [address] [id number] [place] [address] 2546 09 May, 2013 [facility] [place] [facility] [address] [id number] [place] [address]- 4610 Dec, [facility] [place] [facility] [address] [id number] [place] [address]- 9005 Nov, [facility] [place] [facility] [address] [id number] [place] [address]- 6486 Oct, [facility] [place] [facility] [address] [id number] [place] [address]- 4457 Mar, [facility] [place] [facility] [address] [id number] [place] [address]- 5012 Mar, [facility] [place] [facility] [address] [id number] [place] [address]- 9183 Feb, [facility] [place] [facility] [address] [id number] [place] [address]- 2185 January, [facility] [place] [facility] [address] [id number] [place] [address]- 4510 January, [facility] [place] [facility] [address] [id number] [place] [address]- 3401 Dec, [facility] [place] [facility] [address] [id number] [place] [address]- 7433 Nov, [facility] [place] [facility] [address] [id number] [place] [address]- 9611 Nov, [facility] [place] [facility] [address] [id number] [place] [address]- 6832 Nov, [facility] [place] [facility] [address] [id number] [place] [address]- 3648 Oct, [facility] [address] [facility] [id number] [place] [address] 2546 Oct, [facility] [address] [facility] [id number] [address]- 2546 Oct, [facility] [address] [facility] [id number] [address]- 2546 Feb, [facility] [address] [facility] [id number] [address]- 2546 Dec, [facility] [address] [facility] [id number] [address] 2546 Sep, IMMUNIZATIONS No Known Immunizations SOCIAL HISTORY Never Assessed REASON FOR VISIT Sore throat-MIRIAM morales, pt complaining of a sore throat thats been going on for two weeks now. PLAN OF CARE VITAL SIGNS Height 62 in 2018-08-25 Weight 269.9 lbs 2018-08-25 Temperature 97.9 degrees Fahrenheit 2018-08-25 Heart Rate 117 bpm 2018-08-25 Respiratory Rate 20 2018-08-25 Oximetry on room air:99 % 2018-08-25 BMI 49.36 kg/m2 2018-08-25 Blood pressure systolic 114 mmHg 2018-08-25 Blood pressure diastolic 70 mmHg 2018-08-25 MEDICATIONS Medication Instructions Dosage Frequency Start Date End Date Duration Status Amoxicillin 500 MG Orally every 8 hrs 1 capsule 8h Jul, 10 day( s) Active 28-0.8 MG Orally Once a day 1 tablet 24h 30 day(s) Active RESULTS No Results PROCEDURES No Known procedures INSTRUCTIONS MEDICATIONS ADMINISTERED No Known Medications MEDICAL (GENERAL) HISTORY Type Description Date Medical History Enlarged heart/afib Medical History right wrist tendonitis Medical History depression Medical History POCD Surgical History conrado bang 2008 Surgical History c section X 3 2008, 2014, 2017 Hospitalization History Surgery(s)/Childbirth(s) only
--- NOTE | 2019-01-02 23:47 | NUR ---
LAURY GALVIN presented to unit via ambulatory from ED, accompanied by friend , with c/o 28 WEEKS ; BLEEDING. LAURY GALVIN weighed, gowned, voided, and to bed. EFHM and TOCO applied, VS taken. LAURY GALVIN oriented to bed controls, call light, TV, heat, and A/C controls. assessments to follow per juan stanford.
--- OUTSIDE RECORDS SUMMARY | 2019-01-02 23:47 | XMS REPORT ---
Author Author LISANDRO COOK [facility] Address [address] [place] [address] Care Team Providers Care Non Destructive Testing Inspector Name Role Phone WILLIS COOKTA Unavailable PROBLEMS Type Condition ICD9-CM Code [id number] Code Onset Dates Condition Status SNOMED Code Problem Major depressive disorder, single episode, unspecified F32.9 Active 32407868 Problem Anxiety disorder, unspecified F41.9 Active 614999539 Problem Allergic rhinitis, unspecified seasonality, unspecified trigger J30.9 Active 23476875 Problem Intermittent atrial fibrillation I48.0 Active 171675640 Problem Generalized anxiety disorder F41.1 Active 24819197 Problem Severe episode of recurrent major depressive disorder, without psychotic features F33.2 Active 70577950 Problem Psoriasis L40.9 Active 4106058 Problem Dependent edema R60.9 Active 438011155 ALLERGIES Substance Reaction Event Type Date Status cocunut nausea Non Drug Allergy Jul, Active tape adhesive hives Non Drug Allergy Jul, Active ENCOUNTERS Encounter Location Date Diagnosis [facility] [id number] [place] [address]2503- 4973 Aug, [facility] [id number] [place] [address] 91461- 8122 Aug, [facility] [id number] [place] [address] 27738- 1376 Jul, Pharyngitis, unspecified etiology J02.9 [facility] [address] [address] Jul, Sore throat J02.9 ; Allergic rhinitis, unspecified seasonality, unspecified trigger J30.9 and BMI 45.0-49.9, adult Z68.42 [facility] [address] [address]- [address] Jul, Severe episode of recurrent major depressive disorder, without psychotic features F33.2 and Generalized anxiety disorder F41.1 [facility] [id number] [place] [address] 33099- 8574 Jun, Severe episode of recurrent major depressive disorder, without psychotic features F33.2 and Generalized anxiety disorder F41.1 [facility] [id number] [place] [address] 54317- 2430 May, Severe episode of recurrent major depressive disorder, without psychotic features F33.2 and Generalized anxiety disorder F41.1 [facility] [id number] [place] [address] 67[address]4090 Apr, Left wrist pain M25.532 [facility] [id number] [place] [address] 52399- 1341 Apr, Severe episode of recurrent major depressive disorder, without psychotic features F33.2 and Generalized anxiety disorder F41.1 [place] [address] [place] [address] 76060- 0268 Apr, Severe episode of recurrent major depressive disorder, without psychotic features F33.2 and Generalized anxiety disorder F41.1 [place] [id number] [place] [address] 27145- 8145 Apr, Severe episode of recurrent major depressive disorder, without psychotic features F33.2 and Intermittent atrial fibrillation I48.0 [facility] [address] [place] [address] 15240- 2478 Mar, Severe episode of recurrent major depressive disorder, without psychotic features F33.2 and Generalized anxiety disorder F41.1 [place] [address] [place] [address] 98137- 6228 Mar, Severe episode of recurrent major depressive disorder, without psychotic features F33.2 and Generalized anxiety disorder F41.1 [facility] [address] [id number] [place] [address] Mar [facility] [id number] [place] [address] 49650- 9273 Mar, Major depressive disorder, single episode, unspecified F32.9 [place] [address] 94176- 1517 Feb, Severe episode of recurrent major depressive disorder, without psychotic features F33.2 and Generalized anxiety disorder F41.1 [place] [address] 31048- 1598 Feb, [place] [address] 06051- 4597 January, Acute right-sided low back pain without sciatica M54.5 ; Major depressive disorder, single episode, unspecified F32.9 ; Psoriasis L40.9 ; Dependent edema R60.9 and BMI 45.0-49.9, adult Z68.42 [place] [address] 21693- 5764 Dec, Cervical paraspinal muscle spasm M62.838 and BMI 50.0-59.9, adult Z68.43 [place] [address] 35947- 3618 Nov, Major depressive disorder, single episode, unspecified F32.9 and Anxiety disorder, unspecified F41.9 [facility] [id number] [place] [address] 84560- 2882 Oct, BMI 50.0-59.9, adult Z68.43 ; Pharyngitis due to other organism J02.8 and Bilateral otitis media with effusion H65.93 [facility] [id number] [place] [address] 47768- 1549 Sep, Encounter for immunization Z23 [facility] [address] [address] Jul, Sore throat J02.9 and BMI 45.0-49.9, adult Z68.42 [place] [address] 59622- 0034 Jun, [facility] [id number] [place] [address] 03307- 8348 Jun, Edema of left upper eyelid H02.844 [facility] [id number] [place] [id number] 27 May, 2017 Dental examination Z01.20 [facility] [address] 93066- 1743 11 May, 2017 Right wrist pain M25.531 and Tendonitis M77.9 [facility] [address] [id number] May, 2017 Encounter for dental examination Z01.20 [facility] [id number] [place] [address] 79264 -3373 Apr, Heat rash L74.0 [facility] [address] 51924- 9197 14 Dec, 2014 [facility] [id number] [place] [address] 66921- 2597 Dec, [facility] [id number] [place] [address] 80253- 8778 17 Aug, 2014 [facility] [id number] [place] [address] 20988- 1809 17 Aug, 2014 [facility] [id number] [place] [address] 74345- 5835 14 Aug, 2013 [facility] [id number] [place] [address] 70689- 5966 14 Aug, 2013 [facility] [id number] [place] [address] 48389- 1623 24 May, 2013 [facility] [id number] [place] [address] 00154- 2411 19 May, 2013 [facility] [id number] [place] [address] 07364- 8096 18 May, 2013 [facility] [place] [facility] [address] [id number] [place] [address]- 9750 17 May, 2013 [facility] [address] [id number] [place] [address]- 2451 13 May, 2013 [facility] [address] [id number] [place] [address]- 4406 09 May, 2013 [facility] [address] [id number] [place] [address]- 8585 Dec, [facility] [address] [id number] [place] [address]- 9717 Nov, [facility] [address] [id number] [place] [address]- 3566 Oct, [facility] [address] [id number] [place] [address]- 2392 Mar, [facility] [address] [id number] [place] [address]- 9505 Mar, [facility] [address] [id number] [place] [address]- 3016 Feb, [facility] [address] [id number] [place] [address]- 5193 January, [facility] [address] [id number] [place] [address]- 0154 January, [facility] [address] [id number] [place] [address]- 1686 Dec, [facility] [place] [facility] [address] [id number] [place] [address]- 0147 Nov, [facility] [place] [facility] [address] [id number] [place] [address]- 1546 Nov, [facility] [place] [facility] [address] [id number] [place] [address]- 2546 Nov, [facility] [place] [facility] [address] [id number] [place] [address]- 2546 Oct, [facility] [address] [facility] [id number] [address] 8[address] Oct, [facility] [address] [facility] [id number], [place] [address] 2546 Oct, [facility] [address] [facility] [id number], [place] [address] 9236 Feb, [place] [address] [facility] [id number] [address] 2546 Dec, [place] [address] [facility] [id number], [place] [address]- 7206 Sep, IMMUNIZATIONS No Known Immunizations SOCIAL HISTORY Never Assessed REASON FOR VISIT sore throat for 2 weeks. pt is 11 weeks gestation. wants to make sure she doesnt have strep. [email or web address] PLAN OF CARE Activity Details Follow Up if not improving with PCP or reg follow up Reason: VITAL SIGNS Height 62 in 2018-08-25 Weight 271.2 lbs 2018-08-25 Temperature 98.1 degrees Fahrenheit 2018-08-25 Heart Rate 84 bpm 2018-08-25 Respiratory Rate 20 2018-08-25 BMI 49.60 kg/m2 2018-08-25 Blood pressure systolic 132 mmHg 2018-08-25 Blood pressure diastolic 82 mmHg 2018-08-25 MEDICATIONS Medication Instructions Dosage Frequency Start Date End Date Duration Status 28-0.8 MG Orally Once a day 1 tablet 24h 30 day(s) Active RESULTS Name Result Date Reference Range STREP A (IN HOUSE) 2018-08-25 STREP A negative Control + Lot # [id number] Exp date 2018 PROCEDURES Procedure Date Ordered Result Body Site STREP A ASSAY W/OPTIC Aug 25, 2018 INSTRUCTIONS MEDICATIONS ADMINISTERED No Known Medications MEDICAL (GENERAL) HISTORY Type Description Date Medical History Enlarged heart/afib Medical History right wrist tendonitis Medical History depression Medical History POCD Surgical History lap beti 2009 Surgical History c section X 3 2008, 2014, 2017 Hospitalization History Surgery(s)/Childbirth(s) only
--- OUTSIDE RECORDS SUMMARY | 2019-01-02 23:55 | XMS REPORT | Continuity of Care Document ---
Author Organization Unknown Address Unknown Allergies Active Description Code Type Severity Reaction Onset Reported/Identified Relationship to Patient Clinical Status Yes COCONUT [id number] Food Allergy N/ A N/A Yes NKDA N/A N/A Yes TAPE, ADHESIVE Miscellaneous Allergy N/A N/A Yes No Known Drug Allergies [id number] Drug Allergy Unknown N/A 03/18/2009 Yes TAPE [...] 789.04 Abdominal Pain Left Lower Quadrant 11/21/2010 WARREN DO, DANIEL K 256.4 POLYCYSTIC OVARIAN SYNDROME 11/21/2010 WARREN DO, DANIEL K 278.01 OBESITY MORBID BMI >40 11/21/2010 WARREN DO, DANIEL K 789.04 Abdominal Pain Left Lower Quadrant 11/21/2010 KASSANDRA MENDIETA APRN S 256.4 POLYCYSTIC OVARIAN SYNDROME 11/21/2010 KASSANDRA MENDIETA APRN S 278.01 OBESITY MORBID BMI >40 11/21/2010 KASSANDRA MENDIETA APRN S 789.04 Abdominal Pain Left Lower Quadrant 11/21/2010 GILMER CHACON APRN R 256.4 POLYCYSTIC OVARIAN SYNDROME 11/21/2010 GILMER CHACON APRN R 278.01 OBESITY MORBID BMI >40 11/21/2010 GILMER CHACON APRN R 789.04 Abdominal Pain Left Lower Quadrant 01/10/2011 [...] V65.42 TOBACCO COUNSELING 12/05/2012 DANIEL WARREN DO K 305.1 TOBACCO ABUSE 12/05/2012 DANIEL WARREN DO K 782.1 RASH 12/05/2012 DANIEL WARREN DO V65.42 TOBACCO COUNSELING 12/05/2012 KASSANDRA MENDIETA APRN 305.1 TOBACCO ABUSE 12/05/2012 KASSANDRA MENDIETA APRN 782.1 RASH 12/05/2012 KASSANDRA MENDIETA APRN V65.42 TOBACCO COUNSELING 12/05/2012 GILMER CHACON APRN 305.1 TOBACCO ABUSE 12/05/2012 HUY CHACON APRNIA R 782.1 RASH 12/05/2012 GILMER CHACON APRN [...] SURESH ANGELES DO Ot V28.89 09/02/2014 INES FEILDS, ROCK Negron Ot 256.4 09/02/2014 INES FIELDS, [...] NEC 11/07/2014 SURESH ANGELES DO Ot V06.1 RAENIBMMUS-OKYRKBX-QMONNLEGB, COMBINED [ 11/20/2014 Ot 644.03 THRT KIMBERLY [...] 02/20/2015 Ot 278.01 02/20/2015 Ot 789.04 02/20/2015 BRIDGETTE DOTOYINA C Ot 793.89 02/20/2015 CLRAK DO, DANITA D Ot 611.72 02/20/2015 CLARK DO, DANITA D Ot V72.84 02/20/2015 CLARK DO, DANITA D Ot V72.84 02/20/2015 Ot 278.01 02/20/2015 Ot 789.04 02/20/2015 ANGELES DOTOYINA C Ot 793.89 02/20/2015 CLARK DO, DANITA D Ot 611.72 02/20/2015 CLARK DO, DANITA D Ot V72.84 02/20/2015 CLARK DO, DANITA D Ot V72.84 02/20/2015 ANGELES DOTOYINA C Ot 793.89 02/20/2015 CLARK DO, DANITA D Ot 611.72 02/20/2015 CLARK DO, DANITA D Ot 793.80 02/20/2015 ANGELESSURESH Lou DO C Ot V28.89 02/20/2015 INES FIELDS, [...] INES FIELDS, ROCK Negron Ot 649.13 02/20/2015 ANGELES SURESH C Ot V28.89 02/20/2015 Ot 648.83 [...] Negron Ot 646.83 PREG COMPL NEC-ANTEPART 08/26/2016 ROCK CHACON MD Ot 649.13 OBESITY COMP PREG/CHILDBIRTH/PUERPERIUM, 08/26/2016 Ot [...] LUMP OR MASS IN BREAST 08/26/2016 DANITA CLARK DO Ot V72.84 EXAM PRE-OPERATIVE NOS 08/26/2016 DANITA CLARK DO Ot V72.84 EXAM PRE-OPERATIVE NOS 09/28/2016 SURESH ANGELES DO Ot 793.89 OTH (ABN) FINDINGS ON RADIOLOGICAL EXAMI 09/28/2016 DANITA CLARK DO Ot 611.72 LUMP OR [...] 256.4 POLYCYSTIC OVARIES 09/28/2016 INES FIELDS, ROCK Negorn Ot 278.00 OBESITY, NOS 09/28/2016 INES FIELDS, ROCK Negron Ot 646.83 PREG COMPL NEC-ANTEPART 09/28/2016 ROCK [...] Ot Z3A.32 32 WEEKS GESTATION OF 02/04/2017 TOYIN ANGELES DOA Charla Ot O24.414 GESTATIONAL DIABETES IN , INSUL 02/04/2017 ANGELES DO SURESH C Ot Z3A.36 36 WEEKS GESTATION OF 02/10/2017 BRIDGETTE GARLAND SURESH C Ot O24.414 GESTATIONAL DIABETES IN , INSUL 02/17/2017 DONG MAURER MD Ot M79.605 PAIN IN LEFT LEG 02/17/2017 DONG MAURER MD Ot O99.89 OTH DISEASES AND CONDITIONS COMPL PREG/C 02/17/2017 DONG MAURER MD Ot Z3A.36 36 WEEKS GESTATION OF 02/19/2017 SURESH ANGELES DO Ot O24.414 GESTATIONAL DIABETES [...] EXCESS GROWTH, T 02/24/2017 DONG MAURER MD N Ot O99.213 OBESITY COMPLICATING , THIRD TR 02/24/2017 DONG MAURER MD Ot O99.63 DISEASES OF THE DIGESTIVE SYSTEM COMPLIC 02/24/2017 DONG MAURER MD Ot Z3A.37 37 WEEKS GESTATION OF 02/24/2017 DONG MAURER MD Ot Z68.42 BODY MASS INDEX (BMI) 45.0-49.9, ADULT 02/24/2017 DONG MAURER MD Ot Z79.4 INTERMEDIATE (CURRENT) USE OF INSULIN 02/25/2017 DONG MAURER [...] ADULT 02/25/2017 DONG MAURER MD Ot Z79.4 INTERMEDIATE (CURRENT) USE OF INSULIN 03/03/2017 DONG MAURER MD Ot M79.605 PAIN IN LEFT LEG 03/03/2017 DONG MAURER MD N Ot O99.89 OTH DISEASES AND CONDITIONS COMPL PREG/C 03/03/2017 DONG MAURER MD N Ot Z3A.36 36 WEEKS GESTATION OF 03/04/2017 DONG MAURER MD Ot M79.605 PAIN IN LEFT LEG 03/04/2017 DONG MAURER MD N Ot O99.89 OTH DISEASES AND CONDITIONS COMPL PREG/C 03/04/2017 ERASTO [...] Ot O69.82X0 LABOR AND DEL COMP BY [facility] CORD ENTANGLE, 03/05/2017 SURESH ANGELES DO Ot [...] ADULT 03/05/2017 SURESH ANGELES DO Ot Z79.4 INTERMEDIATE (CURRENT) USE OF INSULIN 03/11/2017 SURESH ANGELES DO Ot O24.414 GESTATIONAL DIABETES IN , INSUL 03/11/2017 SURESH ANGELES DO Ot O24.414 GESTATIONAL DIABETES IN , INSUL 04/21/2017 VINCENT MANCILLA MD Ot D64.9 ANEMIA, UNSPECIFIED 04/21/2017 VINCENT MANCILLA MD Ot G43.909 MIGRAINE, UNSP, [...] Ot I48.91 UNSPECIFIED ATRIAL FIBRILLATION 05/14/2017 VINCENT MNACILLA MD Ot R07.9 CHEST PAIN, UNSPECIFIED 05/14/2017 [...] Ot V74.8 SCREEN- BACTERIAL DIS NEC 09/29/2017 SURESH ANGELES DO Charla Ot O24.414 GESTATIONAL DIABETES IN , INSUL 09/29/2017 BRIDGETTE GARLAND SURESH Charla Ot Z3A.36 36 WEEKS GESTATION OF 09/29/2017 BRIDGETTE GARLAND SURESH C Ot O24.414 GESTATIONAL DIABETES IN , INSUL 09/29/2017 ANGELES DO, SURESH C Ot O24.414 GESTATIONAL DIABETES IN , INSUL 09/29/2017 ANGELES DO SURESH C Ot V28.89 OTHER SPECIFIED SCREENING 09/29/2017 INES [...] Ot V74.8 SCREEN- BACTERIAL DIS NEC 09/29/2017 BRIDGETTE GARLAND SURESH C Ot O24.414 GESTATIONAL DIABETES IN , INSUL 09/29/2017 BRIDGETTE GARLAND SURESH C Ot Z3A.36 36 WEEKS GESTATION OF 09/29/2017 ANGELESCarmine GARLAND SURESH Charla Ot O24.414 GESTATIONAL DIABETES IN , INSUL 09/29/2017 BRIDGETTE GARLAND SURESH C Ot O24.414 GESTATIONAL DIABETES IN , INSUL 10/04/2017 GUILLERMO KAM Ot E66.9 OBESITY, UNSPECIFIED 10/04/2017 GUILLERMO KAM Ot I48.0 PAROXYSMAL ATRIAL FIBRILLATION 10/04/2017 AISHWARYA PA, GUILLERMO Varner Ot E66.9 OBESITY, UNSPECIFIED 10/04/2017 IASHWARYA PA, GUILLERMO Varner Ot I48.0 PAROXYSMAL ATRIAL FIBRILLATION 10/15/2017 AISHWARYA PA, GUILLERMO Telly Ot E66.9 OBESITY, UNSPECIFIED 10/15/2017 AISHWARYA PA, GUILLERMO K Ot I48.0 PAROXYSMAL ATRIAL FIBRILLATION 11/11/2017 AISHWARYA PA, GUILLERMO K Ot E66.9 OBESITY, UNSPECIFIED 11/11/2017 AISHWARYA PA, GUILLERMO K Ot I48.0 PAROXYSMAL ATRIAL FIBRILLATION 12/30/2017 AISHWARYA PA, GUILLERMO Telly Ot E66.9 OBESITY, UNSPECIFIED 12/30/2017 AISHWARYA PA, GUILLERMO Telly Ot I48.0 PAROXYSMAL ATRIAL FIBRILLATION 12/31/2017 AISHWARYA [...] ROCK Negron Ot 278.00 OBESITY, NOS 03/23/2018 INES FIELDS, ROCK Negron Ot 646.83 PREG COMPL NEC-ANTEPART 03/23/2018 INES FIELDS, ROCK Negron Ot 649.13 OBESITY COMP PREG/CHILDBIRTH/PUERPERIUM, 03/23/2018 Ot [...] Ot G47.10 HYPERSOMNIA, UNSPECIFIED 03/24/2018 RENAN CANAS DOROUTIE Ot I10 ESSENTIAL (PRIMARY) HYPERTENSION 03/24/2018 RENAN CANAS DOROUTIE Ot R06.83 SNORING 03/24/2018 LUIS ALFREDO RENAN GARLANDROUTIE Ot F39 UNSPECIFIED MOOD [AFFECTIVE] DISORDER 03/24/2018 RENAN CANAS DOROUTIE Ot G47.10 HYPERSOMNIA, UNSPECIFIED 03/24/2018 LUIS ALFREDO DO CHANDROUTIE Ot I10 ESSENTIAL (PRIMARY) HYPERTENSION 03/24/2018 RENAN CANAS DOROUTIE Ot R06.83 SNORING 04/14/2018 QUINTEN POPE MD Ot K21.9 GASTRO-ESOPHAGEAL REFLUX DISEASE WITHOUT 08/31/2018 KATHY JASON Ot D64.9 ANEMIA, UNSPECIFIED 08/31/2018 KATHY JASON Ot E11.9 TYPE 2 DIABETES MELLITUS WITHOUT COMPLIC 08/31/2018 KATHY JASON Ot G43.909 MIGRAINE, UNSP, NOT INTRACTABLE, WITHOUT 08/31/2018 GEOVANNA JASONIS Ot I48.91 UNSPECIFIED ATRIAL FIBRILLATION 08/31/2018 KATHY JASON Ot N83.202 UNSPECIFIED OVARIAN CYST, LEFT SIDE 08/31/2018 KATHY JASON Ot O20.0 THREATENED 08/31/2018 KATHY JASON Ot O24.911 UNSPECIFIED DIABETES MELLITUS IN PREGNAN 08/31/2018 GEOVANNA JASONIS Ot O26.891 OTH RELATED CONDITIONS, FIRST 08/31/2018 AUNDREAKATHY REBOLLEDO Ot O34.81 MATERNAL CARE FOR OTH ABNLT OF PELVIC OR 08/31/2018 KATHY JASON Ot O99.011 ANEMIA COMPLICATING , FIRST TRI 08/31/2018 KATHY JASON Ot O99.351 DISEASES OF THE NERVOUS SYS COMP PREGNAN 08/31/2018 KATHY JASON Ot O99.411 DISEASES OF THE CIRC SYS COMP , 08/31/2018 KATHY JASON Ot Z3A.11 11 WEEKS GESTATION OF 08/31/2018 KATHY JASON Ot Z80.0 FAMILY HISTORY OF MALIGNANT NEOPLASM OF 08/31/2018 KATHY JASON Ot Z87.448 PERSONAL HISTORY OF OTHER DISEASES OF UR 08/31/2018 KATHY JASON Ot Z87.891 PERSONAL HISTORY OF NICOTINE DEPENDENCE 08/31/2018 KATHY JASON Ot Z91.048 OTHER NONMEDICINAL SUBSTANCE ALLERGY STA 08/31/2018 KATHY JASON Ot Z98.890 OTHER SPECIFIED POSTPROCEDURAL STATES 08/31/2018 SURESH ANGELES DO Ot V28.89 OTHER SPECIFIED SCREENING 08/31/2018 INES FIELDS, ROCK Negron Ot 256.4 POLYCYSTIC OVARIES 08/31/2018 INES FIELDS, ROCK Negron Ot 278.00 OBESITY, NOS 08/31/2018 INES FIELDS, ROCK Negron Ot 646.83 PREG COMPL NEC-ANTEPART 08/31/2018 INES FIELDS, ROCK Negron Ot 649.13 OBESITY COMP PREG/CHILDBIRTH/PUERPERIUM, 08/31/2018 Ot 648.83 ABN GLUCOSE- ANTEPARTUM 08/31/2018 Ot 654.23 PREV DELIVERY, ANTEPARTUM COND 08/31/2018 Ot 656.63 EXCESS FET GRTH-ANTEPART 08/31/2018 Ot 657.03 POLYHYDRAMNIOS,ANTEPARTUM CONDITION/COMP 08/31/2018 Ot V72.63 PRE- PROCEDURAL LABORATORY EXAMINATION 08/31/2018 Ot V74.8 SCREEN- BACTERIAL DIS NEC 08/31/2018 SURESH ANGELES DO Ot O24.414 GESTATIONAL DIABETES IN , INSUL 08/31/2018 SURESH ANGELES DO Ot Z3A.36 36 WEEKS GESTATION OF 08/31/2018 SURESH ANGELES DO Ot O24.414 GESTATIONAL DIABETES IN , INSUL 08/31/2018 SURESH ANGELES DO Ot O24.414 GESTATIONAL DIABETES IN , INSUL 08/31/2018 GUILLERMO KAM Ot E66.9 OBESITY, UNSPECIFIED 08/31/2018 AISHWARYA PORTER, GUILLERMO Varner Ot I48.0 PAROXYSMAL ATRIAL FIBRILLATION 08/31/2018 GUILLERMO KAM Ot E66.9 OBESITY, UNSPECIFIED 08/31/2018 GUILLERMO KAM Ot I48.0 PAROXYSMAL ATRIAL FIBRILLATION 08/31/2018 NIKO FIELDS, QUINTEN Ot K21.9 GASTRO-ESOPHAGEAL REFLUX DISEASE WITHOUT 09/02/2018 KATHY JASON Ot D64.9 ANEMIA, UNSPECIFIED 09/02/2018 KATHY JASON Ot E11.9 TYPE 2 DIABETES MELLITUS WITHOUT COMPLIC 09/02/2018 KATHY JASON Ot G43.909 MIGRAINE, UNSP, NOT INTRACTABLE, WITHOUT 09/02/2018 GEOVANNA JASONIS Ot I48.91 UNSPECIFIED ATRIAL FIBRILLATION 09/02/2018 KATHY JASON Ot N83.202 UNSPECIFIED OVARIAN CYST, LEFT SIDE 09/02/2018 KATHY JASON Ot O20.0 THREATENED 09/02/2018 KATHY JASON Ot O24.911 UNSPECIFIED DIABETES MELLITUS IN PREGNAN 09/02/2018 KATHY JASON Ot O26.891 OTH RELATED CONDITIONS, FIRST 09/02/2018 KATHY JASON Ot O34.81 MATERNAL CARE FOR OTH ABNLT OF PELVIC OR 09/02/2018 KATHY JASON Ot O99.011 ANEMIA COMPLICATING , FIRST TRI 09/02/2018 KATHY JASON Ot O99.351 DISEASES OF THE NERVOUS SYS COMP PREGNAN 09/02/2018 KATHY JASON Ot O99.411 DISEASES OF THE CIRC SYS COMP , 09/02/2018 KATHY JASON Ot Z3A.11 11 WEEKS GESTATION OF 09/02/2018 KATHY JASON Ot Z80.0 FAMILY HISTORY OF MALIGNANT NEOPLASM OF 09/02/2018 KATHY JASON Ot Z87.448 PERSONAL HISTORY OF OTHER DISEASES OF UR 09/02/2018 KATHY JASON Ot Z87.891 PERSONAL HISTORY OF NICOTINE DEPENDENCE 09/02/2018 KATHY JASON Ot Z91.048 OTHER NONMEDICINAL SUBSTANCE ALLERGY STA 09/02/2018 KATHY JASON Ot Z98.890 OTHER SPECIFIED POSTPROCEDURAL STATES 09/23/2018 SURESH ANGELES DO Ot V28.89 OTHER SPECIFIED SCREENING 09/23/2018 ROCK CHACON MD Ot 256.4 POLYCYSTIC OVARIES 09/23/2018 ROCK CHACON MD Ot 278.00 OBESITY, NOS 09/23/2018 ROCK CHACON MD Ot 646.83 PREG COMPL NEC-ANTEPART 09/23/2018 ROCK CHACON MD Ot 649.13 OBESITY COMP PREG/CHILDBIRTH/PUERPERIUM, 09/23/2018 Ot 648.83 ABN GLUCOSE- ANTEPARTUM 09/23/2018 Ot 654.23 PREV DELIVERY, ANTEPARTUM COND 09/23/2018 Ot 656.63 EXCESS FET GRTH-ANTEPART 09/23/2018 Ot 657.03 POLYHYDRAMNIOS,ANTEPARTUM CONDITION/COMP 09/23/2018 Ot V72.63 PRE- PROCEDURAL LABORATORY EXAMINATION 09/23/2018 Ot V74.8 SCREEN- BACTERIAL DIS NEC 09/23/2018 SURESH ANGELES DO Ot O24.414 GESTATIONAL DIABETES IN , INSUL 09/23/2018 SURESH ANGELES DO Ot Z3A.36 36 WEEKS GESTATION OF 09/23/2018 SURESH ANGELES DO Ot O24.414 GESTATIONAL DIABETES IN , INSUL 09/23/2018 SUERSH ANGELES DO Ot O24.414 GESTATIONAL DIABETES IN , INSUL 09/23/2018 GUILLERMO KAM Ot E66.9 OBESITY, UNSPECIFIED 09/23/2018 GUILLERMO KAM Ot I48.0 PAROXYSMAL ATRIAL FIBRILLATION 09/23/2018 GUILLERMO KAM Ot E66.9 OBESITY, UNSPECIFIED 09/23/2018 GUILLERMO KAM Ot I48.0 PAROXYSMAL ATRIAL FIBRILLATION 09/23/2018 NIKO FIELDS, QUINTEN Ot K21.9 GASTRO-ESOPHAGEAL REFLUX DISEASE WITHOUT 09/23/2018 SURESH ANGELES DO Ot V28.89 OTHER SPECIFIED SCREENING 09/23/2018 ROCK CAHCON MD O Ot 256.4 POLYCYSTIC OVARIES 09/23/2018 INES FIELDS, ROCK Negron Ot 278.00 OBESITY, NOS 09/23/2018 INES FIELDS, ROCK Negron Ot 646.83 PREG COMPL NEC-ANTEPART 09/23/2018 ROCK CHACON MD Ot 649.13 OBESITY COMP PREG/CHILDBIRTH/PUERPERIUM, 09/23/2018 Ot 648.83 ABN GLUCOSE- ANTEPARTUM 09/23/2018 Ot 654.23 PREV DELIVERY, ANTEPARTUM COND 09/23/2018 Ot 656.63 EXCESS FET GRTH-ANTEPART 09/23/2018 Ot 657.03 POLYHYDRAMNIOS,ANTEPARTUM CONDITION/COMP 09/23/2018 Ot V72.63 PRE- PROCEDURAL LABORATORY EXAMINATION 09/23/2018 Ot V74.8 SCREEN- BACTERIAL DIS NEC 09/23/2018 SURESH ANGELES DO Ot O24.414 GESTATIONAL DIABETES IN , INSUL 09/23/2018 SURESH ANGELES DO Ot Z3A.36 36 WEEKS GESTATION OF 09/23/2018 SURESH ANGELES DO Ot O24.414 GESTATIONAL DIABETES IN , INSUL 09/23/2018 SURESH ANGELES DO Ot O24.414 GESTATIONAL DIABETES IN , INSUL 09/23/2018 GUILLERMO KAM Ot E66.9 OBESITY, UNSPECIFIED 09/23/2018 GUILLERMO KAM Ot I48.0 PAROXYSMAL ATRIAL FIBRILLATION 09/23/2018 GUILLERMO KAM Ot E66.9 OBESITY, UNSPECIFIED 09/23/2018 GUILLERMO KAM Ot I48.0 PAROXYSMAL ATRIAL FIBRILLATION 09/23/2018 QUITNEN POPE MD Ot K21.9 GASTRO-ESOPHAGEAL REFLUX DISEASE WITHOUT 10/20/2018 QUINTEN POPE MD Ot K21.9 GASTRO-ESOPHAGEAL REFLUX DISEASE WITHOUT 11/02/2018 SURESH ANGELES DO Ot Z36.89 ENCOUNTER FOR OTHER SPECIFIED 11/02/2018 BRIDGETTE GARLAND SURESH C Ot Z3A.20 20 WEEKS GESTATION OF 11/18/2018 SURESH ANGELES DO Ot Z36.89 ENCOUNTER FOR OTHER SPECIFIED 11/18/2018 BRIDGETTE GARLAND SURESH C Ot Z3A.20 20 WEEKS GESTATION OF 11/30/2018 SURESH ANGELES DO Ot Z36.89 ENCOUNTER FOR OTHER SPECIFIED 11/30/2018 SURESH ANGELES DO Ot Z3A.20 20 WEEKS GESTATION OF 11/30/2018 SURESH ANGELES DO Ot O24.410 GESTATIONAL DIABETES MELLITUS IN PREGNAN 11/30/2018 SURESH ANGELES DO Ot Z3A.25 25 WEEKS GESTATION OF 12/14/2018 SURESH ANGELES DO Ot O24.410 GESTATIONAL DIABETES MELLITUS IN PREGNAN 12/14/2018 SURESH ANGELES DO Ot Z3A.25 25 WEEKS GESTATION OF Procedures Code Description [place] [address] CMP 01/06/2013 83801 LIPID PANEL 01/06/2013 62589 TSH 01/06/2013 84516 CBC 01/06/2013 85751 XRAY CHEST 2 VIEW 06/13/2013 79138 ROUTINE VENIPUNCTURE 06/14/2013 29404 OXIMETRY 06/14/2013 71941 CBC 06/14/2013 69757 CMP 06/14/2013 0891151 GFR CALC (RESULT ONLY) 06/14/2013 69965 MYCOPLASMA ANTIBODY 06/15/2013 96953 UA LONG DIP 09/09/2013 72.79 VACUUM EXTRACT DEL NEC 11/27/2014 74.1 LOW CERVICAL 11/27/2014 [id number] EXTRACTION OF POC, LOW CERVICAL, OPEN AP [...] 13:25 Serum or plasma choriogonadotropin measurement (units/volume) 02770 m[iU]/mL <5 Complete urinalysis with reflex to [...] 19:35 WET PREP RESULTS 01/16 19:50 BY Charla RAMIREZ NRG Chlamydia trachomatis DNA detection by probe [...] ABO+Rh group AP NRG Transfusion band number [id number] NRG Blood group antibody screen NEGATIVE NRG [...] 9.9-12.8 EKG - 03/28/18 11:40 EKG Complete Complete urinalysis with reflex to culture - 08/31/18 09:50 Urine color determination YELLOW NRG Urine clarity [...] urine sediment by light microscopy NONE NRG Casts detection in urine sediment by light microscopy NONE NRG Mucus detection in urine sediment by light microscopy NEGATIVE NRG Complete urinalysis with reflex to culture YES NRG Bacterial urine culture - 08/31/18 09:50 Bacterial urine culture SEE REPORT NRG COLONY COUNT . NR Complete blood count (CBC) with automated white blood cell (WBC) differential - 08/31/18 09:56 Blood leukocytes automated count (number/volume) 8.8 10*3/uL 4.3-11.0 Blood erythrocytes automated count (number/volume) 4.54 10*6/uL 4.35-5.85 Venous blood hemoglobin measurement (mass/volume) 11.8 g/dL 11.5-16.0 Blood hematocrit (volume fraction) 37 % 35-52 Automated erythrocyte mean corpuscular volume 82 [foz_us] 80-99 Automated erythrocyte mean corpuscular hemoglobin (mass per erythrocyte) 26 pg 25-34 Automated erythrocyte mean corpuscular hemoglobin concentration measurement ( mass/volume) 32 g/dL 32-36 Automated erythrocyte distribution width ratio 15.2 % 10.0-14.5 Automated blood platelet count (count/volume) 266 10*3/uL 130-400 Automated blood platelet mean volume measurement 10.4 [foz_us] 7.4-10.4 Automated blood neutrophils/100 leukocytes 73 % 42-75 Automated blood lymphocytes/100 leukocytes 19 % 12-44 Blood monocytes/100 leukocytes 4 % 0-12 Automated blood eosinophils/100 leukocytes 4 % 0-10 Automated blood basophils/100 leukocytes 0 % 0-10 Blood neutrophils automated count (number/volume) 6.4 10*3 1.8-7.8 Blood lymphocytes automated count (number/volume) 1.7 10*3 1.0-4.0 Blood monocytes automated count (number/volume) 0.4 10*3 0.0-1.0 Automated eosinophil count 0.3 10*3/uL 0.0-0.3 Automated blood basophil count (count/volume) 0.0 10*3/uL 0.0-0.1 Whole blood basic metabolic panel - 08/31/18 09:56 Serum or plasma sodium measurement (moles/volume) 137 mmol/L 135-145 Serum or plasma potassium measurement (moles/volume) 3.7 mmol/L 3.6-5.0 Serum or plasma chloride measurement (moles/volume) 103 mmol/L 98-107 Carbon dioxide 25 mmol/L 21-32 Serum or plasma anion gap determination (moles/volume) 9 mmol/L 5-14 Serum or plasma urea nitrogen measurement (mass/volume) 7 mg/dL 7-18 Serum or plasma creatinine measurement (mass/volume) 0.54 mg/dL 0.60-1.30 Serum or plasma urea nitrogen/creatinine mass ratio 13 NRG Serum or plasma creatinine measurement with calculation of estimated glomerular filtration rate > NRG Serum or plasma glucose measurement (mass/volume) 87 mg/dL 70-105 Serum or plasma calcium measurement (mass/volume) 9.4 mg/dL 8.5-10.1 Serum or plasma choriogonadotropin measurement (units/volume) - 08/31/18 09:56 Serum or plasma choriogonadotropin measurement (units/volume) 583262 m[iU]/mL <5 Encounters ACCT No. Visit Date/Time Discharge Status Pt. Type Provider Facility Loc./Unit Complaint [id number] 09/12/2014 14:42:00 09/12/2014 23:59:59 CLS Outpatient GILMER CHACON APRN [id number] 09/09/2013 11:23:00 09/09/2013 23:59:59 CLS Outpatient KASSANDRA MENDIETA APRN [id number] 06/14/2013 08:56:00 06/14/2013 23:59:59 CLS Outpatient DANIEL WARREN DO [id number] 12/05/2012 17:21:00 12/05/2012 23:59:59 CLS Outpatient [id number] 11/04/2012 13:30:00 11/04/2012 23:59:59 CLS Outpatient [id number] 06/09/2013 15:43:00 Document Registration [id number] 06/05/2013 12:26:00 Document Registration [id number] 01/06/2013 09:01:00 Document Registration [id number] 10/28/2016 05:25:12 10/28/2016 05:25:12 DIS Unknown [id number] 12/13/2018 11:02:00 12/13/2018 12:15:00 DIS Outpatient SURESH ANGELES DO [facility] WSo LEAKING FLUID [id number] 11/30/2018 11:09:00 11/30/2018 23:59:59 CLS Outpatient SURESH ANEGLES DO [facility] RAD LOW LYING PLACENTA NOS OR W/O HEMORRHAGE [id number] 11/02/2018 09:49:00 11/02/2018 23:59:59 CLS Outpatient SURESH ANGELES DO [facility] RAD FETUS PRESENT DURING IN SECOND TRIMESTER [id number] 08/31/2018 08:45:00 08/31/2018 12:12:00 DIS Emergency KATHY JASON [facility] ER ABD CRAMPING;11WKS [id number] 04/13/2018 08:05:00 04/13/2018 23:59:59 CLS Outpatient QUINTEN POPE MD [facility] RAD REFLUX [id number] 03/23/2018 21:02:00 03/24/2018 06:24:00 DIS Outpatient FLORIN CANAS DO [facility] SLEEP BARIATRIC, SLEEP DISTURBANC, UNSPECIFIED [id number] 12/31/2017 14:00:00 12/31/2017 23:59:59 CLS Preadmit GUILLERMO KAM [facility] CARD OBESITY E66.9 [id number] 10/01/2017 12:42:00 12/30/2017 00:01:00 DIS Outpatient GUILLERMO KAM [facility] CARD OBESITY E66.9 [id number] 10/01/2017 12:38:00 10/01/2017 23:59:59 CLS Outpatient GUILLERMO KAM [facility] CARD OBESITY E66.9 [id number] 05/11/2017 14:00:00 05/11/2017 23:59:59 CLS Preadmit SURESH ANGELES DO [facility] RAD O24.414 [id number] 02/23/2017 08:27:00 05/10/2017 00:01:00 DIS Outpatient SURESH ANGELES DO [facility] RAD O24.414 [id number] 04/21/2017 09:50:00 04/21/2017 11:21:00 DIS Emergency VINCETN MANCILLA MD [facility] ER BURNING PAIN IN CHEST [id number] 03/02/2017 08:25:00 03/05/2017 15:49:00 DIS Inpatient SURESH ANGELES DO [facility] LDRP PREVIOUS SECTION [id number] 03/02/2017 10:30:00 03/02/2017 23:59:59 CLS Preadmit SURESH ANGELES DO [facility] PREOP PREVIOUS SECTION [id number] 02/24/2017 11:36:00 02/24/2017 15:04:00 DIS Outpatient DONG MAURER MD [facility] WSo CRAMPING [id number] 02/23/2017 08:23:00 02/23/2017 23:59:59 CLS Outpatient SURESH ANGELES DO [facility] RAD O24.414 [id number] 02/17/2017 13:50:00 02/17/2017 17:12:00 DIS Outpatient DONG MAURER MD [facility] WSo BURNING, LEG PAIN,NAUSEA AND VOMITING [id number] 02/03/2017 11:22:00 02/03/2017 23:59:59 CLS Outpatient SURESH ANGELES DO [facility] RAD O24.414 GEST DIABETES MELLITUS,CLASS A2 [id number] 01/16/2017 18:33:00 01/16/2017 20:35:00 DIS Outpatient DONG MAURER MD [facility] WSo DECREASED MOVEMENT/ /PRESSURE [id number] 12/20/2016 10:54:00 12/20/2016 14:52:00 DIS Outpatient ANGELA CARVALHO DO [facility] WSo ABD PRESSURE,HIP PAIN [id number] 10/31/2016 15:41:00 10/31/2016 18:20:00 DIS Outpatient DONG MAURER MD [facility] WSo ABD PAIN [id number] 10/02/2016 12:50:00 10/02/2016 14:46:00 DIS Emergency CARRIE CHAMBERLAIN APRN [facility] ER LEAKING FLUID 16 WKS PREG [id number] 09/28/2016 08:35:00 09/28/2016 09:30:00 DIS Emergency MICHAEL WOODRUFF DO [facility] ER 16W PREG, HEAD TO TOE ITCHING [id number] 08/26/2016 09:12:00 08/26/2016 11:15:00 DIS Emergency DAVID OSCAR MD [facility] ER CHEST PAIN 11 WKS PREG [id number] 11/05/2014 14:18:00 11/07/2014 10:20:00 DIS Inpatient SURESH ANGELES DO [facility] LDRP ABD PAIN AND CONTRACTIONS [id number] 11/04/2014 18:59:00 11/04/2014 20:40:00 DIS Outpatient SURESH ANGELES DO [facility] WSo ABD PAIN;VAGINAL PAIN [id number] 09/02/2014 11:03:00 09/02/2014 17:41:00 DIS Outpatient SURESH ANGELES DO [facility] WSo VOMITING [id number] 08/02/2014 09:30:00 08/02/2014 23:59:59 CLS Outpatient SURESH ANGELES DO [facility] RAD SURVEY [id number] 2014 08:22:00 2014 23:59:59 CLS Outpatient ROCK CHACON MD [facility] LAB IVP,OBESITY [id number] 04/30/2014 18:41:00 04/30/2014 21:39:00 DIS Emergency VINCENT MANCILLA MD [facility] ER R SIDE PAIN [id number] 01/22/2014 09:52:00 01/22/2014 23:59:59 CLS Outpatient DANITA CLARK DO [facility] RAD [id number] 08/01/2013 13:12:00 08/01/2013 16:30:00 DIS Outpatient DANITA CLARK DO [facility] SDC SCREENING [id number] 07/27/2013 07:12:00 07/27/2013 23:59:59 CLS Outpatient DANITA CLARK DO [facility] PREOP SCREENING [id number] 07/21/2013 09:48:00 07/21/2013 23:59:59 CLS Outpatient DANITA CLARK DO [facility] RAD LT BREAST MASS [id number] 06/28/2013 18:37:00 06/28/2013 19:27:00 DIS Emergency CARRIE CHAMBERLAIN UNISAW OPERATOR [facility] ER L ANKLE,FOOT PAIN [id number] 06/13/2013 11:34:00 06/13/2013 13:27:00 DIS Outpatient DANITA CLARK DO [facility] SDC FAMILY HISTORY [id number] 06/07/2013 11:54:00 06/07/2013 23:59:59 CLS Outpatient DANITA CLARK DO [facility] PREOP FAMILY HISTORY [id number] 02/17/2013 10:28:00 02/17/2013 23:59:59 CLS Outpatient SURESH ANGELES DO [facility] RAD NODULE LT BREAST-LT AREOLA [id number] 01/02/2019 23:42:00 ACT Inpatient MARY KAY BASILIO DO [facility] 28 WEEKS ; BLEEDING [id number] 03/03/2017 07:55:00 Document Registration [id number] 02/20/2015 11:16:00 Document Registration [id number] 02/20/2015 11:16:00 Document Registration [id number] 12/09/2014 21:30:00 Document Registration [id number] 11/27/2014 09:00:00 Document Registration [id number] 11/26/2014 12:19:00 Document Registration [id number] 11/20/2014 18:51:00 Document Registration [id number] 01/02/2013 22:16:00 Document Registration [id number] 05/09/2012 21:30:00 Document Registration [id number] 05/01/2012 15:55:00 Document Registration [id number] 02/09/2011 08:19:00 Document Registration [id number] 11/28/2010 10:02:00 Document Registration [id number] 10/16/2010 19:38:00 Document Registration [id number] 06/28/2010 08:59:00 Document Registration [id number] 04/06/2018 00:00:00 04/06/2018 23:59:00 DIS Outpatient Florin Canas [id number] 03/29/2018 15:31:00 03/29/2018 23:59:00 DIS Outpatient ADELE SANCHEZ [id number] 03/28/2018 11:03:00 03/28/2018 23:59:00 DIS Outpatient Florin Canas [id number] 12/01/2018 09:40:00 12/01/2018 23:59:59 CLS Outpatient [facility]UL[facility] FIELDS[facility]
[2019-01-03] VITALS: BP 123/61
[2019-01-03 00:12] LABS: BILIRUBIN,URINE NEGATIVE (NEGATIVE); CLARITY,URINE CLEAR; COLOR,URINE YELLOW; GLUCOSE, URINE (UA) NEGATIVE (NEGATIVE); KETONES,URINE 1+ (NEGATIVE); LEUKOCYTE ESTERASE ,URINE 1+ (NEGATIVE); NITRITE,URINE NEGATIVE (NEGATIVE); PH,URINE 5 (5-9); PROTEIN,URINE 1+ (NEGATIVE); UROBILINOGEN,URINE 4 MG/DL (NORMAL)
[2019-01-03] MEDS ORDERED: METF-399 PO (00:28)
[2019-01-03 00:35] LABS: BACTERIA,URINE TRACE /HPF; CALCIUM OXALATE CRYSTALS,UR LARGE /LPF; WBC,URINE 0-2 /HPF
--- NOTE | 2019-01-03 01:34 | NUR ---
Discharge packet given and explained, understanding voiced, pt aware to call office to schedule an appt for this week, pt voiced understanding and reported having the office number to carry out appt change, ambulatory off unit at this time. Denies concerns.
--- NOTE | 2019-01-05 13:45 | Physician Query-Final Dx ---
JENNIFER GREEN 01/05/19 1345: Final Diagnosis Give Final Diagnosis Please give Final Diagnosis MARY KAY BASILIO DO 01/09/19 1636: Final Diagnosis Give Final Diagnosis Intrauterine at 28 weeks Previous Irregular Contractions JENNIFER GREEN Jan 05, 2019 13:45 MARY KAY BASILIO DO Jan 09, 2019 16:36
== END 2019-01-03 01:35 | disposition home or self-care (01) ==
LOC: LDRP 23:42 → UNDOADMOB 23:42 → LDRP 23:42 → WSo 23:42 → UNDODISOB 01-03 01:35 → EDSTATUS 01-09 12:20
PROVIDERS: ATTEND Obstetrics & Gynecology
DX: O62.9 Abnormality of forces of labor, unspecified (principal); O34.211 Maternal care for low transverse scar from previous cesarean delivery; Z3A.28 28 weeks gestation of pregnancy
CPT/HCPCS: 81000; 99213

== ENCOUNTER → 2019-01-18 | Outpatient (CLI) | payer BC ==
--- NOTE | 2019-01-18 13:27 | Diagnostic Imaging Report ---
INDICATION: Gestational diabetes. TECHNIQUE: Multiple real-time grayscale images were obtained over the gravid uterus. COMPARISON: 11/30/2018. FINDINGS: A single live fetus in a transverse presentation head to maternal left. heart rate was recorded at 158 beats per minute. Placenta is anterior. Amniotic fluid index is 9.6 cm. Biometrical measurements are as follows: Biparietal 7.92 cm, age 31 weeks 6 days. Head circumference 28.63 cm, age 31 weeks 4 days. Abdominal circumference 28.65 cm, age 32 weeks 5 days. Femur length 6.54 cm, age 33 weeks 5 days. Sonographic estimate age: 32 weeks 4 days. Sonographic estimated date of delivery: 03/11/219. Estimated Weight: 2045 gm (+/- 299 gm). LMP percentile: 91%. heart rate: 158 beats per minute. number: 1 of 1. IMPRESSION: Single live IUP at 32-33 weeks' gestational age demonstrate normal interval growth when compared with prior examination from 11/30/2018. Dictated by: Dictated on workstation # [id number]
== END ==
LOC: RAD 10:46
PROVIDERS: ATTEND Obstetrics & Gynecology
DX: O24.410 Gestational diabetes mellitus in pregnancy, diet controlled (principal); O34.219 Maternal care for unspecified type scar from previous cesarean delivery; Z3A.32 32 weeks gestation of pregnancy
CPT/HCPCS: 76816

== ENCOUNTER 2019-02-01 10:21 | Outpatient (CLI) | payer BC ==
[~2019-02-01] VITALS: Ht 160 cm; Wt 124.7 kg
--- NOTE | 2019-02-01 10:00 | NUR ---
Arrived to unit via ambulation accompanied by s.o. with c/o "high blood pressure." reports being sent to floor from office due to elevated blood pressure. Wt obtained and to room 315. Gowned and urine sample obtained. To bed and oriented to room, call light and surroundings.
[2019-02-01 10:23] VITALS: BP 130/70
[2019-02-01 11:00] VITALS: BP 108/62
[2019-02-01] MEDS ORDERED: GLYB2.5T4 PO (11:07)
[2019-02-01 11:15] VITALS: BP 99/58
[2019-02-01 11:30] VITALS: BP 101/61
[2019-02-01 11:45] VITALS: BP 103/55
[2019-02-01 12:00] VITALS: BP 111/57
--- NOTE | 2019-02-01 12:00 | NUR ---
Dr Bobby notified of ua dipstick, bp's obtained, pt assessment, no contractions noted, fhr pattern noted. New orders for discharge received.
== END 2019-02-01 12:30 | disposition home or self-care (01) ==
LOC: WSo 10:21 → LDRP 10:22 → WSo 12:30
PROVIDERS: ATTEND Obstetrics & Gynecology
DX: O13.3 Gestational [pregnancy-induced] hypertension without significant proteinuria, third trimester (principal); Z3A.33 33 weeks gestation of pregnancy
CPT/HCPCS: 99213

== ENCOUNTER → 2019-02-09 | Outpatient (CLI) | payer BC ==
[~2019-02-09] MED LIST changes: +GLYB2.5T4 PO
--- NOTE | 2019-02-09 11:54 | Diagnostic Imaging Report ---
INDICATION: Evaluate growth. TECHNIQUE: Multiple real-time grayscale images were obtained over the gravid uterus. COMPARISON: 01/18/2019. FINDINGS: There is a single live fetus in a cephalic presentation. heart rate was recorded at 135 beats per minute. Placenta is anterior. Amniotic fluid index is 12.8 cm. Biophysical profile score is normal at 8/8. Biometrical measurements are as follows: Biparietal 8.71 cm, age 35 weeks 2 days. Head circumference 31.49 cm, age 35 weeks 3 days. Abdominal circumference 32.58 cm, age 36 weeks 4 days. Femur length 6.49 cm, age 33 weeks 4 days. Sonographic estimate age: 35 weeks 2 days. Sonographic estimated date of delivery: 03/14/2019. Estimated Weight: 2684 gm (+/- 392 gm). LMP percentile: 82%. heart rate: 135 beats per minute. number: 1 of 1. IMPRESSION: Single live IUP of 35 weeks gestational age demonstrating normal interval growth when compared with prior exam. Biophysical profile score is normal at 8/8. Dictated by: Dictated on workstation # [id number]
== END ==
LOC: RAD 10:25
PROVIDERS: ATTEND Obstetrics & Gynecology
DX: O24.419 Gestational diabetes mellitus in pregnancy, unspecified control (principal); O34.219 Maternal care for unspecified type scar from previous cesarean delivery; Z3A.35 35 weeks gestation of pregnancy
CPT/HCPCS: 76805; 76819

== ENCOUNTER 2019-02-13 15:46 | Emergency (ER) | payer BC ==
[~2019-02-13] VITALS: Ht 160 cm; Wt 123.8 kg
[2019-02-13] MEDS ORDERED: NS IV 1000 ML 1,000 ML IV SCH (17:28)
[2019-02-13] MEDS ORDERED: diphenhydrAMINE 25 MG TAB (BENADRYL) PO ONE (17:30)
[2019-02-13] MEDS ORDERED: PROMETHAZINE INJ 25 MG/ML (PHENERGAN) AMP IVP ONE (17:30)
--- NOTE | 2019-02-13 17:36 | ED Headache ---
General Chief Complaint: Upper Extremity Stated Complaint: R SHOULDER PAIN Nursing Triage Note: PT REPORTS RIGHT SHOULDER PAIN THAT STARTED SOON A SEVERE HEADACHE. SHE HAD TAKEN TYLENOL BUT WAS NOT WORKING. PT IS [address] PEOPLES OFFICE TO SEE IF SHE COULD TAKE ANYTHING ELSE. PT WAS TOLD TO COME TO THE ER SINCE SHE HAS A HISTORY OF A-FIB AND BE EVALUATED. Nursing Sepsis Screen: No Definite Risk Source: patient, other Exam Limitations: no limitations History of Present Illness Date Seen by Provider: February 13, 2019 Time Seen by Provider: 17:16 Initial Comments Right shoulder pain and headache. The pain is worse with movement or pressing. It is not worse with deep inspiration and she has no cough fevers chills. She has no history of coronary disease but she does have a history of atrial fibrillation. She follows with Dr. Angeles and is a at 35 weeks and 4 days. She has no history of preeclampsia, elevated liver enzymes or hypertension. She does have gestational diabetes on metformin and glyburide. She says her blood sugar this morning was in the 90s. She has not done anything today to injure her right shoulder he just started hurting on its own. Then she started developing a frontal bilateral non-throbbing headache which is not the same as her usual migraine headaches. Typically she has used Fioricet to break her migraines but she likes to avoid if she can because of how it makes her feel. She took Tylenol 1000 mg at about 2:00. She has not been able to sleep. She has photophobia but no phonophobia. No aura. No blurry vision or double vision. She denies dysuria and has a small thin non-odorous white discharge from the vagina. No bleeding or nicolas of fluids. She denies any cramping or contractions. She says she always has a mild bilateral upper abdomen discomfort. She says her child is large for gestational age per the last ultrasound. Allergies and Home Medications Allergies Coded Allergies: adhesive tape (Unverified Adverse Reaction, Mild, RASH, 02/13/19) Uncoded Allergies: TAPE (Allergy, Mild, 03/28/09) TAPE ADHESIVE (Allergy, Mild, 04/06/09) Home Medications Glyburide 2.5 Mg Tablet, 2.5 MG PO HS, (Reported) Metformin HCl 1,000 Mg Tablet, 1,000 MG PO DAILY, (Reported) Vit/Iron Fumarate/FA 1 Each Tablet, 1 EACH PO DAILY, (Reported) Patient Home Medication List Home Medication List Reviewed: Yes Review of Systems Review of Systems Constitutional: No chills, No diaphoresis, No fever, No malaise Eyes: Denies Blindness, Denies Blurred Vision; Photophobia Ears, Nose, Mouth, Throat: denies ear pain, denies ear discharge Respiratory: No cough, No dyspnea on exertion Cardiovascular: No chest pain, No palpitations Gastrointestinal: abdominal pain (generalized abdominal discomfort throughout ); No constipation, No diarrhea; nausea; No vomiting Genitourinary: see HPI; No dysuria Past Wywhgfl-Blgiwt-Vexmnw Hx Patient Social History Alcohol Use: Denies Use Recreational Drug Use: No Smoking Status: Former Smoker Type Used: Cigars Former Smoker, Quit: Aug 26, 2016 Recent Foreign Travel: No Contact w/Someone Who Travel: No Recent Infectious Disease Expo: No Recent Hopitalizations: No (child-strep throat, gallstones, kidney stones) Immunizations Up To Date Tetanus Booster (TDap): Unknown PED Vaccines UTD: Yes Date of Influenza Vaccine: Aug 13, 2016 Seasonal Allergies Seasonal Allergies: No Past Medical History Surgeries: Yes Section Respiratory: No Cardiac: Yes (afib) Atrial Fibrillation Neurological: Yes Headaches /Migraines Reproductive Disorders: Yes Female Reproductive Disorders: Polycystic Ovarian Dis Sexually Transmitted Disease: No HIV/AIDS: No Genitourinary: No Gastrointestinal: No Musculoskeletal: No Endocrine: Yes (HAD GESTIONAL DIABETES) Diabetes, Insulin dep HEENT: No Cancer: No Psychosocial: No Integumentary: Yes Psoriasis Blood Disorders: Yes (ANEMIA) Adverse Reaction/Blood Tranf: No Family Medical History Colon cancer G8 BROTHER, Onset: - Headache disorder 19 MOTHER No Family History of: AIDS Abdominal aortic aneurysm Brad's disease Alcoholism Alzheimer's disease Aphasia Arthritis Asthma Cancer of mouth Cardiovascular disease Cataracts Completed stroke Congenital disease Congenital heart disease Coronary thrombosis Cystic fibrosis Deafness or hearing loss Dementia Diabetes mellitus Drug abuse Dysphasia Fibrocystic disease of breast Gastroenteritis Glaucoma Hypercholesterolemia Hypertension Infertility Kidney disease Myocardial infarction Neoplasm Not obtainable due to adoption Osteoporosis Parkinson's disease Prostate cancer Psychosocial problem Respiratory disorder Seizure disorder Severe allergy Thyroid disease Tuberculosis Visual disorder Cancer Physical Exam Vital Signs Vital Signs - First Documented 02/13/19 16:01 Temp 97.3 Pulse 103 Resp 16 B/P (MAP) 160/91 (114) Pulse Ox 95 Capillary Refill : Less Than 3 Seconds Height, Weight, BMI Height: 5'3.00" Weight: 273lbs. 0.0oz. 123.125156ko; 48.7 BMI Method:Stated General Appearance: WD/WN, mild distress HEENT: PERRL/EOMI, normal ENT inspection, TMs normal, pharynx normal Neck: normal inspection Cardiovascular: normal peripheral pulses, regular rate, rhythm Respiratory: lungs clear, normal breath sounds, no respiratory distress, no accessory muscle use Gastrointestinal: normal bowel sounds, soft, no organomegaly, other (gravid) Extremities: non-tender, normal capillary refill Psychiatric: alert, oriented x 3 Crainal Nerves: normal hearing, normal speech, PERRL Coordination/Gait: normal gait Motor/Sensory: no motor deficit, no sensory deficit Skin: normal color, warm/dry Progress/Results/Core Measures Results/Orders Lab Results Laboratory Tests Test 02/13/19 17:42 02/13/19 17:48 Range/Units Urine Color YELLOW Urine Clarity SLIGHTLY CLOUDY Urine pH 5 5-9 Urine Specific [place] 1.030 H 1.016-1.022 Urine Protein 1+ H NEGATIVE Urine Glucose (UA) NEGATIVE NEGATIVE Urine Ketones 3+ H NEGATIVE Urine Nitrite NEGATIVE NEGATIVE Urine Bilirubin NEGATIVE NEGATIVE Urine Urobilinogen 1 NORMAL MG/DL Urine Leukocyte Esterase 1+ H NEGATIVE Urine RBC (Auto) NEGATIVE NEGATIVE Urine RBC NONE /HPF Urine WBC RARE /HPF Urine Squamous Epithelial Cells 2-5 /HPF Urine Crystals PRESENT H /LPF Urine Calcium Oxalate Crystals LARGE H /LPF Urine Bacteria MODERATE H /HPF Urine Casts NONE /LPF Urine Mucus NEGATIVE /LPF Urine Culture Indicated NO White Blood Count 10.5 4.3-11.0 10^3/uL Red Blood Count 4.49 4.35-5.85 10^6/uL Hemoglobin 10.8 L 11.5-16.0 G/DL Hematocrit 33 L 35-52 % Mean Corpuscular Volume 74 L 80-99 FL Mean Corpuscular Hemoglobin 24 L 25-34 PG Mean Corpuscular Hemoglobin Concent 33 32-36 G/DL Red Cell Distribution Width 16.6 H 10.0-14.5 % Platelet Count 373 130-400 10^3/uL Mean Platelet Volume 10.3 7.4-10.4 FL Neutrophils (%) (Auto) 73 42-75 % Lymphocytes (%) (Auto) 19 12-44 % Monocytes (%) (Auto) 6 0-12 % Eosinophils (%) (Auto) 1 0-10 % Basophils (%) (Auto) 0 0-10 % Neutrophils # (Auto) 7.7 1.8-7.8 X 10^3 Lymphocytes # (Auto) 2.0 1.0-4.0 X 10^3 Monocytes # (Auto) 0.7 0.0-1.0 X 10^3 Eosinophils # (Auto) 0.1 0.0-0.3 10^3/uL Basophils # (Auto) 0.0 0.0-0.1 10^3/uL Prothrombin Time 12.8 12.2-14.7 SEC INR Comment 0.9 0.8-1.4 Activated Partial Thromboplast Time 29 24-35 SEC Sodium Level 136 135-145 MMOL/L Potassium Level 4.2 3.6-5.0 MMOL/L Chloride Level 105 98-107 MMOL/L Carbon Dioxide Level 18 L 21-32 MMOL/L Anion Gap 13 5-14 MMOL/L Blood Urea Nitrogen 6 L 7-18 MG/DL Creatinine 0.56 L 0.60-1.30 MG/DL Estimat Glomerular Filtration Rate > 60 BUN/Creatinine Ratio 11 Glucose Level 72 70-105 MG/DL Calcium Level 9.4 8.5-10.1 MG/DL Corrected Calcium 9.9 8.5-10.1 MG/DL Magnesium Level 1.9 1.8-2.4 MG/DL Total Bilirubin 0.4 0.1-1.0 MG/DL Aspartate Amino Transf (AST/SGOT) 17 5-34 U/L Alanine Aminotransferase (ALT/SGPT) 9 0-55 U/L Alkaline Phosphatase 129 40-136 U/L Troponin I < 0.028 <0.028 NG/ML C-Reactive Protein High Sensitivity 1.45 H 0.00-0.50 MG/DL Total Protein 7.3 6.4-8.2 GM/DL Albumin 3.4 3.2-4.5 GM/DL My Orders Orders - KAI HOLLIDAY Cbc With Automated Diff (02/13/19 17:28) Comprehensive Metabolic Panel (02/13/19 17:28) Hs C Reactive Protein (02/13/19 17:28) Magnesium (02/13/19 17:28) Protime With Inr (02/13/19 17:28) Partial Thromboplastin Time (02/13/19 17:) Troponin I (02/13/19 17:28) Ua Culture If Indicated (02/13/19 17:28) Ed Iv/Invasive Line Start (02/13/19 17:28) Ns Iv 1000 Ml (Sodium Chloride 0.9%) (02/13/19 17:28) Diphenhydramine Tablet (Benadryl Tablet) (02/13/19 17:30) Promethazine Injection (Phenergan Injec (02/13/19 17:30) Continuous Ekg Monitoring (02/13/19 17:53) Ekg Tracing (02/13/19 17:53) Ondansetron Injection (Zofran Injectio (02/13/19 18:00) Ondansetron Injection (Zofran Injectio (02/13/19 17:53) Medications Given in ED Current Medications Medications Dose Ordered Sig/Peter Route Start Time Stop Time Status Last Admin Dose Admin Diphenhydramine HCl 25 mg ONCE ONCE PO 02/13/19 17:30 02/13/19 17:31 DC 02/13/19 18:04 25 MG Ondansetron HCl 8 mg ONCE ONCE IVP 02/13/19 18:00 02/13/19 18:01 DC 02/13/19 18:02 8 MG Promethazine HCl 25 mg ONCE ONCE IVP 02/13/19 17:30 02/13/19 17:31 DC 02/13/19 18:01 25 MG Vital Signs/I&O 02/13/19 16:01 Temp 97.3 Pulse 103 Resp 16 B/P (MAP) 160/91 (114) Pulse Ox 95 Blood Pressure Mean: 114 Progress Progress Note : Time: 17:36 Progress Note Blood pressure is 160/90 likely owing to her headache. This is not like her usual migraine. She's already taken Tylenol so we're going to give her some Phenergan and Benadryl. She would like to hold off on any Fioricet at this time. Her right shoulder pain is reproducible to direct palpation of the acromioclavicular joint and no evidence of injury. There is no evidence of trauma by history or exam so an x-ray is not likely to yield anything. Considering referred pain she has already had her gallbladder out. We will obtain a urinalysis, CBC, CMP, PT/INR, PTT. She's not having any visual changes other than the photophobia secondary to her headache. We offered to do a wet prep for what she describes as likely is her normal leukorrhea of and she has declined. heart tones 148 and she has felt movement throughout the ER stay. Initial ECG Impression Date: February 13, 2019 Initial ECG Impression Time: 17:11 Initial ECG Rate: 97 Initial ECG Rhythm: Normal Sinus Initial ECG Intervals: Normal Initial ECG Impression: Normal Comment No ST elevation or depression. Consults : Consulting Physician: MARY KAY BASILIO DO Consults Notes Discussed case lab EKG and findings. He recommends giving 50 g of fentanyl and a prescription for Fioricet and follow-up with Dr. Angeles in the clinic. Departure Impression Primary Impression: Shoulder pain, right Qualified Codes: M25.511 - Pain in right shoulder Additional Impressions: Headache Qualified Codes: G44.209 - Tension-type headache, unspecified, not intractable Qualified Codes: Z3A.35 - 35 weeks gestation of Disposition: 01 HOME, SELF-CARE Condition: Stable Departure-Patient Inst. Decision time for Depature: 18:50 Referrals: NO,LOCAL PHYSICIAN (PCP) Primary Care Physician SURESH ANGELES DO Patient Instructions: Shoulder Pain (DC) Add. Discharge Instructions: Use the Fioricet and sleep as necessary for your headache. Can also use Benadryl 25 mg every 6 hours. Tylenol 1000 mg every 8 hours. Follow-up with Dr. Angeles in the clinic by calling for an appointment tomorrow. All discharge instructions reviewed with patient and/or family. Voiced understanding. KAI HOLLIDAY February 13, 2019 17:36
[2019-02-13 17:49] LABS: BILIRUBIN,URINE NEGATIVE (NEGATIVE); CLARITY,URINE SLIGHTLY CLOUDY; COLOR,URINE YELLOW; GLUCOSE, URINE (UA) NEGATIVE (NEGATIVE); KETONES,URINE 3+ (NEGATIVE); LEUKOCYTE ESTERASE ,URINE 1+ (NEGATIVE); NITRITE,URINE NEGATIVE (NEGATIVE); PH,URINE 5 (5-9); PROTEIN,URINE 1+ (NEGATIVE); UROBILINOGEN,URINE 1 MG/DL (NORMAL)
[2019-02-13] MEDS ORDERED: ONDANSETRON 4 MG/2 ML (SDV) Z0FRAN ONE (17:53)
[2019-02-13 17:54] LABS: BASOPHILS % (AUTO) 0 % (0-10); EOSINOPHILS # (AUTO) 0.1 10^3/uL (0.0-0.3); EOSINOPHILS % (AUTO) 1 % (0-10); HEMATOCRIT 33 % (35-52); HEMOGLOBIN 10.8 G/DL (11.5-16.0); LYMPHOCYTES % (AUTO) 19 % (12-44); MEAN CORPUSCULAR HEMOGLOBIN 24 PG (25-34); MEAN CORPUSCULAR HGB CONC 33 G/DL (32-36); MEAN CORPUSCULAR VOLUME 74 FL (80-99); MEAN PLATELET VOLUME 10.3 FL (7.4-10.4); MONOCYTES # (AUTO) 0.7 X 10^3 (0.0-1.0); MONOCYTES % (AUTO) 6 % (0-12); NEUTROPHILS # (AUTO) 7.7 X 10^3 (1.8-7.8); NEUTROPHILS % (AUTO) 73 % (42-75); PLATELET COUNT 373 10^3/uL (130-400); RED CELL DISTRIBUTION WIDTH 16.6 % (10.0-14.5); WHITE BLOOD COUNT 10.5 10^3/uL (4.3-11.0)
[2019-02-13] MEDS ORDERED: ONDANSETRON 4 MG/2 ML (SDV) Z0FRAN IVP ONE (18:00)
[2019-02-13 18:03] LABS: INR 0.9 (0.8-1.4); PROTHROMBIN TIME PATIENT 12.8 SEC (12.2-14.7)
[2019-02-13 18:12] LABS: ALANINE AMINOTRANSFERASE 9 U/L (0-55); ALBUMIN 3.4 GM/DL (3.2-4.5); ALKALINE PHOSPHATASE 129 U/L (40-136); BILIRUBIN,TOTAL 0.4 MG/DL (0.1-1.0); BUN/CREATININE RATIO 11; CALCIUM 9.4 MG/DL (8.5-10.1); CARBON DIOXIDE 18 MMOL/L (21-32); CHLORIDE 105 MMOL/L (98-107); CREATININE SERUM 0.56 MG/DL (0.60-1.30); GFR ESTIMATED > 60; GLUCOSE 72 MG/DL (70-105); MAGNESIUM 1.9 MG/DL (1.8-2.4); POTASSIUM 4.2 MMOL/L (3.6-5.0); SODIUM 136 MMOL/L (135-145); TOTAL PROTEIN 7.3 GM/DL (6.4-8.2)
[2019-02-13 18:16] LABS: BACTERIA,URINE MODERATE /HPF; CALCIUM OXALATE CRYSTALS,UR LARGE /LPF; WBC,URINE RARE /HPF
[2019-02-13 18:45] VITALS: BP 114/66
--- NOTE | 2019-02-13 18:47 | NUR ---
pt alert gcs 15. adult male in room. pt still c/o h/a " full blast". c/o shoulder pain rating 8. pt denies dyspnea and no acute sighns of dyspnea noted. tele shows [id number] gone from bolus and now on pump.
--- NOTE | 2019-02-13 18:49 | NUR ---
pt denies nausea and relates just had the 1vomiting episode in er prior to medicines. denies diarrhea
[2019-02-13] MEDS ORDERED: fentaNYL INJECTION 100 MCG/2 ML AMP IVP ONE (19:00)
[2019-02-13 19:24] VITALS: BP 130/58
== END 2019-02-13 19:26 | disposition home or self-care (01) ==
LOC: EDUNIT# 15:46 → ER 15:47
DX: O26.893 Other specified pregnancy related conditions, third trimester (principal); R51 Headache; M25.511 Pain in right shoulder; O24.414 Gestational diabetes mellitus in pregnancy, insulin controlled; O99.413 Diseases of the circulatory system complicating pregnancy, third trimester; I48.91 Unspecified atrial fibrillation; O99.353 Diseases of the nervous system complicating pregnancy, third trimester; G43.909 Migraine, unspecified, not intractable, without status migrainosus; O99.013 Anemia complicating pregnancy, third trimester; D64.9 Anemia, unspecified; Z3A.35 35 weeks gestation of pregnancy; Z79.4 Long term (current) use of insulin; Z91.048 Other nonmedicinal substance allergy status; Z80.0 Family history of malignant neoplasm of digestive organs; Z87.891 Personal history of nicotine dependence; Z98.890 Other specified postprocedural states; Z87.448 Personal history of other diseases of urinary system
CPT/HCPCS: 36415; 80053; 81000; 83735; 84484; 85025; 85610; 85730; 86141; 93005

== ENCOUNTER 2019-02-22 14:19 | Inpatient (IN) | payer BC | END 2019-02-24 11:30 | disposition home or self-care (01) | LOC: LDRP 14:19 ==

== ENCOUNTER 2019-03-01 17:13 | Emergency (ER) | payer BC ==
[~2019-03-01] VITALS: Ht 160 cm; Wt 127.0 kg
[~2019-03-01 17:13] MED LIST changes: +ACET-77 PO; +IBUP-844 PO; +OXC5T PO
--- NOTE | 2019-03-01 17:44 | ED Chest Pain ---
General Stated Complaint: CP Source: patient Exam Limitations: no limitations (KAI HOLLIDAY) History of Present Illness Date Seen by Provider: Mar 01, 2019 Time Seen by Provider: 17:25 Initial Comments The patient presents to ER by private conveyance with a complaint of chest pain. When brought back she says her chest pain is very minor and doesn't really bother her. She's been feeling ill for the last 2 days with increased swelling in her feet and headache in the back of her head that radiates down into her neck. She has no history of coronary disease or familial history of coronary disease. No sudden onset cardiac in her family. She is 6 days from a for preeclampsia at 36 weeks which was moving up one because of the combination of large for gestational age as well as hypertension in the mother. She had a very high blood pressure as well as gestational diabetes. She has a history of depression. She denies hopelessness, suicidal or homicidal id eation. Her wound is clean and dry. She's not having any nausea. No visual disturbances. She has some minor discomfort in her left upper quadrant abdomen. Bowel movements are regular and no dysuria. She is known to Dr. Angeles and Dr. Fay. She has a history of atrial fibrillation on Cardizem 180 mg. She did not take the last couple days because she has been at the NICU pumping for her child. She does not take blood thinners. She denies a history of seizures. (KAI HOLLIDAY) Allergies and Home Medications Allergies Coded Allergies: adhesive tape (Unverified Adverse Reaction, Mild, RASH, 02/13/19) Uncoded Allergies: TAPE (Allergy, Mild, 03/28/09) TAPE ADHESIVE (Allergy, Mild, 04/06/09) Home Medications Acetaminophen 500 Mg Tablet, 1,000 MG PO Q6HR Prescribed by: SURESH ANGELES on 02/23/192300 Docusate Sodium 100 Mg Capsule, 100 MG PO BID Prescribed by: SURESH ANGELES on 02/23/192300 Ferrous Sulfate 325 Mg Tablet, 325 MG PO BID WITH MEALS Prescribed by: SURESH ANGELES on 02/23/192300 Ibuprofen 600 Mg Tablet, 600 MG PO Q6HR Prescribed by: SURESH ANGELES on 02/23/192300 Nitrofurantoin Monohyd/M-Cryst 100 Mg Capsule, 100 MG PO BID Prescribed by: MICHAEL WOODRUFF on 03/01/191911 Oxycodone Hcl 5 Mg Tab, 5 MG PO Q6H PRN for To achieve TAG Prescribed by: SURESH ANGELES on 02/23/192300 Vit/Iron Fumarate/FA 1 Each Tablet, 1 EACH PO DAILY, (Reported) Patient Home Medication List Home Medication List Reviewed: Yes (KAI HOLLIDAY) Review of Systems Review of Systems Constitutional: No chills, No diaphoresis, No fever, No malaise EENTM: No Blurred Vision, No Double Vision, No Eye Pain Respiratory: Denies Cough, Denies Shortness of Air Cardiovascular: See HPI, Chest Pain, Edema; Denies Lightheadedness, Denies Palpitations, Denies Syncope Gastrointestinal: Abdominal Pain (left upper quadrant); Denies Constipated, Denies Diarrhea, Denies Nausea Genitourinary: Denies Burning, Denies Discharge Musculoskeletal: No back pain, No joint pain Skin: No pruritus, No rash Psychiatric/Neurological: Denies Headache, Denies Numbness (KAI HOLLIDAY) Past Bcnrcle-Yyvglx-Hxdgiz Hx Patient Social History Alcohol Use: Denies Use Recreational Drug Use: No Smoking Status: Former Smoker Type Used: Cigars Former Smoker, Quit: Aug 26, 2016 Recent Foreign Travel: No Contact w/Someone Who Travel: No Recent Hopitalizations: No (KAI HOLLIDAY) Immunizations Up To Date Tetanus Booster (TDap): Unknown PED Vaccines UTD: Yes Date of Influenza Vaccine: Aug 13, 2016 (KAI HOLLIDAY) Seasonal Allergies Seasonal Allergies: No (KAI HOLLIDAY) Past Medical History Surgeries: Yes (3 C-SECTIONS) Section, Gallbladder Respiratory: No Cardiac: Yes (afib) Atrial Fibrillation Neurological: Yes Headaches /Migraines Reproductive Disorders: Yes Female Reproductive Disorders: Polycystic Ovarian Dis Sexually Transmitted Disease: No HIV/AIDS: No Genitourinary: No Gastrointestinal: No Musculoskeletal: No Endocrine: Yes (HAS GESTIONAL DIABETES) Diabetes, Insulin dep HEENT: No Cancer: No Psychosocial: No Integumentary: Yes Psoriasis Blood Disorders: Yes (ANEMIA) Adverse Reaction/Blood Tranf: No (KAI HOLLIDAY) Family Medical History Bleeding disorder (MOTHER) Colon cancer G8 BROTHER, Onset:20's - 25 Diabetes mellitus (PGM) FH: cancer (PGM, FATHER) FHx: heart disease (MGM, PGF) HEART DIS (MGF) Headache disorder 19 MOTHER Hypertension (MOTHER) No Family History of: AIDS Abdominal aortic aneurysm [place]o's disease Alcoholism Alzheimer's disease Aphasia Arthritis Asthma Cancer of mouth Cardiovascular disease Cataracts Completed stroke Congenital disease Congenital heart disease Coronary thrombosis Cystic fibrosis Deafness or hearing loss Dementia Drug abuse Dysphasia Fibrocystic disease of breast Gastroenteritis Glaucoma Hypercholesterolemia Infertility Kidney disease Myocardial infarction Neoplasm Not obtainable due to adoption Osteoporosis Parkinson's disease Prostate cancer Psychosocial problem Respiratory disorder Seizure disorder Severe allergy Thyroid disease Tuberculosis Visual disorder Cancer (KAI HOLLIDAY) Physical Exam Vital Signs Vital Signs - First Documented 03/01/19 21:06 Pulse Ox 98 (MICHAEL WOODRUFF DO) Vital Signs Capillary Refill : (KAI HOLLIDAY) Height, Weight, BMI Height: 5'3.00" Weight: 281lbs. 0.0oz. 127.887182gq; 49.8 BMI Method:Stated General Appearance: Anxious, Mild Distress, Obese HEENT: PERRL/EOMI, Normal ENT Inspection, Moist Mucous Membranes Neck: Full Range of Motion, Normal Inspection, Non Tender, Supple Respiratory: Chest Non Tender, Lungs Clear, Normal Breath Sounds, No Accessory Muscle Use, No Respiratory Distress Cardiovascular: Regular Rate, Rhythm, Normal Peripheral Pulses, Other (mild bilateral pedal edema) Gastrointestinal: Normal Bowel Sounds, No Organomegaly, Non Tender, Soft Neurologic/Psychiatric: Alert, Oriented x3, No Motor/Sensory Deficits, Normal Mood/Affect, access director II-XII Norm as Tested Skin: Other (surgical wound and then a steel on the lower abdomen with subtalar stitches, blue and intact, clean, dry and without erythema, induration or discharge.) (KAI HOLLIDAY) Progress/Results/Core Measures Results/Orders Lab Results Laboratory Tests Test 03/01/19 17:58 03/01/19 18:36 Range/Units White Blood Count 7.8 4.3-11.0 10^3/uL Red Blood Count 3.62 L 4.35-5.85 10^6/uL Hemoglobin 8.7 L 11.5-16.0 G/DL Hematocrit 28 L 35-52 % Mean Corpuscular Volume 78 L 80-99 FL Mean Corpuscular Hemoglobin 24 L 25-34 PG Mean Corpuscular Hemoglobin Concent 31 L 32-36 G/DL Red Cell Distribution Width 17.2 H 10.0-14.5 % Platelet Count 299 130-400 10^3/uL Mean Platelet Volume 10.4 7.4-10.4 FL Neutrophils (%) (Auto) 69 42-75 % Lymphocytes (%) (Auto) 22 12-44 % Monocytes (%) (Auto) 5 0-12 % Eosinophils (%) (Auto) 4 0-10 % Basophils (%) (Auto) 0 0-10 % Neutrophils # (Auto) 5.4 1.8-7.8 X 10^3 Lymphocytes # (Auto) 1.7 1.0-4.0 X 10^3 Monocytes # (Auto) 0.4 0.0-1.0 X 10^3 Eosinophils # (Auto) 0.3 0.0-0.3 10^3/uL Basophils # (Auto) 0.0 0.0-0.1 10^3/uL Prothrombin Time 12.6 12.2-14.7 SEC INR Comment 0.9 0.8-1.4 Activated Partial Thromboplast Time 27 24-35 SEC Sodium Level 140 135-145 MMOL/L Potassium Level 3.9 3.6-5.0 MMOL/L Chloride Level 106 98-107 MMOL/L Carbon Dioxide Level 25 21-32 MMOL/L Anion Gap 9 5-14 MMOL/L Blood Urea Nitrogen 13 7-18 MG/DL Creatinine 0.61 0.60-1.30 MG/DL Estimat Glomerular Filtration Rate > 60 BUN/Creatinine Ratio 21 Glucose Level 88 70-105 MG/DL Calcium Level 8.7 8.5-10.1 MG/DL Corrected Calcium 9.3 8.5-10.1 MG/DL Magnesium Level 1.7 L 1.8-2.4 MG/DL Total Bilirubin 0.2 0.1-1.0 MG/DL Aspartate Amino Transf (AST/SGOT) 8 5-34 U/L Alanine Aminotransferase (ALT/SGPT) 10 0-55 U/L Alkaline Phosphatase 87 40-136 U/L Troponin I < 0.028 <0.028 NG/ML C-Reactive Protein High Sensitivity 2.85 H 0.00-0.50 MG/DL Total Protein 6.0 L 6.4-8.2 GM/DL Albumin 3.2 3.2-4.5 GM/DL Thyroid Stimulating Hormone (TSH) 0.96 0.35-4.94 UIU/ML Urine Color YELLOW Urine Clarity SLIGHTLY CLOUDY Urine pH 5 5-9 Urine Specific [place] 1.020 1.016-1.022 Urine Protein 2+ H NEGATIVE Urine Glucose (UA) NEGATIVE NEGATIVE Urine Ketones NEGATIVE NEGATIVE Urine Nitrite NEGATIVE NEGATIVE Urine Bilirubin NEGATIVE NEGATIVE Urine Urobilinogen NORMAL NORMAL MG/DL Urine Leukocyte Esterase 2+ H NEGATIVE Urine RBC (Auto) 5+ H NEGATIVE Urine RBC 50-100 H /HPF Urine WBC 10-25 H /HPF Urine Squamous Epithelial Cells 10-25 H /HPF Urine Crystals NONE /LPF Urine Bacteria MODERATE H /HPF Urine Casts NONE /LPF Urine Mucus NEGATIVE /LPF Urine Culture Indicated YES (MICHAEL WOODRUFF DO) My Orders Orders - MICHAEL WOODRUFF DO Magnesium 1 Gm/100 Ml Ivpb (Magnesium [place] (03/01/19 18:45) (MICHAEL WOODRUFF DO) Medications Given in ED (MICHAEL WOODRUFF DO) Vital Signs/I&O 03/01/19 03/01/19 03/01/19 17:17 17:17 21:06 Temp 97.7 97.7 Pulse 84 80 Resp 18 18 B/P (MAP) 151/97 (115) 138/97 (111) Pulse Ox 98 O2 Delivery Room Air Room Air Room Air (MICHAEL WOODRUFF DO) Progress Progress Note : Time: 17:47 Progress Note Labs to include liver function tests, PT INR, PTT, urinalysis. We'll give her an aspirin to chew up since she claimed chest pain however she has a possibility of cardiac coronary risk factors. She is not tachycardic at this time and her blood pressure is only modestly elevated to 150/97. Heart rate is in the low 70s. She is in sinus rhythm. EKG doesn't reveal anything today. Blood thinners not initiated secondary to breast-feeding. In addition to the aspirin will give her some Toradol for her headache. Echocardiogram from 2018 demonstrates normal LV size and ejection fraction 55-65%. Left atrial enlargement. ED ACS 2 points. Low risk by the EDACS Score. If the patient also has: (1) EKG without new ischemic changes and (2) negative initial and 2-hour troponins, then this patient is safe for discharge to early outpatient follow-up investigation (or proceed to earlier inpatient testing). If EKG with ischemic changes or positive troponin, they are not low risk and require normal risk stratification. (KAI HOLLIDAY) Progress Note : Progress Note 1800-ASSUMED CARE FROM DR. HOLLIDAY, ALL STUDIES PENDING PT WAS GIVEN TORADOL FOR HEADACHE--HEADACHE COMPLETELY RESOLVED. PT HAS NO COMPLAINTS AT THIS TIME PT IS ANXIOUS TO BE DISMISSED AT THIS TIME, SO SHE CAN GO TO BE WITH HER BABY. PT HAS APPOINTMENT WITH [facility] THIS WEDNESDAY FOR POST EXAM (MICHAEL WOODRUFF DO) Initial ECG Impression Date: Mar 01, 2019 Initial ECG Impression Time: 17:21 Initial ECG Rate: 72 Initial ECG Rhythm: Normal Sinus Initial ECG Intervals: Normal Initial ECG Impression: Normal Initial ECG Comparisson: Unchanged Comment No clinically significant ST elevation or depression. (KAI HOLLIDAY) Diagnostic Imaging Diagonstic Imaging: Xray Plain Films/CT/US/NM/MRI: chest (1v) Reviewed: Reviewed by Me (KAI HOLLIDAY) Comments CXR--NO ACUTE PROCESS, PER RADIOLOGIST REPORT AT 1830 Reviewed: Reviewed by Me (MICHAEL WOODRUFF DO) Departure Impression Primary Impression: Tension type headache Additional Impressions: Hypomagnesemia POST FROM anemia, baby delivered during previous episode of care Hypertension in , condition Urinary tract infection Disposition: 01 HOME, SELF-CARE Condition: Improved Departure-Patient Inst. Referrals: [facility][1[facility] (PCP/Family) Primary Care Physician Patient Instructions: Anemia Caused by Low Iron, Adult (DC), High Blood Pressu re (DC), Low Magnesium Level (DC), Tension Headache (DC), Urinary Tract Infection, Adult (DC) Add. Discharge Instructions: LOTS OF CLEAR LIQUIDS LOW SODIUM DIET CONTINUE VITAMINS AND IRON SUPPLEMENT DAILY TYLENOL NEEDED FOR PAIN FOLLOW UP WITH YOUR [facility] THIS WEEK FOR FURTHER CARE, SCHEDULED Scripts Nitrofurantoin Monohyd/M-Cryst (Macrobid 100 mg Capsule) 100 Mg Capsule 100 MG PO BID, #20 CAP Prov: MICHAEL WOODRUFF DO 03/01/19 KAI HOLLIDAY Mar 01, 2019 17:44 MICHAEL WOODRUFF DO Mar 01, 2019 18:50
[2019-03-01] MEDS ORDERED: KETOROLAC 30 MG/ML VIAL IVP ONE (17:45)
[2019-03-01] MEDS ORDERED: ASPIRIN 81 MG CHEW (CHILDREN'S ASA) PO ONE (17:45)
[2019-03-01 18:05] LABS: BASOPHILS % (AUTO) 0 % (0-10); EOSINOPHILS # (AUTO) 0.3 10^3/uL (0.0-0.3); EOSINOPHILS % (AUTO) 4 % (0-10); HEMATOCRIT 28 % (35-52); HEMOGLOBIN 8.7 G/DL (11.5-16.0); LYMPHOCYTES # (AUTO) 1.7 X 10^3 (1.0-4.0); LYMPHOCYTES % (AUTO) 22 % (12-44); MEAN CORPUSCULAR HEMOGLOBIN 24 PG (25-34); MEAN CORPUSCULAR HGB CONC 31 G/DL (32-36); MEAN CORPUSCULAR VOLUME 78 FL (80-99); MEAN PLATELET VOLUME 10.4 FL (7.4-10.4); MONOCYTES # (AUTO) 0.4 X 10^3 (0.0-1.0); MONOCYTES % (AUTO) 5 % (0-12); NEUTROPHILS # (AUTO) 5.4 X 10^3 (1.8-7.8); NEUTROPHILS % (AUTO) 69 % (42-75); PLATELET COUNT 299 10^3/uL (130-400); RED CELL DISTRIBUTION WIDTH 17.2 % (10.0-14.5); WHITE BLOOD COUNT 7.8 10^3/uL (4.3-11.0)
--- OUTSIDE RECORDS SUMMARY | 2019-03-01 18:05 | XMS REPORT | Continuity of Care Document ---
Author Organization Unknown Address Unknown Allergies Active Description Code Type Severity Reaction Onset Reported/Identified Relationship to Patient Clinical Status Yes No Known Drug Allergies [id number] Drug Allergy Unknown N/A 03/18/2009 Yes TAPE TAPE Mild N/A 03/28/2009 Yes TAPE ADHESIVE TAPE ADHESIVE Mild N/A 04/06/2009 Yes Elidel Drug Allergy 03/25/2011 Yes Elidel Drug Allergy N/A N/A 03/25/2011 Yes adhesive tape [id number] Drug Allergy Mild RASH 02/13/2019 Medications There is no data. Problems Date Dx Coded Attending Type Code [...] 724.5 BACKACHE UNSPECIFIED 05/01/2008 DANIEL WARREN DO 724.5 BACKACHE UNSPECIFIED 05/01/2008 KASSANDRA MEDNIETA APRN 724.5 BACKACHE UNSPECIFIED 05/01/2008 GILMER CHACON APRN 724.5 BACKACHE UNSPECIFIED 10/14/2009 726.90 TENDONITIS 10/14/2009 726.90 TENDONITIS 10/14/2009 726.90 Tendonitis 10/14/2009 726.90 Tendonitis 10/14/2009 726.90 Tendonitis 10/14/2009 KEVLIN GARLAND DANIEL K 726.90 Tendonitis 10/14/2009 KASSANDRA MENDIETA APRN [...] 11/18/2009 780.79 FATIGUE 11/18/2009 787.02 Nausea 11/18/2009 KELVIN DANIEL GARLAND K 611.71 Breast Pain 11/18/2009 WARREN SHANTHI GARLANDA K 780.79 FATIGUE 11/18/2009 WARREN DANIEL GARLAND K 787.02 Nausea 11/18/2009 KASSANDRA MENDIETA APRN [...] K 256.4 POLYCYSTIC OVARIAN SYNDROME 11/21/2010 WARREN DO DANIEL K 278.01 OBESITY MORBID BMI >40 11/21/2010 WARREN DO DANIEL K 789.04 Abdominal Pain Left Lower [...] 461.9 Sinusitis Acute 01/10/2011 DANIEL WARREN DO K 461.9 Sinusitis Acute 01/10/2011 KASSANDRA MENDIETA APRN S 461.9 Sinusitis Acute 01/10/2011 GILMER CHACON APRN [...] DIS VAGINA NEC 05/01/2012 Ot 654.73 ABNORM VAGINA- ANTEPARTUM 05/09/2012 Ot 789.09 ABDOMINAL PAIN, OTHER SPECIFIED SITE 11/04/2012 733.6 TIETZE'S DISEASE 11/04/2012 733.6 TIETZE'S DISEASE 11/04/2012 733.6 Tietze's Disease 11/04/2012 733.6 Tietze's Disease 11/04/2012 733.6 Tietze's Disease 11/04/2012 DANIEL WARREN DO K 733.6 Tietze's Disease 11/04/2012 KASSANDRA MENDIETA APRN S 733.6 Tietze's Disease 11/04/2012 GILMER CHACON APRN R 733.6 Tietze's Disease 12/05/2012 305.1 TOBACCO ABUSE [...] K 782.1 RASH 12/05/2012 DANIEL WARREN DO K V65.42 TOBACCO COUNSELING 12/05/2012 KASSANDRA MENDIETA APRN S 305.1 TOBACCO ABUSE 12/05/2012 KASSANDRA MENDIETA APRN S 782.1 RASH 12/05/2012 KASSANDRA MENDIETA APRN S V65.42 TOBACCO COUNSELING 12/05/2012 GILMER CHACON APRN R 305.1 TOBACCO ABUSE 12/05/2012 GILMER CHACON APRN R 782.1 RASH 12/05/2012 GILMER CHACON APRN R V65.42 TOBACCO COUNSELING 01/03/2013 Ot 789.03 ABDOMINAL PAIN, RIGHT LOWER QUADRANT 06/05/2013 786.07 WHEEZING 06/05/2013 786.2 COUGH 06/05/2013 786.07 WHEEZING 06/05/2013 786.2 COUGH 06/05/2013 DANIEL WARREN DO K 786.07 WHEEZING 06/05/2013 DANIEL WARREN DO 786.2 COUGH 06/05/2013 KASSANDRA MENDIETA APRN S 786.07 WHEEZING 06/05/2013 KASSANDRA MENDIETA APRN S 786.2 COUGH 06/05/2013 GILMER CHACON APRN R 786.07 WHEEZING 06/05/2013 GILMER CHACON APRN R 786.2 COUGH 06/13/2013 CLARK DANITA GARLAND Ot 486 PNEUMONIA, ORGANISM NOS 06/13/2013 [place] DANITA GARLAND Ot V16.0 FAMILY HX-GI MALIGNANCY 06/13/2013 [place] DANITA GARLAND Ot V64.1 NO PROC/CONTRAINDICATION 06/13/2013 CLARKDANITA GARCIA DO Ot V76.51 SCREEN MAL NEOP-COLON 06/28/2013 [...] DO Ot V16.0 FAMILY HX-GI MALIGNANCY 08/01/2013 [place] DANITA GARLAND Ot V76.51 SCREEN MAL NEOP-COLON 09/09/2013 KASSANDRA MENDIETA APRN S 009.1 GASTROENTERITIS, ACUTE INFECTIOUS 09/09/2013 GILMER CHACON APRN R 009.1 GASTROENTERITIS, ACUTE INFECTIOUS 04/30/2014 VINCENT MANCILLA MD Ot 620.2 OVARIAN CYST NEC/NOS 04/30/2014 VINCENT MANCILLA MD Ot 648.93 [facility] CURR COND-ANTEPARTUM 08/17/2014 SURESH ANGELES DO Ot V28.89 09/02/2014 SURESH ANGELES DO Ot V28.89 09/02/2014 INES FIELDS, ROCK Negron Ot 256.4 09/02/2014 ROCK CHACON MD Ot 278.00 09/02/2014 ROCK CHACON MD Ot 646.83 09/02/2014 ROCK CHACON MD Ot 649.13 09/02/2014 BRIDGETTE GARLANDSURESH Ot 008.8 VIRAL ENTERITIS NOS 09/02/2014 ANGELES SURESH GARLAND Ot 276.51 DEHYDRATION 09/02/2014 ANGELESSURESH Lou DO Ot 599.0 URIN TRACT INFECTION NOS 09/02/2014 BRIDGETTE SURESH GARLAND Ot 646.63 INFECTION-ANTEPARTUM 09/02/2014 ANGELESSURESH Lou DO Ot 646.83 PREG COMPL NEC-ANTEPART 09/02/2014 ANGELESSURESH Lou DO Ot 647.83 INFECT DIS NEC-ANTEPART 11/04/2014 [...] NEC 11/07/2014 SURESH ANGELES DO Ot V06.1 [id number], COMBINED [ 11/20/2014 Ot 644.03 THRT KIMBERLY LABOR- ANTEPART 11/20/2014 Ot 648.83 ABN GLUCOSE-ANTEPARTUM 11/20/2014 Ot 648.93 OTH CURR COND- ANTEPARTUM 11/20/2014 Ot 654.23 PREV DELIVERY, ANTEPARTUM COND 11/20/2014 Ot 784.0 HEADACHE 11/29/2014 Ot 280.9 IRON DEFIC ANEMIA NOS 11/29/2014 Ot 285.1 AC POSTHEMORRHAG ANEMIA 11/29/2014 Ot 311 DEPRESSIVE DISORDER NEC 11/29/2014 Ot 599.0 URIN TRACT INFECTION NOS 11/29/2014 Ot 644.21 EARLY ONSET DELIVERY- DEL 11/29/2014 Ot 646.61 INFECTION- DELIVERED 11/29/2014 Ot 648.21 ANEMIA-DELIVERED 11/29/2014 Ot 648.22 ANEMIA-DELIVERED W P/P 11/29/2014 Ot 648.42 MENTAL DIS-DELIV W P/P 11/29/2014 Ot 648.81 ABN GLUCOSE FREDERICK- DELIV 11/29/2014 Ot 654.21 PREV DELIVRY W/ OR W/O MENT ANT 11/29/2014 Ot 656.51 POOR GROWTH- DELIV 11/29/2014 Ot 657.01 POLYHYDRAMNIOS,DEL W OR W/O MENTN ANTEPA 11/29/2014 Ot V27.0 DELIVER-SINGLE LIVEBORN 12/11/2014 Ot 041.49 OTHER AND UNSPECIFIED ESCHERICHIA COLI [ 12/11/2014 Ot 256.4 POLYCYSTIC OVARIES 12/11/2014 Ot 311 DEPRESSIVE DISORDER NEC 12/11/2014 Ot 599.0 URIN TRACT INFECTION NOS 12/11/2014 Ot 642.64 ECLAMPSIA- 12/11/2014 Ot 646.64 INFECTION- 12/11/2014 Ot 648.44 MENTAL DISORDER- POSTPART 12/11/2014 Ot 649.04 TOBACCO USE DISOR COMP PREG/CHILDBIRTH/P 12/11/2014 Ot 790.29 OTHER ABNORMAL GLUCOSE 12/20/2014 Ot 648.83 12/20/2014 Ot 654.23 12/20/2014 Ot 656.63 12/20/2014 Ot 657.03 12/20/2014 Ot V72.63 12/20/2014 Ot V74.8 02/20/2015 Ot 278.01 02/20/2015 Ot 789.04 02/20/2015 SURESH ANGELES DO Ot 793.89 02/20/2015 DANITA CLARK DO Ot 611.72 02/20/2015 DANITA CLARK DO Ot V72.84 02/20/2015 DANITA CLARK DO Ot V72.84 02/20/2015 Ot 278.01 02/20/2015 Ot 789.04 02/20/2015 SURESH ANGELES DO Ot 793.89 02/20/2015 DANITA CLARK DO Ot 611.72 02/20/2015 DANITA CLARK DO D Ot V72.84 02/20/2015 DANITA CLARK DO D Ot V72.84 02/20/2015 BRIDGETTE GARLANDSURESH Ot 793.89 02/20/2015 DANITA CLARK DO D Ot 611.72 02/20/2015 DANITA CLARK DO D Ot 793.80 02/20/2015 SURESH ANGELES DO Ot V28.89 02/20/2015 INES FIELDS, ROCK Negron [...] INES FIELDS, ROCK Negron Ot 649.13 02/20/2015 SURESH ANGELES DO Ot V28.89 02/20/2015 Ot 648.83 02/20/2015 Ot [...] DO Ot V28.89 OTHER SPECIFIED SCREENING 08/26/2016 ROCK CHACON MD Ot 256.4 POLYCYSTIC OVARIES 08/26/2016 ROCK CHACON MD Ot 278.00 OBESITY, NOS 08/26/2016 ROCK CHACON MD Ot 646.83 PREG COMPL NEC-ANTEPART 08/26/2016 ROCK CHACON MD Ot 649.13 OBESITY COMP PREG/CHILDBIRTH/PUERPERIUM, 08/26/2016 Ot 648.83 ABN GLUCOSE-ANTEPARTUM 08/26/2016 Ot 654.23 PREV DELIVERY, ANTEPARTUM COND 08/26/2016 Ot 656.63 EXCESS FET GRTH- ANTEPART 08/26/2016 Ot 657.03 POLYHYDRAMNIOS,ANTEPARTUM CONDITION/COMP 08/26/2016 Ot V72.63 PRE-PROCEDURAL LABORATORY EXAMINATION 08/26/2016 Ot V74.8 SCREEN-BACTERIAL DIS NEC 08/26/2016 SURESH ANGELES DO Ot [...] DO Ot V28.89 OTHER SPECIFIED SCREENING 09/28/2016 ROCK CHACON MD Ot 256.4 POLYCYSTIC OVARIES 09/28/2016 ROCK CHACON MD Ot 278.00 OBESITY, NOS 09/28/2016 ROCK CHACON MD Ot 646.83 PREG COMPL NEC-ANTEPART 09/28/2016 ROCK CHACON MD Ot 649.13 OBESITY COMP PREG/CHILDBIRTH/PUERPERIUM, 09/28/2016 Ot 648.83 ABN GLUCOSE-ANTEPARTUM 09/28/2016 Ot 654.23 PREV DELIVERY, ANTEPARTUM COND 09/28/2016 Ot 656.63 EXCESS FET GRTH- ANTEPART 09/28/2016 Ot 657.03 POLYHYDRAMNIOS,ANTEPARTUM CONDITION/COMP 09/28/2016 Ot V72.63 PRE-PROCEDURAL LABORATORY EXAMINATION 09/28/2016 Ot V74.8 SCREEN-BACTERIAL DIS NEC 10/02/2016 CARRIE CHAMBERLAIN APRN Ot [...] Ot Z3A.16 16 WEEKS GESTATION OF 10/31/2016 ERASTO FIELDS, DONG Cordero Ot O99.89 OTH DISEASES AND CONDITIONS COMPL PREG/C 10/31/2016 DONG MAURER MD Ot R10.32 LEFT LOWER QUADRANT PAIN 10/31/2016 DONG MAURER MD Ot Z3A.20 20 WEEKS GESTATION OF 12/20/2016 FENECH DOANGELA Ot O99.89 OTH DISEASES AND CONDITIONS COMPL PREG/C 12/20/2016 LIONELECH ANGELA GARLAND Ot R10.2 PELVIC AND PERINEAL PAIN 12/20/2016 ANGELA CARVALHO DO Ot Z3A.28 28 WEEKS GESTATION OF 01/16/2017 DONG MAURER MD Ot O36.8130 DECREASED MOVEMENTS, THIRD TRIMEST 01/16/2017 DONG MAURER MD Ot R35.0 FREQUENCY OF MICTURITION 01/16/2017 DONG MAURER MD Ot Z3A.32 32 WEEKS GESTATION OF 02/04/2017 ANGELESCarmine GARLAND SURESH C Ot O24.414 GESTATIONAL DIABETES IN , INSUL 02/04/2017 ANGELES SURESH C Ot Z3A.36 36 WEEKS GESTATION OF 02/10/2017 ANGELESSURESH Lou DO C Ot O24.414 GESTATIONAL DIABETES IN , INSUL 02/17/2017 DONG MAURER MD Ot M79.605 PAIN IN LEFT LEG 02/17/2017 DONG MAURER MD Ot O99.89 OTH DISEASES AND CONDITIONS COMPL PREG/C 02/17/2017 DONG MAURER MD Ot Z3A.36 36 WEEKS GESTATION OF 02/19/2017 ANGELESCarmine GARLAND SURESH C Ot O24.414 GESTATIONAL DIABETES IN , INSUL 02/19/2017 SURESH ANGELES DO C Ot Z3A.36 36 WEEKS GESTATION OF [...] ADULT 02/24/2017 DONG MAURER MD Ot Z79.4 [facility] (CURRENT) USE OF INSULIN 02/25/2017 DONG MAURER [...] ADULT 02/25/2017 DONG MAURER MD Ot Z79.4 [facility] (CURRENT) USE OF INSULIN 03/03/2017 DONG MAURER MD Ot M79.605 PAIN IN LEFT LEG 03/03/2017 DONG MAURER MD Ot O99.89 OTH DISEASES AND CONDITIONS COMPL PREG/C 03/03/2017 DONG MAURER MD Ot Z3A.36 36 WEEKS GESTATION OF 03/04/2017 DONG MAURER MD Ot M79.605 PAIN IN LEFT LEG 03/04/2017 DONG MAURER MD Ot O99.89 OTH DISEASES AND CONDITIONS COMPL PREG/C 03/04/2017 DONG MAURER MD Ot Z3A.36 36 WEEKS GESTATION OF 03/05/2017 SURESH ANGELES DO Ot D62 ACUTE POSTHEMORRHAGIC ANEMIA 03/05/2017 SURESH ANGELES DO Ot E66.9 OBESITY, UNSPECIFIED 03/05/2017 SURESH ANGELES DO Ot I48.91 UNSPECIFIED ATRIAL FIBRILLATION 03/05/2017 SURESH ANGELES DO Ot O24.429 GESTATIONAL DIABETES MELLITUS IN CHILDBI 03/05/2017 SURESH ANGELES DO Ot O34.211 MATERN CARE FOR LOW TRANSVERSE SCAR FROM 03/05/2017 SURESH ANGELES DO, Ot O40.3XX0 POLYHYDRAMNIOS, THIRD TRIMESTER, NOT RUPA 03/05/2017 SURESH ANGELES DO, Ot O69.82X0 LABOR AND DEL COMP BY OT CORD ENTANGLE, 03/05/2017 SURESH ANGELES DO Ot O90.81 ANEMIA OF THE PUERPERIUM 03/05/2017 SURESH ANGELES DO Ot O99.02 ANEMIA COMPLICATING CHILDBIRTH 03/05/2017 SURESH ANGELES DO Ot O99.214 OBESITY COMPLICATING CHILDBIRTH 03/05/2017 SURESH ANGELES DO Ot O99.42 DISEASES OF THE CIRCULATORY SYSTEM COMPL 03/05/2017 SURESH ANGELES DO Ot Z23 ENCOUNTER FOR IMMUNIZATION 03/05/2017 SURESH ANGELES DO, Ot Z37.0 SINGLE LIVE 03/05/2017 SURESH ANGELES DO, Ot Z3A.38 38 WEEKS GESTATION OF 03/05/2017 SURESH ANGELES DO Ot Z68.42 BODY MASS INDEX (BMI) 45.0-49.9, ADULT 03/05/2017 SURESH ANGELES DO Ot Z79.4 [facility] (CURRENT) USE OF INSULIN 03/11/2017 SURESH ANGELES [...] OTH DISEASES OF THE 04/21/2017 VINCENT MANCILLA MD, Ot Z87.442 PERSONAL HISTORY OF URINARY CALCULI 04/21/2017 VINCENT MANCILLA MD Ot Z87.891 PERSONAL HISTORY [...] OTH DISEASES OF THE 05/14/2017 VINCENT MANCILLA MD, Ot Z87.442 PERSONAL HISTORY OF URINARY CALCULI 05/14/2017 VINCENT MANCILLA MD, Ot Z87.891 PERSONAL HISTORY OF NICOTINE DEPENDENCE 09/29/2017 SURESH ANGELES DO Ot V28.89 OTHER SPECIFIED SCREENING 09/29/2017 INES FIELDS, ROCK Negron Ot 256.4 POLYCYSTIC OVARIES 09/29/2017 INES FIELDS, ROCK Negron Ot 278.00 OBESITY, NOS 09/29/2017 INES FIELDS, ROCK Negron Ot 646.83 PREG COMPL NEC-ANTEPART 09/29/2017 ROCK CHACON MD Ot 649.13 OBESITY COMP PREG/CHILDBIRTH/PUERPERIUM, 09/29/2017 Ot 648.83 ABN GLUCOSE-ANTEPARTUM 09/29/2017 Ot 654.23 PREV DELIVERY, ANTEPARTUM COND 09/29/2017 Ot 656.63 EXCESS FET GRTH- ANTEPART 09/29/2017 Ot 657.03 POLYHYDRAMNIOS,ANTEPARTUM CONDITION/COMP 09/29/2017 Ot V72.63 PRE-PROCEDURAL LABORATORY EXAMINATION 09/29/2017 Ot V74.8 SCREEN-BACTERIAL DIS NEC 09/29/2017 SURESH ANGELES DO Ot O24.414 GESTATIONAL DIABETES IN , INSUL 09/29/2017 SURESH ANGELES DO Ot Z3A.36 36 WEEKS GESTATION OF 09/29/2017 SURESH ANGELES DO C Ot O24.414 GESTATIONAL DIABETES IN , INSUL 09/29/2017 ANGELESCarmine GARLAND SURESH C Ot O24.414 GESTATIONAL DIABETES IN , INSUL 09/29/2017 SURESH ANGELES DO Ot V28.89 OTHER SPECIFIED SCREENING 09/29/2017 INES FIELDS, ROCK Negron Ot 256.4 POLYCYSTIC OVARIES 09/29/2017 INES FIELDS, ROCK Negron Ot 278.00 OBESITY, NOS 09/29/2017 INES FIELDS, ROCK Negron Ot 646.83 PREG COMPL NEC-ANTEPART 09/29/2017 INES FIELDS, ROCK Negron Ot 649.13 OBESITY COMP PREG/CHILDBIRTH/PUERPERIUM, 09/29/2017 Ot 648.83 ABN GLUCOSE-ANTEPARTUM 09/29/2017 Ot 654.23 PREV DELIVERY, ANTEPARTUM COND 09/29/2017 Ot 656.63 EXCESS FET GRTH- ANTEPART 09/29/2017 Ot 657.03 POLYHYDRAMNIOS,ANTEPARTUM CONDITION/COMP 09/29/2017 Ot V72.63 PRE-PROCEDURAL LABORATORY EXAMINATION 09/29/2017 Ot V74.8 SCREEN-BACTERIAL DIS NEC 09/29/2017 ANGELESCarmine GARLAND SURESH Charla Ot O24.414 GESTATIONAL DIABETES IN , INSUL 09/29/2017 SURESH ANGELES DO Ot Z3A.36 36 WEEKS GESTATION OF 09/29/2017 SURESH ANGELES DO Ot O24.414 GESTATIONAL DIABETES IN , INSUL 09/29/2017 SURESH ANGELES DO Ot O24.414 GESTATIONAL DIABETES IN , INSUL 10/04/2017 GUILLERMO KAM Ot E66.9 OBESITY, UNSPECIFIED 10/04/2017 GUILLERMO KAM Ot I48.0 PAROXYSMAL ATRIAL FIBRILLATION 10/04/2017 GUILLERMO KAM Ot E66.9 OBESITY, UNSPECIFIED 10/04/2017 GUILLERMO KAM Ot I48.0 PAROXYSMAL ATRIAL FIBRILLATION 10/15/2017 GUILLERMO KAM Ot E66.9 OBESITY, UNSPECIFIED 10/15/2017 GUILLERMO KAM Ot I48.0 PAROXYSMAL ATRIAL FIBRILLATION 11/11/2017 GUILLERMO KAM Ot E66.9 OBESITY, UNSPECIFIED 11/11/2017 AISHWARYA PORTER, GUILLERMO Telly Ot I48.0 PAROXYSMAL ATRIAL FIBRILLATION 12/30/2017 AISHWARYA PORTER, GUILLERMO Telly Ot E66.9 OBESITY, UNSPECIFIED 12/30/2017 AISHWARYA PORTER, GUILLERMO K Ot I48.0 PAROXYSMAL ATRIAL FIBRILLATION 12/31/2017 AISHWARYA PORTER, GUILLERMO K Ot E66.9 OBESITY, UNSPECIFIED 12/31/2017 AISHWARYA PORTER, GUILLERMO K Ot I48.0 PAROXYSMAL ATRIAL FIBRILLATION 01/05/2018 AISHWARYA PORTER, GUILLERMO K Ot E66.9 OBESITY, UNSPECIFIED 01/05/2018 AISHWARYA PORTER, GUILLERMO K Ot I48.0 PAROXYSMAL ATRIAL FIBRILLATION 03/23/2018 SURESH ANGELES DO Ot V28.89 OTHER SPECIFIED SCREENING 03/23/2018 INES FIELDS, ROCK Negron Ot 256.4 POLYCYSTIC OVARIES 03/23/2018 INES FIELDS, ROCK Negron Ot 278.00 OBESITY, NOS 03/23/2018 INES FIELDS, ROCK Negron Ot 646.83 PREG COMPL NEC-ANTEPART 03/23/2018 INES FIELDS, ROCK Negron Ot 649.13 OBESITY COMP PREG/CHILDBIRTH/PUERPERIUM, 03/23/2018 Ot 648.83 ABN GLUCOSE-ANTEPARTUM 03/23/2018 Ot 654.23 PREV DELIVERY, ANTEPARTUM COND 03/23/2018 Ot 656.63 EXCESS FET GRTH- ANTEPART 03/23/2018 Ot 657.03 POLYHYDRAMNIOS,ANTEPARTUM CONDITION/COMP 03/23/2018 Ot V72.63 PRE-PROCEDURAL LABORATORY EXAMINATION 03/23/2018 Ot V74.8 SCREEN-BACTERIAL DIS NEC 03/23/2018 SURESH ANGELES DO Ot O24.414 GESTATIONAL DIABETES IN , INSUL 03/23/2018 SURESH ANGELES DO Ot Z3A.36 36 WEEKS GESTATION OF 03/23/2018 SURESH ANGELES DO Ot O24.414 GESTATIONAL DIABETES IN , INSUL 03/23/2018 SURESH ANGELES DO Ot O24.414 GESTATIONAL DIABETES IN , INSUL 03/23/2018 AISHWARYA PORTER GUILLERMO K Ot E66.9 OBESITY, UNSPECIFIED 03/23/2018 AISHWARYA PORTER, GUILLERMO K Ot I48.0 PAROXYSMAL ATRIAL FIBRILLATION 03/23/2018 GUILLERMO KAM Ot E66.9 OBESITY, UNSPECIFIED 03/23/2018 GUILLERMO KAM Ot I48.0 PAROXYSMAL ATRIAL FIBRILLATION 03/24/2018 LUIS ALFREDO DO, CHANDROUTIE Ot F39 UNSPECIFIED MOOD [AFFECTIVE] DISORDER 03/24/2018 LUIS ALFREDO DO, CHANDROUTIE Ot G47.10 HYPERSOMNIA, UNSPECIFIED 03/24/2018 LUIS ALFREDO DO, CHANDROUTIE Ot I10 ESSENTIAL (PRIMARY) HYPERTENSION 03/24/2018 LUIS ALFREDO DO, CHANDROUTIE Ot R06.83 SNORING 03/24/2018 LUIS ALFREDO DO, CHANDROUTIE Ot F39 UNSPECIFIED MOOD [AFFECTIVE] DISORDER 03/24/2018 LUIS ALFREDO DO, CHANDROUTIE Ot G47.10 HYPERSOMNIA, UNSPECIFIED 03/24/2018 LUIS ALFREDO DO, CHANDROUTIE Ot I10 ESSENTIAL (PRIMARY) HYPERTENSION 03/24/2018 LUIS ALFREDO DO, CHANDROUTIE Ot R06.83 SNORING 04/14/2018 NIKO FIELDS, QUINTEN Ot K21.9 GASTRO-ESOPHAGEAL REFLUX DISEASE WITHOUT 08/31/2018 KATHY JASON Ot D64.9 ANEMIA, UNSPECIFIED 08/31/2018 KATHY JASON Ot E11.9 TYPE 2 DIABETES MELLITUS WITHOUT COMPLIC 08/31/2018 KATHY JASON Ot G43.909 MIGRAINE, UNSP, NOT INTRACTABLE, WITHOUT 08/31/2018 KATHY JASON Ot I48.91 UNSPECIFIED ATRIAL FIBRILLATION 08/31/2018 KATHY JASON Ot N83.202 UNSPECIFIED OVARIAN CYST, LEFT SIDE 08/31/2018 KATHY JASON Ot O20.0 THREATENED 08/31/2018 KATHY JASON Ot O24.911 UNSPECIFIED DIABETES MELLITUS IN PREGNAN 08/31/2018 KATHY JASON Ot O26.891 OTH RELATED CONDITIONS, FIRST 08/31/2018 KATHY JASON Ot O34.81 MATERNAL CARE FOR [...] OBESITY COMP PREG/CHILDBIRTH/PUERPERIUM, 08/31/2018 Ot 648.83 ABN GLUCOSE-ANTEPARTUM 08/31/2018 Ot 654.23 PREV DELIVERY, ANTEPARTUM COND 08/31/2018 Ot 656.63 EXCESS FET GRTH- ANTEPART 08/31/2018 Ot 657.03 POLYHYDRAMNIOS,ANTEPARTUM CONDITION/COMP 08/31/2018 Ot V72.63 PRE-PROCEDURAL LABORATORY EXAMINATION 08/31/2018 Ot V74.8 SCREEN-BACTERIAL DIS NEC 08/31/2018 SURESH ANGELES DO Ot O24.414 GESTATIONAL DIABETES IN , INSUL 08/31/2018 SURESH ANGELES DO Ot Z3A.36 36 WEEKS GESTATION OF 08/31/2018 SURESH ANGELES DO Ot O24.414 GESTATIONAL DIABETES IN , INSUL 08/31/2018 SURESH ANGELES DO Ot O24.414 GESTATIONAL DIABETES IN , INSUL 08/31/2018 GUILLERMO KAM Ot E66.9 OBESITY, UNSPECIFIED 08/31/2018 GUILLERMO KAM Ot I48.0 PAROXYSMAL ATRIAL FIBRILLATION 08/31/2018 GUILLERMO KAM Ot E66.9 OBESITY, UNSPECIFIED 08/31/2018 GUILLERMO KAM Ot I48.0 PAROXYSMAL ATRIAL FIBRILLATION 08/31/2018 NIKO FIELDS, QUINTEN Ot K21.9 GASTRO-ESOPHAGEAL REFLUX DISEASE WITHOUT 09/02/2018 BERNOT, KATHY Ot D64.9 ANEMIA, UNSPECIFIED 09/02/2018 BERNOT, KATHY Ot E11.9 TYPE 2 DIABETES MELLITUS WITHOUT COMPLIC 09/02/2018 BERNOT KATHY Ot G43.909 MIGRAINE, UNSP, NOT INTRACTABLE, WITHOUT 09/02/2018 BERNOT, KATHY Ot I48.91 UNSPECIFIED ATRIAL FIBRILLATION 09/02/2018 BERNOT, KATHY Ot N83.202 UNSPECIFIED OVARIAN CYST, LEFT SIDE 09/02/2018 BERNOT KATHY Ot O20.0 THREATENED 09/02/2018 BERNOT KATHY Ot O24.911 UNSPECIFIED DIABETES MELLITUS IN PREGNAN 09/02/2018 EREN KATHY Ot O26.891 OTH RELATED CONDITIONS, FIRST 09/02/2018 GEOVANNA JASONIS Ot O34.81 MATERNAL CARE FOR OTH ABNLT OF PELVIC OR 09/02/2018 BERNAMAURY KATHY Ot O99.011 ANEMIA COMPLICATING , FIRST TRI 09/02/2018 BERNAMAURY KATHY Ot O99.351 DISEASES OF THE NERVOUS SYS COMP PREGNAN 09/02/2018 BERNAMAURY KATHY Ot O99.411 DISEASES OF THE CIRC SYS COMP , 09/02/2018 EREN KATHY Ot Z3A.11 11 WEEKS GESTATION OF 09/02/2018 GEOVANNA JASONIS Ot Z80.0 FAMILY HISTORY OF MALIGNANT NEOPLASM OF 09/02/2018 BERNOT KATHY Ot Z87.448 PERSONAL HISTORY OF OTHER DISEASES OF UR 09/02/2018 BERNOT KATHY Ot Z87.891 PERSONAL HISTORY OF NICOTINE DEPENDENCE 09/02/2018 BERNAMAURY KATHY Ot Z91.048 OTHER NONMEDICINAL SUBSTANCE ALLERGY STA 09/02/2018 BERNAMAURY KATHY Ot Z98.890 OTHER SPECIFIED POSTPROCEDURAL STATES 09/23/2018 SURESH ANGELES DO Ot V28.89 OTHER SPECIFIED SCREENING 09/23/2018 INES FIELDS, ROCK Negron Ot 256.4 POLYCYSTIC OVARIES 09/23/2018 ROCK CHACON MD Ot 278.00 OBESITY, NOS 09/23/2018 ROCK CHACON MD Ot 646.83 PREG COMPL NEC-ANTEPART 09/23/2018 ROCK CHACON MD Ot 649.13 OBESITY COMP PREG/CHILDBIRTH/PUERPERIUM, 09/23/2018 Ot 648.83 ABN GLUCOSE-ANTEPARTUM 09/23/2018 Ot 654.23 PREV DELIVERY, ANTEPARTUM COND 09/23/2018 Ot 656.63 EXCESS FET GRTH- ANTEPART 09/23/2018 Ot 657.03 POLYHYDRAMNIOS,ANTEPARTUM CONDITION/COMP 09/23/2018 Ot V72.63 PRE-PROCEDURAL LABORATORY EXAMINATION 09/23/2018 Ot V74.8 SCREEN-BACTERIAL DIS NEC 09/23/2018 SURESH ANGELES DO Ot O24.414 GESTATIONAL DIABETES IN , INSUL 09/23/2018 SURSEH ANGELES DO Ot Z3A.36 36 WEEKS GESTATION [...] OBESITY COMP PREG/CHILDBIRTH/PUERPERIUM, 09/23/2018 Ot 648.83 ABN GLUCOSE-ANTEPARTUM 09/23/2018 Ot 654.23 PREV DELIVERY, ANTEPARTUM COND 09/23/2018 Ot 656.63 EXCESS FET GRTH- ANTEPART 09/23/2018 Ot 657.03 POLYHYDRAMNIOS,ANTEPARTUM CONDITION/COMP 09/23/2018 Ot V72.63 PRE-PROCEDURAL LABORATORY EXAMINATION 09/23/2018 Ot V74.8 SCREEN-BACTERIAL DIS NEC 09/23/2018 SURESH ANGELES DO Ot O24.414 GESTATIONAL DIABETES IN , INSUL 09/23/2018 SURESH ANGELES DO Ot Z3A.36 36 WEEKS GESTATION OF 09/23/2018 SURESH ANGELES DO Ot O24.414 GESTATIONAL DIABETES IN , INSUL 09/23/2018 SURESH ANGELES DO Ot O24.414 GESTATIONAL DIABETES IN , INSUL 09/23/2018 GUILLERMO KAM Ot E66.9 OBESITY, UNSPECIFIED 09/23/2018 GUILLERMO AKM Ot I48.0 PAROXYSMAL ATRIAL FIBRILLATION 09/23/2018 GUILLERMO KAM Ot E66.9 OBESITY, UNSPECIFIED 09/23/2018 GUILLERMO KAM Ot I48.0 PAROXYSMAL ATRIAL FIBRILLATION 09/23/2018 NIKO FIELDS, QUINTEN Ot K21.9 GASTRO-ESOPHAGEAL REFLUX DISEASE WITHOUT 10/20/2018 QUINTEN POPE MD Ot K21.9 GASTRO-ESOPHAGEAL REFLUX DISEASE WITHOUT 11/02/2018 SURESH ANGELES DO Ot Z36.89 ENCOUNTER FOR OTHER SPECIFIED 11/02/2018 SURESH ANGELES DO Ot Z3A.20 20 WEEKS GESTATION OF 11/18/2018 SURESH ANGELES DO Ot Z36.89 ENCOUNTER FOR OTHER SPECIFIED 11/18/2018 SURESH ANGELES DO Ot Z3A.20 20 WEEKS GESTATION OF 11/30/2018 SURESH ANGELES DO Ot Z36.89 ENCOUNTER FOR OTHER SPECIFIED 11/30/2018 ANGELES DOSURESH Ot Z3A.20 20 WEEKS GESTATION OF 11/30/2018 SURESH ANGELES DO Ot O24.410 GESTATIONAL DIABETES MELLITUS IN PREGNAN 11/30/2018 SURESH ANGELES DO Ot Z3A.25 25 WEEKS GESTATION OF 12/13/2018 SURESH ANGELES DO Ot O99.89 OTH DISEASES AND CONDITIONS COMPL PREG/C 12/13/2018 SURESH ANGELES DO Ot R32 UNSPECIFIED URINARY INCONTINENCE 12/13/2018 ANGELESSURESH Lou DO Ot Z3A.26 26 WEEKS GESTATION OF 12/14/2018 SURESH ANGELES DO Ot O24.410 GESTATIONAL DIABETES MELLITUS IN PREGNAN 12/14/2018 SURESH ANGELES DO Ot Z3A.25 25 WEEKS GESTATION OF 01/03/2019 SUNITAS MARY KAY GARLAND Ot O34.211 MATERN CARE FOR LOW TRANSVERSE SCAR FROM 01/03/2019 SUNITAS DOJOSERY Lisa Ot O62.9 ABNORMALITY OF FORCES OF LABOR, UNSPECIF 01/03/2019 SUNITAS DOMARY KAY Ot Z3A.28 28 WEEKS GESTATION OF 01/06/2019 SURESH ANGELES DO Ot O99.89 OTH DISEASES AND CONDITIONS COMPL PREG/C 01/06/2019 SURESH ANGELES DO Ot R32 UNSPECIFIED URINARY INCONTINENCE 01/06/2019 ANGELESSURESH Lou DO Ot Z3A.26 26 WEEKS GESTATION OF 01/09/2019 SUNITAS DOMARY KAY Ot O34.211 MATERN CARE FOR LOW TRANSVERSE SCAR FROM 01/09/2019 SUNITAS DO MARY KAY E Ot O62.9 ABNORMALITY OF FORCES OF LABOR, UNSPECIF 01/09/2019 SUNITAS DO MARY KAY E Ot Z3A.28 28 WEEKS GESTATION OF 01/18/2019 SURESH ANGELES DO Ot O24.410 GESTATIONAL DIABETES MELLITUS IN PREGNAN 01/18/2019 SURESH ANGELES DO Ot O34.219 MATERNAL CARE FOR UNSP TYPE SCAR FROM MT 01/18/2019 SURESH ANGELES DO Ot Z3A.32 32 WEEKS GESTATION OF 01/21/2019 SUNITAS DO MARY KAY E Ot O34.211 MATERN CARE FOR LOW TRANSVERSE SCAR FROM 01/21/2019 SUNITAS DO MARY KAY E Ot O62.9 ABNORMALITY OF FORCES OF LABOR, UNSPECIF 01/21/2019 SUNITAS DO MARY KAY E Ot Z3A.28 28 WEEKS GESTATION OF 01/22/2019 BRIANA FIELDS, FANNIE Dee Ot O47.9 FALSE LABOR, UNSPECIFIED 01/24/2019 SURESH ANGELES DO Ot O24.410 GESTATIONAL DIABETES MELLITUS IN PREGNAN 01/24/2019 SURESH ANGELES DO Ot O34.219 MATERNAL CARE FOR UNSP TYPE SCAR FROM MT 01/24/2019 ANGELES SURESH Charla Ot Z3A.32 32 WEEKS GESTATION OF 01/26/2019 FANNIE WARREN MD Ot O47.9 FALSE LABOR, UNSPECIFIED 01/26/2019 FANNIE WARREN MD Ot O47.9 FALSE LABOR, UNSPECIFIED 02/01/2019 FENECH DOANGELA S Ot O13.3 GESTATIONAL HTN W/O SIGNIFICANT PROTEINU 02/01[facility]2019 [facility].33 33 WEEKS GE[facility]ATION OF 02/01/2019 ANGELES SURESH GARLAND Ot O24.410 GESTATIONAL DIABETES MELLITUS IN PREGNAN 02/01/2019 SURESH ANGELES DO Ot O34.219 MATERNAL CARE FOR UNSP TYPE SCAR FROM MT 02/01/2019 BRIDGETTE GARLANDSURESH Ot Z3A.32 32 WEEKS GESTATION OF 02/03/2019 [facility] Ot O13.3 GESTATIONAL HTN W/O SIGNIFICANT PROTEINU 02/03/2019 [facility] Z3A.33 33 WEEKS GESTATION OF 02/13/2019 ANGELESSURESH Lou DO Ot O24.414 GESTATIONAL DIABETES IN , INSUL 02/13/2019 GUILLERMO KAM Ot E66.9 OBESITY, UNSPECIFIED 02/13/2019 GUILLERMO KAM Ot I48.0 PAROXYSMAL ATRIAL FIBRILLATION 02/16/2019 SURESH ANGELES DO Ot V28.89 OTHER SPECIFIED SCREENING 02/16/2019 INES FIELDS, ROCK Negron Ot 256.4 POLYCYSTIC OVARIES 02/16/2019 INES FIELDS, ROCK Negron Ot 278.00 OBESITY, NOS 02/16/2019 INES FIELDS, ROCK Negron Ot 646.83 PREG COMPL NEC-ANTEPART 02/16/2019 ROCK CHACON MD Ot 649.13 OBESITY COMP PREG/CHILDBIRTH/PUERPERIUM, 02/16/2019 Ot 648.83 ABN GLUCOSE-ANTEPARTUM 02/16/2019 Ot 654.23 PREV DELIVERY, ANTEPARTUM COND 02/16/2019 Ot 656.63 EXCESS FET GRTH- ANTEPART 02/16/2019 Ot 657.03 POLYHYDRAMNIOS,ANTEPARTUM CONDITION/COMP 02/16/2019 Ot V72.63 PRE-PROCEDURAL LABORATORY EXAMINATION 02/16/2019 Ot V74.8 SCREEN-BACTERIAL DIS NEC 02/16/2019 SURESH ANGELES DO Ot O24.414 GESTATIONAL DIABETES IN , INSUL 02/16/2019 SURESH ANGELES DO Ot Z3A.36 36 WEEKS GESTATION OF 02/16/2019 SURESH ANGELES DO Ot O24.414 GESTATIONAL DIABETES IN , INSUL 02/16/2019 SURESH ANGELES DO Ot O24.414 GESTATIONAL DIABETES IN , INSUL 02/16/2019 GUILLERMO KAM Ot E66.9 OBESITY, UNSPECIFIED 02/16/2019 GUILLERMO KAM Ot I48.0 PAROXYSMAL ATRIAL FIBRILLATION 02/16/2019 GUILLERMO KAM Ot E66.9 OBESITY, UNSPECIFIED 02/16/2019 GUILLERMO KAM Ot I48.0 PAROXYSMAL ATRIAL FIBRILLATION 02/16/2019 NIKO FIELDS, QUINTEN Ot K21.9 GASTRO-ESOPHAGEAL REFLUX DISEASE WITHOUT 02/23/2019 SURESH ANGELES DO Ot O24.419 GESTATIONAL DIABETES MELLITUS IN PREGNAN 02/23/2019 SURESH ANGELES DO Ot O34.219 MATERNAL CARE FOR UNSP TYPE SCAR FROM MT 02/23/2019 SURESH ANGELES DO Ot Z3A.35 35 WEEKS GESTATION OF 02/24/2019 SURESH ANGELES DO Ot D50.9 IRON DEFICIENCY ANEMIA, UNSPECIFIED 02/24/2019 SURESH ANGELES DO Ot D62 ACUTE POSTHEMORRHAGIC ANEMIA 02/24/2019 SURESH ANGELES DO Ot E86.0 DEHYDRATION 02/24/2019 SURESH ANGELES DO Ot O13.4 GESTATNL HTN WITHOUT SIGNIFICANT PROTEIN 02/24/2019 SURESH ANGELES DO Ot O21.2 LATE VOMITING OF 02/24/2019 SURESH ANGELES DO Ot O24.425 GESTATNL DIAB IN CHLDBRTH, CTRL BY ORAL 02/24/2019 SURESH ANGELES DO Ot O34.211 MATERN CARE FOR LOW TRANSVERSE SCAR FROM 02/24/2019 SURESH ANGELES DO Ot O60.23X0 TERM DELIVERY W LABOR, THIRD TRI 02/24/2019 SURESH ANGELES DO Ot O69.81X0 LABOR AND DEL COMP BY CORD AROUND NECK, 02/24/2019 SURESH ANGELES DO Ot O90.81 ANEMIA OF THE PUERPERIUM 02/24/2019 SURESH ANGELES DO Ot O99.013 ANEMIA COMPLICATING , THIRD TRI 02/24/2019 SURESH ANGELES DO Ot O99.284 ENDOCRINE, NUTRITIONAL AND METABOLIC DIS 02/24/2019 SURESH ANGELES DO Ot Z23 ENCOUNTER FOR IMMUNIZATION 02/24/2019 SURESH ANGELES DO Ot Z37.0 SINGLE LIVE 02/24/2019 SURESH ANGELES DO Ot Z3A.37 37 WEEKS GESTATION OF 03/01/2019 SURESH ANGELES DO Ot D50.9 IRON DEFICIENCY ANEMIA, UNSPECIFIED 03/01/2019 SURESH ANGELES DO Ot D62 ACUTE POSTHEMORRHAGIC ANEMIA 03/01/2019 SURESH ANGELES DO Ot E86.0 DEHYDRATION 03/01/2019 SURESH ANGELES DO Ot O13.4 GESTATNL HTN WITHOUT SIGNIFICANT PROTEIN 03/01/2019 SURESH ANGELES DO Ot O21.2 LATE VOMITING OF 03/01/2019 SURESH ANGELES DO Ot O24.425 GESTATNL DIAB IN CHLDBRTH, CTRL BY ORAL 03/01/2019 SURESH ANGELES DO Ot O34.211 MATERN CARE FOR LOW TRANSVERSE SCAR FROM 03/01/2019 SURESH ANGELES DO Ot O60.23X0 TERM DELIVERY W LABOR, THIRD TRI 03/01/2019 SURESH ANGELES DO Ot O69.81X0 LABOR AND DEL COMP BY CORD AROUND NECK, 03/01/2019 SURESH ANGELES DO Ot O90.81 ANEMIA OF THE PUERPERIUM 03/01/2019 SURESH ANGELES DO Ot O99.013 ANEMIA COMPLICATING , THIRD TRI 03/01/2019 SURESH ANGELES DO Ot O99.284 ENDOCRINE, NUTRITIONAL AND METABOLIC DIS 03/01/2019 SURESH ANGELES DO Ot Z23 ENCOUNTER FOR IMMUNIZATION 03/01/2019 SURESH ANGELES DO Ot Z37.0 SINGLE LIVE 03/01/2019 SURESH ANGELES DO Ot Z3A.37 37 WEEKS GESTATION OF 03/01/2019 SURESH ANGELES DO Ot D50.9 IRON DEFICIENCY ANEMIA, UNSPECIFIED 03/01/2019 SURESH ANGELES DO Ot D62 ACUTE POSTHEMORRHAGIC ANEMIA 03/01/2019 SURESH ANGELES DO Ot E86.0 DEHYDRATION 03/01/2019 SURESH ANGELES DO Ot O13.4 GESTATNL HTN WITHOUT SIGNIFICANT PROTEIN 03/01/2019 SURESH ANGELES DO Ot O21.2 LATE VOMITING OF 03/01/2019 SURESH ANGELES DO Ot O24.425 GESTATNL DIAB IN CHLDBRTH, CTRL BY ORAL 03/01/2019 SURESH ANGLEES DO Ot O34.211 MATERN CARE FOR LOW TRANSVERSE SCAR FROM 03/01/2019 SURESH ANGELES DO Ot O60.23X0 TERM DELIVERY W LABOR, THIRD TRI 03/01/2019 SURESH ANGELES DO Ot O69.81X0 LABOR AND DEL COMP BY CORD AROUND NECK, 03/01/2019 SURESH ANGELES DO Ot O90.81 ANEMIA OF THE PUERPERIUM 03/01/2019 SURESH ANGELES DO Ot O99.013 ANEMIA COMPLICATING , THIRD TRI 03/01/2019 SURESH ANGELES DO Ot O99.284 ENDOCRINE, NUTRITIONAL AND METABOLIC DIS 03/01/2019 SURESH ANGELES DO Ot Z23 ENCOUNTER FOR IMMUNIZATION 03/01/2019 SURESH ANGELES DO Ot Z37.0 SINGLE LIVE 03/01/2019 SURESH ANGELES DO, Ot Z3A.37 37 WEEKS GESTATION OF Procedures Code Description [place] [address] CMP 01/06/2013 73667 LIPID PANEL 01/06/2013 08484 TSH 01/06/2013 43084 CBC 01/06/2013 36154 XRAY CHEST 2 VIEW 06/13/2013 26432 ROUTINE VENIPUNCTURE 06/14/2013 43617 OXIMETRY 06/14/2013 25952 CBC 06/14/2013 37479 CMP 06/14/2013 [id number] GFR CALC (RESULT ONLY) 06/14/2013 26077 MYCOPLASMA ANTIBODY 06/15/2013 61399 UA LONG DIP 09/09/2013 72.79 VACUUM EXTRACT DEL NEC 11/27/2014 74.1 LOW CERVICAL 11/27/2014 [id number] EXTRACTION OF POC, LOW CERVICAL, OPEN AP 03/02/2017 [id number] EXTRACTION OF PRODUCTS OF CONCEPTION, LO 02/23/2019 Results Test Result Range Complete blood count [...] Automated erythrocyte mean corpuscular hemoglobin concentration measurement (mass/volume) 33 g/dL 32-36 Automated erythrocyte distribution width ratio 15.6 % 10.0- 14.5 Automated blood platelet count (count/volume) 228 10*3/uL [...] Blood monocytes automated count (number/volume) 0.4 10*3 0.0- 1.0 Automated eosinophil count 0.2 10*3/uL 0.0-0.3 Automated [...] Serum or plasma aspartate aminotransferase measurement (enzymatic activity/volume) 10 U/L 5-34 Serum or plasma alanine aminotransferase measurement (enzymatic activity/volume) 9 U/L 0-55 Serum or plasma protein measurement (mass/volume) 6.0 g/dL 6.4-8.2 Serum or plasma albumin measurement (mass/volume) 3.5 g/dL 3.2-4.5 Magnesium - 08/26/16 09:25 Magnesium 1.8 mg/dL 1.8-2.4 Serum or plasma thyroxine (T4) free measurement (mass/volume) - 08/26/16 09:25 Serum or plasma thyroxine (T4) free measurement (mass/volume) 1.06 ng/dL 0.70-1.48 Serum or plasma thyrotropin measurement by detection limit <=0.05 miu/l (units/volume) - 08/26/16 09:25 Serum or plasma thyrotropin measurement by detection limit <=0.05 miu/l (units/volume) 0.27 u[iU]/mL 0.35-4.94 Complete blood count (CBC) [...] Automated erythrocyte mean corpuscular hemoglobin concentration measurement (mass/volume) 33 g/dL 32-36 Automated erythrocyte distribution width ratio 14.4 % 10.0- 14.5 Automated blood platelet count (count/volume) 255 10*3/uL [...] Blood monocytes automated count (number/volume) 0.4 10*3 0.0- 1.0 Automated eosinophil count 0.1 10*3/uL 0.0-0.3 Automated blood basophil count (count/volume) 0.0 10*3/uL 0.0-0.1 ABO+Rh group - 10/02/16 13:25 ABO+Rh group AP NRG Serum or plasma choriogonadotropin measurement (units/volume) - 10/02/16 13:25 Serum or plasma choriogonadotropin measurement (units/volume) 55167 m[iU]/mL <5 Complete urinalysis with reflex to culture - 10/02/16 13:38 Urine color determination YELLOW NRG Urine clarity determination SLIGHTLY CLOUDY NRG Urine pH measurement by test strip 5 5-9 Specific gravity of urine by test strip 1.030 1.016-1.022 Urine protein assay by test strip, semi-quantitative [...] sediment leukocyte count by microscopy (number/high power field) [HPF] NRG Bacteria detection in urine sediment [...] gravity of urine by test strip 1.025 1.016-1.022 Urine protein assay by test strip, semi-quantitative [...] sediment leukocyte count by microscopy (number/high power field) NONE NRG Bacteria detection in urine sediment [...] gravity of urine by test strip 1.030 1.016-1.022 Urine protein assay by test strip, semi-quantitative [...] sediment leukocyte count by microscopy (number/high power field) [HPF] NRG Bacteria detection in urine sediment [...] gravity of urine by test strip 1.020 1.016-1.022 Urine protein assay by test strip, semi-quantitative [...] sediment leukocyte count by microscopy (number/high power field) RARE NRG Bacteria detection in urine sediment [...] gravity of urine by test strip 1.030 1.016-1.022 Urine protein assay by test strip, semi-quantitative [...] sediment leukocyte count by microscopy (number/high power field) [HPF] NRG Bacteria detection in urine sediment [...] 6-12 Urine creatinine measurement (mass/volume) 241 mg/dL 30-125 Urine protein/creatinine mass ratio 0.08 NRG Bacterial [...] Automated erythrocyte mean corpuscular hemoglobin concentration measurement (mass/volume) 31 g/dL 32-36 Automated erythrocyte distribution width ratio 16.1 % 10.0- 14.5 Automated blood platelet count (count/volume) 280 10*3/uL [...] Serum or plasma aspartate aminotransferase measurement (enzymatic activity/volume) 7 U/L 5-34 Serum or plasma alanine aminotransferase measurement (enzymatic activity/volume) < U/L 0-55 Serum or plasma protein measurement (mass/volume) 6.3 g/dL 6.4-8.2 Serum or plasma albumin measurement (mass/volume) 3.1 g/dL 3.2-4.5 Serum or plasma uric acid measurement (mass/volume) - 02/17/17 15:40 Serum or plasma uric acid measurement (mass/volume) 5.5 mg/dL 2.6-7.2 Lactate dehydrogenase 1 [enzymatic activity/volume] in serum or plasma - 02/17/17 15:40 Lactate dehydrogenase 1 [enzymatic activity/volume] in serum or plasma 141 U/L 125-220 Capillary blood glucose measurement by glucometer (mass/volume) - 03/02/17 08:58 Capillary blood glucose measurement by glucometer (mass/volume) [...] Automated erythrocyte mean corpuscular hemoglobin concentration measurement (mass/volume) 32 g/dL 32-36 Automated erythrocyte distribution width ratio 17.4 % 10.0- 14.5 Automated blood platelet count (count/volume) 298 10*3/uL [...] Blood monocytes automated count (number/volume) 0.4 10*3 0.0- 1.0 Automated eosinophil count 0.1 10*3/uL 0.0-0.3 Automated blood basophil count (count/volume) 0.0 10*3/uL 0.0-0.1 Blood type T Indirect antibody screen panel - 03/02/17 09:10 ABO+Rh group AP NRG Transfusion band number [id number] NRG Blood group antibody screen NEGATIVE NRG Complete urinalysis with reflex to culture - 03/02/17 10:00 Urine color determination BROWN NRG Urine clarity determination VERY CLOUDY NRG Urine pH measurement by test strip 5 5-9 Specific gravity of urine by test strip 1.030 1.016-1.022 Urine protein assay by test strip, semi-quantitative [...] sediment leukocyte count by microscopy (number/high power field) [HPF] NRG Bacteria detection in urine sediment [...] resistant Staphylococcus aureus (MRSA) screening culture - 03/02/17 13:00 Methicillin resistant Staphylococcus aureus (MRSA) screening culture NEG NRG Capillary blood glucose measurement by glucometer (mass/volume) - 03/03/17 06:09 Capillary blood glucose measurement by glucometer (mass/volume) [...] Automated erythrocyte mean corpuscular hemoglobin concentration measurement (mass/volume) 32 g/dL 32-36 Automated erythrocyte distribution width ratio 16.9 % 10.0- 14.5 Automated blood platelet count (count/volume) 286 10*3/uL [...] Blood monocytes automated count (number/volume) 0.7 10*3 0.0- 1.0 Automated eosinophil count 0.0 10*3/uL 0.0-0.3 Automated blood basophil count (count/volume) 0.0 10*3/uL 0.0-0.1 Capillary blood glucose measurement by glucometer (mass/volume) - 03/04/17 06:07 Capillary blood glucose measurement by glucometer (mass/volume) 85 mg/dL 70-110 Capillary blood glucose measurement by glucometer (mass/volume) - 03/05/17 06:30 Capillary blood glucose measurement by glucometer (mass/volume) [...] Automated erythrocyte mean corpuscular hemoglobin concentration measurement (mass/volume) 32 g/dL 32-36 Automated erythrocyte distribution width ratio 17.3 % 10.0- 14.5 Automated blood platelet count (count/volume) 320 10*3/uL [...] Blood monocytes automated count (number/volume) 0.5 10*3 0.0- 1.0 Automated eosinophil count 0.2 10*3/uL 0.0-0.3 Automated [...] measurement in platelet poor plasma (mass/volume) - 04/21/17 10:03 Fibrin D-dimer FEU measurement in platelet [...] Serum or plasma aspartate aminotransferase measurement (enzymatic activity/volume) 12 U/L 5-34 Serum or plasma alanine aminotransferase measurement (enzymatic activity/volume) 16 U/L 0-55 Serum or plasma protein measurement (mass/volume) 6.8 g/dL 6.4-8.2 Serum or plasma albumin measurement (mass/volume) 3.9 g/dL 3.2-4.5 Magnesium - 04/21/17 10:03 Magnesium 2.1 mg/dL 1.8-2.4 Serum or plasma troponin i.cardiac measurement (mass/volume) - 04/21/17 10:03 Serum or plasma troponin i.cardiac measurement (mass/volume) < ng/mL <0.30 Myoglobin, serum - 04/21/17 10:03 Myoglobin, serum 19.8 ng/mL 10.0-92.0 Serum or plasma amylase measurement (enzymatic activity/volume) - 04/21/17 10:03 Serum or plasma amylase measurement (enzymatic activity/volume) 44 U/L 25-125 Lipase - 04/21/17 10:03 Lipase 12 U/L 8-78 Complete urinalysis with reflex to culture - 08/31/18 09:50 Urine color determination YELLOW NRG Urine clarity determination CLEAR NRG Urine pH measurement by test strip 5 5-9 Specific gravity of urine by test strip 1.025 1.016-1.022 Urine protein assay by test strip, semi-quantitative [...] sediment leukocyte count by microscopy (number/high power field) [HPF] NRG Bacteria detection in urine sediment [...] culture SEE REPORT NRG COLONY COUNT . NRG Complete blood count (CBC) with automated white [...] Automated erythrocyte mean corpuscular hemoglobin concentration measurement (mass/volume) 32 g/dL 32-36 Automated erythrocyte distribution width ratio 15.2 % 10.0- 14.5 Automated blood platelet count (count/volume) 266 10*3/uL [...] Blood monocytes automated count (number/volume) 0.4 10*3 0.0- 1.0 Automated eosinophil count 0.3 10*3/uL 0.0-0.3 Automated [...] 09:56 Serum or plasma choriogonadotropin measurement (units/volume) 615594 m[iU]/mL <5 Complete urinalysis with reflex to culture - 01/02/19 23:59 Urine color determination YELLOW NRG Urine clarity determination CLEAR NRG Urine pH measurement by test strip 5 5-9 Specific gravity of urine by test strip 1.030 1.016-1.022 Urine protein assay by test strip, semi-quantitative 1+ NEGATIVE Urine glucose detection by automated test strip NEGATIVE NEGATIVE Erythrocytes detection in urine sediment by light microscopy NEGATIVE NEGATIVE Urine ketones detection by automated test strip 1+ NEGATIVE Urine nitrite detection by test strip NEGATIVE NEGATIVE Urine total bilirubin detection by test strip NEGATIVE NEGATIVE Urine urobilinogen measurement by automated test strip (mass/volume) 4 mg/dL NORMAL Urine leukocyte esterase detection by dipstick 1+ NEGATIVE Automated urine sediment erythrocyte count by microscopy (number/high power field) NONE NRG Automated urine sediment leukocyte count by microscopy (number/high power field) [HPF] NRG Bacteria detection in urine sediment by light microscopy TRACE NRG Squamous epithelial cells detection in urine sediment by light microscopy 5-10 NRG Crystals detection in urine sediment by light microscopy PRESENT NRG Casts detection in urine sediment by light microscopy NONE NRG Mucus detection in urine sediment by light microscopy LARGE NRG Complete urinalysis with reflex to culture NO NRG Calcium oxalate crystals detection in urine sediment by light microscopy LARGE NRG Complete urinalysis with reflex to culture - 01/22/19 16:55 Urine color determination LAURY NRG Urine clarity determination VERY CLOUDY NRG Urine pH measurement by test strip 5 5-9 Specific gravity of urine by test strip 1.025 1.016-1.022 Urine protein assay by test strip, semi-quantitative 2+ NEGATIVE Urine glucose detection by automated test strip NEGATIVE NEGATIVE Erythrocytes detection in urine sediment by light microscopy NEGATIVE NEGATIVE Urine ketones detection by automated test strip 4+ NEGATIVE Urine nitrite detection by test strip NEGATIVE NEGATIVE Urine total bilirubin detection by test strip 1+ NEGATIVE Urine urobilinogen measurement by automated test strip (mass/volume) 1 mg/dL NORMAL Urine leukocyte esterase detection by dipstick 1+ NEGATIVE Automated urine sediment erythrocyte count by microscopy (number/high power field) NONE NRG Automated urine sediment leukocyte count by microscopy (number/high power field) [HPF] NRG Bacteria detection in urine sediment by light microscopy MODERATE NRG Squamous epithelial cells detection in urine sediment by light microscopy 10-25 NRG Crystals detection in urine sediment by light microscopy NONE NRG Casts detection in urine sediment by light microscopy NONE NRG Mucus detection in urine sediment by light microscopy NEGATIVE NRG Complete urinalysis with reflex to culture CULTURE PENDING NRG Complete urinalysis with reflex to culture - 01/22/19 17:35 Urine color determination LAURY NRG Urine clarity determination SLIGHTLY CLOUDY NRG Urine pH measurement by test strip 5 5-9 Specific gravity of urine by test strip 1.030 1.016-1.022 Urine protein assay by test strip, semi-quantitative 2+ NEGATIVE Urine glucose detection by automated test strip NEGATIVE NEGATIVE Erythrocytes detection in urine sediment by light microscopy NEGATIVE NEGATIVE Urine ketones detection by automated test strip 4+ NEGATIVE Urine nitrite detection by test strip NEGATIVE NEGATIVE Urine total bilirubin detection by test strip 1+ NEGATIVE Urine urobilinogen measurement by automated test strip (mass/volume) 1 mg/dL NORMAL Urine leukocyte esterase detection by dipstick 1+ NEGATIVE Automated urine sediment erythrocyte count by microscopy (number/high power field) NONE NRG Automated urine sediment leukocyte count by microscopy (number/high power field) RARE NRG Bacteria detection in urine sediment by light microscopy NEGATIVE NRG Squamous epithelial cells detection in urine sediment by light microscopy 0-2 NRG Crystals detection in urine sediment by light microscopy NONE NRG Casts detection in urine sediment by light microscopy NONE NRG Mucus detection in urine sediment by light microscopy MODERATE NRG Complete urinalysis with reflex to culture CULTURE PENDING NRG Complete blood count (CBC) with automated white blood cell (WBC) differential - 01/22/19 17:35 Blood leukocytes automated count (number/volume) 11.7 10*3/uL 4.3-11.0 Blood erythrocytes automated count (number/volume) 4.06 10*6/uL 4.35-5.85 Venous blood hemoglobin measurement (mass/volume) 10.1 g/dL 11.5-16.0 Blood hematocrit (volume fraction) 32 % 35-52 Automated erythrocyte mean corpuscular volume 78 [foz_us] 80-99 Automated erythrocyte mean corpuscular hemoglobin (mass per erythrocyte) 25 pg 25-34 Automated erythrocyte mean corpuscular hemoglobin concentration measurement (mass/volume) 32 g/dL 32-36 Automated erythrocyte distribution width ratio 15.7 % 10.0- 14.5 Automated blood platelet count (count/volume) 300 10*3/uL 130-400 Automated blood platelet mean volume measurement 10.6 [foz_us] 7.4-10.4 Automated blood neutrophils/100 leukocytes 77 % 42-75 Automated blood lymphocytes/100 leukocytes 16 % 12-44 Blood monocytes/100 leukocytes 5 % 0-12 Automated blood eosinophils/100 leukocytes 1 % 0-10 Automated blood basophils/100 leukocytes 0 % 0-10 Blood neutrophils automated count (number/volume) 9.1 10*3 1.8-7.8 Blood lymphocytes automated count (number/volume) 1.9 10*3 1.0-4.0 Blood monocytes automated count (number/volume) 0.6 10*3 0.0- 1.0 Automated eosinophil count 0.2 10*3/uL 0.0-0.3 Automated blood basophil count (count/volume) 0.0 10*3/uL 0.0-0.1 Comprehensive metabolic panel - 01/22/19 17:35 Serum or plasma sodium measurement (moles/volume) 141 mmol/L 135-145 Serum or plasma potassium measurement (moles/volume) 4.0 mmol/L 3.6-5.0 Serum or plasma chloride measurement (moles/volume) 106 mmol/L 98-107 Carbon dioxide 20 mmol/L 21-32 Serum or plasma anion gap determination (moles/volume) 15 mmol/L 5-14 Serum or plasma urea nitrogen measurement (mass/volume) 6 mg/dL 7-18 Serum or plasma creatinine measurement (mass/volume) 0.53 mg/dL 0.60-1.30 Serum or plasma urea nitrogen/creatinine mass ratio 11 NRG Serum or plasma creatinine measurement with calculation of estimated glomerular filtration rate > NRG Serum or plasma glucose measurement (mass/volume) 79 mg/dL 70-105 Serum or plasma calcium measurement (mass/volume) 9.4 mg/dL 8.5-10.1 Serum or plasma total bilirubin measurement (mass/volume) 0.5 mg/dL 0.1-1.0 Serum or plasma alkaline phosphatase measurement (enzymatic activity/volume) 98 U/L 40-136 Serum or plasma aspartate aminotransferase measurement (enzymatic activity/volume) 7 U/L 5-34 Serum or plasma alanine aminotransferase measurement (enzymatic activity/volume) 6 U/L 0-55 Serum or plasma protein measurement (mass/volume) 6.6 g/dL 6.4-8.2 Serum or plasma albumin measurement (mass/volume) 3.5 g/dL 3.2-4.5 CALCIUM CORRECTED 9.8 mg/dL 8.5-10.1 Microscopic examination by wet preparation - 01/22/19 17:35 WET PREP RESULTS P KRAFT NR Bacterial urine culture - 01/22/19 17:35 Bacterial urine culture SEE REPORT NRG COLONY COUNT . [facility] Complete urinalysis with reflex to culture - 02/13/19 17:42 Urine color determination YELLOW NRG Urine clarity determination SLIGHTLY CLOUDY NRG Urine pH measurement by test strip 5 5-9 Specific gravity of urine by test strip 1.030 1.016-1.022 Urine protein assay by test strip, semi-quantitative 1+ NEGATIVE Urine glucose detection by automated test strip NEGATIVE NEGATIVE Erythrocytes detection in urine sediment by light microscopy NEGATIVE NEGATIVE Urine ketones detection by automated test strip 3+ NEGATIVE Urine nitrite detection by test strip NEGATIVE NEGATIVE Urine total bilirubin detection by test strip NEGATIVE NEGATIVE Urine urobilinogen measurement by automated test strip (mass/volume) 1 mg/dL NORMAL Urine leukocyte esterase detection by dipstick 1+ NEGATIVE Automated urine sediment erythrocyte count by microscopy (number/high power field) NONE NRG Automated urine sediment leukocyte count by microscopy (number/high power field) RARE NRG Bacteria detection in urine sediment by light microscopy MODERATE NRG Squamous epithelial cells detection in urine sediment by light microscopy 2-5 NRG Crystals detection in urine sediment by light microscopy PRESENT NRG Casts detection in urine sediment by light microscopy NONE NRG Mucus detection in urine sediment by light microscopy NEGATIVE NRG Complete urinalysis with reflex to culture NO NRG Calcium oxalate crystals detection in urine sediment by light microscopy LARGE NRG Complete blood count (CBC) with automated white blood cell (WBC) differential - 02/13/19 17:48 Blood leukocytes automated count (number/volume) 10.5 10*3/uL 4.3-11.0 Blood erythrocytes automated count (number/volume) 4.49 10*6/uL 4.35-5.85 Venous blood hemoglobin measurement (mass/volume) 10.8 g/dL 11.5-16.0 Blood hematocrit (volume fraction) 33 % 35-52 Automated erythrocyte mean corpuscular volume 74 [foz_us] 80-99 Automated erythrocyte mean corpuscular hemoglobin (mass per erythrocyte) 24 pg 25-34 Automated erythrocyte mean corpuscular hemoglobin concentration measurement (mass/volume) 33 g/dL 32-36 Automated erythrocyte distribution width ratio 16.6 % 10.0- 14.5 Automated blood platelet count (count/volume) 373 10*3/uL 130-400 Automated blood platelet mean volume measurement 10.3 [foz_us] 7.4-10.4 Automated blood neutrophils/100 leukocytes 73 % 42-75 Automated blood lymphocytes/100 leukocytes 19 % 12-44 Blood monocytes/100 leukocytes 6 % 0-12 Automated blood eosinophils/100 leukocytes 1 % 0-10 Automated blood basophils/100 leukocytes 0 % 0-10 Blood neutrophils automated count (number/volume) 7.7 10*3 1.8-7.8 Blood lymphocytes automated count (number/volume) 2.0 10*3 1.0-4.0 Blood monocytes automated count (number/volume) 0.7 10*3 0.0- 1.0 Automated eosinophil count 0.1 10*3/uL 0.0-0.3 Automated blood basophil count (count/volume) 0.0 10*3/uL 0.0-0.1 PT panel in platelet poor plasma by coagulation assay - 02/13/19 17:48 Prothrombin time (PT) in platelet poor plasma by coagulation assay 12.8 s 12.2-14.7 INR in platelet poor plasma or blood by coagulation assay 0.9 0.8-1.4 Activated partial thromboplastin time (aPTT) in platelet poor plasma bycoagulation assay - 02/13/19 17:48 Activated partial thromboplastin time (aPTT) in platelet poor plasma bycoagulation assay 29 s 24-35 Comprehensive metabolic panel - 02/13/19 17:48 Serum or plasma sodium measurement (moles/volume) 136 mmol/L 135-145 Serum or plasma potassium measurement (moles/volume) 4.2 mmol/L 3.6-5.0 Serum or plasma chloride measurement (moles/volume) 105 mmol/L 98-107 Carbon dioxide 18 mmol/L 21-32 Serum or plasma anion gap determination (moles/volume) 13 mmol/L 5-14 Serum or plasma urea nitrogen measurement (mass/volume) 6 mg/dL 7-18 Serum or plasma creatinine measurement (mass/volume) 0.56 mg/dL 0.60-1.30 Serum or plasma urea nitrogen/creatinine mass ratio 11 NRG Serum or plasma creatinine measurement with calculation of estimated glomerular filtration rate > NRG Serum or plasma glucose measurement (mass/volume) 72 mg/dL 70-105 Serum or plasma calcium measurement (mass/volume) 9.4 mg/dL 8.5-10.1 Serum or plasma total bilirubin measurement (mass/volume) 0.4 mg/dL 0.1-1.0 Serum or plasma alkaline phosphatase measurement (enzymatic activity/volume) 129 U/L 40-136 Serum or plasma aspartate aminotransferase measurement (enzymatic activity/volume) 17 U/L 5-34 Serum or plasma alanine aminotransferase measurement (enzymatic activity/volume) 9 U/L 0-55 Serum or plasma protein measurement (mass/volume) 7.3 g/dL 6.4-8.2 Serum or plasma albumin measurement (mass/volume) 3.4 g/dL 3.2-4.5 CALCIUM CORRECTED 9.9 mg/dL 8.5-10.1 Magnesium - 02/13/19 17:48 Magnesium 1.9 mg/dL 1.8-2.4 Serum or plasma troponin i.cardiac measurement (mass/volume) - 02/13/19 17:48 Serum or plasma troponin i.cardiac measurement (mass/volume) < ng/mL <0.028 Serum or plasma C reactive protein measurement (mass/volume) - 02/13/19 17:48 Serum or plasma C reactive protein measurement (mass/volume) 1.45 mg/dL 0.00-0.50 Urine protein/creatinine mass ratio - 02/22/19 15:30 Urine protein measurement (mass/volume) 20 mg/dL 6-12 Urine creatinine measurement (mass/volume) 221 mg/dL 30-125 Urine protein/creatinine mass ratio 0.09 NRG Complete urinalysis with reflex to culture - 02/22/19 15:30 Urine color determination YELLOW NRG Urine clarity determination MUCOUS NRG Urine pH measurement by test strip 5 5-9 Specific gravity of urine by test strip 1.030 1.016-1.022 Urine protein assay by test strip, semi-quantitative 2+ NEGATIVE Urine glucose detection by automated test strip NEGATIVE NEGATIVE Erythrocytes detection in urine sediment by light microscopy NEGATIVE NEGATIVE Urine ketones detection by automated test strip 4+ NEGATIVE Urine nitrite detection by test strip POSITIVE NEGATIVE Urine total bilirubin detection by test strip NEGATIVE NEGATIVE Urine urobilinogen measurement by automated test strip (mass/volume) 1 mg/dL NORMAL Urine leukocyte esterase detection by dipstick 1+ NEGATIVE Automated urine sediment erythrocyte count by microscopy (number/high power field) NONE NRG Automated urine sediment leukocyte count by microscopy (number/high power field) [HPF] NRG Bacteria detection in urine sediment by light microscopy LARGE NRG Squamous epithelial cells detection in urine sediment by light microscopy >50 NRG Crystals detection in urine sediment by light microscopy PRESENT NRG Casts detection in urine sediment by light microscopy NONE NRG Mucus detection in urine sediment by light microscopy NEGATIVE NRG Complete urinalysis with reflex to culture YES NRG Calcium oxalate crystals detection in urine sediment by light microscopy FEW NRG Bacterial urine culture - 02/22/19 15:30 Bacterial urine culture 3 OR MORE NRG COLONY COUNT >100,000/ML NRG FTX;REPORTABLE (GRAM POSITIVE) SUGGESTING PROBABLE NRG FREE TEXT ENTRY 2 COLLECTION CONTAMINATION WITH SKIN NRG FREE TEXT ENTRY 3 ANTIONE. NO SUSCEPTIBILITY PERFORMED NRG Complete blood count (CBC) with automated white blood cell (WBC) differential - 02/22/19 16:00 Blood leukocytes automated count (number/volume) 9.7 10*3/uL 4.3-11.0 Blood erythrocytes automated count (number/volume) 4.05 10*6/uL 4.35-5.85 Venous blood hemoglobin measurement (mass/volume) 9.7 g/dL 11.5-16.0 Blood hematocrit (volume fraction) 30 % 35-52 Automated erythrocyte mean corpuscular volume 74 [foz_us] 80-99 Automated erythrocyte mean corpuscular hemoglobin (mass per erythrocyte) 24 pg 25-34 Automated erythrocyte mean corpuscular hemoglobin concentration measurement (mass/volume) 32 g/dL 32-36 Automated erythrocyte distribution width ratio 16.0 % 10.0- 14.5 Automated blood platelet count (count/volume) 320 10*3/uL 130-400 Automated blood platelet mean volume measurement 10.7 [foz_us] 7.4-10.4 Automated blood neutrophils/100 leukocytes 79 % 42-75 Automated blood lymphocytes/100 leukocytes 15 % 12-44 Blood monocytes/100 leukocytes 6 % 0-12 Automated blood eosinophils/100 leukocytes 1 % 0-10 Automated blood basophils/100 leukocytes 0 % 0-10 Blood neutrophils automated count (number/volume) 7.6 10*3 1.8-7.8 Blood lymphocytes automated count (number/volume) 1.5 10*3 1.0-4.0 Blood monocytes automated count (number/volume) 0.5 10*3 0.0- 1.0 Automated eosinophil count 0.1 10*3/uL 0.0-0.3 Automated blood basophil count (count/volume) 0.0 10*3/uL 0.0-0.1 Comprehensive metabolic panel - 02/22/19 16:00 Serum or plasma sodium measurement (moles/volume) 140 mmol/L 135-145 Serum or plasma potassium measurement (moles/volume) 4.0 mmol/L 3.6-5.0 Serum or plasma chloride measurement (moles/volume) 108 mmol/L 98-107 Carbon dioxide 22 mmol/L 21-32 Serum or plasma anion gap determination (moles/volume) 10 mmol/L 5-14 Serum or plasma urea nitrogen measurement (mass/volume) 6 mg/dL 7-18 Serum or plasma creatinine measurement (mass/volume) 0.52 mg/dL 0.60-1.30 Serum or plasma urea nitrogen/creatinine mass ratio 12 NRG Serum or plasma creatinine measurement with calculation of estimated glomerular filtration rate > NRG Serum or plasma glucose measurement (mass/volume) 78 mg/dL 70-105 Serum or plasma calcium measurement (mass/volume) 9.3 mg/dL 8.5-10.1 Serum or plasma total bilirubin measurement (mass/volume) 0.4 mg/dL 0.1-1.0 Serum or plasma alkaline phosphatase measurement (enzymatic activity/volume) 110 U/L 40-136 Serum or plasma aspartate aminotransferase measurement (enzymatic activity/volume) 10 U/L 5-34 Serum or plasma alanine aminotransferase measurement (enzymatic activity/volume) < U/L 0-55 Serum or plasma protein measurement (mass/volume) 6.1 g/dL 6.4-8.2 Serum or plasma albumin measurement (mass/volume) 3.0 g/dL 3.2-4.5 CALCIUM CORRECTED 10.1 mg/dL 8.5-10.1 Serum or plasma uric acid measurement (mass/volume) - 02/22/19 16:00 Serum or plasma uric acid measurement (mass/volume) 5.6 mg/dL 2.6-7.2 Lactate dehydrogenase 1 [enzymatic activity/volume] in serum or plasma - 02/22/19 16:00 Lactate dehydrogenase 1 [enzymatic activity/volume] in serum or plasma 182 U/L 125-220 Blood type T Indirect antibody screen panel - 02/22/19 16:00 ABO+Rh group AP [facility] Transfusion band number [id number] [facility] Blood group antibody screen NEGATIVE [facility] Methicillin resistant Staphylococcus aureus (MRSA) screening culture - 02/22/19 20:10 Methicillin resistant Staphylococcus aureus (MRSA) screening culture NEG [facility] Capillary blood glucose measurement by glucometer (mass/volume) - 02/23/19 06:15 Capillary blood glucose measurement by glucometer (mass/volume) 79 mg/dL 70-110 Complete blood count (CBC) with automated white blood cell (WBC) differential - 02/23/19 08:25 Blood leukocytes automated count (number/volume) 7.1 10*3/uL 4.3-11.0 Blood erythrocytes automated count (number/volume) 3.92 10*6/uL 4.35-5.85 Venous blood hemoglobin measurement (mass/volume) 9.4 g/dL 11.5-16.0 Blood hematocrit (volume fraction) 29 % 35-52 Automated erythrocyte mean corpuscular volume 75 [foz_us] 80-99 Automated erythrocyte mean corpuscular hemoglobin (mass per erythrocyte) 24 pg 25-34 Automated erythrocyte mean corpuscular hemoglobin concentration measurement (mass/volume) 32 g/dL 32-36 Automated erythrocyte distribution width ratio 16.1 % 10.0- 14.5 Automated blood platelet count (count/volume) 284 10*3/uL 130-400 Automated blood platelet mean volume measurement 10.8 [foz_us] 7.4-10.4 Automated blood neutrophils/100 leukocytes 75 % 42-75 Automated blood lymphocytes/100 leukocytes 19 % 12-44 Blood monocytes/100 leukocytes 5 % 0-12 Automated blood eosinophils/100 leukocytes 1 % 0-10 Automated blood basophils/100 leukocytes 0 % 0-10 Blood neutrophils automated count (number/volume) 5.3 10*3 1.8-7.8 Blood lymphocytes automated count (number/volume) 1.4 10*3 1.0-4.0 Blood monocytes automated count (number/volume) 0.3 10*3 0.0- 1.0 Automated eosinophil count 0.1 10*3/uL 0.0-0.3 Automated blood basophil count (count/volume) 0.0 10*3/uL 0.0-0.1 Comprehensive metabolic panel - 02/23/19 08:25 Serum or plasma sodium measurement (moles/volume) 137 mmol/L 135-145 Serum or plasma potassium measurement (moles/volume) 3.8 mmol/L 3.6-5.0 Serum or plasma chloride measurement (moles/volume) 107 mmol/L 98-107 Carbon dioxide 22 mmol/L 21-32 Serum or plasma anion gap determination (moles/volume) 8 mmol/L 5-14 Serum or plasma urea nitrogen measurement (mass/volume) 4 mg/dL 7-18 Serum or plasma creatinine measurement (mass/volume) 0.55 mg/dL 0.60-1.30 Serum or plasma urea nitrogen/creatinine mass ratio 7 NRG Serum or plasma creatinine measurement with calculation of estimated glomerular filtration rate > NRG Serum or plasma glucose measurement (mass/volume) 70 mg/dL 70-105 Serum or plasma calcium measurement (mass/volume) 8.8 mg/dL 8.5-10.1 Serum or plasma total bilirubin measurement (mass/volume) 0.5 mg/dL 0.1-1.0 Serum or plasma alkaline phosphatase measurement (enzymatic activity/volume) 130 U/L 40-136 Serum or plasma aspartate aminotransferase measurement (enzymatic activity/volume) 10 U/L 5-34 Serum or plasma alanine aminotransferase measurement (enzymatic activity/volume) 6 U/L 0-55 Serum or plasma protein measurement (mass/volume) 5.9 g/dL 6.4-8.2 Serum or plasma albumin measurement (mass/volume) 3.0 g/dL 3.2-4.5 CALCIUM CORRECTED 9.6 mg/dL 8.5-10.1 Capillary blood glucose measurement by glucometer (mass/volume) - 02/24/19 06:05 Capillary blood glucose measurement by glucometer (mass/volume) 113 mg/dL 70-110 Complete blood count (CBC) with automated white blood cell (WBC) differential - 02/24/19 06:20 Blood leukocytes automated count (number/volume) 8.2 10*3/uL 4.3-11.0 Blood erythrocytes automated count (number/volume) 3.78 10*6/uL 4.35-5.85 Venous blood hemoglobin measurement (mass/volume) 9.0 g/dL 11.5-16.0 Blood hematocrit (volume fraction) 30 % 35-52 Automated erythrocyte mean corpuscular volume 78 [foz_us] 80-99 Automated erythrocyte mean corpuscular hemoglobin (mass per erythrocyte) 24 pg 25-34 Automated erythrocyte mean corpuscular hemoglobin concentration measurement (mass/volume) 30 g/dL 32-36 Automated erythrocyte distribution width ratio 17.1 % 10.0- 14.5 Automated blood platelet count (count/volume) 261 10*3/uL 130-400 Automated blood platelet mean volume measurement 10.7 [foz_us] 7.4-10.4 Automated blood neutrophils/100 leukocytes 74 % 42-75 Automated blood lymphocytes/100 leukocytes 17 % 12-44 Blood monocytes/100 leukocytes 7 % 0-12 Automated blood eosinophils/100 leukocytes 2 % 0-10 Automated blood basophils/100 leukocytes 0 % 0-10 Blood neutrophils automated count (number/volume) 6.0 10*3 1.8-7.8 Blood lymphocytes automated count (number/volume) 1.4 10*3 1.0-4.0 Blood monocytes automated count (number/volume) 0.6 10*3 0.0- 1.0 Automated eosinophil count 0.2 10*3/uL 0.0-0.3 Automated blood basophil count (count/volume) 0.0 10*3/uL 0.0-0.1 Encounters ACCT No. Visit Date/Time Discharge Status Pt. Type Provider Facility Loc./Unit Complaint [id number] 09/12/2014 14:42:00 09/12/2014 23:59:59 CLS Outpatient GILMER CHACON APRN [id number] 09/09/2013 11:23:00 09/09/2013 23:59:59 CLS Outpatient KASSANDRA MENDIETA APRN [id number] 06/14/2013 08:56:00 06/14/2013 23:59:59 CLS Outpatient DANIEL WARREN DO [id number] 12/05/2012 17:21:00 12/05/2012 23:59:59 CLS Outpatient [id number] 11/04/2012 13:30:00 11/04/2012 23:59:59 CLS Outpatient [id number] 06/09/2013 15:43:00 Document Registration [id number] 06/05/2013 12:26:00 Document Registration [id number] 01/06/2013 09:01:00 Document Registration [id number] 02/22/2019 14:19:00 02/24/2019 11:30:00 DIS Inpatient SURESH ANGELES DO [facility] LDRP REPEAT [id number] 02/13/2019 15:47:00 02/13/2019 19:26:00 DIS Emergency MIYA FIELDS, KAI Melendez [facility] ER R SHOULDER PAIN [id number] 02/09/2019 10:25:00 02/09/2019 23:59:59 CLS Outpatient SURESH ANGELES DO [facility] RAD GESTATIONAL DIABETES MELLITUS,PREVIOUS [id number] 02/01/2019 10:21:00 02/01/2019 12:30:00 DIS Outpatient ANGELA CARVALHO DO [facility] WSo OB EVAL: HIGH BLOOD PRESSURE [id number] 01/22/2019 16:40:00 01/22/2019 19:50:00 DIS Outpatient FANNIE WARREN MD [facility] WSo PRESSURE,BACK PAIN [id number] 01/18/2019 11:00:00 01/18/2019 23:59:59 CLS Outpatient SURESH ANGELES DO [facility] RAD GDM,29 WKS GESTATION OF [id number] 01/02/2019 23:42:00 01/03/2019 01:35:00 DIS Outpatient CHETNA GARLAND MARY KAY Lisa [facility] WSo 28 WEEKS ; BLEEDING [id number] 12/13/2018 11:02:00 12/13/2018 12:15:00 DIS Outpatient SURESH ANGELES DO [facility] WSo LEAKING FLUID [id number] 11/30/2018 11:09:00 11/30/2018 23:59:59 CLS Outpatient SURESH ANGELES DO [facility] RAD LOW LYING PLACENTA NOS OR W/O HEMORRHAGE [id number] 11/02/2018 09:49:00 11/02/2018 23:59:59 CLS Outpatient SURESH ANGELES DO [facility] RAD FETUS PRESENT DURING IN SECOND TRIMESTER [id number] 08/31/2018 08:45:00 08/31/2018 12:12:00 DIS Emergency BERNGEOVANNA REBOLLEDOIS [facility] ER ABD CRAMPING;11WKS [id number] 04/13/2018 08:05:00 04/13/2018 23:59:59 CLS Outpatient QUINTEN POPE MD [facility] RAD REFLUX [id number] 03/23/2018 21:02:00 03/24/2018 06:24:00 DIS Outpatient LILIANA LOBATO DO [facility] SLEEP BARIATRIC, SLEEP DISTURBANC, UNSPECIFIED [id number] 12/31/2017 14:00:00 12/31/2017 23:59:59 CLS Preadmit GUILLERMO KAM [facility] CARD OBESITY E66.9 [id number] 10/01/2017 12:42:00 12/30/2017 00:01:00 DIS Outpatient GUILLERMO KAM [facility] CARD OBESITY E66.9 [id number] 10/01/2017 12:38:00 10/01/2017 23:59:59 CLS Outpatient GUILLERMO KAM [facility] CARD OBESITY E66.9 [id number] 05/11/2017 14:00:00 05/11/2017 23:59:59 CLS Preadmit ANGELES SURESH C [facility] RAD O24.414 [id number] 02/23/2017 08:27:00 05/10/2017 00:01:00 DIS Outpatient SURESH ANGELES DO [facility] RAD O24.414 [id number] 04/21/2017 09:50:00 04/21/2017 11:21:00 DIS Emergency VINCENT MANCILLA MD [facility] ER BURNING PAIN IN CHEST [id number] 03/02/2017 08:25:00 03/05/2017 15:49:00 DIS Inpatient SURESH ANGELES DO [facility] LDRP PREVIOUS SECTION [id number] 03/02/2017 10:30:00 03/02/2017 23:59:59 CLS Preadmit SURESH ANGELES DO [facility] PREOP PREVIOUS SECTION [id number] 02/24/2017 11:36:00 02/24/2017 15:04:00 DIS Outpatient DONG MAURER MD [facility] WSo CRAMPING [id number] 02/23/2017 08:23:00 02/23/2017 23:59:59 CLS Outpatient BRIDGETTE GARLAND SURESH C [facility] RAD O24.414 [id number] 02/17/2017 13:50:00 02/17/2017 17:12:00 DIS Outpatient DONG MAURER MD [facility] WSo BURNING, LEG PAIN,NAUSEA AND VOMITING [id number] 02/03/2017 11:22:00 02/03/2017 23:59:59 CLS Outpatient SURESH ANGELES DO [facility] RAD O24.414 GEST DIABETES MELLITUS,CLASS A2 [id number] 01/16/2017 18:33:00 01/16/2017 20:35:00 DIS Outpatient DONG MAURER MD [facility] WSo DECREASED MOVEMENT//PRESSURE [id number] 12/20/2016 10:54:00 12/20/2016 14:52:00 DIS Outpatient ANGELA CARVALHO DO [facility] ABD PRESSURE,HIP PAIN [id number] 10/31/2016 15:41:00 10/31/2016 18:20:00 DIS Outpatient ERASTO FIELDS, DONG Cordero [facility] ABD PAIN [id number] 10/02/2016 12:50:00 10/02/2016 14:46:00 DIS Emergency CARRIE CHAMBERLAIN MAST MAKER [facility] ER LEAKING FLUID 16 WKS PREG [id number] 09/28/2016 08:35:00 09/28/2016 09:30:00 DIS Emergency KACY MICHAEL GARLAND K [facility] ER 16W PREG, HEAD TO TOE ITCHING [id number] 08/26/2016 09:12:00 08/26/2016 11:15:00 DIS Emergency DAYNE FIELDS, DAVID Menjivar [facility] ER CHEST PAIN 11 WKS PREG [id number] 11/05/2014 14:18:00 11/07/2014 10:20:00 DIS Inpatient SURESH ANGELES DO [facility] LDRP ABD PAIN AND CONTRACTIONS [id number] 11/04/2014 18:59:00 11/04/2014 20:40:00 DIS Outpatient SURESH ANGELES DO [facility] ABD PAIN;VAGINAL PAIN [id number] 09/02/2014 11:03:00 09/02/2014 17:41:00 DIS Outpatient SURESH ANGELES DO [facility] WSo VOMITING [id number] 08/02/2014 09:30:00 08/02/2014 23:59:59 CLS Outpatient SURESH ANGELES DO [facility] RAD SURVEY [id number] 2014 08:22:00 2014 23:59:59 CLS Outpatient ROCK CHACON MD [facility] LAB IVP,OBESITY [id number] 04/30/2014 18:41:00 04/30/2014 21:39:00 DIS Emergency VINCENT MANCILLA MD [facility] ER R SIDE PAIN [id number] 01/22/2014 09:52:00 01/22/2014 23:59:59 CLS Outpatient AMBER DO DANITA Rocco [facility] RAD [id number] 08/01/2013 13:12:00 08/01/2013 16:30:00 DIS Outpatient CLARK DO DANITA D [facility] SDC SCREENING [id number] 07/27/2013 07:12:00 07/27/2013 23:59:59 CLS Outpatient CLARK DANITA GARLAND [facility] PREOP SCREENING [id number] 07/21/2013 09:48:00 07/21/2013 23:59:59 CLS Outpatient CLARK DANITA GARLAND [facility] RAD LT BREAST MASS [id number] 06/28/2013 18:37:00 06/28/2013 19:27:00 DIS Emergency CARRIE CHAMBERLAIN APRN [facility] ER L ANKLE,FOOT PAIN [id number] 06/13/2013 11:34:00 06/13/2013 13:27:00 DIS Outpatient DANITA CLARK DO [facility] FAMILY HISTORY [id number] 06/07/2013 11:54:00 06/07/2013 23:59:59 CLS Outpatient CLARK DANITA GARLAND [facility] PREOP FAMILY HISTORY [id number] 02/17/2013 10:28:00 02/17/2013 23:59:59 CLS Outpatient SURESH ANGELES DO [facility] RAD NODULE LT BREAST-LT AREOLA [id number] 03/02/2019 10:00:00 PEN Preadmit SURESH ANGELES DO [facility] RAD GESTATIONAL DIABETES [id number] 03/01/2019 17:14:00 ACT Emergency KAI HOLLIDAY MD [facility] ER CP [id number] 03/03/2017 07:55:00 Document Registration [id number] 02/20/2015 11:16:00 Document Registration [id number] 02/20/2015 11:16:00 Document Registration [id number] 12/09/2014 21:30:00 Document Registration [id number] 11/27/2014 09:00:00 Document Registration [id number] 11/26/2014 12:19:00 Document Registration [id number] 11/20/2014 18:51:00 Document Registration [id number] 01/02/2013 22:16:00 Document Registration [id number] 05/09/2012 21:30:00 Document Registration [id number] 05/01/2012 15:55:00 Document Registration [id number] 02/09/2011 08:19:00 Document Registration [id number] 11/28/2010 10:02:00 Document Registration [id number] 10/16/2010 19:38:00 Document Registration [id number] 06/28/2010 08:59:00 Document Registration [id number] 02/14/2019 13:30:00 02/14/2019 23:59:59 [facility] Cindy MITCHELL MD, [facility] [place], [facility]
--- NOTE | 2019-03-01 18:06 | Diagnostic Imaging Report ---
INDICATION: Chest pain. Comparison made with prior examination from 04/21/2017. FINDINGS: The heart size, mediastinal configuration, and pulmonary vascularity are within normal limits. There is no pleural effusion, pneumothorax, or pneumonia. The osseous structures are unremarkable. IMPRESSION: No acute cardiopulmonary abnormality. Dictated by: Dictated on workstation # [id number]
[2019-03-01 18:23] LABS: INR 0.9 (0.8-1.4); PROTHROMBIN TIME PATIENT 12.6 SEC (12.2-14.7)
[2019-03-01 18:32] LABS: ALANINE AMINOTRANSFERASE 10 U/L (0-55); ALBUMIN 3.2 GM/DL (3.2-4.5); ALKALINE PHOSPHATASE 87 U/L (40-136); BILIRUBIN,TOTAL 0.2 MG/DL (0.1-1.0); BUN/CREATININE RATIO 21; CALCIUM 8.7 MG/DL (8.5-10.1); CARBON DIOXIDE 25 MMOL/L (21-32); CHLORIDE 106 MMOL/L (98-107); CREATININE SERUM 0.61 MG/DL (0.60-1.30); GFR ESTIMATED > 60; GLUCOSE 88 MG/DL (70-105); MAGNESIUM 1.7 MG/DL (1.8-2.4); POTASSIUM 3.9 MMOL/L (3.6-5.0); SODIUM 140 MMOL/L (135-145)
[2019-03-01 18:48] LABS: BILIRUBIN,URINE NEGATIVE (NEGATIVE); CLARITY,URINE SLIGHTLY CLOUDY; COLOR,URINE YELLOW; GLUCOSE, URINE (UA) NEGATIVE (NEGATIVE); KETONES,URINE NEGATIVE (NEGATIVE); LEUKOCYTE ESTERASE ,URINE 2+ (NEGATIVE); NITRITE,URINE NEGATIVE (NEGATIVE); PH,URINE 5 (5-9); PROTEIN,URINE 2+ (NEGATIVE); UROBILINOGEN,URINE NORMAL (NORMAL)
[2019-03-01 18:58] LABS: BACTERIA,URINE MODERATE /HPF; RBC,URINE 50-100 /HPF
[2019-03-01] MEDS: MAGNESIUM 1 GM/100 ML IVPB 100 ML IV SCH ×2 (19:11→20:01)
[2019-03-01] MEDS ORDERED: NITR-65 PO (19:12)
[2019-03-01 21:06] VITALS: BP 138/97
== END 2019-03-01 21:10 | disposition home or self-care (01) ==
LOC: EDUNIT# 17:13 → ER 17:14
DX: O99.355 Diseases of the nervous system complicating the puerperium (principal); G44.209 Tension-type headache, unspecified, not intractable; O99.285 Endocrine, nutritional and metabolic diseases complicating the puerperium; E83.42 Hypomagnesemia; O99.03 Anemia complicating the puerperium; D64.9 Anemia, unspecified; O16.5 Unspecified maternal hypertension, complicating the puerperium; O86.20 Urinary tract infection following delivery, unspecified; O99.345 Other mental disorders complicating the puerperium; F32.9 Major depressive disorder, single episode, unspecified; O90.89 Other complications of the puerperium, not elsewhere classified; I48.91 Unspecified atrial fibrillation; O24.93 Unspecified diabetes mellitus in the puerperium; Z91.048 Other nonmedicinal substance allergy status; Z86.69 Personal history of other diseases of the nervous system and sense organs; Z98.890 Other specified postprocedural states; Z80.0 Family history of malignant neoplasm of digestive organs; Z82.49 Family history of ischemic heart disease and other diseases of the circulatory system; Z87.448 Personal history of other diseases of urinary system; Z87.891 Personal history of nicotine dependence
CPT/HCPCS: 36415; 71045; 80053; 81000; 83735; 84443; 84484; 85025; 85610; 85730; 86141; 87088; 93005; 96365; 96366; 96375

== ENCOUNTER 2019-09-07 11:31 | Outpatient (CLI) | payer BC ==
[~2019-09-07] VITALS: Ht 160 cm; Wt 117.7 kg
[~2019-09-07 11:31] MED LIST changes: +NITR-65 PO
[2019-09-07] MEDS ORDERED: PREN1TAB79 PO (11:56)
[2019-09-07] MEDS ORDERED: FLUT9.9S NS (11:56)
[2019-09-07] MEDS ORDERED: NORE0.3518 PO (11:56)
[2019-09-07] MEDS ORDERED: LURA40TA3 PO (11:56)
[2019-09-07 12:01] VITALS: BP 126/82
[2019-09-07 12:32] LABS: BASOPHILS % (AUTO) 0 % (0-10); EOSINOPHILS # (AUTO) 0.2 10^3/uL (0.0-0.3); EOSINOPHILS % (AUTO) 2 % (0-10); HEMATOCRIT 38 % (35-52); HEMOGLOBIN 11.8 G/DL (11.5-16.0); LYMPHOCYTES % (AUTO) 26 % (12-44); MEAN CORPUSCULAR HEMOGLOBIN 25 PG (25-34); MEAN CORPUSCULAR HGB CONC 31 G/DL (32-36); MEAN CORPUSCULAR VOLUME 82 FL (80-99); MEAN PLATELET VOLUME 10.2 FL (7.4-10.4); MONOCYTES # (AUTO) 0.4 X 10^3 (0.0-1.0); MONOCYTES % (AUTO) 5 % (0-12); NEUTROPHILS # (AUTO) 5.3 X 10^3 (1.8-7.8); NEUTROPHILS % (AUTO) 68 % (42-75); PLATELET COUNT 293 10^3/uL (130-400); RED CELL DISTRIBUTION WIDTH 15.5 % (10.0-14.5); WHITE BLOOD COUNT 7.8 10^3/uL (4.3-11.0)
== END 2019-09-07 12:53 ==
LOC: PREOP 11:31
PROVIDERS: ATTEND Surgery
DX: Z01.812 Encounter for preprocedural laboratory examination (principal); E66.01 Morbid (severe) obesity due to excess calories
CPT/HCPCS: 36415; 85025; 87081

== ENCOUNTER 2019-09-15 07:22 | Day surgery (SDC) | payer BC ==
[~2019-09-15] VITALS: Ht 160 cm; Wt 118.2 kg
[2019-09-15] VITALS (17 sets, daily range): BP systolic 134–205; BP diastolic 74–109
[~2019-09-15 07:22] MED LIST changes: +FLUT9.9S NS; +LURA40TA3 PO; +NORE0.3518 PO; +PREN1TAB79 PO
[2019-09-15] MEDS ORDERED: BUP/EPI 0.5% 1:200,000 (SENSORCAINE) 30 ML VIAL ONE (07:45)
[2019-09-15] MEDS: LACTATED RINGERS 1,000 ML IV PRN ×2 (08:00→09:51)
[2019-09-15] MEDS ORDERED: ceFAZolin 2 GM/50 ML NS 50 ML IV ONE (08:00)
--- NOTE | 2019-09-15 08:26 | Progress Note-Pre Operative ---
Pre-Operative Progress Note H&P Reviewed The H&P was reviewed, patient examined and no changes noted. Date Seen by Provider: Sep 15, 2019 Time Seen by Provider: 08:20 Date H&P Reviewed: Sep 15, 2019 Time H&P Reviewed: 08:15 Pre-Operative Diagnosis: Morbid Obesity, PCOS, DM, HTN, GERD, Depression OENSIMO DEGROOT APRN Sep 15, 2019 08:26
[2019-09-15] MEDS ORDERED: SEVOFLURANE (ULTANE) 15 ML INHAL SOLN ONE ×4 (08:27→09:58)
[2019-09-15] MEDS ORDERED: ONDANSETRON 4 MG/2 ML (SDV) Z0FRAN ONE (08:27)
[2019-09-15] MEDS ORDERED: proPOfol 200 MG/20 ML (DIPRIVAN) VIAL IV ONE (08:27)
[2019-09-15] MEDS ORDERED: fentaNYL INJECTION 100 MCG/2 ML AMP ONE ×2 (08:27→09:57)
[2019-09-15] MEDS ORDERED: SUCCINYLCHOLINE INJ 100 MG/5 ML SYR ONE (08:27)
[2019-09-15] MEDS ORDERED: LIDOCAINE PF 2% 5 ML (XYLOCAINE) VIAL ONE (08:27)
[2019-09-15] MEDS ORDERED: DEXAMETHASONE 10 MG/ML (DECADRON) 1 ML VIAL ONE (08:27)
[2019-09-15] MEDS ORDERED: ROCURONIUM 50 MG/5 ML (ZEMURON) VIAL IV ONE (08:27)
[2019-09-15] MEDS ORDERED: MIDAZOLAM 2 MG/2 ML (VERSED) VIAL ONE (08:28)
[2019-09-15] MEDS ORDERED: PHENYLEPHRINE 100 MCG/ML 10 ML (ANESTHESIA) SYR ONE (09:29)
[2019-09-15] MEDS ORDERED: GLYCOPYRROLATE 0.2 MG/ML (ROBINUL) 2 ML VIAL ONE (09:49)
[2019-09-15] MEDS ORDERED: NEOSTIGMINE 3 MG/3 ML VIAL ONE (09:49)
[2019-09-15] MEDS ORDERED: METOCLOPRAMIDE INJ 10 MG/2 ML (REGLAN) IV PRN (10:15)
[2019-09-15] MEDS ORDERED: fentaNYL INJECTION 1,000 MCG in NS (IVPB) 80 ML IV SCH (10:15)
[2019-09-15] MEDS ORDERED: NS IV 1000 ML 1,000 ML IV SCH (10:15)
[2019-09-15] MEDS ORDERED: ONDANSETRON 4 MG/2 ML (SDV) Z0FRAN IV PRN (10:15)
[2019-09-15] MEDS ORDERED: RT-ALBUTEROL SULF 2.5 MG/3 ML PRE-MIX VIAL INH SCH (10:15)
[2019-09-15] MEDS ORDERED: NALOXONE 0.4 MG/ML 1 ML (NARCAN) VIAL IV PRN (10:15)
[2019-09-15] MEDS ORDERED: diphenhydrAMINE 50 MG/ML INJ (BENADRYL) IVP PRN (10:15)
[2019-09-15] MEDS ORDERED: diphenhydrAMINE 50 MG/ML INJ (BENADRYL) IV PRN (10:15)
[2019-09-15] MEDS ORDERED: morphine INJ 10 MG/ML 1ML (SYR OR VIAL) ONE (10:25)
[2019-09-15] MEDS ORDERED: morphine INJ 10 MG/ML 1ML (SYR OR VIAL) IVP ONE (10:30)
[2019-09-15] MEDS ORDERED: ONDANSETRON 4 MG/2 ML (SDV) Z0FRAN IVP PRN (10:30)
--- NOTE | 2019-09-15 10:40 | Progress Note-Post Operative ---
Post-Operative Progess Note Surgeon (s)/Registered Respiratory Technician (s) Surgeon Dr. Romeo Hwang M.D. Registered Respiratory Technician: Yogesh Degroot [employer]ING SERVICE WORKER Pre-Operative Diagnosis Morbid Obesity, PCOS, DM, HTN, GERD, Depression Post-Operative Diagnosis Same Procedure & Operative Findings Date of Procedure 09/15/19 Procedure Performed/Findings Laparoscopic gastric sleeve resection Anesthesia Type GET Estimated Blood Loss Estimated blood loss (mL): Minimal Specimens/Packing Specimens Removed 1) Stomach YOGESH DEGROOT [employer]ING SERVICE WORKER Sep 15, 2019 10:40
[2019-09-15] MEDS ORDERED: LABETALOL HCL 20 MG/4 ML VIAL ONE (10:43)
[2019-09-15] MEDS: LABETALOL HCL 20 MG/4 ML VIAL IV PRN ×3 (10:47→14:45)
[2019-09-15] MEDS ORDERED: hydrALAZINE (APESOLINE) 20 MG/ML VIAL ONE (11:04)
[2019-09-15] MEDS ORDERED: hydrALAZINE (APESOLINE) 20 MG/ML VIAL IV ONE (11:15)
--- NOTE | 2019-09-15 11:40 | NUR ---
LAURY GALVIN admitted to room 424-1, post op surgery lap sleeve gastrecttomy, on 09/15/19 from surgery via bed, accompanied by staff, was in room waiting for the patient .LAURY GALVIN and her were introduced to surroundings, call light, bed controls, phone, TV, temperature control, lights, meal times, smoking policy, visitor policy, side rail policy, bathrooms and showers. Patient Rights given to patient in the handbook. LAURY GALVIN verbalizes understanding that [facility] is not responsible for the loss or damage to any personal effects or valuables that are kept in the patients posession during their hospitalization. The following Patient Care Plans and discharge were discussed with the patient present. KAMARLAURY Valiente verbalizes understanding of Interdisciplinary Patient Education. Patient and family were informed about the Rapid Response Team and its purpose.
[2019-09-15] MEDS: METOCLOPRAMIDE INJ 10 MG/2 ML (REGLAN) IVP SCH ×2 (13:16→17:16)
[2019-09-15] MEDS: ONDANSETRON 4 MG/2 ML (SDV) Z0FRAN IVP SCH ×2 (13:16→17:16)
[2019-09-15] MEDS ORDERED: morphine INJ 4 MG/ML 1 ML (VIAL/SYRINGE) ONE (14:37)
[2019-09-15] MEDS: metroNIDAZOLE 500MG/100ML IVPB 100 ML IV SCH ×2 (14:49→22:12)
--- NOTE | 2019-09-15 15:00 | NUR ---
patient c/o chest pain , Yogesh notified came to see patient orders for EKG, telemetry, labetalol iv - b/p high, morphine, after his assessment was concluded was post op pain and not chest pain - protonix administered to during this time
[2019-09-15] MEDS ORDERED: PANTOPRAZOLE 40 MG (PROTONIX) VIAL ONE (15:20)
--- NOTE | 2019-09-15 16:30 | NUR ---
This RN along with Anais-Director advised patient that having her 6 month baby stay unaccompanied by another adult while she is a patient is not recommended. Advised her that the hospital setting is not a safe place for her child and that he is at risk of injury up to and including as well as abduction. We do not advise that she keep her son in the room with you. She voiced her understanding. The patient reported that she has spoken with her motor vehicle examiner and she had approval to breastfeed post surgery.
[2019-09-15] MEDS: ceFAZolin 2 GM/50 ML NS 50 ML IV SCH (16:44)
--- NOTE | 2019-09-15 18:19 | OPERATIVE REPORT ---
DATE OF SERVICE: 09/15/2019 ATTENDING PRIMARY CARE PHYSICIAN: [facility]. PREOPERATIVE DIAGNOSES: Morbid obesity, diabetes, hypertension, polycystic ovarian syndrome. POSTOPERATIVE DIAGNOSES: Morbid obesity, diabetes, hypertension, polycystic ovarian syndrome. PROCEDURE: Laparoscopic gastric sleeve resection. SURGEON: Quinten Pope MD SUPPLEMENTAL NURSE: Yogesh Sanderson APRN. ANESTHESIA: General endotracheal. ESTIMATED BLOOD LOSS: Minimal. FINDINGS: Surgically absent gallbladder, mild hepatomegaly. No hiatal hernia. DISPOSITION: The patient tolerated the procedure well. INDICATIONS: The patient is a 34-year-old female who is in our surgical weight loss program for the laparoscopic gastric sleeve resection and meets the medical criteria for bariatric surgery. She has been over weight since adolescence at around age 12. She states that she has steadily gained more weight in her teen years as well as in her 20s. She has tried a number of diet and exercise attempts with no success. She has tried exercise programs including walking, treadmill, swimming, recumbent bike with no success. She has also tried diet programs including low-calorie low-carbohydrate diets as well as Lucas diet, Slimfast body BiV protein shakes again with little success. She has also tried multiple rounds of phentermine and states that she could only lose approximately 5 pounds. 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 Her medical comorbidities related to obesity include hypertension, diabetes, gastroesophageal reflux disease, polycystic ovarian syndrome, atrial fibrillation. DESCRIPTION OF PROCEDURE: The patient was brought to the operating room and laid supine on the table. After adequate IV pain and sedative medications and general endotracheal intubation, the abdomen was prepped and draped in standard surgical fashion. A 0.5% Marcaine with epinephrine was then used to anesthetize the overlying skin in the left upper abdominal quadrant and a transverse skin incision was made using a 15 blade. An 0 silk suture was applied to the medial aspect incision for retraction and a Veress needle inserted with a low opening pressure of 0 mmHg and the abdomen was then insufflated to 15 mmHg pressure. The Veress needle was removed and a 5 mm XL trocar placed followed by a 5 mm 45-degree angle laparoscope visualizing the peritoneal cavity. A 4-quadrant abdominal exploration was performed. There was a surgically absent gallbladder. There was mild hepatomegaly. No hiatal hernia identified. Under direct visualization, we then proceeded to place a midabdominal left of midline 10 mm port after the skin and peritoneal lining were anesthetized using 0.5% Marcaine with epinephrine and a transverse skin incision was made using 15 blade. In a similar manner, a midabdominal right of midline 15 mm port was placed followed by a right upper abdominal quadrant 5 mm port. The epigastric region was then anesthetized and a transverse skin incision made using 11 blade. A tract was then created through the abdominal wall layers using a trocar to a 5 mm port and through this opening, a medium sized Nathansen liver retractor was placed and the left lobe of the liver retracted anteriorly and superiorly. The patient was then placed in steep reverse Trendelenburg position. We then measured 6 cm from the pylorus along the greater curvature and marked this with a marking pen. The gastrocolic ligament next to the stomach was then opened entering the lesser sac using the Sonicision. We first proceeded with caudal dissection until approximately 2 cm below our marking. We then proceeded to take down the short gastric vessels along the greater curvature as well as the angle of His connective tissue fibers as well as the posterior stomach behind this region. Good hemostasis was observed. A 36-Setswana ViSiGi bougie was then placed under direct visualization and directed into the pylorus. Using this as our guide, we then proceeded with our gastric sleeve resection. We first proceeded with a 45 mm polyglycolic acid black load approximately 2 cm below our marking. We then completed our gastric sleeve resection using the ViSiGi as our guide with 2 black load staplers followed by 2 purple load 60 mm staplers. The staple line corners were then clipped with 5 mm clips. We then did a leak test with 30 mmHg air with no leaks identified. The air was then suctioned out and the ViSiGi removed. Tisseel fibrin glue was then placed onto the staple line and the omentum was placed over the staple line. The liver retractor was then removed. The stomach was then removed through the 15 mm port site. The fascia and peritoneum to the 10 and 15 mm port sites were then closed under direct visualization using a Michael-[place] device and 0 Vicryl suture. The abdomen was desufflated and remaining ports removed. All skin incisions were closed using 4-0 Monocryl running subcuticular sutures. Wounds were then cleaned and covered with Dermabond. The patient tolerated the procedure well. We will admit her for 23-hour observation and proceed with pain control with a HEAD BANDER AND LINER OPERATOR as well as DVT prophylaxis with early ambulation, calf SCDs as well as Lovenox injections. Tomorrow morning, we will start a phase I clear liquid diet and when she is able to tolerate 60 mL of clear liquids every 30 minutes, has adequate pain control with oral pain medications, ambulating well, we will discharge her home. She has full instructions on diet postoperatively, which would include 2 weeks of clear liquid diet immediately postop. Job ID: [id number] DocumentID: [id number] Dictated Date: 09/15/2019 09:58:41 Cooling Tower Technician Date: 09/15/2019 18:18:55 Dictated By: QUINTEN POPE MD
[2019-09-15] MEDS: RT-ALBUTEROL SULF 2.5 MG/3 ML PRE-MIX VIAL INH SCH ×2 (18:47→22:58)
[2019-09-15] MEDS ORDERED: ENALAPRILAT 2.5 MG/2 ML (VASOTEC) VIAL IV PRN (19:30)
[2019-09-15] MEDS ORDERED: ENALAPRILAT 1.25 MG/1 ML (VASOTEC) 1 ML VIAL IV NR (19:30)
[2019-09-15] MEDS ORDERED: ENALAPRILAT 2.5 MG/2 ML (VASOTEC) VIAL IV NR (19:30)
[2019-09-15] MEDS ORDERED: ENALAPRILAT 1.25 MG/1 ML (VASOTEC) 1 ML VIAL IV PRN (19:45)
[2019-09-15] MEDS: ENOXAPARIN 40 MG/0.4 ML (LOVENOX) SYR SC SCH (20:40)
[2019-09-15] MEDS: ONDANSETRON 4 MG/2 ML (SDV) Z0FRAN IVP PRN (20:47)
[2019-09-15] MEDS: oxyCODONE 5 MG/5 ML ORAL SOLN (roxiCODONE) 5 ML UDC PO PRN (20:48)
--- NOTE | 2019-09-15 21:55 | NUR ---
Dr. Hwang notified of current blood pressures. New order rec to consult hospitalist (Dr. Khalil).
[2019-09-15] MEDS ORDERED: hydrALAZINE (APESOLINE) 20 MG/ML VIAL IV PRN ×2 (22:00→22:15)
--- NOTE | 2019-09-15 22:05 | NUR ---
Dr. Khalil notified of consult and of high blood pressures. New order rec for Hydralazine 5mg q 4 hr prn for SBP greater than 180. Will continue to monitor.
[2019-09-16] VITALS: BP 178/94
[2019-09-16] MEDS: ceFAZolin 2 GM/50 ML NS 50 ML IV SCH ×2 (00:11→09:12)
[2019-09-16] MEDS: ONDANSETRON 4 MG/2 ML (SDV) Z0FRAN IVP SCH ×2 (00:11→05:12)
[2019-09-16] MEDS: METOCLOPRAMIDE INJ 10 MG/2 ML (REGLAN) IVP SCH ×2 (00:11→05:12)
[2019-09-16 02:43] VITALS: BP 159/84
[2019-09-16] MEDS: RT-ALBUTEROL SULF 2.5 MG/3 ML PRE-MIX VIAL INH SCH ×4 (03:05→14:32)
[2019-09-16 04:00] VITALS: BP 164/80
[2019-09-16] MEDS: metroNIDAZOLE 500MG/100ML IVPB 100 ML IV SCH (06:06)
[2019-09-16 06:37] LABS: HEMOGLOBIN 14.8 G/DL (11.5-16.0); MEAN PLATELET VOLUME 11.7 FL (7.4-10.4); RED CELL DISTRIBUTION WIDTH 16.4 % (10.0-14.5); WHITE BLOOD COUNT 17.5 10^3/uL (4.3-11.0)
[2019-09-16 08:00] VITALS: BP 148/79
[2019-09-16] MEDS ORDERED: PANTOPRAZOLE 40 MG (PROTONIX) TAB PO SCH (09:00)
[2019-09-16] MEDS ORDERED: PANTOPRAZOLE 40 MG (PROTONIX) VIAL IVP SCH (09:00)
[2019-09-16] MEDS ORDERED: SENNA W/DOCUSATE (SENOKOT S) TABLET PO SCH (09:00)
[2019-09-16] MEDS: ENOXAPARIN 40 MG/0.4 ML (LOVENOX) SYR SC SCH (09:13)
[2019-09-16] MEDS: ONDANSETRON 4 MG/2 ML (SDV) Z0FRAN IVP PRN (10:14)
[2019-09-16] MEDS ORDERED: METOCLOPRAMIDE INJ 10 MG/2 ML (REGLAN) IVP PRN (10:15)
--- NOTE | 2019-09-16 10:20 | Anesthesia-General Post-Op ---
General Patient Condition Mental Status/LOC: Same as Preop Cardiovascular: Satisfactory Nausea/Vomiting: Absent Respiratory: Satisfactory Pain: Controlled Complications: Absent Post Op Complications Complications None Follow Up Care/Instructions Patient Instructions None needed. Anesthesia/Patient Condition Patient Condition Patient is doing well, no complaints, stable vital signs, no apparent adverse anesthesia problems. No complications reported per nursing. D/C home per [facility] [place] Criteria: YOMAIRA Bauer CRNA Sep 16, 2019 10:20
[2019-09-16] MEDS ORDERED: PANT40TA2 PO (11:52)
[2019-09-16] MEDS ORDERED: HYDR-34 PO (11:52)
[2019-09-16] MEDS ORDERED: ONDN4T PO (11:52)
--- NOTE | 2019-09-16 11:53 | Discharge Inst-Surgical ---
D/C Lap Instructions-NIKO Follow Up Appt in 2 weeks Activity as tolerated No driving for 24 hours No driving while on pain medications Incentive Spirometry use every 2 hours while awake Phase 1 clear liquid diet next 2 weeks. Symptoms to Report: Fever over 101 degree F, Nausea/Vomiting Infection Signs and Symptoms to report: Increased redness, Foul odor of wound, Increased drainage Bathing instructions: May shower Operative Area Clean/Dry; Keep incision clean/dry If any problems/questions: Contact your physician or go to Emergency Room QUINTEN POPE MD Sep 16, 2019 11:53
--- NOTE | 2019-09-16 11:56 | Progress Note ---
Subjective Date Seen by a Provider: Sep 16, 2019 Time Seen by a Provider: 11:40 Subjective/Events-last exam doing ok. some nausea and emesis x1 overnight. pain controlled. starting on phase 1 clear liquid diet. Objective Exam Vital Signs Date Time Temp Pulse Resp B/P (MAP) Pulse Ox O2 Delivery O2 Flow Rate FiO2 09/16/19 10:56 96 Room Air 09/16/19 08:00 37.4 85 20 148/79 (102) 93 Nasal Cannula 2.00 09/16/19 08:00 Nasal Cannula 2.00 09/16/19 07:26 96 Nasal Cannula 2.00 09/16/19 07:00 79 09/16/19 06:00 16 09/16/19 04:00 37.4 77 22 164/80 (108) 95 Nasal Cannula 2.00 09/16/19 03:05 97 Nasal Cannula 09/16/19 02:43 70 159/84 (109) 09/16/19 01:00 85 09/16/19 00:00 37.3 78 16 178/94 (122) 98 Nasal Cannula 2.00 09/15/19 22:59 96 Nasal Cannula 09/15/19 21:39 66 189/79 (115) 95 Nasal Cannula 2.00 09/15/19 20:45 Nasal Cannula 2.00 09/15/19 19:54 37.1 85 20 199/95 (129) 97 Nasal Cannula 2.00 09/15/19 19:00 77 09/15/19 18:47 93 Nasal Cannula 09/15/19 16:40 96 Nasal Cannula 3.00 09/15/19 16:37 37.4 78 20 197/102 (133) 98 Nasal Cannula 3.00 09/15/19 15:36 72 09/15/19 15:30 184/90 (121) 09/15/19 15:00 201/100 (133) I & O 09/16/19 07:00 Intake Total 1300 ml Output Total 3530 ml Balance -2230 ml Capillary Refill : General Appearance: No Apparent Distress HEENT: PERRL/EOMI Neck: Full Range of Motion Respiratory: Lungs Clear, Normal Breath Sounds Cardiovascular: Regular Rate, Rhythm Gastrointestinal: normal bowel sounds, soft, tenderness Extremity: Normal Capillary Refill Neurologic/Psychiatric: Alert, Oriented x3 Skin: Normal Color Lymphatic: No Adenopathy Results Lab Laboratory Tests 09/15/19 16:49: Glucometer 97 09/15/19 20:17: Glucometer 99 09/15/19 23:42: Glucometer 87 09/16/19 03:52: Glucometer 83 09/16/19 06:02: White Blood Count 17.5H, Red Blood Count 5.82, Hemoglobin 14.8, Hematocrit 47, Mean Corpuscular Volume 80, Mean Corpuscular Hemoglobin 25, Mean Corpuscular Hemoglobin Concent 32, Red Cell Distribution Width 16.4H, Platelet Count 377, Mean Platelet Volume 11.7H 09/16/19 07:39: Glucometer 78 Assessment/Plan Assessment/Plan Assess & Plan/Chief Complaint s/p laparoscopic gastric sleeve resection. increase ambulation. phase 1 clear liquid diet. home soon. has prescriptions at home. Clinical Quality Measures DVT/VTE Risk/Contraindication: Risk Factor Score Per Nursin RFS Level Per Nursing on Admit: 3=High QUINTEN POPE MD Sep 16, 2019 11:56
[2019-09-16 12:00] VITALS: BP 171/91
[2019-09-16] MEDS: oxyCODONE 5 MG/5 ML ORAL SOLN (roxiCODONE) 5 ML UDC PO PRN (12:56)
--- NOTE | 2019-09-16 13:11 | NUR ---
TENTERER totals: total given 20mcg, 13 doses received, 13 doses attempted. 80mL fentanyl wasted with Arielle ZAYAS
--- NOTE | 2019-09-16 13:35 | NUR ---
Pt tolerating clear with intermittent nausea with scant amount of emesis observed. aware of pt's status, pt to dc home this afternoon if tolerating 60mL clear fluid in 30 minutes without vomiting.
--- NOTE | 2019-09-16 14:14 | NUR ---
Pt has tolerated clears (approx 60mL) over the last 30 min without any complications. Pt has voiced readiness to dc home. Current pain rating 1 on a 0-10 scale.
[2019-09-16 14:50] VITALS: BP 171/91
--- NOTE | 2019-09-16 14:50 | NUR ---
LAURY GALVIN demonstrates understanding of discharge instructions and accurately returns instructions upon questioning. Copy of Post-Discharge Instructions and Medication Discharge Instructions given to pt. LAURY GALVIN is able to manage continuing needs after discharge. Patients belongings returned to pt/family. Skin dry and intact; no breakdown noted. Patient discharged from on 09/16/19 at 1450 . LAURY GALVIN left floor via WC, accompanied by staff/family.
== END 2019-09-16 14:50 ==
LOC: SDC 07:22 → 4TH 13:02 → SDC 09-16 14:50
PROVIDERS: ATTEND Surgery
DX: E66.01 Morbid (severe) obesity due to excess calories (principal); K21.9 Gastro-esophageal reflux disease without esophagitis; E11.9 Type 2 diabetes mellitus without complications; E28.2 Polycystic ovarian syndrome; I10 Essential (primary) hypertension; I48.91 Unspecified atrial fibrillation; F41.9 Anxiety disorder, unspecified; F32.9 Major depressive disorder, single episode, unspecified; Z87.891 Personal history of nicotine dependence; Z68.41 Body mass index [BMI] 40.0-44.9, adult; Z91.048 Other nonmedicinal substance allergy status; Z90.49 Acquired absence of other specified parts of digestive tract; Z79.899 Other long term (current) drug therapy; Z80.49 Family history of malignant neoplasm of other genital organs; Z80.41 Family history of malignant neoplasm of ovary; Z80.0 Family history of malignant neoplasm of digestive organs; Z82.3 Family history of stroke; Z83.3 Family history of diabetes mellitus
CPT/HCPCS: 36415; 82962; 84703; 85027; 88307; 94640; 94760

== ENCOUNTER 2020-06-12 05:49 | Outpatient (CLI) | payer BC ==
[~2020-06-12] VITALS: Ht 160 cm; Wt 94.5 kg
[~2020-06-12 05:49] MED LIST changes: -ACET-77 PO; +ACET-78 PO; +HYDR-34 PO; -NORE0.3518 PO; +NORE0.3561 PO; +ONDN4T PO; +PANT40TA2 PO
== END 2020-06-12 13:52 | disposition home or self-care (01) ==
LOC: PREOP 05:49
PROVIDERS: ATTEND Obstetrics & Gynecology
DX: Z01.818 Encounter for other preprocedural examination (principal)

== ENCOUNTER 2020-06-17 06:03 | Day surgery (SDC) | payer BC ==
[2020-06-17] VITALS (11 sets, daily range): BP systolic 105–137; BP diastolic 60–86
[~2020-06-17] VITALS: Ht 160 cm; Wt 94.5 kg
[2020-06-17] MEDS ORDERED: LACTATED RINGERS 1,000 ML IV PRN (06:14)
[2020-06-17] MEDS ORDERED: metroNIDAZOLE 500MG/100ML IVPB 100 ML IV ONE (06:15)
[2020-06-17] MEDS ORDERED: ceFAZolin 2 GM IV Premixed 50 ML IV ONE (06:15)
[2020-06-17] MEDS ORDERED: BUPIVACAINE 0.25% 30 ML (SENSORCAINE) VIAL ONE (06:36)
[2020-06-17] MEDS ORDERED: LIDOCAINE PF 2% 5 ML (XYLOCAINE) VIAL ONE (06:45)
[2020-06-17] MEDS ORDERED: fentaNYL INJECTION 100 MCG/2 ML AMP ONE (06:45)
[2020-06-17] MEDS ORDERED: SEVOFLURANE (ULTANE) 15 ML INHAL SOLN ONE ×3 (06:45→08:58)
[2020-06-17] MEDS ORDERED: ROCURONIUM 10 MG/ML 5 ML SYRINGE IV ONE (06:45)
[2020-06-17] MEDS ORDERED: MIDAZOLAM 2 MG/2 ML (VERSED) VIAL ONE (06:45)
[2020-06-17] MEDS ORDERED: ONDANSETRON 4 MG/2 ML (SDV) Z0FRAN ONE (06:45)
[2020-06-17] MEDS ORDERED: proPOfol 200 MG/20 ML (DIPRIVAN) VIAL IV ONE (06:45)
[2020-06-17 06:53] LABS: BASOPHILS % (AUTO) 0 % (0-10); EOSINOPHILS # (AUTO) 0.2 10^3/uL (0.0-0.3); EOSINOPHILS % (AUTO) 3 % (0-10); HEMATOCRIT 41 % (35-52); HEMOGLOBIN 13.4 G/DL (11.5-16.0); LYMPHOCYTES # (AUTO) 1.4 X 10^3 (1.0-4.0); LYMPHOCYTES % (AUTO) 21 % (12-44); MEAN CORPUSCULAR HEMOGLOBIN 28 PG (25-34); MEAN CORPUSCULAR HGB CONC 33 G/DL (32-36); MEAN CORPUSCULAR VOLUME 85 FL (80-99); MEAN PLATELET VOLUME 10.9 FL (7.4-10.4); MONOCYTES # (AUTO) 0.4 X 10^3 (0.0-1.0); MONOCYTES % (AUTO) 6 % (0-12); NEUTROPHILS # (AUTO) 4.7 X 10^3 (1.8-7.8); NEUTROPHILS % (AUTO) 69 % (42-75); PLATELET COUNT 250 10^3/uL (130-400); WHITE BLOOD COUNT 6.8 10^3/uL (4.3-11.0)
[2020-06-17] MEDS ORDERED: LACTATED RINGERS 1,000 ML IV SCH (07:14)
--- NOTE | 2020-06-17 07:14 | Progress Note-Pre Operative ---
Pre-Operative Progress Note H&P Reviewed The H&P was reviewed, patient examined and no changes noted. Date Seen by Provider: Jun 17, 2020 Time Seen by Provider: 07:13 Date H&P Reviewed: Jun 17, 2020 Time H&P Reviewed: 07:13 Pre-Operative Diagnosis: AUB, BMI 36.9 ANGELA CARVALHO DO Jun 17, 2020 07:14
[2020-06-17] MEDS ORDERED: ZOLPIDEM 5 MG (AMBIEN) TAB PO PRN (07:15)
[2020-06-17] MEDS ORDERED: CHLORASEPTIC LOZENGE MM PRN (07:15)
[2020-06-17] MEDS ORDERED: ANTACID SUSP 30 ML UDC (MYLANTA) PO PRN (07:15)
[2020-06-17] MEDS ORDERED: ONDANSETRON 4 MG/2 ML (SDV) Z0FRAN IV PRN (07:15)
[2020-06-17] MEDS ORDERED: SIMETHICONE 80 MG (MYLICON) CHEW PO PRN (07:15)
[2020-06-17] MEDS ORDERED: DOCUSATE SODIUM 100 MG (COLACE) CAP PO PRN (07:15)
[2020-06-17] MEDS ORDERED: HYDROcodone/APAP 7.5 MG/325 MG (LORTAB, LORCET PLUS) TABLET PO PRN (07:15)
--- NOTE | 2020-06-17 07:19 | Discharge Inst-Women's Service ---
Discharge Inst-Women's Serv Depart Medication/Instructions New, Converted or Re-Newed RX: RX on Chart Problems Reviewed?: Yes Consults/Follow Up Additional Follow Up: Yes Orders/Referrals Dr. Bobby in 7-10 days and in 8 weeks Activity Activity: Activity as Tolerated Driving Instructions: No Driving for 1 Week NO SMOKING: NO SMOKING Nothing Inside Vagina: No Douching, No Baskin, No Tampons Diet Discharge Diet: No Restrictions Symptoms to Report to : Bleeding Excessive, Pain Increased, Fever Over 101 Degrees F, Vaginal Bleeding Increase, Questions/Concerns For Any Problems or Questions: Contact Your Physician Skin/Wound Care Infection Signs and Symptoms: Increased Redness, Foul Odor of Wound, Increased Drainage, Skin Itchy or Has a Rash, Increased Swelling, Temperature Above 101 F Operative Area Clean and Dry: Keep Incision Clean/Dry Stitches/Howard/Dermabond: Dermabond, Care of Stitches Bathing Instructions: ANGELA Brady DO Jun 17, 2020 07:19
[2020-06-17] MEDS ORDERED: SIME80TA16 PO (07:21)
[2020-06-17] MEDS ORDERED: HYDR-34 PO (07:21)
[2020-06-17] MEDS ORDERED: DCS100C PO (07:21)
[2020-06-17] MEDS ORDERED: IBUP-844 PO (07:21)
[2020-06-17] MEDS ORDERED: HYDROmorphone 2 MG/ML VIAL (DILAUDID) ONE ×3 (07:52→12:47)
[2020-06-17] MEDS ORDERED: GLYCOPYRROLATE 0.2 MG/ML (ROBINUL) 2 ML VIAL ONE ×2 (07:54→08:42)
[2020-06-17] MEDS: KETOROLAC 30 MG/ML VIAL IV PRN ×2 (08:40→14:43)
[2020-06-17] MEDS ORDERED: KETOROLAC 30 MG/ML VIAL ONE (08:42)
[2020-06-17] MEDS ORDERED: NEOSTIGMINE 3 MG/3 ML VIAL ONE (08:42)
[2020-06-17] MEDS ORDERED: ONDANSETRON 4 MG/2 ML (SDV) Z0FRAN IVP PRN (09:15)
[2020-06-17] MEDS ORDERED: HYDROmorphone 2 MG/ML VIAL (DILAUDID) IV ONE ×2 (09:15→15:00)
[2020-06-17] MEDS ORDERED: NS IV 500 ML 500 ML ONE (12:44)
[2020-06-17] MEDS ORDERED: diphenhydrAMINE 50 MG/ML INJ (BENADRYL) IM ONE (12:45)
[2020-06-17] MEDS ORDERED: NS IV 500 ML 500 ML IV SCH (12:45)
[2020-06-17] MEDS ORDERED: diphenhydrAMINE 50 MG/ML INJ (BENADRYL) ONE (12:47)
[2020-06-17] MEDS ORDERED: diphenhydrAMINE 50 MG/ML INJ (BENADRYL) IVP PRN (13:00)
--- NOTE | 2020-06-17 14:23 | OPERATIVE REPORT ---
DATE OF SERVICE: PREOPERATIVE DIAGNOSES: 1. A 34-year-old female with abnormal uterine bleeding. 2. BMI greater than 35. POSTOPERATIVE DIAGNOSES: 1. A 34-year-old female with abnormal uterine bleeding. 2. BMI greater than 35. PROCEDURE: Robotic-assisted total laparoscopic hysterectomy, bilateral salpingectomy and lysis of adhesions. SURGEON: Dann Carvalho DO SYSTEMS CHECKOUT MECHANIC: Ann Arroyo DNP, was necessary for manipulation and retraction throughout the procedure. ANESTHESIA: General endotracheal. ESTIMATED BLOOD LOSS: Minimal. URINE OUTPUT: A 200 mL clear at the end of the procedure. FLUIDS: Two liters lactated Ringer's solution. FINDINGS: A slightly enlarged and hyperemic appearing uterus, grossly normal appearing bilateral fallopian tubes and ovaries. Extensive adhesions of the omentum to the anterior abdominal wall as well as obliteration of the vesicouterine peritoneum due to previous adhesions. SPECIMEN SENT: Uterus, bilateral fallopian tubes. INDICATIONS FOR PROCEDURE: This 34-year-old female is a patient who had a consulted my office, desired permanent sterilization; however, also was a concern with ongoing bleeding issues. She has tried more conservative measures to manage both of these in the past, both without any type of benefit. We explained in detail in the preoperative note all of the other treatment modalities and recommendations going forward from there. The patient wished to move forward with more definitive measures in the form of hysterectomy. Risks of procedure were discussed with the patient in detail including risk of bleeding, infection, damage to surrounding structures including, but not limited to bowel, bladder, ureter, kidneys, possible need for reoperation, postoperative complications that may occur, recovery timeframe, risk from anesthesia, possible need for blood transfusion, possible laparotomy and even . After everything was discussed with the patient in detail, consent was obtained in the preoperative area, the patient was taken to the operating room. OPERATIVE REPORT IN DETAIL: Once in the operating room, anesthesia was found to be adequate, placed in dorsal lithotomy position, prepped and draped in normal sterile fashion. A timeout was performed. Paris catheter was placed using sterile technique. A weighted speculum was inserted to the patient's vagina. Right angle retractor was used to visualize the cervix. It was grasped at 12 o'clock position using a long Allis clamp and 0 Vicryl suture was then placed in the anterior lip of the cervix, which offers as my manipulation point after the Allis clamp was removed. The suture was then used combination of the uterine sound to sound the uterine cavity depth, which is approximately 10 cm. I selected 10 cm Cindi uterine manipulator tip and a 3.5 cm colpotomy ring. The uterine manipulator tip was advanced into the uterus, the balloon was deployed and the colpotomy ring is advanced around the vaginal fornix after which bimanual manipulation is noted on exam. I then removed all the other instruments from the patient's vagina, performed change of gloves obtained my attention to the abdomen where supraumbilically infiltrated this area using 0.25% Marcaine, making 8 mm incision with a knife and directed Veress needle through the incision, intraperitoneal placement was confirmed using saline drop test. An opening pressure of 6 mmHg was noted. I proceeded to maximum pressure of 15 mmHg, at which point I removed the Veress needle and introduced an 8 mm blunt laparoscopic da Azael camera trocar. Once this was in place, I am able to confirm intraperitoneal placement using the da Azael laparoscope. There was no evidence of damage upon my entry site. There are thick adhesions of the omentum to the anterior abdominal wall below the umbilicus. I am able to avoid these to place my two lateral trocars. These were both 8 mm trocars were approximately 10 cm lateral to my supraumbilical trocar. They are both placed in the similar fashion. Once they were in place under direct visualization and laparoscope. I bring in the da Azael robot and docked in appropriate fashion, I placed the vessel sealer in the left hand and monopolar armen in the right hand. Once the da Azael is docked, I took my place at the da Azael operative console. I started by taking down the filmy and dense adhesions of the anterior abdominal wall and the omentum. Once these are taken down using both sharp dissection and monopolar cautery, I am able to identify the uterus as defined in my findings above. I started with the following dissection bilaterally, at the uteroovarian ligament, I bipolar cauterized and transected using the vessel sealer. I then created a window in the mesosalpinx and took this laterally amputating the fallopian tube from its surrounding blood supply. I then grasped the round ligament, which I then bipolar cauterized and transected using the vessel sealer. I then grasped the entire broad ligament, which I bipolar cauterized and transected using the vessel sealer down to the level of the lower uterine segment, at which point I the anterior leaflets and the posterior leaflets. The anterior leaflet is difficult to take down due to the dense adhesions; however, with care and blunt dissection was taken down until I encountered the anterior vaginal fornix. The posterior leaflet was taken around to the posterior vaginal fornix. This allows me to skeletonize the uterine vessels laterally, which I then bipolar cauterized and transected using the vessel sealer. I then created a colpotomy at 12 o'clock position using the monopolar armen and took this circumferentially around the vaginal fornix amputating the cervix from the vagina. I then have the cervix, uterus, bilateral fallopian tubes removed through the vagina. I then proceeded with closing the lateral vaginal apices of the vaginal cuff using 2-0 Vicryl suture in a [id number] fashion colposuspending them to the uterosacral ligaments. Once this was done, I closed the remainder of the vaginal cuff using 2-0 V-Loc in a running fashion. There was no active bleeding noted from any of my dissection planes. I then undocked the da Azael robot and proceeded with remainder of the case laparoscopically. I copiously irrigated the pelvis using normal saline. Once again, there was no active bleeding noted from any of my dissection planes. I placed Surgiflo hemostatic agent over all my planes of dissection to ensure excellent postoperative hemostasis. I then had the patient taken out of steep Trendelenburg where I removed the lateral trocars under direct visualization and laparoscope. The infraumbilical trocar was left in place to release insufflation and to introduce 10 mL of 0.25% Marcaine into the peritoneal cavity for postoperative pain management. These trocars were removed as well. The skin reapproximated using 4-0 Monocryl in interrupted subcuticular stitches. Dermabond was applied to the incisions and Band-Aids were placed over the incisions as well. Paris catheter was left in place. The patient tolerated the procedure well and sent to recovery in stable condition. Lap and sponge counts were correct at the end of the procedure. Instrument counts correct as well. Two grams of Ancef, 500 mg of Flagyl were given preoperatively for infection prophylaxis. Job ID: [id number] DocumentID: [id number] Dictated Date: 06/17/2020 09:45:54 E Commerce Manager Date: 06/17/2020 14:22:34 Dictated By: DANN CARVALHO DO
[2020-06-18] MEDS ORDERED: IBUPROFEN 600 MG (MOTRIN) TAB PO SCH
--- NOTE | 2020-06-18 06:54 | Anesthesia-General Post-Op ---
General Patient Condition Mental Status/LOC: Same as Preop Cardiovascular: Satisfactory Nausea/Vomiting: Absent Respiratory: Satisfactory Pain: Controlled Complications: Absent Post Op Complications Complications None Follow Up Care/Instructions Patient Instructions None needed. Anesthesia/Patient Condition Patient Condition Patient is doing well, no complaints, stable vital signs, no apparent adverse anesthesia problems. No complications reported per nursing. MASSIEL POSEY CRNA Jun 18, 2020 06:54
== END 2020-06-17 16:40 | disposition home or self-care (01) ==
LOC: SDC 06:03 → WS 09:46 → SDC 16:40
PROVIDERS: ATTEND Obstetrics & Gynecology
DX: N93.9 Abnormal uterine and vaginal bleeding, unspecified (principal); N72 Inflammatory disease of cervix uteri; F41.9 Anxiety disorder, unspecified; F32.9 Major depressive disorder, single episode, unspecified; D64.9 Anemia, unspecified; I10 Essential (primary) hypertension; I48.0 Paroxysmal atrial fibrillation; E66.01 Morbid (severe) obesity due to excess calories; Z68.36 Body mass index [BMI] 36.0-36.9, adult; Z79.899 Other long term (current) drug therapy; Z91.048 Other nonmedicinal substance allergy status; Z87.891 Personal history of nicotine dependence; Z80.0 Family history of malignant neoplasm of digestive organs; Z80.9 Family history of malignant neoplasm, unspecified; Z83.3 Family history of diabetes mellitus
CPT/HCPCS: 36415; 84703; 85025; 86850; 86900; 86901; 87081; 88307; 94664

== ENCOUNTER → 2020-10-15 | Outpatient (REF) ==
[~2020-10-15] MED LIST changes: +DCS100C PO; +SIME80TA16 PO
--- NOTE | 2020-10-15 14:00 | Diagnostic Imaging Report ---
INDICATION: Left elbow pain AP, oblique, and lateral views left elbow were obtained No fracture or acute bone abnormality is seen. Joint spaces are unremarkable. IMPRESSION: Negative left elbow. Dictated by: Dictated on workstation # [id number]
== END ==
LOC: OCC 13:23
PROVIDERS: ATTEND Family Medicine
DX: M25.522 Pain in left elbow (principal)
CPT/HCPCS: 73080

== ENCOUNTER → 2020-11-11 | Outpatient (CLI) | payer BC ==
--- NOTE | 2020-11-11 12:04 | Diagnostic Imaging Report ---
PROCEDURE: CT head without contrast. TECHNIQUE: Multiple contiguous axial images were obtained through the brain without the use of intravenous contrast. Auto Exposure Controls were utilized during the CT exam to meet ALARA standards for radiation dose reduction. INDICATION: Left temporal pain, difficulty with speech. FINDINGS: There is no mass, shift of the midline, or hemorrhage to suggest an acute intracranial abnormality. The ventricles are not abnormally dilated and stable in size when compared to the prior exam of 12/09/2014. There may be small basal ganglia calcifications. This is a developmental variant. The bone windows show no sign of a fracture or of a destructive lesion. The orbits and sinuses were not visualized in their entirety. Where visualized, there is no acute abnormality. IMPRESSION: 1. There is no evidence for an acute intracranial abnormality. 2. If clinical concern regarding an underlying abnormality persists, then MRI would be recommended for further study. Dictated by: Dictated on workstation # [id number]
== END ==
LOC: RAD 11:45
PROVIDERS: ATTEND Nurse Practitioner Family
DX: R51.9 Headache, unspecified (principal)
CPT/HCPCS: 70450

== ENCOUNTER → 2020-11-25 | Outpatient (CLI) | payer BC | LOC: CARD 13:30 | PROVIDERS: ATTEND Internal Medicine Cardiovascular Disease | DX: I10 Essential (primary) hypertension (principal) | CPT/HCPCS: 93306 ==

== ENCOUNTER → 2020-12-16 | Outpatient (CLI) | payer BC ==
[~2020-12-16] MED LIST changes: +GLBR2.5T PO; -GLYB2.5T4 PO
--- NOTE | 2020-12-16 10:41 | Diagnostic Imaging Report ---
PROCEDURE: MR imaging of the brain without contrast. TECHNIQUE: Multiplanar, multisequence MR imaging of the brain was performed without contrast. INDICATION: Left-sided headache. No prior studies are available for comparison. The ventricles and sulci are within normal limits. No sulcal effacement or midline shift is identified. No acute intra-axial or extra-axial hemorrhage is detected. The normal expected flow-voids within the carotid siphons are seen. There is no diffusion restriction identified to suggest acute ischemia. Corpus callosum is unremarkable. The sella and parasellar structures are unremarkable. No mass is identified. IMPRESSION: Unremarkable noncontrast MRI of the brain. Dictated by: Dictated on workstation # [id number]
== END ==
LOC: RAD 09:11
PROVIDERS: ATTEND Nurse Practitioner Family
DX: R51.9 Headache, unspecified (principal)
CPT/HCPCS: 70551

== ENCOUNTER 2021-01-06 08:04 | Outpatient (RCR) | payer OTHER | END 2021-02-12 11:30 | disposition home or self-care (01) | PROVIDERS: ATTEND Family Medicine | DX: S56.912A Strain of unspecified muscles, fascia and tendons at forearm level, left arm, initial encounter (principal); X58.XXXA Exposure to other specified factors, initial encounter ==

== ENCOUNTER 2021-09-26 19:03 | Emergency (ER) | payer BC ==
[~2021-09-26] VITALS: Ht 160 cm; Wt 90.7 kg
[~2021-09-26 19:03] MED LIST changes: -DCS100C PO; +DOCU-239 PO
--- NOTE | 2021-09-26 19:24 | ED Cough/URI ---
General Chief Complaint: COVID19 Suspect/Confirmed Stated Complaint: COVID EXP,COUGH, RANDALL,BODY ACHES Source: patient Exam Limitations: no limitations History of Present Illness Date Seen by Provider: Sep 26, 2021 Time Seen by Provider: 19:08 Initial Comments Here with report of fever, chills, headache, body aches and cough with sore th roat and nausea. Has exposure to Covid on Wednesday, 2 days ago. She is vaccinated x2 but no booster. Has had previous Covid testing. Not short of breath currently but is concerned due to her job and is requesting Covid testing. Arrives with significant other who has similar symptoms. Timing/Duration: this morning, getting worse Severity/Quality: mild, moderate, dry cough Prior Episodes/Possible Cause: no prior episodes Associated Symptoms: cough, fever/chills, muscle aches, nasal congestion, sore throat Allergies and Home Medications Allergies Coded Allergies: adhesive tape (Unverified Adverse Reaction, Mild, RASH, 02/13/19) Patient Home Medication List Home Medication List Reviewed: Yes Docusate Sodium (Dok) 100 Mg Capsule, 100 MG PO BID PRN for CONSTIPATION-1ST LINE Prescribed by: ANGELA CARVALHO on 06/17/20720 Hydrocodone Bit/Acetaminophen (HYDROcodone/APAP 7.5/325 TAB) 1 Ea Tablet, 2 EA PO Q6H PRN for Pain-See Instructions Prescribed by: ANGELA CARVALHO on 06/17/20720 Ibuprofen (Ibu) 600 Mg Tablet, 600 MG PO Q6H Prescribed by: ANGELA CARVALHO on 06/17/20720 Simethicone (Simethicone) 80 Mg Tab.chew, 40 MG PO TID PRN for INDIGESTION 2ND LINE Prescribed by: ANGELA CARVALHO on 06/17/20720 Review of Systems Review of Systems Constitutional: see HPI; No chills; fever EENTM: see HPI Respiratory: see HPI Cardiovascular: no symptoms reported Gastrointestinal: nausea; No vomiting Musculoskeletal: see HPI; No back pain; muscle pain Skin: no symptoms reported Past Ropsuol-Phzifg-Xyxilg Hx Patient Social History Tobacco Use?: No Smoking Status: Never a Smoker Smokeless Tobacco Frequency: Never a User Use of E-Cig and/or Vaping dev: No Use of E-Cig and/or Vaping Nathan: Never a User Substance use?: No Alcohol Use?: No Pt feels they are or have been: No Immunizations Up To Date Tetanus Booster (TDap): Unknown PED Vaccines UTD: No First/Initial COVID19 Vaccinat: UNKNOWN DATE Second COVID19 Vaccination Shahid: UNKNOWN DATE COVID19 Vaccine Home Day Care Provider: YANIRA Seasonal Allergies Seasonal Allergies: No Past Medical History Surgeries: Yes (4 C-SECTIONS, gastric sleeve) Section, Gallbladder Respiratory: No Currently Using CPAP: No Currently Using BIPAP: No Cardiac: Yes Atrial Fibrillation Neurological: No Headaches /Migraines Reproductive Disorders: Yes Female Reproductive Disorders: Polycystic Ovarian Dis Sexually Transmitted Disease: No HIV/AIDS: No Genitourinary: Yes Kidney Stones Gastrointestinal: No Musculoskeletal: No Endocrine: Yes (HX GESTIONAL DIABETES) Diabetes, Insulin dep HEENT: No (GLASSES) Loss of Vision: Denies Hearing Impairment: Denies Cancer: No Psychosocial: Yes Anxiety, Depression Integumentary: Yes Psoriasis Blood Disorders: Yes (HX ANEMIA-DURING ) Adverse Reaction/Blood Tranf: No Family Medical History Reviewed Nursing Family Hx Bleeding disorder (MOTHER) Colon cancer G8 BROTHER, Onset:20's - 25 Diabetes mellitus (PGM) FH: cancer (PGM, FATHER) FHx: heart disease (MGM, PGF) HEART DIS (MGF) Headache disorder 19 MOTHER Hypertension (MOTHER) Cancer Physical Exam Vital Signs - First Documented Capillary Refill : Height: 5'3.00" Weight: 280lbs. 0.0oz. 127.676363kl; 36.91 BMI Method:Stated General Appearance: WD/WN, no apparent distress HEENT: PERRL/EOMI, pharyngeal erythema Neck: full range of motion, supple Respiratory: lungs clear, normal breath sounds Cardiovascular: no murmur, tachycardia Neurologic/Psychiatric: alert, oriented x 3 Skin: normal color, warm/dry Progress/Results/Core Measures Suspected Sepsis SIRS Temperature: Pulse: Respiratory Rate: Blood Pressure / Mean: Results/Orders Lab Results Laboratory Tests Test 09/26/21 19:15 Range/Units Influenza Type A (RT-PCR) Not Detected Not Detecte Influenza Type B (RT-PCR) Not Detected Not Detecte SARS-CoV-2 RNA (RT-PCR) Not Detected Not Detecte My Orders Orders - VINCENT MANCILLA MD Influenza A And B By Pcr (09/26/21 19:20) Covid 19 Inhouse Test (09/26/21 19:20) Vital Signs/I&O 09/26/21 09/26/21 19:09 19:09 Temp 36.3 Pulse 93 Resp 17 B/P (MAP) 156/94 (114) O2 Delivery Room Air Room Air Capillary Refill : Progress Note : Progress Note Seen and evaluated. Covid and influenza screening initiated. Monitor patient. 2025: Covid and influenza negative. Viral URI instructions given. Discharged home with return precautions. Patient verbalized understanding instructions and agreement with plan. Departure Impression Primary Impression: Viral upper respiratory infection Disposition: HOME, SELF-CARE Condition: Stable Departure-Patient Inst. Decision time for Depature: 20:26 Referrals: [facility] (PCP) Primary Care Physician FARIBA MEI APRN (Family) Primary Care Physician Patient Instructions: Viral Upper Respiratory Infection, Adult (DC) Add. Discharge Instructions: All discharge instructions reviewed with patient and/or family. Voiced understanding. You may take Tylenol/acetaminophen 1000 mg every 8 hours as needed for fever or pain. You may take ibuprofen 600 mg every 8 hours as needed for fever or pain. You may use Afrin nasal spray or the generic, 12 hour relief, 2 sprays to each nostril twice daily for 3 days only and then stop. Do not use more than 3 days. Follow-up with your DrAlejandro in a few days for recheck. Drink plenty of fluids. Return for worse pain, fever, vomiting, weakness, breathing problems or other concerns as needed. Continue to wear a mask while in public. VINCENT MANCILLA MD Sep 26, 2021 19:24
[2021-09-26 20:33] VITALS: BP 128/65
== END 2021-09-26 20:33 | disposition home or self-care (01) ==
LOC: EDUNIT# 19:03 → ER 19:08
DX: J06.9 Acute upper respiratory infection, unspecified (principal); E11.9 Type 2 diabetes mellitus without complications; G43.909 Migraine, unspecified, not intractable, without status migrainosus; L40.9 Psoriasis, unspecified; Z79.4 Long term (current) use of insulin; Z20.822 Contact with and (suspected) exposure to COVID-19
CPT/HCPCS: 87636; 99283

== ENCOUNTER → 2021-12-03 | Outpatient (CLI) | payer BC, OTHER ==
[~2021-12-03] MED LIST changes: +LURA40TA2 PO; -LURA40TA3 PO
--- NOTE | 2021-12-03 08:37 | Diagnostic Imaging Report ---
INDICATION: Palpable lump around the left nipple. Patient also complains of left breast pain. TECHNIQUE: Unilateral left 2D and 3D diagnostic mammography was performed with CAD. FINDINGS: The left breast is heterogeneously dense, limiting sensitivity of mammography. A BB marker was placed at the area of pain around the left nipple. There is a small nodule in the inferior retroareolar region. There is a cluster of circumscribed small nodules in the upper outer left breast approximately 7-9 cm from the nipple. This may represent a cluster of cysts and further evaluation of this area with ultrasound is recommended. No other abnormalities are seen. There are scattered benign calcifications bilaterally. The axillae are unremarkable. IMPRESSION: Circumscribed nodule in the inferior retroareolar left breast in the area of palpable abnormality. Further evaluation of this area with ultrasound is recommended. In addition, there is a cluster of circumscribed nodules in the upper outer left breast at mid depth. Further evaluation of this area with ultrasound is recommended as well and this will be performed today. ACR BI-RADS Category 0: Incomplete. (Needs additional imaging evaluation). Result letter will be mailed to the patient. Note: At least 10% of breast cancer is not imaged by mammography. Dictated by: Dictated on workstation # [id number]
--- NOTE | 2021-12-03 12:13 | Diagnostic Imaging Report ---
INDICATION: Left breast lump and abnormal mammogram. Comparison is made with diagnostic mammogram earlier the same day. Sonographic interrogation of an area of a lump behind the left nipple was performed. There is a hypoechoic nodule just below the skin surface at the area of lump in the retroareolar left breast measuring 9 mm x 6 mm x 9 mm. This was present on prior study dating back to December 2013. This does measure slightly larger today. Prior measurement was 6 mm x 4 mm x 6 mm. In the upper outer left breast 1:00 location, 5 cm from the nipple there is a cluster of hypoechoic nodules, largest measuring approximately 6 cm x 3 mm x 7 mm. This may represent a cluster of cysts versus intraparenchymal lymph nodes. No other masses are seen. IMPRESSION: Left breast nodule, as described in the retroareolar as well as 1:00 location left breast. These all have fairly benign features. Even so, followup left breast ultrasound in 6 months is recommended to show continued stability. ACR BI-RADS Category 3: Probably benign findings. Result letter will be mailed to the patient. Note: At least 10% of breast cancer is not imaged by mammography. BI-RADS Category 3 Dictated by: Dictated on workstation # [id number]
== END ==
LOC: RAD 08:15
PROVIDERS: ATTEND Obstetrics & Gynecology
DX: N63.21 Unspecified lump in the left breast, upper outer quadrant (principal); N63.23 Unspecified lump in the left breast, lower outer quadrant
CPT/HCPCS: 76642; 77065; G0279

== ENCOUNTER 2021-12-24 09:27 | Emergency (ER) | payer OTHER ==
[~2021-12-24] VITALS: Ht 160 cm; Wt 95.0 kg
[2021-12-24] MEDS ORDERED: LACTATED RINGERS 1,000 ML IV ONE (10:00)
[2021-12-24] MEDS ORDERED: ONDANSETRON 4 MG/2 ML (SDV) Z0FRAN IVP ONE (10:00)
--- NOTE | 2021-12-24 10:05 | ED Abdominal Pain ---
General Chief Complaint: Abdominal/GI Problems Stated Complaint: R SIDE PAIN Nursing Triage Note: PT STATES 45 MIN AGO SHE GOT A SHARP STABBING PAIN IN HER RIGHT ABD AND STARTED VOMITING ABOUT 12-15 MIN LATER. (BUCKY TORRES MED STUDENT) History of Present Illness Date Seen by Provider: Dec 24, 2021 Time Seen by Provider: 09:52 Initial Comments Mrs. Jacobs is a 36yo female with PMH hysterectomy, gastric sleeve, and cholecystecomy that presents to ED today due to R sided abdominal pain. States the pain started about one hour ago and came on suddenly while she was driving. Pain is localized to RLQ. Rates it about a 9, sharp pain that does not radiate. She has not had pain like this before. She is also having a moderate amount of nausea and vomiting. No fevers lately. Hasn't tried anything to make the pain better. Nothing she noticed makes the pain worse. She is a 0.5 PPD smoker, occasional alcohol use, no drugs. NKDA. (BUCKY TORRES MED STUDENT) Initial Comments The sudden onset of pain today is suggestive of ureteral stone or ruptured ovarian cyst. (DAVID OSCAR MD) Allergies and Home Medications Allergies Coded Allergies: adhesive tape (Unverified Adverse Reaction, Mild, RASH, 02/13/19) Patient Home Medication List Home Medication List Reviewed: Yes (DAVID OSCAR MD) Docusate Sodium (Dok) 100 Mg Capsule, 100 MG PO BID PRN for CONSTIPATION-1ST LINE Prescribed by: ANGELA CARVALHO on 06/17/20720 Hydrocodone Bit/Acetaminophen (HYDROcodone/APAP 7.5/325 TAB) 1 Ea Tablet, 2 EA PO Q6H PRN for Pain-See Instructions Prescribed by: ANGELA CARVALHO on 06/17/20720 Ibuprofen (Ibu) 600 Mg Tablet, 600 MG PO Q6H Prescribed by: ANGELA CARVALHO on 06/17/20720 Ondansetron (Ondansetron Odt) 4 Mg Tab.rapdis, 4 MG SL Q4H PRN for NAUSEA/VOMITING Prescribed by: DAVID FERGUSON on 12/24/21 1341 Simethicone (Simethicone) 80 Mg Tab.chew, 40 MG PO TID PRN for INDIGESTION 2ND LINE Prescribed by: ANGELA CARVALHO on 06/17/20 0721 Review of Systems Review of Systems Constitutional: No chills, No fever EENTM: No Blurred Vision, No Double Vision Respiratory: Denies Cough, Denies Shortness of Air, Denies Wheezing Cardiovascular: Denies Chest Pain, Denies Edema, Denies Palpitations Gastrointestinal: Abdominal Pain (RLQ); Denies Constipated, Denies Diarrhea; Nausea, Vomiting Genitourinary: Denies Burning, Denies Flank Pain, Denies Hematuria Musculoskeletal: No joint pain, No joint swelling Skin: No lesions, No rash Psychiatric/Neurological: Denies Headache, Denies Numbness (BUCKY TORRES STUDENT) Past Museaev-Nsjeqj-Attapu Hx Immunizations Up To Date Tetanus Booster (TDap): Unknown PED Vaccines UTD: No First/Initial COVID19 Vaccinat: UNKNOWN DATE Second COVID19 Vaccination Shahid: UNKNOWN DATE (BUCKY TORRES) Seasonal Allergies Seasonal Allergies: No (BUCKY TORRES) Past Medical History Surgeries: Yes (4 C-SECTIONS, gastric sleeve) Section, Gallbladder Respiratory: No Currently Using CPAP: No Currently Using BIPAP: No Cardiac: Yes Atrial Fibrillation Neurological: No Headaches /Migraines Reproductive Disorders: Yes Female Reproductive Disorders: Polycystic Ovarian Dis Sexually Transmitted Disease: No HIV/AIDS: No Genitourinary: Yes Kidney Stones Gastrointestinal: No Musculoskeletal: No Endocrine: Yes (HX GESTIONAL DIABETES) Diabetes, Insulin dep HEENT: No (GLASSES) Loss of Vision: Denies Hearing Impairment: Denies Cancer: No Psychosocial: Yes Anxiety, Depression Integumentary: Yes Psoriasis Blood Disorders: Yes (HX ANEMIA-DURING ) Adverse Reaction/Blood Tranf: No (BUCKY TORRES STUDENT) Hysterectomy (DAVID OSCAR MD) Family Medical History Bleeding disorder (MOTHER) Colon cancer G8 BROTHER, Onset:20's - 25 Diabetes mellitus (PGM) FH: cancer (PGM, FATHER) FHx: heart disease (MGM, PGF) HEART DIS (MGF) Headache disorder 19 MOTHER Hypertension (MOTHER) No Family History of: AIDS Abdominal aortic aneurysm Scioto's disease Alcoholism Alzheimer's disease Aphasia Arthritis Asthma Cancer of mouth Cardiovascular disease Cataracts Completed stroke Congenital disease Congenital heart disease Coronary thrombosis Cystic fibrosis Deafness or hearing loss Dementia Drug abuse Dysphasia Fibrocystic disease of breast Gastroenteritis Glaucoma Hypercholesterolemia Infertility Kidney disease Myocardial infarction Neoplasm Not obtainable due to adoption Osteoporosis Parkinson's disease Prostate cancer Psychosocial problem Respiratory disorder Seizure disorder Severe allergy Thyroid disease Tuberculosis Visual disorder Cancer (BUCKY TORRES MED STUDENT) Physical Exam Vital Signs Vital Signs - First Documented 12/24/21 09:42 Temp 36.4 Pulse 77 Resp 20 B/P (MAP) 132/75 (94) Pulse Ox 98 O2 Delivery Room Air (DAVID OSCAR MD) Vital Signs Capillary Refill : Less Than 3 Seconds (BUCKY TORRES MED STUDENT) Height/Weight/BMI Height: 5'3.00" Weight: 280lbs. 0.0oz. 127.235346mz; 37.00 BMI Method:Stated General Appearance: moderate distress, obese HEENT: PERRL/EOMI, pharynx normal Respiratory: chest non-tender, lungs clear, normal breath sounds Cardiovascular: normal peripheral pulses, regular rate, rhythm, no edema, no murmur Peripheral Pulses: 2+ Radial Pulses (R), 2+ Radial Pulses (L) Gastrointestinal: normal bowel sounds, soft; No guarding; tenderness (RLQ), other (Negative Psoas and rovsings sign) Extremities: non-tender, no pedal edema, no calf tenderness Neurologic/Psychiatric: alert, normal mood/affect, oriented x 3 Skin: normal color, warm/dry (BUCKY TORRES MED STUDENT) Progress/Results/Core Measures Results/Orders Lab Results Laboratory Tests Test 12/24/21 10:00 12/24/21 10:12 Range/Units White Blood Count 10.7 4.3-11.0 10^3/uL Red Blood Count 5.12 H 3.80-5.11 10^6/uL Hemoglobin 14.5 11.5-16.0 g/dL Hematocrit 45 35-52 % Mean Corpuscular Volume 87 80-99 fL Mean Corpuscular Hemoglobin 28 25-34 pg Mean Corpuscular Hemoglobin Concent 33 32-36 g/dL Red Cell Distribution Width 14.2 10.0-14.5 % Platelet Count 282 130-400 10^3/uL Mean Platelet Volume 10.3 9.0-12.2 fL Immature Granulocyte % (Auto) 0 % Neutrophils (%) (Auto) 65 42-75 % Lymphocytes (%) (Auto) 24 12-44 % Monocytes (%) (Auto) 6 0-12 % Eosinophils (%) (Auto) 4 0-10 % Basophils (%) (Auto) 1 0-10 % Neutrophils # (Auto) 7.0 1.8-7.8 10^3/uL Lymphocytes # (Auto) 2.6 1.0-4.0 10^3/uL Monocytes # (Auto) 0.7 0.0-1.0 10^3/uL Eosinophils # (Auto) 0.4 H 0.0-0.3 10^3/uL Basophils # (Auto) 0.1 0.0-0.1 10^3/uL Immature Granulocyte # (Auto) 0.0 0.0-0.1 10^3/uL Sodium Level 140 135-145 MMOL/L Potassium Level 4.7 3.6-5.0 MMOL/L Chloride Level 105 98-107 MMOL/L Carbon Dioxide Level 21 21-32 MMOL/L Anion Gap 14 5-14 MMOL/L Blood Urea Nitrogen 12 7-18 MG/DL Creatinine 0.69 0.60-1.30 MG/DL Estimat Glomerular Filtration Rate 115 BUN/Creatinine Ratio 17 Glucose Level 77 70-105 MG/DL Calcium Level 9.1 8.5-10.1 MG/DL Corrected Calcium 9.1 8.5-10.1 MG/DL Total Bilirubin 0.5 0.1-1.0 MG/DL Aspartate Amino Transf (AST/SGOT) 27 5-34 U/L Alanine Aminotransferase (ALT/SGPT) 12 0-55 U/L Alkaline Phosphatase 58 40-136 U/L Total Protein 7.5 6.4-8.2 GM/DL Albumin 4.0 3.2-4.5 GM/DL Urine Color ORANGE Urine Clarity SL CLOUDY Urine pH 6.0 5-9 Urine Specific [place] 1.025 H 1.016-1.022 Urine Protein NEGATIVE NEGATIVE Urine Glucose (UA) NEGATIVE NEGATIVE Urine Ketones NEGATIVE NEGATIVE Urine Nitrite NEGATIVE NEGATIVE Urine Bilirubin NEGATIVE NEGATIVE Urine Urobilinogen 0.2 < = 1.0 MG/DL Urine Leukocyte Esterase NEGATIVE NEGATIVE Urine RBC (Auto) NEGATIVE NEGATIVE Urine RBC NONE /HPF Urine WBC NONE /HPF Urine Squamous Epithelial Cells 10-25 H /HPF Urine Crystals NONE /LPF Urine Bacteria NEGATIVE /HPF Urine Casts NONE /LPF Urine Mucus NEGATIVE /LPF Urine Culture Indicated NO (DAVID OSCAR MD) My Orders Orders - DAVID OSCAR MD Ua Culture If Indicated (12/24/21 09:28) Ed Iv/Invasive Line Start (12/24/21 09:57) Lactated Ringers (Lr 1000 Ml Iv Solution (12/24/21 10:00) Ondansetron Injection (Zofran Injectio (12/24/21 10:00) Cbc With Automated Diff (12/24/21 10:02) Comprehensive Metabolic Panel (12/24/21 10:02) Fentanyl Inj (Sublimaze Injection) (12/24/21 10:15) Ct Abdomen/Pelvis W (12/24/21 11:37) Iohexol Injection (Omnipaque 350 Mg/Ml 1 (12/24/21 12:00) Received Contrast (Hold Metformin- Contr (12/24/21 12:00) Ns (Ivpb) (Sodium Chloride 0.9% Ivpb Bag (12/24/21 12:00) Us Non Ob Pelvis Comp/Transvag (12/24/21 12:38) Ketorolac Injection (Toradol Injection) (12/24/21 13:45) (DAVID OSCAR MD) Medications Given in ED Current Medications Medications Dose Ordered Sig/Peter Route Start Time Stop Time Status Last Admin Dose Admin Fentanyl Citrate 50 mcg ONCE ONCE IVP 12/24/21 10:15 12/24/21 10:16 DC 12/24/21 10:15 50 MCG Iohexol 100 ml ONCE ONCE IV 12/24/21 12:00 12/24/21 12:01 DC 12/24/21 12:16 100 ML Ketorolac Tromethamine 30 mg ONCE ONCE IVP 12/24/21 13:45 12/24/21 13:46 DC 12/24/21 13:42 30 MG Lactated Ringer's 1,000 ml @ 0 mls/hr Q0M ONCE IV 12/24/21 10:00 12/24/21 10:01 DC 12/24/21 10:06 999 MLS/HR Ondansetron HCl 8 mg ONCE ONCE IVP 12/24/21 10:00 12/24/21 10:01 DC 12/24/21 10:06 8 MG Sodium Chloride 100 ml ONCE ONCE IV 12/24/21 12:00 12/24/21 12:01 DC 12/24/21 12:16 80 ML (DAVID OSCAR MD) Vital Signs/I&O 12/24/21 12/24/21 09:42 13:52 Temp 36.4 36.4 Pulse 77 71 Resp 20 18 B/P (MAP) 132/75 (94) 130/74 Pulse Ox 98 99 O2 Delivery Room Air Room Air (DAVID OSCAR MD) Blood Pressure Mean: 94 Progress Progress Note : Progress Note Patient was hydrated with IV fluids and Zofran was administered for nausea. Fentanyl was given for pain. Labs were unremarkable. We discussed further work-up with imaging. We discussed the risks and benefits of CT scan with risks including radiation exposure, cost, and contrast dye exposure. Patient elected to proceed with CT scan. No ureteral stone, appendicitis, or ruptured ovarian cyst was identified. There was an intact ovarian cyst. Due to the extensive intense pain, torsion of the right ovary needed to be definitively ruled out. CT scan was followed by ultrasound. The cyst appeared to be simple in nature with no compromise to blood flow after ultrasound. Patient was further treated with Toradol and discharged home in good condition. (DAVID OSCAR MD) Diagnostic Imaging Diagonstic Imaging: CT Plain Films/CT/US/NM/MRI: abdomen, pelvis Comments CT abdomen pelvis viewed by me and report reviewed. See report below: NAME: LAURY JACOBS [facility] REC#: [id number] PT STATUS: DEP ER : 1985 PHYSICIAN: DAVID OSCAR MD ADMIT DATE: 12/24/21/ER Signed Date of Exam:12/24/21 CT ABDOMEN/PELVIS W INDICATION: Right lower quadrant pain. History of ovarian cyst. History of ureteral stone. EXAMINATION: CT abdomen and pelvis with contrast on 12/24/2021. COMPARISON: 05/09/2012. FINDINGS: The visualized lung bases are clear. The liver and spleen are unremarkable. There is evidence of previous cholecystectomy. The pancreas is normal. The adrenal glands are unremarkable. Post operative changes are noted about the stomach. There is a small hypodensity within the superior pole of the right kidney, simple in appearance. The kidneys are otherwise unremarkable. The appendix is normal. Within the right adnexa, there is a cystic lesion which measures 3.5 cm in greatest dimension, likely ovarian. No free fluid is noted. No free air. There is no acute osseous abnormality. IMPRESSION: 1. Incidental findings throughout the abdomen and pelvis with no acute process appreciated. 2. Cystic lesion in the right adnexa which is likely ovarian. If there is focal pelvic pain, sonography could provide further characterization as clinically indicated. Dictated by: Dictated on workstation # [id number] Dict: 12/24/21 1223 Trans: 12/24/21 170 [id number] Interpreted by: ZAKI HERRERA MD Electronically signed by: ZAKI HERRERA MD 12/24/211700 Diagonstic Imaging: Ultrasound Plain Films/CT/US/NM/MRI: pelvis Comments Pelvic ultrasound report reviewed. See report below: NAME: LAURY JACOBS [facility] REC#: [id number] PT STATUS: DEP ER : 1985 PHYSICIAN: DAVID OSCAR MD ADMIT DATE: 12/24/21/ER Signed Date of Exam:12/24/21 US NON OB PELVIS COMP/TRANSVAG PROCEDURE: Pelvic comp/transvaginal sonogram. TECHNIQUE: Complete transabdominal and transvaginal pelvic ultrasound was performed. In addition, limited pelvic Doppler was performed. INDICATION: A right ovarian cyst noted on recent CT. Patient complains of right lower quadrant pain. The uterus is surgically absent. Right ovary measures 3.6 x 3.5 x 3.1 cm, the left ovary measures 2.4 x 1.8 x 2.5 cm. The right ovary does contain a 2.8 x 2.8 x 2.5 cm cyst corresponding with the CT abnormality. There is blood flow to both ovaries. No torsion is seen. There is no free fluid. IMPRESSION: 1. Status post hysterectomy. 2. Right ovarian cyst corresponding with the CT abnormality. There are no findings to suggest ovarian torsion. Dictated by: Dictated on workstation # [id number] Dict: 12/24/21 1500 Trans: 12/24/21 1602 [facility] [id number] Interpreted by: VI LEES MD Electronically signed by: VI LEES MD 12/24/21 1602 (DAVID OSCAR MD) Departure Impression Primary Impression: Right sided abdominal pain Additional Impressions: Ovarian cyst Qualified Codes: N83.201 - Unspecified ovarian cyst, right side Nausea & vomiting Qualified Codes: R11.2 - Nausea with vomiting, unspecified Disposition: 01 HOME, SELF-CARE Condition: Improved Departure-Patient Inst. Decision time for Depature: 13:38 (DAVID OSCAR MD) Referrals: [facility] [place] ([place]/Family) Primary Care Physician Patient Instructions: Ovarian Cysts Add. Discharge Instructions: You may use ibuprofen up to 600 mg every 6 hours and/or Tylenol (acetaminophen) up to 1000 mg every 6 hours as needed for pain. Use the Zofran (ondansetron) as prescribed for nausea and vomiting. Follow-up with your primary care provider soon as possible for a checkup. Return to the ER if you have worsening or unrelenting symptoms despite following these instructions. Call with questions or concerns. All discharge instructions reviewed with patient and/or family. Voiced understanding. Scripts Ondansetron (Ondansetron Odt) 4 Mg Tab.rapdis 4 MG SL Q4H PRN for NAUSEA/VOMITING, #10 TAB Prov: DAVID OSCAR MD 12/24/21 Work/School Note: Family Work Note Patient Received Medical Care In the Emergency Department On: Dec 24, 2021 Patient Will Be Able to Return to Work/School On: Dec 25, 2021 Patient Restrictions: Please excuse Colby Jacobs from work 12/24/21, was with family in the ER. Medical Student Attestation and Attending Note: I have personally interviewed and examined this patient along with Bucky Torres, MS 4. I have reviewed student documentation including history, physical, and assessments. I agree with the documentation except where otherwise noted. Exam: General: Alert, oriented, mild acute distress, well developed HEENT: Normocephalic and atraumatic Heart: Regular rate and rhythm without murmur Lungs: Clear to auscultation bilaterally with normal effort Abdomen: Soft, tenderness in the right mid and lower abdomen without mass, nondistended, normal bowel sounds Back: No CVA tenderness Neuropsych: Alert, oriented, no focal deficits Skin: Warm and dry without rashes (DAVID OSCAR MD) Copy Copies To 1: DANIEL WARREN DEREK MED STUDENT Dec 24, 2021 10:05 DAVID OSCAR MD Dec 24, 2021 13:42
[2021-12-24 10:12] LABS: BASOPHILS # (AUTO) 0.1 10^3/uL (0.0-0.1); BASOPHILS % (AUTO) 1 % (0-10); EOSINOPHILS # (AUTO) 0.4 10^3/uL (0.0-0.3); EOSINOPHILS % (AUTO) 4 % (0-10); HEMATOCRIT 45 % (35-52); HEMOGLOBIN 14.5 g/dL (11.5-16.0); LYMPHOCYTES # (AUTO) 2.6 10^3/uL (1.0-4.0); LYMPHOCYTES % (AUTO) 24 % (12-44); MEAN CORPUSCULAR HEMOGLOBIN 28 pg (25-34); MEAN CORPUSCULAR HGB CONC 33 g/dL (32-36); MEAN CORPUSCULAR VOLUME 87 fL (80-99); MEAN PLATELET VOLUME 10.3 fL (9.0-12.2); MONOCYTES # (AUTO) 0.7 10^3/uL (0.0-1.0); MONOCYTES % (AUTO) 6 % (0-12); NEUTROPHILS % (AUTO) 65 % (42-75); PLATELET COUNT 282 10^3/uL (130-400); WHITE BLOOD COUNT 10.7 10^3/uL (4.3-11.0)
[2021-12-24] MEDS ORDERED: fentaNYL INJ 100 MCG/2 ML AMP IVP ONE (10:15)
[2021-12-24 10:18] LABS: BILIRUBIN,URINE NEGATIVE (NEGATIVE); CLARITY,URINE SL CLOUDY; COLOR,URINE ORANGE; GLUCOSE, URINE (UA) NEGATIVE (NEGATIVE); KETONES,URINE NEGATIVE (NEGATIVE); LEUKOCYTE ESTERASE ,URINE NEGATIVE (NEGATIVE); NITRITE,URINE NEGATIVE (NEGATIVE); PROTEIN,URINE NEGATIVE (NEGATIVE)
[2021-12-24 10:28] LABS: CALCIUM 9.1 MG/DL (8.5-10.1)
[2021-12-24 10:29] LABS: TOTAL PROTEIN 7.5 GM/DL (6.4-8.2)
[2021-12-24 10:31] LABS: BILIRUBIN,TOTAL 0.5 MG/DL (0.1-1.0)
[2021-12-24 10:32] LABS: CREATININE SERUM 0.69 MG/DL (0.60-1.30)
[2021-12-24 10:42] LABS: POTASSIUM 4.7 MMOL/L (3.6-5.0)
[2021-12-24 10:47] LABS: BACTERIA,URINE NEGATIVE /HPF
[2021-12-24] MEDS ORDERED: HOLD METFORMIN - RECEIVED CONTRAST 20 ML VIAL IV SCH (12:00)
[2021-12-24] MEDS ORDERED: NS 100 ML (IVPB) BAG IV ONE (12:00)
[2021-12-24] MEDS ORDERED: IOHEXOL 350 MG/ML 100 ML (OMNIPAQUE 350) VIAL IV ONE (12:00)
--- NOTE | 2021-12-24 12:29 | Diagnostic Imaging Report ---
INDICATION: Right lower quadrant pain. History of ovarian cyst. History of ureteral stone. EXAMINATION: CT abdomen and pelvis with contrast on 12/24/2021. COMPARISON: 05/09/2012. FINDINGS: The visualized lung bases are clear. The liver and spleen are unremarkable. There is evidence of previous cholecystectomy. The pancreas is normal. The adrenal glands are unremarkable. Post operative changes are noted about the stomach. There is a small hypodensity within the superior pole of the right kidney, simple in appearance. The kidneys are otherwise unremarkable. The appendix is normal. Within the right adnexa, there is a cystic lesion which measures 3.5 cm in greatest dimension, likely ovarian. No free fluid is noted. No free air. There is no acute osseous abnormality. IMPRESSION: 1. Incidental findings throughout the abdomen and pelvis with no acute process appreciated. 2. Cystic lesion in the right adnexa which is likely ovarian. If there is focal pelvic pain, sonography could provide further characterization as clinically indicated. Dictated by: Dictated on workstation # [id number]
[2021-12-24] MEDS ORDERED: ONDA4TAB11 SL (13:41)
[2021-12-24] MEDS ORDERED: KETOROLAC 30 MG/ML VIAL IVP ONE (13:45)
[2021-12-24 13:52] VITALS: BP 130/74
--- NOTE | 2021-12-24 15:06 | Diagnostic Imaging Report ---
PROCEDURE: Pelvic comp/transvaginal sonogram. TECHNIQUE: Complete transabdominal and transvaginal pelvic ultrasound was performed. In addition, limited pelvic Doppler was performed. INDICATION: A right ovarian cyst noted on recent CT. Patient complains of right lower quadrant pain. The uterus is surgically absent. Right ovary measures 3.6 x 3.5 x 3.1 cm, the left ovary measures 2.4 x 1.8 x 2.5 cm. The right ovary does contain a 2.8 x 2.8 x 2.5 cm cyst corresponding with the CT abnormality. There is blood flow to both ovaries. No torsion is seen. There is no free fluid. IMPRESSION: 1. Status post hysterectomy. 2. Right ovarian cyst corresponding with the CT abnormality. There are no findings to suggest ovarian torsion. Dictated by: Dictated on workstation # [id number]
== END 2021-12-24 13:53 | disposition home or self-care (01) ==
LOC: EDUNIT# 09:27 → ER 09:28
DX: N83.201 Unspecified ovarian cyst, right side (principal); R11.2 Nausea with vomiting, unspecified; E66.9 Obesity, unspecified; Z68.37 Body mass index [BMI] 37.0-37.9, adult; Z90.710 Acquired absence of both cervix and uterus
CPT/HCPCS: 36415; 74177; 76830; 76856; 80053; 81000; 85025

== ENCOUNTER 2022-01-14 23:36 | Emergency (ER) | payer OTHER ==
[~2022-01-14] VITALS: Ht 160 cm; Wt 97.8 kg
[~2022-01-14 23:36] MED LIST changes: +ONDA4TAB11 SL
[2022-01-15] MEDS ORDERED: ONDANSETRON 4 MG (ZOFRAN) ORAL DISSOLVE TAB PO STA (00:27)
[2022-01-15 01:28] VITALS: BP 132/80
[2022-01-15] MEDS ORDERED: ONDA4TAB11 PO (01:29)
--- NOTE | 2022-01-15 01:29 | ED GI ---
General Chief Complaint: General Problems/Pain Stated Complaint: POSS FOOD POISONING Nursing Triage Note: PT AMBULATORY INTO ER WITH COMPLAINT OF VOMITING SINCE EATING VERY RARE STEAK AT DINNER. PT STATES THAT SHE FELT FINE PRIOR TO DINNER AND HASN'T BEEN AROUND ANYONE SICK. PT DENIES OTHER COMPLAINTS. Allergies and Home Medications Allergies Coded Allergies: adhesive tape (Unverified Adverse Reaction, Mild, RASH, 02/13/19) Patient Home Medication List Docusate Sodium (Dok) 100 Mg Capsule, 100 MG PO BID PRN for CONSTIPATION-1ST LINE Prescribed by: ANGELA CARVALHO on 06/17/20720 Hydrocodone Bit/Acetaminophen (HYDROcodone/APAP 7.5/325 TAB) 1 Ea Tablet, 2 EA PO Q6H PRN for Pain-See Instructions Prescribed by: ANGELA CARVALHO on 06/17/20720 Ibuprofen (Ibu) 600 Mg Tablet, 600 MG PO Q6H Prescribed by: ANGELA CARVALHO on 06/17/20720 Ondansetron (Ondansetron Odt) 4 Mg Tab.rapdis, 4 MG SL Q4H PRN for NAUSEA/VOMITING Prescribed by: DAVID FERGUSON on 12/24/21 1341 Ondansetron (Ondansetron Odt) 4 Mg Tab.rapdis, 4 MG PO Q4H Prescribed by: MICHAEL WOODRUFF on 01/15/22 0129 Simethicone (Simethicone) 80 Mg Tab.chew, 40 MG PO TID PRN for INDIGESTION 2ND LINE Prescribed by: ANGELA CARVALHO on 06/17/20720 Past Xlkrqtj-Xyjxjn-Rznemz Hx Patient Social History Tobacco Use?: Yes Tobacco type used: Cigars Smoking Status: Current Everyday Smoker Use of E-Cig and/or Vaping dev: No Substance use?: No Alcohol Use?: Yes Alcohol type: Beer, Hard Liquor, Wine Alcohol Frequency: Couple times a week Pt feels they are or have been: No Immunizations Up To Date Tetanus Booster (TDap): Unknown PED Vaccines UTD: No Influenza Vaccine Up-to-Date: No; Not Current First/Initial COVID19 Vaccinat: 04/16 Second COVID19 Vaccination Shahid: 05/17 Third COVID19 Vaccination Date: 04/16 Seasonal Allergies Seasonal Allergies: No Past Medical History Surgeries: Yes (4 C-SECTIONS, gastric sleeve) Hysterectomy Respiratory: No Currently Using CPAP: No Currently Using BIPAP: No Cardiac: Yes Atrial Fibrillation Neurological: No Headaches /Migraines Reproductive Disorders: Yes Female Reproductive Disorders: Polycystic Ovarian Dis Sexually Transmitted Disease: No HIV/AIDS: No Genitourinary: Yes Kidney Stones Gastrointestinal: No Musculoskeletal: No Endocrine: Yes (HX GESTIONAL DIABETES) Diabetes, Insulin dep HEENT: No (GLASSES) Loss of Vision: Denies Hearing Impairment: Denies Cancer: No Psychosocial: Yes Anxiety, Depression Integumentary: Yes Psoriasis Blood Disorders: Yes (HX ANEMIA-DURING ) Adverse Reaction/Blood Tranf: No Family Medical History Bleeding disorder (MOTHER) Colon cancer G8 BROTHER, Onset:20's - 25 Diabetes mellitus (PGM) FH: cancer (PGM, FATHER) FHx: heart disease (MGM, PGF) HEART DIS (MGF) Headache disorder 19 MOTHER Hypertension (MOTHER) No Family History of: AIDS Abdominal aortic aneurysm Wirt's disease Alcoholism Alzheimer's disease Aphasia Arthritis Asthma Cancer of mouth Cardiovascular disease Cataracts Completed stroke Congenital disease Congenital heart disease Coronary thrombosis Cystic fibrosis Deafness or hearing loss Dementia Drug abuse Dysphasia Fibrocystic disease of breast Gastroenteritis Glaucoma Hypercholesterolemia Infertility Kidney disease Myocardial infarction Neoplasm Not obtainable due to adoption Osteoporosis Parkinson's disease Prostate cancer Psychosocial problem Respiratory disorder Seizure disorder Severe allergy Thyroid disease Tuberculosis Visual disorder Cancer Physical Exam Vital Signs Vital Signs - First Documented 01/15/22 00:26 Temp 36.6 Pulse 86 Resp 16 B/P (MAP) 141/102 (115) Pulse Ox 96 O2 Delivery Room Air Capillary Refill : Less Than 3 Seconds Height/Weight/BMI Height: 5'3.00" Weight: 280lbs. 0.0oz. [id number]; 38.00 BMI Method:Stated Progress/Results/Core Measures Results/Orders My Orders Orders - MICHAEL WOODRUFF DO Ondansetron Oral Dissolve Tab (Zofran (01/15/22 00:27) Vital Signs/I&O 01/15/22 01/15/22 00:26 01:28 Temp 36.6 Pulse 86 75 Resp 16 16 B/P (MAP) 141/102 (115) 132/80 Pulse Ox 96 98 O2 Delivery Room Air Room Air Blood Pressure Mean: 115 Departure Impression Primary Impression: Nausea & vomiting Disposition: 01 HOME, SELF-CARE Condition: Improved Departure-Patient Inst. Decision time for Depature: 01:28 Referrals: [facility] (PCP/Family) Primary Care Physician Patient Instructions: Nausea and Vomiting, Adult ED Add. Discharge Instructions: CLEAR LIQUIDS--WATER, BROTH, JELLO, GATORADE TOMORROW IF YOU ARE BETTER, ADD BRATS DIET TO CLEAR LIQUIDS--BANANAS, RICE, APPLESAUCE, TOAST, SALTINES FOLLOW UP WITH YOUR DR IN 1-2 DAYS IF NO BETTER, RETURN TO ER IF WORSE All discharge instructions reviewed with patient and/or family. Voiced understanding. Scripts Ondansetron (Ondansetron Odt) 4 Mg Tab.rapdis 4 MG PO Q4H for Nausea/Vomiting, #10 TAB Prov: MICHAEL WOODRUFF DO 01/15/22 MICHAEL WOODRUFF DO Jan 15, 2022 01:29
[2022-01-15] MEDS ORDERED: RX-ONDANSETRON 4 MG ODT (ZOFRAN) PPK #4 PO STA (01:37)
== END 2022-01-15 01:49 | disposition home or self-care (01) ==
LOC: EDUNIT# 23:36 → ER 23:38
DX: R11.2 Nausea with vomiting, unspecified (principal); E11.9 Type 2 diabetes mellitus without complications; F17.290 Nicotine dependence, other tobacco product, uncomplicated; Z79.4 Long term (current) use of insulin
CPT/HCPCS: 99283

== ENCOUNTER 2022-06-01 06:05 | Emergency (ER) | payer OTHER ==
[~2022-06-01] VITALS: Ht 172.7 cm; Wt 95.0 kg
[~2022-06-01 06:05] MED LIST changes: -LABE100T6 PO; +LABE100T9 PO; +ONDA4TAB11 PO
[2022-06-01] MEDS ORDERED: CEPH500T PO (06:26)
--- NOTE | 2022-06-01 06:29 | ED Integumentary General ---
General Chief Complaint: Skin/Wound Problems Stated Complaint: L THIGH LARGE PURPLE/RED SPOT,BURNING,THROBBING Source: patient Exam Limitations: no limitations History of Present Illness Date Seen by Provider: Jun 01, 2022 Time Seen by Provider: 06:13 Initial Comments 36-year-old female presents emergency department for purpleish discoloration to her left medial thigh as well as pain in this area. Symptoms started yesterday and has a purple "spot." She states it has been progressed and enlarged and now has pain in the area. Pain is focal right at the area of bruising redness. No fever chills nausea vomiting is new for her though she does have some "longstanding GI issues." These are unchanged. She denies any diffuse muscle aches. No pain further down her leg. Allergies and Home Medications Allergies Coded Allergies: adhesive tape (Unverified Adverse Reaction, Mild, RASH, 02/13/19) Patient Home Medication List Home Medication List Reviewed: Yes Cephalexin (Cephalexin) 500 Mg Tablet, 500 MG PO BID Prescribed by: ARPITA FLEMING MD on 06/01/22 0626 Docusate Sodium (Dok) 100 Mg Capsule, 100 MG PO BID PRN for CONSTIPATION-1ST LINE Prescribed by: ANGELA CARVALHO on 06/17/20 07 Hydrocodone Bit/Acetaminophen (HYDROcodone/APAP 7.5/325 TAB) 1 Ea Tablet, 2 EA PO Q6H PRN for Pain-See Instructions Prescribed by: ANGELA CARVALHO on 06/17/20720 Ibuprofen (Ibu) 600 Mg Tablet, 600 MG PO Q6H Prescribed by: ANGELA CARVALHO on 06/17/20 07 Ondansetron (Ondansetron Odt) 4 Mg Tab.rapdis, 4 MG SL Q4H PRN for NAUSEA/VOMITING Prescribed by: DAVID FERGUSON on 12/24/21 1341 Ondansetron (Ondansetron Odt) 4 Mg Tab.rapdis, 4 MG PO Q4H Prescribed by: MICHAEL WOODRUFF on 01/15/22 0129 Simethicone (Simethicone) 80 Mg Tab.chew, 40 MG PO TID PRN for INDIGESTION 2ND LINE Prescribed by: ANGELA CARVALHO on 06/17/20 0721 Review of Systems Review of Systems Constitutional: no symptoms reported EENTM: no symptoms reported Respiratory: no symptoms reported Cardiovascular: no symptoms reported Gastrointestinal: no symptoms reported Genitourinary: no symptoms reported Musculoskeletal: muscle pain Skin: no symptoms reported Psychiatric/Neurological: No Symptoms Reported Endocrine: No Symptoms Reported Hematologic/Lymphatic: No Symptoms Reported Past Sqzdqoz-Atrpxn-Xopmov Hx Patient Social History Tobacco Use?: No Substance use?: No Alcohol Use?: No Immunizations Up To Date Tetanus Booster (TDap): Unknown PED Vaccines UTD: No First/Initial COVID19 Vaccinat: 04/16 Second COVID19 Vaccination Shahid: 05/17 Third COVID19 Vaccination Date: 04/16 Seasonal Allergies Seasonal Allergies: No Past Medical History Surgeries: Yes ( X 4; GASTRIC SLEEVE; HYST/OVARIES INTACT) Abdominal, Section, Gallbladder, Hysterectomy Respiratory: No Currently Using CPAP: No Currently Using BIPAP: No Cardiac: Yes (HX OF PAF--NO TX OR MEDICATIONS) Atrial Fibrillation Neurological: Yes Headaches /Migraines Reproductive Disorders: Yes (HYST/OVARIES INTACT) Female Reproductive Disorders: Menstrual Problems, Polycystic Ovarian Dis [employer] History: Hysterectomy Sexually Transmitted Disease: No HIV/AIDS: No Genitourinary: Yes Kidney Stones Gastrointestinal: No Musculoskeletal: No Endocrine: Yes (HX GESTIONAL DIABETES) Diabetes, Insulin dep HEENT: No (GLASSES) Loss of Vision: Denies Hearing Impairment: Denies Cancer: No Psychosocial: Yes Anxiety, Depression Integumentary: Yes Psoriasis Blood Disorders: Yes (HX ANEMIA-DURING ) Adverse Reaction/Blood Tranf: No Family Medical History Reviewed Nursing Family Hx Cancer Physical Exam Vital Signs Vital Signs - First Documented 06/01/22 06:19 Temp 36.9 Pulse 91 Resp 20 B/P (MAP) 147/89 (108) Pulse Ox 99 O2 Delivery Room Air Capillary Refill : General Appearance: WD/WN, no apparent distress HEENT: normal ENT inspection, pharynx normal Neck: non-tender, supple, normal inspection Cardiovascular: regular rate, rhythm, no edema, no gallop, no JVD, no murmur Respiratory: chest non-tender, lungs clear, normal breath sounds, no respiratory distress, no accessory muscle use Gastrointestinal: normal bowel sounds, non tender, soft, no organomegaly Back: normal inspection, no CVA tenderness Extremities: other (There is a purple bruised area to the left medial thigh, approximately 1.5 cm in diameter. There is a small ring of cellulitis surrounding this with erythema. Probably about a centimeter in maximum width. No fluctuance or induration. Neurovascular motor and sensory intact.) Neurologic/Psychiatric: no motor/sensory deficits, alert, normal mood/affect, oriented x 3 Skin: other (As described above) Lymphatic: no adenopathy Progress/Results/Core Measures Results/Orders Vital Signs/I&O 06/01/22 06:19 Temp 36.9 Pulse 91 Resp 20 B/P (MAP) 147/89 (108) Pulse Ox 99 O2 Delivery Room Air Departure Communication (Admissions) Patient is hemodynamically stable. Does appear to have a spider bite her left medial thigh. Given supportive care. There are some small surrounding cellulitis, will give antibiotics. Discharged in stable condition. No systemic symptoms. Impression Primary Impression: Spider bite Qualified Codes: T63.301A - Toxic effect of unspecified spider venom, accidental (unintentional), initial encounter Additional Impression: Cellulitis Qualified Codes: L03.116 - Cellulitis of left lower limb Disposition: HOME, SELF-CARE Condition: Stable Departure-Patient Inst. Referrals: [facility] (PCP/Family) Primary Care Physician Patient Instructions: Spider Bites Add. Discharge Instructions: Take the antibiotics as prescribed. Use motrin or aleve for pain. All discharge instructions reviewed with patient and/or family. Voiced understanding. Scripts Cephalexin (Cephalexin) 500 Mg Tablet 500 MG PO BID for 7 Days, #14 TAB Prov: ARPITA FLEMING DO 06/01/22 ARPITA FLEMING DO Jun 01, 2022 06:28
[2022-06-01 06:31] VITALS: BP 147/89
== END 2022-06-01 06:35 | disposition home or self-care (01) ==
LOC: EDUNIT# 06:05 → ER 06:10
DX: L03.116 Cellulitis of left lower limb (principal); W57.XXXA Bitten or stung by nonvenomous insect and other nonvenomous arthropods, initial encounter
CPT/HCPCS: 99281

== ENCOUNTER → 2022-06-18 | Outpatient (CLI) | payer OTHER ==
[~2022-06-18] MED LIST changes: +CEPH500T PO
--- NOTE | 2022-06-18 14:59 | Diagnostic Imaging Report ---
INDICATION: Left breast lump and left breast pain. Correlation is made with left breast ultrasound from 12/03/2021. Heterogeneous, hypoechoic nodule just below the skin surface in the retroareolar left breast is again noted, stable in size when compared with prior exam measuring 10 mm x 6 mm x 9 mm. There is a cluster of intraparenchymal lymph nodes at the 1 o'clock location left breast, 5 cm from the nipple, largest measuring 6 mm x 5 mm x 8 mm, stable. No concerning sonographic finding is seen. No new masses detected. IMPRESSION: Stable solid benign-appearing nodules in the retroareolar left breast as well as the 1 o'clock location left breast when compared with prior study from 12/03/2021. ACR BI-RADS Category 2: Benign findings. Result letter will be mailed to the patient. Note: At least 10% of breast cancer is not imaged by mammography. BI-RADS Category 2 Dictated by: Dictated on workstation # [id number]
== END ==
LOC: RAD 12:30
PROVIDERS: ATTEND Surgery
DX: N63.21 Unspecified lump in the left breast, upper outer quadrant (principal)

== ENCOUNTER 2022-12-15 17:57 | Emergency (ER) | payer OTHER ==
[~2022-12-15] VITALS: Ht 160 cm; Wt 91.0 kg
[2022-12-15 18:24] VITALS: BP 130/83
== END 2022-12-15 19:38 | disposition left against medical advice (07) ==
LOC: EDUNIT# 17:57 → ER 17:58
DX: R10.31 Right lower quadrant pain (principal); R11.10 Vomiting, unspecified